=== PATIENT | female | born 1980 | race African-American/Black ===

== ENCOUNTER 2016-07-31 21:58 | Emergency (ER) | payer MEDICARE, MEDICAID ==
[~2016-07-31] VITALS: Ht 157.5 cm; Wt 70.3 kg
[~2016-07-31 21:58] MED LIST: ADALAT20 MG ORAL; BACLOFEN10 MG ORAL; CATAPRES0.2 MG ORAL; CLONIDINE 0.2M0.2 MG ORAL; CLONIDINE0.1 MG ORAL; COLACE100 MG ORAL; CYCLOBENZAPRINE10 MG ORAL; FEROSUL325 M1 PO; FUROSEMIDE20 M1 ORAL; HUMALOG100 UNIT/4 SUBQ; HYDROCODON-ACE1 EA13 ORAL; LEVEMIR FL100 UNIT/1 SUBQ; LIDODERM700 M1 TDERMAL; LOSARTAN POTASS25 MG ORAL; LOTENSIN20 MG ORAL; MACROBID100 MG ORAL; METOPROLOL TART25 MG ORAL; METOPROLOL TART50 MG ORAL; MIRALAX17 G2 ORAL; NORVASC5 MG ORAL; NOVOLOG100 UNITS1 SUBQ; SENNA-GEN8.6 M1 ORAL; SYNTHROID50 MCG ORAL; TERAZOSIN HCL1 MG ORAL; VALACYCLOVIR500 MG ORAL
[2016-07-31 22:08] VITALS: BP 151/91
--- NOTE | 2016-07-31 22:12 | Emergency Room Report ---
History of Present Illness General Chief Complaint: Abnormal Labs Source: Patient, Medical Record, EMS Present Illness HPI This is a 36-year-old female with a history of diabetes hypertension. She was admitted to the correction because of DKA and severe fluid overloaded. She is improved greatly. She was sent here because of uncontrolled blood sugar the correction. She currently being treated for a urinary tract infection with Cipro. Also complaining of vaginal bleeding and abdominal cramps. Denies any fever chills denies any nausea vomiting. Pain is 7/10. Allergies: Coded Allergies: PENICILLINS (Verified Allergy, Unknown, 03/13/15) Patient History Past Medical History: see triage record, old chart reviewed, DM, HTN Past Surgical History: other Pertinent Family History: none Social History: Denies: smoking Now: No Immunizations: other Reviewed Nursing Documentation: PMH: Agreed, PSxH: Agreed Nursing Documentation-PMH Hx Cardiac Problems: Yes Hx Hypertension: Yes Hx Diabetes: Yes Hx Cancer: No Hx Gastrointestinal Problems: No Hx Neurological Problems: No Hx Headaches: Yes Review of Systems Eye: Denies: blurred vision, eye pain ENT: Denies: ear pain, nose congestion, throat swelling Respiratory: Denies: cough, shortness of breath Cardiovascular: Denies: chest pain, palpitations Gastrointestinal: Reports: abdominal pain, Denies: diarrhea, nausea, vomiting Genitourinary: Reports: vag bleed/dc Musculoskeletal: Denies: back pain, joint pain Skin: Denies: rash Neurological: Denies: headache, numbness Endocrine: Denies: increased thirst, increased urine Hematologic/Lymphatic: Denies: easy bruising All Other Systems: negative except mentioned in HPI Physical Exam Vital Signs Date Time Temp Pulse Resp B/P Pulse Ox O2 Delivery O2 Flow Rate FiO2 07/31/16 21:59 97.9 82 18 151/91 98 Room Air vitals with hypertension Sp02 EP Interpretation: reviewed, normal General Appearance: well appearing, no apparent distress, alert Head: normocephalic, atraumatic Eyes: bilateral eye EOMI, bilateral eye PERRL ENT: hearing grossly normal, normal pharynx Neck: full range of motion, supple, no meningismus Respiratory: chest non-tender, lungs clear, normal breath sounds Cardiovascular #1: regular rate, rhythm, no murmur Gastrointestinal: normal bowel sounds, non tender, no mass, no organomegaly, no bruit, non-distended Musculoskeletal: back normal, gait/station normal, normal range of motion Psychiatric: mood/affect normal Skin: warm/dry Medical Decision Making Diagnostic Impression: Primary Impression: Anemia Qualified Codes: D64.9 - Anemia, unspecified Additional Impressions: HTN (hypertension) Qualified Codes: I10 - Essential (primary) hypertension Acute on chronic kidney failure Hyperglycemia due to type 1 diabetes mellitus Nephrotic range proteinuria ER Course Patient presents with hyperglycemia. Not in DKA. She is over diuresed with increasing creatinine. We'll discharge back to correction. No evidence of infection. Again she grew out Escherichia coli in the past and currently taking Cipro which is sensitive. We'll hold Lasix for a week and repeat chemistry. Patient said that she felt that she did leave the correction now. I stressed the case with Dr. Aranda who is covering for Dr. Holder. He agreed with the treatment plan. Lab Results Impression labs showed worsening BUN/creatinine. Last Vital Signs Date Time Temp Pulse Resp B/P Pulse Ox O2 Delivery O2 Flow Rate FiO2 07/31/16 21:59 97.9 82 18 151/91 98 Room Air Status: improved Disposition: [facility] Condition: Stable Additional Instructions: Hold Lasix for a week. Repeat chemistry within a week. Return for worsening symptoms. ANA GROSS M.D. Jul 31, 2016 22:12
[2016-07-31 23:06] LABS: APPEARANCE,URINE CLEAR; KETONES,URINE 2+ (NEGATIVE); LEUKOCYTE ESTERASE ,URINE NEGATIVE (NEGATIVE); NITRITE,URINE NEGATIVE (NEGATIVE); PH,URINE 6 (4.5-8.0); PROTEIN,URINE 4+ (NEGATIVE); UROBILINOGEN,URINE NORMAL MG/DL (0.0-1.0)
[2016-07-31 23:10] LABS: BASOPHILS % (AUTO) 0.8 % (0.0-2.0); EOSINOPHILS % (AUTO) 2.7 % (0.0-3.0); LYMPHOCYTES % (AUTO) 18.3 % (20.0-45.0); MEAN CORPUSCULAR HGB CONC 32.2 G/DL (32.0-36.0); MEAN CORPUSCULAR VOLUME 87 FL (80-99); MEAN PLATELET VOLUME 5.1 FL (6.5-10.1); MONOCYTES % (AUTO) 6.6 % (1.0-10.0); NEUTROPHILS % (AUTO) 71.6 % (45.0-75.0); PLATELET COUNT 362 K/UL (150-450); RED BLOOD COUNT 3.11 M/UL (4.20-5.40); RED CELL DISTRIBUTION WIDTH 12.7 % (11.6-14.8); WHITE BLOOD COUNT 8.5 K/UL (4.8-10.8)
[2016-07-31 23:19] LABS: ALANINE AMINOTRANSFERASE 14 U/L (3-33); ALBUMIN/GLOBULIN RATIO 0.7 (1.0-2.7); ANION GAP 18 (5-15); ASPARTATE AMINO TRANSFERASE 21 U/L (5-40); CALCIUM 8.4 mg/dL (8.6-10.2); CARBON DIOXIDE 23 mEQ/L (20-30); CHLORIDE 92 mEQ/L (98-107); CREATININE 3.9 mg/dL (0.5-0.9); GLOMERULAR FILTRATION RATE 15.6 mL/min (>60); HEMOLYSIS 7; POTASSIUM 4.2 mEQ/L (3.4-4.9); SODIUM 133 mEQ/L (135-145); TOTAL PROTEIN 6.6 g/dL (6.6-8.7)
[2016-07-31 23:37] VITALS: BP 149/93
[2016-07-31 23:43] LABS: BACTERIA,URINE FEW /HPF; HYALINE CASTS, URINE 0-2 /LPF; SQUAMOUS EPITHELIAL CELL,UR MODERATE /LPF (NONE/OCC); WBC,URINE 0-2 /HPF (0 - 2)
[2016-08-01 01:00] VITALS: BP 156/88
[2016-08-01 03:48] VITALS: BP 173/93
[2016-08-01 03:55] VITALS: BP 173/93
--- NOTE | 2016-08-05 14:02 | Diagnostic Imaging Report ---
Indication: Abdominal pain Technique: Continuous helical transaxial imaging of the abdomen and pelvis was obtained from the lung bases to the pubic symphysis. No intravenous contrast was administered. Coronal 2-D reformats were also obtained. Total Dose length Product (DLP): [address] Dose Index Volume (CTDIvol): 13 mGy Comparison: 05/27/16 Findings: The lung bases are clear. There is trace pericardial effusion which is thickening. Subcutaneous soft tissue stranding consistent with anasarca noted diffusely. This solid organ evaluation is limited. 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 There is no nephrolithiasis or hydronephrosis identified. Appendix is normal. Urinary bladder wall is mildly thickened. Intrauterine device is present and low-lying in the lower uterine segment upper cervix region. Please correlate clinically. No free fluid or free air identified. Impression: Intrauterine device in the lower uterine segment. This is unchanged from the last study. Trace pericardial effusion Anasarca Tiny angiomyolipoma left kidney Normal appendix limited study due to the absence of intravenous and oral contrast. [facility] has communicated the preliminary results to the Emergency Department. Their findings are largely concordant with this report. The CT scanner at [facility] is accredited by the [employer] and the scans are performed using protocols designed to limit radiation exposure to as low as reasonably achievable to attain images of sufficient resolution adequate for diagnostic evaluation.
== END 2016-08-01 03:55 ==
LOC: EDBD 21:58 → EMR 22:20
DX: D64.9 Anemia, unspecified (principal); I10 Essential (primary) hypertension; N18.9 Chronic kidney disease, unspecified; E10.65 Type 1 diabetes mellitus with hyperglycemia; R80.8 Other proteinuria; Z88.0 Allergy status to penicillin; N93.9 Abnormal uterine and vaginal bleeding, unspecified; R10.9 Unspecified abdominal pain
CPT/HCPCS: 36415; 74176; 80053; 81001; 81025; 82962; 85025; 96360

== ENCOUNTER 2016-09-08 15:56 | Inpatient (IN) | payer MEDICARE, MEDICAID ==
[~2016-09-08] VITALS: Ht 157.5 cm; Wt 80.7 kg
[2016-09-08 16:50] VITALS: BP 176/105
[2016-09-08 18:16] LABS: MEAN CORPUSCULAR HEMOGLOBIN 28.6 PG (27.0-31.0); MEAN CORPUSCULAR HGB CONC 32.7 G/DL (32.0-36.0); MEAN CORPUSCULAR VOLUME 87 FL (80-99); MEAN PLATELET VOLUME 5.2 FL (6.5-10.1); PLATELET COUNT 317 K/UL (150-450); RED BLOOD COUNT 2.03 M/UL (4.20-5.40); RED CELL DISTRIBUTION WIDTH 14.3 % (11.6-14.8); WHITE BLOOD COUNT 7.9 K/UL (4.8-10.8)
[2016-09-08 18:17] LABS: ALANINE AMINOTRANSFERASE 14 U/L (3-33); ALBUMIN/GLOBULIN RATIO 0.9 (1.0-2.7); ANION GAP 20 (5-15); ASPARTATE AMINO TRANSFERASE 17 U/L (5-40); CALCIUM 8.5 mg/dL (8.6-10.2); CARBON DIOXIDE 16 mEQ/L (20-30); CHLORIDE 98 mEQ/L (98-107); CREATININE 3.6 mg/dL (0.5-0.9); GLOMERULAR FILTRATION RATE 17.2 mL/min (>60); HEMOLYSIS 30; LIPASE 21 U/L (< 60); POTASSIUM 5.1 mEQ/L (3.4-4.9); SODIUM 134 mEQ/L (135-145); TROPONIN I < 0.30 ng/mL (<=0.30)
[2016-09-08 18:28] LABS: CKMB 6.1 ng/mL (< 3.8)
[2016-09-08 19:12] LABS: APPEARANCE,URINE CLEAR; KETONES,URINE NEGATIVE (NEGATIVE); LEUKOCYTE ESTERASE ,URINE NEGATIVE (NEGATIVE); NITRITE,URINE NEGATIVE (NEGATIVE); PH,URINE 5 (4.5-8.0); PROTEIN,URINE 4+ (NEGATIVE); UROBILINOGEN,URINE NORMAL MG/DL (0.0-1.0)
[2016-09-08 19:23] LABS: BACTERIA,URINE FEW /HPF; SQUAMOUS EPITHELIAL CELL,UR FEW /LPF (NONE/OCC); WBC,URINE 0-2 /HPF (0 - 2)
[2016-09-08 20:09] LABS: PROTHROMBIN TIME 10.1 SEC (9.30-11.50)
[2016-09-08 20:52] VITALS: BP 184/109
[2016-09-08] MEDS ORDERED: cloNIDine 0.2mg Tab ORAL ONE (21:00)
[2016-09-08 21:40] LABS: BASOPHILS % (MANUAL) 1 % (0-2); EOSINOPHILS % (MANUAL) 2 % (0-3); LYMPHOCYTES % (MANUAL) 13 % (20-45); NEUTROPHILS % (MANUAL) 79 % (45-75); TOTAL CELLS COUNTED 100
[2016-09-08 21:41] LABS: ANISOCYTOSIS 1+; BAND NEUTROPHILS % (MANUAL) 0 % (0-8); HYPOCHROMASIA 1+; PLATELET ESTIMATE ADEQUATE; PLATELET MORPHOLOGY NORMAL
[2016-09-08 21:55] VITALS: BP 167/91
--- NOTE | 2016-09-08 22:36 | Emergency Room Report ---
History of Present Illness General Chief Complaint: Upper Respiratory Illness Source: EMS (NELSON CHU) Present Illness HPI The patient is a 36 yo f with ESRD presenting for shortness of breath. The patient was being seen by her PMD for her followup visit after being discharged from the hospital for ESRD and fluid retention when she began to experience SOB and paramedics were called. The patient states that she is now feeling well and only admits to fatigue. The patient states that last time she felt like this, she was admitted for anemia. The patient denies any pain. Patient denies other symptoms including N, V, F, chills, CP, cough, abd pain, flank pain, hematuria, dysuria. The patient does admit to cold intolerance and dizziness. (NELSON CHU) Allergies: Coded Allergies: PENICILLINS (Verified Allergy, Unknown, 03/13/15) Patient History Past Medical History: see triage record Pertinent Family History: none Reviewed Nursing Documentation: PMH: Agreed, PSxH: Agreed (NELSON CHU) Nursing Documentation-PMH Past Medical History: No History, Except For Hx Cardiac Problems: Yes Hx Hypertension: Yes Hx Diabetes: Yes Hx Cancer: No Hx Gastrointestinal Problems: No Hx Neurological Problems: No Hx Headaches: Yes (NELSON CHU) Review of Systems All Other Systems: negative except mentioned in HPI (NELSON CHU P.Verenice) Physical Exam Vital Signs Date Time Temp Pulse Resp B/P Pulse Ox O2 Delivery O2 Flow Rate FiO2 09/08/16 15:51 98.4 110 18 176/105 100 Room Air (NELSON CHU P.AKylee) Medical Decision Making PA Attestation Dr. Huang is my supervising physician. Patient management was discussed with my supervising physician (NELSON CHU PKyleeAKylee) Diagnostic Impression: Primary Impression: Anemia Qualified Codes: D64.9 - Anemia, unspecified Additional Impressions: KENYA (acute kidney injury) HTN (hypertension) Qualified Codes: I15.9 - Secondary hypertension, unspecified Menometrorrhagia ER Course The patient is a 36 yo f with ESRD presenting for shortness of breath DDx: anemia, PNA, bronchitis, ESRD PE: HTN and tachycardia. Afebrile. A&Ox3. NAD Skin is warm and dry. No jaundice. No pallor Tachycardia. No MRG Lungs: CTA bilat Abd is soft and non tender. Normal BS No focal deficit. Normal gait CBC: significant anemia with H/H of 5.8 and 17.8. No leukocytosis CMP: hyponatremia, hyperkalemia, BUN/Cr significantly elevated, hyperglycemia PT/PTT WNL UA: No signs of infection CXR shows bilat lower lobe effusion. EKG shows sinus tachycardia and inferolateral ST depression. Blood transfusion is started in the ED and the pt will be admitted in serious condition. Dr. Huang has spoken with admitting physician. Pt agrees to this. Laboratory Tests Test 09/08/16 17:00 09/08/16 17:52 09/08/16 19:30 Urine Color Pale yellow Urine Appearance Clear Urine pH 5 (4.5-8.0) Urine Specific [place] 1.015 (1.005-1.035) Urine Protein 4+ (NEGATIVE) H Urine Glucose (UA) 3+ (NEGATIVE) H Urine Ketones Negative (NEGATIVE) Urine Occult Blood 4+ (NEGATIVE) H Urine Nitrite Negative (NEGATIVE) Urine Bilirubin Negative (NEGATIVE) Urine Urobilinogen Normal MG/DL (0.0-1.0) Urine Leukocyte Esterase Negative (NEGATIVE) Urine RBC 5-10 /HPF (0 - 2) H Urine WBC 0-2 /HPF (0 - 2) Urine Squamous Epithelial Cells Few /LPF (NONE/OCC) Urine Bacteria Few /HPF (NONE) White Blood Count 7.9 K/UL (4.8-10.8) Red Blood Count 2.03 M/UL (4.20-5.40) L Hemoglobin 5.8 G/DL (12.0-16.0) *L Hematocrit 17.8 % (37.0-47.0) L Mean Corpuscular Volume 87 FL (80-99) Mean Corpuscular Hemoglobin 28.6 PG (27.0-31.0) Mean Corpuscular Hemoglobin Concent 32.7 G/DL (32.0-36.0) Red Cell Distribution Width 14.3 % (11.6-14.8) Platelet Count 317 K/UL (150-450) Mean Platelet Volume 5.2 FL (6.5-10.1) L Neutrophils (%) (Auto) % (45.0-75.0) Lymphocytes (%) (Auto) % (20.0-45.0) Monocytes (%) (Auto) % (1.0-10.0) Eosinophils (%) (Auto) % (0.0-3.0) Basophils (%) (Auto) % (0.0-2.0) Differential Total Cells Counted 100 Neutrophils % (Manual) 79 % (45-75) H Lymphocytes % (Manual) 13 % (20-45) L Monocytes % (Manual) 5 % (1-10) Eosinophils % (Manual) 2 % (0-3) Basophils % (Manual) 1 % (0-2) Band Neutrophils 0 % (0-8) Platelet Estimate Adequate Platelet Morphology Normal Hypochromasia 1+ Anisocytosis 1+ Sodium Level 134 mEQ/L (135-145) L Potassium Level 5.1 mEQ/L (3.4-4.9) H Chloride Level 98 mEQ/L (98-107) Carbon Dioxide Level 16 mEQ/L (20-30) L Anion Gap 20 (5-15) H Blood Urea Nitrogen 50 mg/dL (7-23) H Creatinine 3.6 mg/dL (0.5-0.9) H Estimate Glomerular Filtration Rate 17.2 mL/min (>60) Glucose Level 246 mg/dL (74-106) H Calcium Level 8.5 mg/dL (8.6-10.2) L Total Bilirubin < 0.2 mg/dL (0.0-1.2) Aspartate Amino Transferase (AST) 17 U/L (5-40) Alanine Aminotransferase (ALT) 14 U/L (3-33) Alkaline Phosphatase 155 U/L (35-104) H Creatine Kinase MB 6.1 ng/mL (< 3.8) H Troponin I < 0.30 ng/mL (<=0.30) Total Protein 6.0 g/dL (6.6-8.7) L Albumin 2.9 g/dL (3.5-5.2) L Globulin 3.1 g/dL Albumin/Globulin Ratio 0.9 (1.0-2.7) L Lipase 21 U/L (< 60) Prothrombin Time 10.1 SEC (9.30-11.50) Prothrombin Time INR 1.0 (0.9-1.1) PTT 29 SEC (23-33) Lab Results Impression CBC: significant anemia with H/H of 5.8 and 17.8. No leukocytosis CMP: hyponatremia, hyperkalemia, BUN/Cr significantly elevated, hyperglycemia PT/PTT WNL UA: No signs of infection (NELSON CHU) ER Course Agree with the above note by Mr. Chu. The patient is examined by me. She is hemodynamically stable at this time. She had a critical hematocrit of. There is no evidence of active bleeding at this time. The patient needs blood transfusions. In addition to that she has renal insufficiency. The patient was discussed with Dr. Nam who was household refrigeration mechanic for Dr. Mi. The patient is admitted to a medical floor. CXR read by me also. Scribe documentation reviewed by me and is accurate. She took her blood pressure medicines today. She is complaining of headache. Non -focal neuro. H/O heavy periods. Hyperglycemia. Acidosis but without ketones in urine (excludes DKA). (Raymundo Huang M.D.) EKG Diagnostic Results EP Interpretation: Sinus tach Rate: tachycardiac - 111 Rhythm: NSR ST Segments: other - depression of inferiolateral leads ASA given to the pt in ED: No PA Scribe Text EKG was reviewed and read with my supervising physician. Sinus tachycardia. Inferolateral ST depression. (NELSON CHU) Rhythm Strip Diag. Results EP Interpretation: yes Rhythm: no PVC's, no ectopy, other - sT (Raymundo Huang M.D.) Chest X-Ray Diagnostic Results EP Interpretation: Yes Findings: no pneumothorax, other - Positive for bilateral pleural effusions Number of Views: 1 PA Scribe Text I am acting as scribe for my supervising physician. My supervising physician's interpretation of the chest xrays are there is bilateral pleural effusions (NELSON CHU) EP Interpretation: Yes Findings: no consolidation, no effusion, no pneumothorax, no acute cardiopulmonary disease Number of Views: 1 (Raymundo Huang M.D.) Last Vital Signs Date Time Temp Pulse Resp B/P Pulse Ox O2 Delivery O2 Flow Rate FiO2 09/08/16 20:55 184/109 09/08/16 20:52 97.8 113 18 97 Room Air Status: improved (TERZIAN,NELSON P.A.) Status: improved (Raymundo Huang M.D.) Disposition: ADMITTED INPATIENT Condition: Serious Referrals: NOT CHOSEN JAYCOB/,REFERRING (PCP) NELSON CHU Sep 08, 2016 22:36 Raymundo Huang M.D. Sep 08, 2016 23:41
[2016-09-08] MEDS ORDERED: AMLODIPINE BESYL5 MG ORAL (23:22)
[2016-09-08] MEDS ORDERED: TAMSULOSIN HCL0.4 MG ORAL (23:30)
[2016-09-08] MEDS ORDERED: LEXAPRO10 MG ORAL (23:30)
[2016-09-08] MEDS ORDERED: FUROSEMIDE40 MG ORAL (23:30)
[2016-09-08] MEDS ORDERED: EDARBYCLOR 40-1 EAC1 ORAL (23:30)
[2016-09-08] MEDS ORDERED: TEMAZEPAM15 MG ORAL (23:30)
[2016-09-08] MEDS ORDERED: LANTUS SOL100 UNIT/1 SUBQ (23:30)
[2016-09-08] MEDS ORDERED: SIMVASTATIN20 MG ORAL (23:30)
[2016-09-08] MEDS ORDERED: DIGOXIN0.125 MG/2 ORAL (23:30)
[2016-09-08] MEDS ORDERED: Morphine Sulfate 4mg/ml Inj IVP ONE (23:45)
[2016-09-08 23:52] VITALS: BP 182/99
[2016-09-09] VITALS (7 sets, daily range): BP systolic 153–170; BP diastolic 73–97
[2016-09-09] MEDS ORDERED: AMLODIPINE BESY10 MG ORAL (02:33)
[2016-09-09] MEDS ORDERED: MIRALAX17 G2 ORAL (02:33)
[2016-09-09] MEDS ORDERED: TAMSULOSIN HCL0.4 MG ORAL (02:33)
[2016-09-09] MEDS ORDERED: IRON325 M1 PO (02:33)
[2016-09-09] MEDS ORDERED: NITROGLYCERIN0.4 MG SL (02:41)
[2016-09-09] MEDS ORDERED: CYCLOBENZAPRINE10 MG ORAL (02:41)
[2016-09-09] MEDS ORDERED: METOCLOPRAMIDE H5 M1 ORAL (02:46)
[2016-09-09] MEDS ORDERED: LORAZEPAM0.5 MG ORAL (02:46)
[2016-09-09] MEDS ORDERED: TEMAZEPAM15 MG ORAL (02:50)
[2016-09-09] MEDS ORDERED: CATAPRES0.2 MG ORAL (02:50)
[2016-09-09] MEDS ORDERED: OXYCODONE HCL5 M2 ORAL (02:52)
[2016-09-09] MEDS ORDERED: NOVOLOG100 UNIT/3 SUBQ (03:08)
[2016-09-09] MEDS ORDERED: Nitroglycerin Subl 0.4mg tab (Bottle Of 25) SL PRN (03:45)
[2016-09-09] MEDS ORDERED: cloNIDine 0.2mg Tab ORAL PRN (03:45)
[2016-09-09] MEDS ORDERED: LORazepam 0.5mg tab ORAL PRN (03:45)
[2016-09-09] MEDS ORDERED: Cyclobenzaprine 10mg Tab ORAL PRN (03:45)
[2016-09-09] MEDS ORDERED: oxyCODONE 5mg IR tab ORAL PRN ×2 (03:45→19:45)
[2016-09-09] MEDS ORDERED: Acetaminophen 500mg (ES) tab ORAL PRN (03:45)
[2016-09-09] MEDS: Acetaminophen 500mg (ES) tab ORAL PRN (04:37)
[2016-09-09] MEDS: Promethazine/Codeine 5ml UD ORAL PRN ×2 (04:38→09:23)
[2016-09-09] MEDS: cloNIDine 0.2mg Tab ORAL SCH ×3 (06:00→23:01)
[2016-09-09] MEDS: NovoLOG Insulin Flexpen SUBQ SCH ×4 (06:25→23:03)
--- NOTE | 2016-09-09 08:36 | Diagnostic Imaging Report ---
Indication: Chest pain Technique: One view of the chest Comparison: none Findings: Lungs are clear. There is bilateral costophrenic angle blunting, consistent with bilateral pleural effusions. This is new since the prior study. Heart size is normal. Impression: Positive for bilateral pleural effusions
[2016-09-09] MEDS ORDERED: Furosemide 40mg tab ORAL SCH (09:00)
[2016-09-09] MEDS ORDERED: Digoxin Elixir 0.125mg ORAL SCH (09:00)
[2016-09-09] MEDS: Miralax 17gm pkt ORAL SCH (09:23)
--- NOTE | 2016-09-09 10:26 | History and Physical ---
History of Present Illness General Date patient seen: Sep 09, 2016 Time patient seen: 10:25 Reason for Hospitalization: RUCKER, generalized weakness Present Illness HPI 36 y/o female with pmh of hypothyroidism, HTN and DM type 1 c/b DKA in past, CKD who presents with RUCKER and generalized weakness. The patient was being seen by her PMD for her followup visit and was instructed to come to ED given concerning symptoms. The patient states that last time she felt like this, she was admitted for anemia. She also admits to generalized weakness/fatigue. Feels more SOB with walking a few steps, where as typically can walk abt a block or 2. The patient denies any pain. Patient denies other symptoms including N, V, F , chills, CP, cough, abd pain, flank pain, hematuria, dysuria. The patient does admit to cold intolerance and dizziness. Also w/ increased LE swelling. In ED, pt's hgb noted to 5.8. No signs of active bleeding. She was transfused 2U pRBCs overnight. Allergies: Coded Allergies: PENICILLINS (Verified Allergy, Unknown, 03/13/15) Medication History Scheduled Amlodipine Besylate* (Amlodipine Besylate*), 10 MG ORAL DAILY, (Reported) Azilsartan Med/Chlorthalidone (Edarbyclor 40-25 Mg Tablet), 1 TAB ORAL DAILY, ( Reported) Clonidine HCl (Clonidine HCl), 0.2 MG ORAL EVERY 8 HOURS Digoxin* (Digoxin*), 0.125 MG ORAL DAILY, (Reported) Escitalopram Oxalate* (Lexapro*), 10 MG ORAL DAILY, (Reported) Ferrous Sulfate (Iron), 325 MG PO DAILY, (Reported) Furosemide* (Lasix*), 40 MG ORAL DAILY, (Reported) Insulin Glargine (Lantus), 15 SUBQ BEDTIME, (Reported) Metoclopramide Hcl* (Metoclopramide Hcl*), 5 MG ORAL AC+HS, (Reported) Polyethylene Glycol 3350* (Miralax*), 17 GM ORAL DAILY, (Reported) Simvastatin (Zocor), 20 MG ORAL BEDTIME, (Reported) Tamsulosin Hcl (Tamsulosin Hcl*), 0.4 MG ORAL BEDTIME, (Reported) Temazepam (Temazepam*), 15 MG ORAL BEDTIME, (Reported) Scheduled PRN Clonidine Hcl* (Catapres*), 0.2 MG ORAL Q6HR PRN for For High Blood Pressure, ( Reported) Cyclobenzaprine Hcl* (Flexeril*), 10 MG ORAL THREE TIMES A DAY PRN for Muscle Spasm, (Reported) Lorazepam* (Lorazepam*), 0.5 MG ORAL BID PRN for Agitation, (Reported) Nitroglycerin (Nitroglycerin), 0.4 MG SL for For Pain, (Reported) Oxycodone Hcl* (Oxycodone Hcl*), 5 MG ORAL Q4H PRN for For Pain, (Reported) Temazepam (Temazepam*), 15 MG ORAL BEDTIME PRN for Insomnia, (Reported) Miscellaneous Medications Insulin Aspart* (Novolog*), 0 SUBQ, (Reported) Discontinued Medications Amlodipine Besylate (Norvasc), 5 MG ORAL DAILY Discontinued Reason: Medication dose changed Amlodipine Besylate* (Amlodipine Besylate*), 5 MG ORAL BID, (Reported) Discontinued Reason: Medication dose changed Clonidine HCl (Clonidine HCl), 0.1 MG ORAL Q4H PRN Discontinued Reason: Medication dose changed Docusate Sodium* (Colace*), 100 MG ORAL TWICE A DAY Discontinued Reason: Pt stopped taking med Ferrous Sulfate (Ferosul), 325 MG PO DAILY, (Reported) Discontinued Reason: Medication dose changed Furosemide* (Lasix*), 20 MG ORAL DAILY, (Reported) Discontinued Reason: Medication dose changed Hydrocodone Bit/Acetaminophen 10-325* (Hydrocodon-Acetaminophn 10-325*), 1 EA ORAL Q4H PRN Discontinued Reason: Pt stopped taking med Insulin Aspart (Novolog Flexpen), 12 UNITS SUBQ BEFORE MEALS Discontinued Reason: Medication dose changed Insulin Detemir (Levemir Flexpen), 16 UNITS SUBQ BID Discontinued Reason: Pt stopped taking med Insulin Glargine (Lantus), 15 SUBQ BEDTIME, (Reported) Discontinued Reason: MD discontinued med Insulin Lispro (Humalog), 0 SUBQ, (Reported) Discontinued Reason: Pt stopped taking med Lidocaine (Lidoderm), 1 PATCH TDERMAL DAILY Discontinued Reason: Pt stopped taking med Metoprolol Tartrate* (Metoprolol Tartrate*), 50 MG ORAL EVERY 12 HOURS Discontinued Reason: Pt stopped taking med Polyethylene Glycol 3350* (Miralax*), 17 GM ORAL DAILY Discontinued Reason: Medication dose changed Sennosides (Senna-Gen), 8.6 MG ORAL DAILY Discontinued Reason: Pt stopped taking med Tamsulosin Hcl (Tamsulosin Hcl*), 0.4 MG ORAL BEDTIME, (Reported) Discontinued Reason: Medication dose changed Terazosin Hcl* (Hytrin*), 1 MG ORAL BEDTIME, (Reported) Discontinued Reason: Pt stopped taking med Patient History History Provided By: Patient, Medical Record, PMD Healthcare decision maker Resuscitation status Full Code Advanced Directive on File No Family History Family History: Patient reports no known family medical history. Social History Social History: (1) No significant social history Review of Systems Constitutional: Reports: weakness Eye: Reports: no symptoms ENT: Reports: no symptoms Respiratory: Reports: shortness of breath Cardiovascular: Reports: edema, no symptoms Physical Exam Physical Exam Narrative General: alert, cooperative, no distress, appears stated age Head: normocephalic, without obvious abnormality, atraumatic Eyes: conjunctivae/corneas clear. PERRL, EOM's intact Throat: lips, mucosa, and tongue normal. MMM Neck: supple, symmetrical, trachea midline, and no JVD Lungs: clear to auscultation bilaterally, decr breath sounds b/l Heart: regular rate and rhythm, S1, S2 normal, no murmur, click, rub or gallop Abdomen: soft, non-tender, non-distended, bowel sounds normal; no masses or organomegaly Extremities: extremities normal, atraumatic, no cyanosis, 1+ BLE edema Pulses: 2+ and symmetric Skin: skin color, texture, turgor normal; no rashes or lesions Neurologic: grossly normal, no focal deficits Last 24 Hour Vital Signs Date Time Temp Pulse Resp B/P Pulse Ox O2 Delivery O2 Flow Rate FiO2 09/09/16 09:28 95 09/09/16 09:27 95 139/94 09/09/16 04:38 172/90 09/09/16 04:08 98.8 112 18 166/93 96 Room Air 09/09/16 04:00 109 09/09/16 01:32 98.4 109 19 161/97 97 Room Air 09/09/16 01:20 98.3 110 17 170/94 100 Room Air 09/09/16 01:20 98.4 110 17 170/94 100 Room Air 09/09/16 00:30 98.3 108 16 09/09/16 00:30 98.3 108 16 168/93 100 Room Air 09/09/16 00:30 98.3 108 16 09/09/16 00:15 99.0 110 18 162/90 100 Room Air 09/09/16 00:00 160/93 09/08/16 23:52 97.8 112 16 182/99 99 Room Air 09/08/16 21:55 112 16 167/91 97 Room Air 09/08/16 20:55 184/109 09/08/16 20:52 97.8 113 18 184/109 97 Room Air 09/08/16 16:50 18 176/105 100 Room Air 09/08/16 16:50 110 18 Room Air 09/08/16 15:51 98.4 110 18 176/105 100 Room Air Intake and Output 09/08/16 09/09/16 19:00 07:00 Output Total 0 ml Balance 0 ml Output Urine Total 0 ml # Voids 1 Laboratory Tests Test 09/08/16 17:00 09/08/16 17:52 09/08/16 19:30 Urine Color Pale yellow Urine Appearance Clear Urine pH 5 (4.5-8.0) Urine Specific [place] 1.015 (1.005-1.035) Urine Protein 4+ (NEGATIVE) H Urine Glucose (UA) 3+ (NEGATIVE) H Urine Ketones Negative (NEGATIVE) Urine Occult Blood 4+ (NEGATIVE) H Urine Nitrite Negative (NEGATIVE) Urine Bilirubin Negative (NEGATIVE) Urine Urobilinogen Normal MG/DL (0.0-1.0) Urine Leukocyte Esterase Negative (NEGATIVE) Urine RBC 5-10 /HPF (0 - 2) H Urine WBC 0-2 /HPF (0 - 2) Urine Squamous Epithelial Cells Few /LPF (NONE/OCC) Urine Bacteria Few /HPF (NONE) White Blood Count 7.9 K/UL (4.8-10.8) Red Blood Count 2.03 M/UL (4.20-5.40) L Hemoglobin 5.8 G/DL (12.0-16.0) *L Hematocrit 17.8 % (37.0-47.0) L Mean Corpuscular Volume 87 FL (80-99) Mean Corpuscular Hemoglobin 28.6 PG (27.0-31.0) Mean Corpuscular Hemoglobin Concent 32.7 G/DL (32.0-36.0) Red Cell Distribution Width 14.3 % (11.6-14.8) Platelet Count 317 K/UL (150-450) Mean Platelet Volume 5.2 FL (6.5-10.1) L Neutrophils (%) (Auto) % (45.0-75.0) Lymphocytes (%) (Auto) % (20.0-45.0) Monocytes (%) (Auto) % (1.0-10.0) Eosinophils (%) (Auto) % (0.0-3.0) Basophils (%) (Auto) % (0.0-2.0) Differential Total Cells Counted 100 Neutrophils % (Manual) 79 % (45-75) H Lymphocytes % (Manual) 13 % (20-45) L Monocytes % (Manual) 5 % (1-10) Eosinophils % (Manual) 2 % (0-3) Basophils % (Manual) 1 % (0-2) Band Neutrophils 0 % (0-8) Platelet Estimate Adequate Platelet Morphology Normal Hypochromasia 1+ Anisocytosis 1+ Sodium Level 134 mEQ/L (135-145) L Potassium Level 5.1 mEQ/L (3.4-4.9) H Chloride Level 98 mEQ/L (98-107) Carbon Dioxide Level 16 mEQ/L (20-30) L Anion Gap 20 (5-15) H Blood Urea Nitrogen 50 mg/dL (7-23) H Creatinine 3.6 mg/dL (0.5-0.9) H Estimat Glomerular Filtration Rate 17.2 mL/min (>60) Glucose Level 246 mg/dL (74-106) H Calcium Level 8.5 mg/dL (8.6-10.2) L Total Bilirubin < 0.2 mg/dL (0.0-1.2) Aspartate Amino Transf (AST/SGOT) 17 U/L (5-40) Alanine Aminotransferase (ALT/SGPT) 14 U/L (3-33) Alkaline Phosphatase 155 U/L (35-104) H Creatine Kinase MB 6.1 ng/mL (< 3.8) H Troponin I < 0.30 ng/mL (<=0.30) Total Protein 6.0 g/dL (6.6-8.7) L Albumin 2.9 g/dL (3.5-5.2) L Globulin 3.1 g/dL Albumin/Globulin Ratio 0.9 (1.0-2.7) L Lipase 21 U/L (< 60) Prothrombin Time 10.1 SEC (9.30-11.50) Prothromb Time International Ratio 1.0 (0.9-1.1) Activated Partial Thromboplast Time 29 SEC (23-33) Height (Feet): 5 Height (Inches): 2.00 Weight (Pounds): 168 Medications Current Medications Medications (Trade) Dose Ordered Sig/Toby Route PRN Reason Start Time Stop Time Status Last Admin Dose Admin Acetaminophen (Tylenol) 1,000 mg Q8HR PRN ORAL Prn Headache/Temp > 101 09/09/16 04:15 10/09/16 04:14 09/09/16 04:37 Amlodipine Besylate (Norvasc) 10 mg DAILY ORAL 09/09/16 09:00 10/09/16 08:59 09/09/16 09:27 Clonidine HCl (Catapres) 0.2 mg EVERY 8 HOURS ORAL 09/09/16 06:00 10/09/16 05:59 Clonidine HCl (Catapres) 0.2 mg Q6HR PRN ORAL For High Blood Pressure 09/09/16 03:45 10/09/16 03:44 09/09/16 04:38 Cyclobenzaprine HCl (Flexeril) 10 mg THREE TIMES A DAY PRN ORAL Muscle Spasm 09/09/16 03:45 10/09/16 03:44 Dextrose (Dextrose 50%) STAT PRN IV Hypoglycemia 09/09/16 03:45 10/09/16 03:44 Digoxin (Lanoxin) 0.125 mg DAILY ORAL 09/09/16 09:00 10/09/16 08:59 09/09/16 09:28 Escitalopram Oxalate (Lexapro) 10 mg DAILY ORAL 09/09/16 09:00 10/09/16 08:59 09/09/16 09:24 Furosemide (Lasix) 40 mg DAILY ORAL 09/09/16 09:00 10/09/16 08:59 09/09/16 09:25 Insulin Aspart (NovoLOG) BEFORE MEALS AND HS SUBQ 09/09/16 06:30 10/09/16 06:29 09/09/16 06:25 Insulin Detemir (Levemir) 15 units QHS SUBQ 09/09/16 21:00 10/09/16 20:59 Lorazepam (Ativan) 0.5 mg BID PRN ORAL Agitation 09/09/16 03:45 09/16/16 03:44 Metoclopramide HCl (Reglan) 5 mg AC+HS ORAL 09/09/16 06:30 10/09/16 06:29 09/09/16 06:26 Nitroglycerin (Ntg) 0.4 mg PRN PRN SL For Pain 09/09/16 03:45 10/09/16 03:44 Oxycodone HCl (Roxicodone) 5 mg Q4H PRN ORAL For Pain 09/09/16 03:45 09/16/16 03:44 Polyethylene Glycol (Miralax) 17 gm DAILY ORAL 09/09/16 09:00 10/09/16 08:59 09/09/16 09:23 Promethazine HCl/ Codeine (Phenergan with Codeine) 5 ml Q4H PRN ORAL For Cough 09/09/16 03:45 10/09/16 03:44 09/09/16 09:23 Sodium Chloride (Sodium Chloride 1000ml bag) 1,000 ml @ 10 mls/hr Q24H ONCE IV 09/08/16 21:51 09/09/16 21:50 09/09/16 00:42 Tamsulosin HCl (Flomax) 0.4 mg BEDTIME ORAL 09/09/16 21:00 10/09/16 20:59 Temazepam (Restoril) 15 mg BEDTIME PRN ORAL Insomnia 09/09/16 03:45 09/16/16 03:44 Assessment/Plan Problem List: (1) Anemia ICD Codes: D64.9 - Anemia, unspecified SNOMED: 756696531 Qualifiers: Qualified Codes: D64.9 - Anemia, unspecified (2) KENYA (acute kidney injury) ICD Codes: N17.9 - Acute kidney failure, unspecified SNOMED: 64745286 (3) CKD (chronic kidney disease) ICD Codes: N18.9 - Chronic kidney disease, unspecified SNOMED: 737026125 (4) Acute on chronic diastolic (congestive) heart failure ICD Codes: I50.33 - Acute on chronic diastolic (congestive) heart failure SNOMED: 05767932, 465600556 (5) DM (diabetes mellitus) ICD Codes: E11.9 - DM (diabetes mellitus) SNOMED: 72604059 Qualifiers: Qualified Codes: E10.21 - Type 1 diabetes mellitus with diabetic nephropathy (6) HTN (hypertension) ICD Codes: I10 - HTN (hypertension) SNOMED: 64387028 Qualifiers: Qualified Codes: I15.1 - Hypertension secondary to other renal disorders; N28.89 - Other specified disorders of kidney and ureter Status: stable Assessment/Plan Unclear etiology of anemia. No signs of active bleeding. Pt did have EGD in 2015 which showed gastritis. No colonoscopy yet. Denies heavy vaginal bleeding. Possibly anemia is secondary to CKD. Pt also appears to be volume overloaded Admit to inpt Nephrology consulted Lasix 40mg IV and assess response Hold digoxin given elevated level (2.8) Check TTE s/p 2U pRBCs on 09/08- w/ good response Trend CBC Consider EPO? Complete anemia workup with hemolysis labs, b12/folate, TSH, iron panel/ferritin Consider hematology consult GI consulted to assess if further workup of anemia needed Cont Detemir 15U qHS HANDY DVT Prophylaxis: SCD Code Status: Full Hospital Classification Declaration: Based on this initial evaluation, and depending on the patient's clinical course, I anticipate that this patient will require hospitalization for 2-3 days for anemia, KENYA, CHF and close respiratory/ hemodynamic monitoring. Disposition: Once the patient is stable to leave the hospital, I anticipate the patient will likely be discharged to the following environment: home with HH vs SNF I spent 70 minutes on this patient's case, and 36 minutes were dedicated to counseling and/or care coordination. Discussed with patient/family, nursing staff, SW/CM, renal regarding clinical status, treatment course, and disposition planning. Time of note may not reflect time of encounter. Gudelia Rudolph M.D. Sep 09, 2016 10:25
[2016-09-09 11:38] LABS: MEAN CORPUSCULAR HEMOGLOBIN 28.3 PG (27.0-31.0); MEAN CORPUSCULAR HGB CONC 33.1 G/DL (32.0-36.0); MEAN CORPUSCULAR VOLUME 85 FL (80-99); MEAN PLATELET VOLUME 5.3 FL (6.5-10.1); PLATELET COUNT 323 K/UL (150-450); RED BLOOD COUNT 2.81 M/UL (4.20-5.40); RED CELL DISTRIBUTION WIDTH 14.2 % (11.6-14.8); WHITE BLOOD COUNT 6.9 K/UL (4.8-10.8)
[2016-09-09 11:56] LABS: HEMOLYSIS 2; IRON 69 ug/dL (37-145); TOTAL IRON BINDING CAPACITY 242 ug/dL (250-400)
--- NOTE | 2016-09-09 12:05 | Consultation ---
Consult Note Consult Note asked to eval for renal failure- Patient known to me from her previous admission- The patient is a 36 yo f with ESRD presenting for shortness of breath. The patient was being seen by her PMD for her followup visit after being discharged from the hospital for ESRD and fluid retention when she began to experience SOB and paramedics were called. The patient states that she is now feeling well and only admits to fatigue. The patient states that last time she felt like this, she was admitted for anemia. The patient denies any pain. Patient denies other symptoms including N, V, F, chills, CP, cough, abd pain, flank pain, hematuria, dysuria. The patient does admit to cold intolerance and dizziness. 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
[2016-09-09 12:08] LABS: THYROID STIMULATING HORMONE 0.747 uIU/mL (0.300-4.500)
[2016-09-09 12:29] LABS: CALCIUM 8.3 mg/dL (8.6-10.2); CREATININE 3.4 mg/dL (0.5-0.9); GLOMERULAR FILTRATION RATE 18.3 mL/min (>60)
[2016-09-09 12:42] LABS: DIGOXIN 2.8 ng/mL (0.5-2.0)
[2016-09-09 13:30] LABS: BAND NEUTROPHILS % (MANUAL) 0 % (0-8); BASOPHILS % (MANUAL) 0 % (0-2); EOSINOPHILS % (MANUAL) 2 % (0-3); LYMPHOCYTES % (MANUAL) 21 % (20-45); NEUTROPHILS % (MANUAL) 72 % (45-75); PLATELET ESTIMATE ADEQUATE; PLATELET MORPHOLOGY NORMAL; TOTAL CELLS COUNTED 100
[2016-09-09 13:34] LABS: ANISOCYTOSIS 1+
[2016-09-09 14:21] LABS: OTHERS PATHOLOGIST COMMENT
[2016-09-09] MEDS ORDERED: Topiramate 25mg tab ORAL SCH (16:30)
[2016-09-09] MEDS: HYDROmorphone 2mg tab ORAL PRN ×2 (18:04→23:02)
[2016-09-09] MEDS ORDERED: Tamsulosin 0.4mg cap ORAL SCH (21:00)
[2016-09-09] MEDS ORDERED: Famotidine 20 MG/ 2ML VIAL IVP SCH (21:00)
[2016-09-09] MEDS: Levemir Flexpen SUBQ SCH (23:04)
[2016-09-10] MEDS: Promethazine/Codeine 5ml UD ORAL PRN ×3 (00:08→22:14)
[2016-09-10 00:13] VITALS: BP_SYST 143; BP_SYST 184; BP_DIAS 88; BP_DIAS 98
[2016-09-10 04:21] VITALS: BP 141/78
[2016-09-10] MEDS: cloNIDine 0.2mg Tab ORAL SCH ×3 (05:43→21:00)
[2016-09-10] MEDS: NovoLOG Insulin Flexpen SUBQ SCH ×4 (06:15→21:02)
[2016-09-10 07:54] LABS: MEAN CORPUSCULAR HEMOGLOBIN 29.1 PG (27.0-31.0); MEAN CORPUSCULAR HGB CONC 33.9 G/DL (32.0-36.0); MEAN CORPUSCULAR VOLUME 86 FL (80-99); MEAN PLATELET VOLUME 5.2 FL (6.5-10.1); PLATELET COUNT 313 K/UL (150-450); RED BLOOD COUNT 2.54 M/UL (4.20-5.40); RED CELL DISTRIBUTION WIDTH 14.3 % (11.6-14.8); WHITE BLOOD COUNT 6.4 K/UL (4.8-10.8)
[2016-09-10 07:59] LABS: MAGNESIUM 2.2 mg/dL (1.7-2.5); PHOSPHORUS 4.9 mg/dL (2.5-4.8)
[2016-09-10 08:00] VITALS: BP 154/88
[2016-09-10 08:18] LABS: ALANINE AMINOTRANSFERASE 24 U/L (3-33); ANION GAP 14 (5-15); ASPARTATE AMINO TRANSFERASE 40 U/L (5-40); CALCIUM 8.3 mg/dL (8.6-10.2); CARBON DIOXIDE 22 mEQ/L (20-30); CHLORIDE 102 mEQ/L (98-107); CREATININE 3.6 mg/dL (0.5-0.9); GLOMERULAR FILTRATION RATE 17.2 mL/min (>60); HEMOLYSIS 0; POTASSIUM 4.8 mEQ/L (3.4-4.9); SODIUM 138 mEQ/L (135-145); TOTAL PROTEIN 5.3 g/dL (6.6-8.7)
[2016-09-10] MEDS: HYDROmorphone 2mg tab ORAL PRN ×2 (08:27→12:58)
--- NOTE | 2016-09-10 09:38 | Diagnostic Imaging Report ---
APPROVED REPORT CPT Code: 36877 Present Symptoms Lower Extremity Pain: Bilateral Lower Extremity Edema: Bilateral Shortness of breath BILATERAL: Imaging reveals a patent deep venous system bilaterally. There is no evidence of thrombus within the femoral, popliteal or tibial segments. The greater saphenous veins are also within normal limits. Doppler indicates normal spontaneous flow within these segments.
[2016-09-10] MEDS: Miralax 17gm pkt ORAL SCH (10:08)
[2016-09-10 10:11] LABS: BAND NEUTROPHILS % (MANUAL) 0 % (0-8); BASOPHILS % (MANUAL) 0 % (0-2); EOSINOPHILS % (MANUAL) 4 % (0-3); LYMPHOCYTES % (MANUAL) 27 % (20-45); NEUTROPHILS % (MANUAL) 62 % (45-75); PLATELET ESTIMATE ADEQUATE; PLATELET MORPHOLOGY NORMAL; TOTAL CELLS COUNTED 100
[2016-09-10 10:13] LABS: MACROCYTES 1+
[2016-09-10 11:45] VITALS: BP 162/101
--- NOTE | 2016-09-10 12:52 | GI Initial Consult Note ---
History of Present Illness General Date patient seen: Sep 10, 2016 Time patient seen: 11:00 Reason for Hospitalization: Upper Respiratory Illness Referring physician: HOWIE HARRIS Reason for Consultation: ANEMIA Present Illness HPI The patient is a 36 yo f with ESRD presenting for shortness of breath. The patient was being seen by her PMD for her followup visit after being discharged from the hospital for ESRD and fluid retention when she began to experience SOB and paramedics were called. The patient states that she is now feeling well and only admits to fatigue. The patient states that last time she felt like this, she was admitted for anemia. The patient denies any pain. Patient denies other symptoms including N, V, F, chills, CP, cough, abd pain, flank pain, hematuria, dysuria. The patient does admit to cold intolerance and dizziness. GI CONSULT: HPI as noted above. GI consulted for anemia. Pt seen on floor, awake A&Ox4 NAD denies any abdominal pain at this time. C/o of constipation last BM x 1 week. Last menstrual cycle early September. Denies ETOH, tobacco, and drug use. s/p EGD 05/26/16 with gastritis. Iron panel unremarkable. The patient presents today with anemia, elevated alk phos and hypoalbuminemia. Home Meds Active Scripts Clonidine HCl (Clonidine HCl) 0.2 Mg Tablet, 0.2 MG ORAL EVERY 8 HOURS for 90 Days, TAB Prov:Gudelia Rudolph M.D. 05/28/16 Reported Medications Insulin Aspart* (NOVOLOG*) 100 Unit/1 Ml Insuln.pen, 0 SUBQ, #1 EA 0 Refills 09/09/16 Oxycodone Hcl* (OXYCODONE HCL*) 5 Mg Capsule, 5 MG ORAL Q4H Y for For Pain, CAP 0 Refills 09/09/16 Temazepam (TEMAZEPAM*) 15 Mg Capsule, 15 MG ORAL BEDTIME Y for Insomnia, #30 CAP 0 Refills 09/09/16 Clonidine Hcl* (CATAPRES*) 0.2 Mg Tablet, 0.2 MG ORAL Q6HR Y for For High Blood Pressure, TAB 09/09/16 Metoclopramide Hcl* (METOCLOPRAMIDE HCL*) 5 Mg Tablet, 5 MG ORAL AC+HS, TAB 09/09/16 Lorazepam* (LORAZEPAM*) 0.5 Mg Tablet, 0.5 MG ORAL BID Y for Agitation, TAB 09/09/16 Nitroglycerin (NITROGLYCERIN) 0.4 Mg Tab.subl, 0.4 MG SL Y for For Pain, TAB 09/09/16 Cyclobenzaprine Hcl* (FLEXERIL*) 10 Mg Tablet, 10 MG ORAL THREE TIMES A DAY Y for Muscle Spasm, TAB 09/09/16 Ferrous Sulfate (IRON) 325 Mg Tablet, 325 MG PO DAILY, TAB 09/09/16 Tamsulosin Hcl (TAMSULOSIN HCL*) 0.4 Mg Cap.er.24h, 0.4 MG ORAL BEDTIME, CAP 09/09/16 Polyethylene Glycol 3350* (MIRALAX*) 17 Gm Powd.pack, 17 GM ORAL DAILY, PACKET 09/09/16 Amlodipine Besylate* (AMLODIPINE BESYLATE*) 10 Mg Tablet, 10 MG ORAL DAILY, TAB 09/09/16 Insulin Glargine (LANTUS) 100 Unit/1 Ml Insuln.pen, 15 SUBQ BEDTIME, #1 EA 0 Refills 09/08/16 Furosemide* (LASIX*) 40 Mg Tablet, 40 MG ORAL DAILY, TAB 09/08/16 Simvastatin (ZOCOR) 20 Mg Tablet, 20 MG ORAL BEDTIME, TAB 09/08/16 Escitalopram Oxalate* (LEXAPRO*) 10 Mg Tablet, 10 MG ORAL DAILY, TAB 09/08/16 Temazepam (TEMAZEPAM*) 15 Mg Capsule, 15 MG ORAL BEDTIME, CAP 0 Refills 09/08/16 Azilsartan Med/Chlorthalidone (EDARBYCLOR 40-25 MG TABLET) 1 Each Tablet, 1 TAB ORAL DAILY, TAB 09/08/16 Digoxin* (DIGOXIN*) 0.125 Mg/2.5 Ml Solution, 0.125 MG ORAL DAILY, ML 0 Refills 09/08/16 Discontinued Reported Medications Insulin Glargine (LANTUS) 100 Unit/1 Ml Insuln.pen, 15 SUBQ BEDTIME, #1 EA 0 Refills 09/08/16 Tamsulosin Hcl (TAMSULOSIN HCL*) 0.4 Mg Cap.er.24h, 0.4 MG ORAL BEDTIME, CAP 09/08/16 Amlodipine Besylate* (AMLODIPINE BESYLATE*) 5 Mg Tablet, 5 MG ORAL BID, TAB 09/08/16 Ferrous Sulfate (FEROSUL) 325 Mg Tablet, 325 MG PO DAILY, TAB 05/22/16 Terazosin Hcl* (HYTRIN*) 1 Mg Capsule, 1 MG ORAL BEDTIME, #7 CAP 0 Refills 05/22/16 Furosemide* (LASIX*) 20 Mg Tablet, 20 MG ORAL DAILY, TAB 05/22/16 Insulin Lispro (HUMALOG) 100 Unit/1 Ml Cartridge, 0 SUBQ, #1 UNITS 0 Refills 03/13/15 Discontinued Scripts Docusate Sodium* (COLACE*) 100 Mg Capsule, 100 MG ORAL TWICE A DAY for 30 Days, CAP Prov:Gudelia Rudolph M.D. 05/28/16 Polyethylene Glycol 3350* (MIRALAX*) 17 Gm Powd.pack, 17 GM ORAL DAILY for 30 Days, PACK Prov:Gudelia Rudolph M.D. 05/28/16 Sennosides (SENNA-GEN) 8.6 Mg Tablet, 8.6 MG ORAL DAILY for 30 Days, TAB Prov:Gudelia Rudolph M.D. 05/28/16 Lidocaine (Lidoderm) 1 Each Adh..patch, 1 PATCH TDERMAL DAILY for 30 Days, PATCH Prov:Gudelia Rudolph M.D. 05/28/16 Insulin Detemir (LEVEMIR FLEXPEN) 100 Unit/1 Ml Insuln.pen, 16 UNITS SUBQ BID for 30 Days, EA Prov:Gudelia Rudolph M.D. 05/28/16 Hydrocodone Bit/Acetaminophen 10-325* (HYDROCODON-ACETAMINOPHN 10-325*) 1 Each Tablet, 1 EA ORAL Q4H Y for 30 Days, TAB Prov:Gudelia Rudolph M.D. 05/28/16 Clonidine HCl (Clonidine HCl) 0.1 Mg Tablet, 0.1 MG ORAL Q4H Y for 30 Days, TAB Prov:Gudelia Rudolph M.D. 05/28/16 Metoprolol Tartrate* (METOPROLOL TARTRATE*) 50 Mg Tablet, 50 MG ORAL EVERY 12 HOURS for 60 Days, TAB Prov:Gudelia Rudolph M.D. 11/23/16 Insulin Aspart (Novolog Flexpen) 100 Unit/1 Ml Insuln.pen, 12 UNITS SUBQ BEFORE MEALS for 30 Days, EA Prov:Gudelia Rudolph M.D. 05/28/16 Amlodipine Besylate (Norvasc) 5 Mg Tablet, 5 MG ORAL DAILY for 30 Days, #30 TAB Prov:Gudelia Rudolph M.D. 05/28/16 Med list reviewed/reconciled: Yes Allergies: Coded Allergies: PENICILLINS (Verified Allergy, Unknown, 03/13/15) Patient History History Provided By: Patient, Medical Record PMH Narrative Past Medical History: see triage record Pertinent Family History: none Reviewed Nursing Documentation: PMH: Agreed, PSxH: Agreed Nursing Documentation-PMH Past Medical History: No History, Except For Hx Cardiac Problems: Yes Hx Hypertension: Yes Hx Diabetes: Yes Hx Cancer: No Hx Gastrointestinal Problems: No Hx Neurological Problems: No Hx Headaches: Yes Social History: Denies: alcohol use, drug use, other, smoking Review of Systems All Other Systems: negative except mentioned in HPI Physical Exam Vital Signs Date Time Temp Pulse Resp B/P Pulse Ox O2 Delivery O2 Flow Rate FiO2 09/08/16 15:51 98.4 110 18 176/105 100 Room Air Sp02 EP Interpretation: reviewed Labs Laboratory Tests Test 09/10/16 07:15 White Blood Count 6.4 K/UL (4.8-10.8) Red Blood Count 2.54 M/UL (4.20-5.40) L Hemoglobin 7.4 G/DL (12.0-16.0) L Hematocrit 21.8 % (37.0-47.0) L Mean Corpuscular Volume 86 FL (80-99) Mean Corpuscular Hemoglobin 29.1 PG (27.0-31.0) Mean Corpuscular Hemoglobin Concent 33.9 G/DL (32.0-36.0) Red Cell Distribution Width 14.3 % (11.6-14.8) Platelet Count 313 K/UL (150-450) Mean Platelet Volume 5.2 FL (6.5-10.1) L Neutrophils (%) (Auto) % (45.0-75.0) Lymphocytes (%) (Auto) % (20.0-45.0) Monocytes (%) (Auto) % (1.0-10.0) Eosinophils (%) (Auto) % (0.0-3.0) Basophils (%) (Auto) % (0.0-2.0) Differential Total Cells Counted 100 Neutrophils % (Manual) 62 % (45-75) Lymphocytes % (Manual) 27 % (20-45) Monocytes % (Manual) 7 % (1-10) Eosinophils % (Manual) 4 % (0-3) H Basophils % (Manual) 0 % (0-2) Band Neutrophils 0 % (0-8) Platelet Estimate Adequate Platelet Morphology Normal Macrocytosis 1+ Sodium Level 138 mEQ/L (135-145) Potassium Level 4.8 mEQ/L (3.4-4.9) Chloride Level 102 mEQ/L (98-107) Carbon Dioxide Level 22 mEQ/L (20-30) Anion Gap 14 (5-15) Blood Urea Nitrogen 51 mg/dL (7-23) H Creatinine 3.6 mg/dL (0.5-0.9) H Estimat Glomerular Filtration Rate 17.2 mL/min (>60) Glucose Level 79 mg/dL (74-106) # Calcium Level 8.3 mg/dL (8.6-10.2) L Phosphorus Level 4.9 mg/dL (2.5-4.8) H Magnesium Level 2.2 mg/dL (1.7-2.5) Total Bilirubin < 0.2 mg/dL (0.0-1.2) Aspartate Amino Transf (AST/SGOT) 40 U/L (5-40) Alanine Aminotransferase (ALT/SGPT) 24 U/L (3-33) Alkaline Phosphatase 268 U/L (35-104) H Total Protein 5.3 g/dL (6.6-8.7) L Albumin 2.7 g/dL (3.5-5.2) L Globulin 2.6 g/dL Albumin/Globulin Ratio 1.0 (1.0-2.7) General Appearance: well appearing, no apparent distress, alert Head: normocephalic EENT: normal ENT inspection Neck: supple Respiratory: normal breath sounds, no respiratory distress Cardiovascular: normal rate Gastrointestinal: normal inspection, non tender, soft, normal bowel sounds Rectal: other - pending OB stool Musculoskeletal: back normal Neurologic: normal inspection, alert, oriented x3, responsive Psychiatric: normal inspection, judgement/insight normal, memory normal Skin: normal inspection, normal color, no rash, warm/dry Lymphatic: normal inspection, no adenopathy Current Medications Current Medications Medications (Trade) Dose Ordered Sig/Toby Route PRN Reason Start Time Stop Time Status Last Admin Dose Admin Acetaminophen (Tylenol) 1,000 mg Q8HR PRN ORAL Prn Headache/Temp > 101 09/09/16 04:15 10/09/16 04:14 09/09/16 04:37 Amlodipine Besylate (Norvasc) 10 mg DAILY ORAL 09/09/16 09:00 10/09/16 08:59 09/10/16 10:08 Clonidine HCl (Catapres) 0.1 mg Q4H PRN ORAL SBP>160 09/09/16 13:00 10/09/16 12:59 Clonidine HCl (Catapres) 0.2 mg EVERY 8 HOURS ORAL 09/09/16 06:00 10/09/16 05:59 09/10/16 05:43 Cyclobenzaprine HCl (Flexeril) 10 mg THREE TIMES A DAY PRN ORAL Muscle Spasm 09/09/16 03:45 10/09/16 03:44 Dextrose (Dextrose 50%) STAT PRN IV Hypoglycemia 09/09/16 03:45 10/09/16 03:44 Diphenhydramine HCl (Benadryl) 25 mg Q6H PRN ORAL Itching 09/09/16 21:15 10/09/16 21:14 09/10/16 08:27 Escitalopram Oxalate (Lexapro) 10 mg DAILY ORAL 09/09/16 09:00 10/09/16 08:59 09/10/16 10:08 Famotidine (Pepcid I.v.) 20 mg Q24H IVP 09/09/16 21:00 10/09/16 20:59 09/09/16 23:01 Hydromorphone HCl (Dilaudid) 1 mg Q4H PRN ORAL Severe Pain (Pain Scale 7-10) 09/09/16 16:15 09/16/16 16:14 09/10/16 08:27 Insulin Aspart (NovoLOG) BEFORE MEALS AND HS SUBQ 09/09/16 06:30 10/09/16 06:29 09/10/16 12:43 Insulin Detemir (Levemir) 15 units QHS SUBQ 09/09/16 21:00 10/09/16 20:59 09/09/16 23:04 Lorazepam (Ativan) 0.5 mg BID PRN ORAL Agitation 09/09/16 03:45 09/16/16 03:44 Nitroglycerin (Ntg) 0.4 mg PRN PRN SL For Pain 09/09/16 03:45 10/09/16 03:44 Oxycodone HCl (Roxicodone) 5 mg Q4H PRN ORAL For moderate Pain 09/09/16 19:45 09/16/16 19:44 Polyethylene Glycol (Miralax) 17 gm DAILY ORAL 09/09/16 09:00 10/09/16 08:59 09/10/16 10:08 Promethazine HCl/ Codeine (Phenergan with Codeine) 5 ml Q4H PRN ORAL For Cough 09/09/16 03:45 10/09/16 03:44 09/10/16 08:27 Tamsulosin HCl (Flomax) 0.4 mg BEDTIME ORAL 09/09/16 21:00 10/09/16 20:59 09/09/16 23:01 Temazepam (Restoril) 15 mg BEDTIME PRN ORAL Insomnia 09/09/16 03:45 09/16/16 03:44 GI: Plan Problems: (1) Hypoalbuminemia (2) Anemia (3) DM (diabetes mellitus) (4) Constipation Plan s/p EGD 05/26/16 >> gastritis iron panel unremarkable OB stool uncollected consider colonoscopy to evaluate anemia pending OB stool collection monitor H&H, transfuse prn H2 miralax + colace, consider lactulose if no BM fu labs ADA/renal diet Discussed with Dr. Santoyo. Thank you for referring this patient, we will follow. Alexandra Leonard N.P. Sep 10, 2016 12:52
--- NOTE | 2016-09-10 14:00 | General Progress Note ---
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 Plan: Avoid nephrotoxics- EPO and IV Iron and B12 and Folate BP control gentle diuresis 2D echo pending kidney JESUSITA pending monitor renal parameters Subjective ROS Limited/Unobtainable: No Constitutional: Reports: malaise Allergies: Coded Allergies: PENICILLINS (Verified Allergy, Unknown, 03/13/15) Objective Last 24 Hour Vital Signs Date Time Temp Pulse Resp B/P Pulse Ox O2 Delivery O2 Flow Rate FiO2 09/10/16 12:00 95 09/10/16 11:45 97.9 94 18 162/101 95 Room Air 09/10/16 10:08 95 154/88 09/10/16 08:00 87 09/10/16 08:00 98.1 95 18 154/88 97 Room Air 09/10/16 05:43 141/78 09/10/16 04:21 98.4 102 18 141/78 93 Room Air 09/10/16 04:00 84 09/10/16 00:13 98.7 109 19 143/88 94 Room Air 09/10/16 00:00 103 09/09/16 23:01 155/80 09/09/16 20:00 98.1 89 18 155/80 93 Room Air 09/09/16 20:00 90 09/09/16 16:00 97.9 92 18 153/73 95 Room Air 09/09/16 16:00 97 09/09/16 14:41 153/91 Intake and Output 09/09/16 09/10/16 19:00 07:00 Intake Total 640 ml 75 ml Balance 640 ml 75 ml Intake Oral 640 ml 75 ml # Voids 3 1 Laboratory Tests 09/10/16 07:15: White Blood Count 6.4, Red Blood Count 2.54L, Hemoglobin 7.4L, Hematocrit 21.8L , Mean Corpuscular Volume 86, Mean Corpuscular Hemoglobin 29.1, Mean Corpuscular Hemoglobin Concent 33.9, Red Cell Distribution Width 14.3, Platelet Count 313, Mean Platelet Volume 5.2L, Neutrophils (%) (Auto) , Lymphocytes (%) ( Auto) , Monocytes (%) (Auto) , Eosinophils (%) (Auto) , Basophils (%) (Auto) , Differential Total Cells Counted 100, Neutrophils % (Manual) 62, Lymphocytes % ( Manual) 27, Monocytes % (Manual) 7, Eosinophils % (Manual) 4H, Basophils % ( Manual) 0, Band Neutrophils 0, Platelet Estimate Adequate, Platelet Morphology Normal, Macrocytosis 1+, Sodium Level 138, Potassium Level 4.8, Chloride Level 102, Carbon Dioxide Level 22, Anion Gap 14, Blood Urea Nitrogen 51H, Creatinine 3.6H, Estimat Glomerular Filtration Rate 17.2, Glucose Level 79#, Calcium Level 8.3L, Phosphorus Level 4.9H, Magnesium Level 2.2, Total Bilirubin < 0.2, Aspartate Amino Transf (AST/SGOT) 40, Alanine Aminotransferase (ALT/SGPT) 24, Alkaline Phosphatase 268H, Total Protein 5.3L, Albumin 2.7L, Globulin 2.6, Albumin/Globulin Ratio 1.0 Height (Feet): 5 Height (Inches): 2.00 Weight (Pounds): 172 General Appearance: no apparent distress, lethargic Cardiovascular: tachycardia Respiratory/Chest: decreased breath sounds Abdomen: soft Edema: 1+ Arm (L), 1+ Arm (R), 1+ Leg (L), 1+ Leg (R), 1+ Pedal (L), 1+ Pedal ( R), 1+ Generalized MICHELLE HOOK Sep 10, 2016 14:00
--- NOTE | 2016-09-10 15:01 | General Progress Note ---
Assessment/Plan Problem List: (1) acute on chronic anemia (2) KENYA (acute kidney injury) Assessment & Plan: on CKD stage 4 24hr urine showed nephrotic range proteinuria in 05/2016 ICD Codes: N17.9 - Acute kidney failure, unspecified SNOMED: 31303435 (3) Acute on chronic diastolic (congestive) heart failure ICD Codes: I50.33 - Acute on chronic diastolic (congestive) heart failure SNOMED: 15964127, 529083109 (4) DM (diabetes mellitus) ICD Codes: E11.9 - DM (diabetes mellitus) SNOMED: 86976710 Qualifiers: Qualified Codes: E10.21 - Type 1 diabetes mellitus with diabetic nephropathy (5) HTN (hypertension) ICD Codes: I10 - HTN (hypertension) SNOMED: 69448692 Qualifiers: Qualified Codes: I15.9 - Secondary hypertension, unspecified (6) Headache ICD Codes: R51 - Headache SNOMED: 40447500 Status: stable Status Narrative Unclear etiology of anemia. No signs of active bleeding. Pt did have EGD in 2015 which showed gastritis. No colonoscopy yet. Denies heavy vaginal bleeding. Possibly anemia is secondary to CKD. Pt also appears to be volume overloaded Admit to inpt Nephrology consulted, appreciate rec's Change to lasix 80mg qd Hold digoxin given elevated level (2.8)--repeat level trending down F/u TTE s/p 2U pRBCs on 09/08- w/ good response Trend CBC EPO started per renal F/u haptoglobin to assess fo hemolysis Consider hematology consult GI consulted to assess if further workup of anemia needed--check FOBT; possible plan for colonscopy Cont Detemir 15U qHS HANDY DVT Prophylaxis: SCD Code Status: Full Hospital Classification Declaration: Based on this initial evaluation, and depending on the patient's clinical course, I anticipate that this patient will require hospitalization for 2-3 days for anemia, KENYA, CHF and close respiratory/ hemodynamic monitoring. Disposition: Once the patient is stable to leave the hospital, I anticipate the patient will likely be discharged to the following environment: home with HH vs SNF I spent 40 minutes on this patient's case, and 22 minutes were dedicated to counseling and/or care coordination. Discussed with patient/family, nursing staff, SW/CM, renal regarding clinical status, treatment course, and disposition planning. Time of note may not reflect time of encounter. Subjective Date patient seen: Sep 10, 2016 Time patient seen: 15:01 ROS Limited/Unobtainable: No Constitutional: Reports: no symptoms HEENT: Reports: no symptoms Cardiovascular: Reports: no symptoms Respiratory: Reports: shortness of breath Gastrointestinal/Abdominal: Reports: no symptoms Genitourinary: Reports: no symptoms Neurologic/Psychiatric: Reports: no symptoms Endocrine: Reports: no symptoms Hematologic/Lymphatic: Reports: no symptoms Allergies: Coded Allergies: PENICILLINS (Verified Allergy, Unknown, 03/13/15) All Systems: reviewed and negative except above Subjective No acute o/n events Cr uptrending I/O's inaccurate Hgb stable Pt doing well. Still w/ some generalized weakness and SOB C/o L sided headache.Has a h/o migraines. Objective Last 24 Hour Vital Signs Date Time Temp Pulse Resp B/P Pulse Ox O2 Delivery O2 Flow Rate FiO2 09/10/16 12:00 95 09/10/16 11:45 97.9 94 18 162/101 95 Room Air 09/10/16 10:08 95 154/88 09/10/16 08:00 87 09/10/16 08:00 98.1 95 18 154/88 97 Room Air 09/10/16 05:43 141/78 09/10/16 04:21 98.4 102 18 141/78 93 Room Air 09/10/16 04:00 84 09/10/16 00:13 98.7 109 19 143/88 94 Room Air 09/10/16 00:00 103 09/09/16 23:01 155/80 09/09/16 20:00 98.1 89 18 155/80 93 Room Air 09/09/16 20:00 90 09/09/16 16:00 97.9 92 18 153/73 95 Room Air 09/09/16 16:00 97 Intake and Output 09/09/16 09/10/16 19:00 07:00 Intake Total 640 ml 75 ml Balance 640 ml 75 ml Intake Oral 640 ml 75 ml # Voids 3 1 Laboratory Tests 09/10/16 07:15: White Blood Count 6.4, Red Blood Count 2.54L, Hemoglobin 7.4L, Hematocrit 21.8L , Mean Corpuscular Volume 86, Mean Corpuscular Hemoglobin 29.1, Mean Corpuscular Hemoglobin Concent 33.9, Red Cell Distribution Width 14.3, Platelet Count 313, Mean Platelet Volume 5.2L, Neutrophils (%) (Auto) , Lymphocytes (%) ( Auto) , Monocytes (%) (Auto) , Eosinophils (%) (Auto) , Basophils (%) (Auto) , Differential Total Cells Counted 100, Neutrophils % (Manual) 62, Lymphocytes % ( Manual) 27, Monocytes % (Manual) 7, Eosinophils % (Manual) 4H, Basophils % ( Manual) 0, Band Neutrophils 0, Platelet Estimate Adequate, Platelet Morphology Normal, Macrocytosis 1+, Sodium Level 138, Potassium Level 4.8, Chloride Level 102, Carbon Dioxide Level 22, Anion Gap 14, Blood Urea Nitrogen 51H, Creatinine 3.6H, Estimat Glomerular Filtration Rate 17.2, Glucose Level 79#, Calcium Level 8.3L, Phosphorus Level 4.9H, Magnesium Level 2.2, Total Bilirubin < 0.2, Aspartate Amino Transf (AST/SGOT) 40, Alanine Aminotransferase (ALT/SGPT) 24, Alkaline Phosphatase 268H, Total Protein 5.3L, Albumin 2.7L, Globulin 2.6, Albumin/Globulin Ratio 1.0 Height (Feet): 5 Height (Inches): 2.00 Weight (Pounds): 172 Objective General: alert, cooperative, no distress, appears stated age Head: normocephalic, without obvious abnormality, atraumatic Eyes: conjunctivae/corneas clear. PERRL, EOM's intact Throat: lips, mucosa, and tongue normal. MMM Neck: supple, symmetrical, trachea midline, and no JVD Lungs: clear to auscultation bilaterally, decr breath sounds b/l Heart: regular rate and rhythm, S1, S2 normal, no murmur, click, rub or gallop Abdomen: soft, non-tender, non-distended, bowel sounds normal; no masses or organomegaly Extremities: extremities normal, atraumatic, no cyanosis, 1+ BLE edema Pulses: 2+ and symmetric Skin: skin color, texture, turgor normal; no rashes or lesions Neurologic: grossly normal, no focal deficits Gudelia Rudolph M.D. Sep 10, 2016 15:01
--- NOTE | 2016-09-10 15:30 | Cardiology Report ---
APPROVED REPORT EXAM: Two-dimensional and M-mode echocardiogram with Doppler and color Doppler. INDICATION Congestive Heart Failure M-Mode DIMENSIONS IVSd1.2 (0.7-1.1cm)Left Atrium (MM)3.4 (1.6-4.0cm) LVDd4.8 (3.5-5.6cm)Aortic Root2.2 (2.0-3.7cm) PWd1.1 (0.7-1.1cm)Aortic Cusp Exc.1.5 (1.5-2.0cm) LVDs2.8 (2.5-4.0cm) PWs1.8 cm Normal left ventricular chamber size, systolic function and wall motion. Left ventricular ejection fraction estimated to be 65-70 %. Moderate left ventricular hypertrophy. No evidence of pericardial effusion. All other cardiac chamber sizes are within normal limits. Mild focal aortic valve sclerosis with adequate cusp excursion. Mildly thickened mitral valve leaflets with normal excursion. Mitral annulus and aortic root calcification. Pulmonic valve not well visualized. Normal tricuspid valve structure. IVC at normal size with physiologic collapse. A color flow and spectral Doppler study was performed and revealed: Trace mitral regurgitation. Mitral diastolic velocities suggest reduced left ventricular relaxation c/w mild LV diastolic dysfunction (Grade I ). Trace tricuspid regurgitation. Tricuspid systolic velocities suggests peak right ventricular systolic pressure of 17 mmHg.
[2016-09-10] MEDS ORDERED: Iron Sucrose 200 MG in NS 110 ML IVPB ONE (16:00)
--- NOTE | 2016-09-10 16:05 | Cardiology Report ---
APPROVED REPORT EKG Measurement Heart [id number] Sinus tachycardia Abnormal ECG
[2016-09-10 16:39] VITALS: BP 172/99
[2016-09-10] MEDS: Vitamin B12 1000mcg/ml Inj IM SCH (17:13)
[2016-09-10] MEDS: Tamsulosin 0.4mg cap ORAL SCH (17:14)
[2016-09-10] MEDS: Furosemide 80mg tab ORAL SCH (17:20)
[2016-09-10 20:00] VITALS: BP 151/99
[2016-09-10] MEDS: Morphine IR 15mg tab ORAL PRN (21:00)
[2016-09-10] MEDS ORDERED: Epogen (for non ESRD use) SUBQ SCH (21:00)
[2016-09-10] MEDS: Levemir Flexpen SUBQ SCH (21:03)
[2016-09-11 00:12] VITALS: BP 152/97
[2016-09-11] MEDS: Acetaminophen 500mg (ES) tab ORAL PRN (00:23)
[2016-09-11 04:11] VITALS: BP 157/90
[2016-09-11] MEDS: Promethazine/Codeine 5ml UD ORAL PRN ×2 (06:01→22:37)
[2016-09-11] MEDS: cloNIDine 0.2mg Tab ORAL SCH ×3 (06:05→22:00)
[2016-09-11] MEDS: NovoLOG Insulin Flexpen SUBQ SCH ×4 (06:30→21:40)
[2016-09-11] MEDS: Morphine IR 15mg tab ORAL PRN (07:28)
[2016-09-11 08:16] LABS: MEAN CORPUSCULAR HGB CONC 32.3 G/DL (32.0-36.0); MEAN CORPUSCULAR VOLUME 87 FL (80-99); MEAN PLATELET VOLUME 5.4 FL (6.5-10.1); PLATELET COUNT 313 K/UL (150-450); RED BLOOD COUNT 2.68 M/UL (4.20-5.40); RED CELL DISTRIBUTION WIDTH 14.8 % (11.6-14.8); WHITE BLOOD COUNT 5.9 K/UL (4.8-10.8)
[2016-09-11] MEDS: Tamsulosin 0.4mg cap ORAL SCH ×2 (08:35→17:49)
[2016-09-11] MEDS: Vitamin B12 1000mcg/ml Inj IM SCH (08:35)
[2016-09-11] MEDS: Miralax 17gm pkt ORAL SCH (08:36)
[2016-09-11 08:42] VITALS: BP 160/95
[2016-09-11 08:44] LABS: CREATININE 3.8 mg/dL (0.5-0.9); GLOMERULAR FILTRATION RATE 16.1 mL/min (>60); MAGNESIUM 2.2 mg/dL (1.7-2.5); PHOSPHORUS 5.2 mg/dL (2.5-4.8); POTASSIUM 5.5 mEQ/L (3.4-4.9)
[2016-09-11 10:35] LABS: ANISOCYTOSIS 1+; BAND NEUTROPHILS % (MANUAL) 0 % (0-8); BASOPHILS % (MANUAL) 0 % (0-2); EOSINOPHILS % (MANUAL) 4 % (0-3); HYPOCHROMASIA 1+; LYMPHOCYTES % (MANUAL) 21 % (20-45); NEUTROPHILS % (MANUAL) 66 % (45-75); PLATELET ESTIMATE ADEQUATE; PLATELET MORPHOLOGY NORMAL; TOTAL CELLS COUNTED 100
--- NOTE | 2016-09-11 11:10 | General Progress Note ---
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 Plan: Avoid nephrotoxics- add lopressor- doss, and 24 h urine CrCl and Protein EPO and IV Iron and B12 and Folate BP control gentle diuresis 2D echo noted kidney JESUSITA pending monitor renal parameters Subjective ROS Limited/Unobtainable: No Constitutional: Reports: malaise Allergies: Coded Allergies: PENICILLINS (Verified Allergy, Unknown, 03/13/15) Objective Last 24 Hour Vital Signs Date Time Temp Pulse Resp B/P Pulse Ox O2 Delivery O2 Flow Rate FiO2 09/11/16 08:42 97.3 92 18 160/95 95 Room Air 09/11/16 08:36 90 160/95 09/11/16 06:05 148/98 09/11/16 04:11 98.7 88 18 157/90 97 Room Air 09/11/16 04:00 86 09/11/16 00:12 98.4 93 19 152/97 95 Room Air 09/11/16 00:00 105 09/10/16 21:00 160/99 09/10/16 20:00 98.4 90 20 151/99 95 Room Air 09/10/16 20:00 94 09/10/16 16:39 97.7 98 18 172/99 97 Room Air 09/10/16 16:00 100 09/10/16 15:04 162/101 09/10/16 12:00 95 09/10/16 11:45 97.9 94 18 162/101 95 Room Air Intake and Output 09/10/16 09/11/16 19:00 07:00 Intake Total 720 ml Balance 720 ml Intake Oral 480 ml IV Total 240 ml # Voids 3 5 Laboratory Tests 09/11/16 07:25: White Blood Count 5.9, Red Blood Count 2.68L, Hemoglobin 7.5L, Hematocrit 23.2L , Mean Corpuscular Volume 87, Mean Corpuscular Hemoglobin 28.0, Mean Corpuscular Hemoglobin Concent 32.3, Red Cell Distribution Width 14.8, Platelet Count 313, Mean Platelet Volume 5.4L, Neutrophils (%) (Auto) , Lymphocytes (%) ( Auto) , Monocytes (%) (Auto) , Eosinophils (%) (Auto) , Basophils (%) (Auto) , Differential Total Cells Counted 100, Neutrophils % (Manual) 66, Lymphocytes % ( Manual) 21, Monocytes % (Manual) 9, Eosinophils % (Manual) 4H, Basophils % ( Manual) 0, Band Neutrophils 0, Platelet Estimate Adequate, Platelet Morphology Normal, Hypochromasia 1+, Anisocytosis 1+, Sodium Level 135, Potassium Level 5.5H, Chloride Level 98, Carbon Dioxide Level 20, Anion Gap 17H, Blood Urea Nitrogen 54H, Creatinine 3.8H, Estimat Glomerular Filtration Rate 16.1, Glucose Level 99, Calcium Level 8.0L, Phosphorus Level 5.2H, Magnesium Level 2.2, Digoxin Level 1.6 Height (Feet): 5 Height (Inches): 2.00 Weight (Pounds): 176 General Appearance: no apparent distress Cardiovascular: tachycardia Respiratory/Chest: decreased breath sounds Edema: 1+ Arm (L), 1+ Arm (R), 1+ Leg (L), 1+ Leg (R), 1+ Pedal (L), 1+ Pedal ( R), 1+ Generalized MICHELLE HOOK Sep 11, 2016 11:09
--- NOTE | 2016-09-11 11:18 | GI Progress Note ---
Assessment/Plan Problems: (1) Hypoalbuminemia ICD Codes: E88.09 - Other disorders of plasma-protein metabolism, not elsewhere classified SNOMED: 509224858 (2) Constipation ICD Codes: K59.00 - Constipation, unspecified SNOMED: 68438428 (3) Anemia ICD Codes: D64.9 - Anemia, unspecified SNOMED: 768352809 Qualifiers: Qualified Codes: D64.9 - Anemia, unspecified (4) DM (diabetes mellitus) ICD Codes: E11.9 - DM (diabetes mellitus) SNOMED: 99889075 Qualifiers: Qualified Codes: E10.21 - Type 1 diabetes mellitus with diabetic nephropathy Status: stable Status Narrative Discussed with Dr. Santoyo. Assessment/Plan s/p EGD 05/26/16 >> gastritis iron panel unremarkable OB stool uncollected consider colonoscopy to evaluate anemia pending OB stool collection monitor H&H, transfuse prn H2 ordered dulcolax x 1 miralax + colace fu labs ADA/renal diet Subjective Gastrointestinal/Abdominal: Reports: constipated Subjective abdominal firmness Objective Last 24 Hour Vital Signs Date Time Temp Pulse Resp B/P Pulse Ox O2 Delivery O2 Flow Rate FiO2 09/11/16 08:42 97.3 92 18 160/95 95 Room Air 09/11/16 08:36 90 160/95 09/11/16 06:05 148/98 09/11/16 04:11 98.7 88 18 157/90 97 Room Air 09/11/16 04:00 86 09/11/16 00:12 98.4 93 19 152/97 95 Room Air 09/11/16 00:00 105 09/10/16 21:00 160/99 09/10/16 20:00 98.4 90 20 151/99 95 Room Air 09/10/16 20:00 94 09/10/16 16:39 97.7 98 18 172/99 97 Room Air 09/10/16 16:00 100 09/10/16 15:04 162/101 09/10/16 12:00 95 09/10/16 11:45 97.9 94 18 162/101 95 Room Air Intake and Output 09/10/16 09/11/16 19:00 07:00 Intake Total 720 ml Balance 720 ml Intake Oral 480 ml IV Total 240 ml # Voids 3 5 Laboratory Tests Test 09/11/16 07:25 White Blood Count 5.9 K/UL (4.8-10.8) Red Blood Count 2.68 M/UL (4.20-5.40) L Hemoglobin 7.5 G/DL (12.0-16.0) L Hematocrit 23.2 % (37.0-47.0) L Mean Corpuscular Volume 87 FL (80-99) Mean Corpuscular Hemoglobin 28.0 PG (27.0-31.0) Mean Corpuscular Hemoglobin Concent 32.3 G/DL (32.0-36.0) Red Cell Distribution Width 14.8 % (11.6-14.8) Platelet Count 313 K/UL (150-450) Mean Platelet Volume 5.4 FL (6.5-10.1) L Neutrophils (%) (Auto) % (45.0-75.0) Lymphocytes (%) (Auto) % (20.0-45.0) Monocytes (%) (Auto) % (1.0-10.0) Eosinophils (%) (Auto) % (0.0-3.0) Basophils (%) (Auto) % (0.0-2.0) Differential Total Cells Counted 100 Neutrophils % (Manual) 66 % (45-75) Lymphocytes % (Manual) 21 % (20-45) Monocytes % (Manual) 9 % (1-10) Eosinophils % (Manual) 4 % (0-3) H Basophils % (Manual) 0 % (0-2) Band Neutrophils 0 % (0-8) Platelet Estimate Adequate Platelet Morphology Normal Hypochromasia 1+ Anisocytosis 1+ Sodium Level 135 mEQ/L (135-145) Potassium Level 5.5 mEQ/L (3.4-4.9) H Chloride Level 98 mEQ/L (98-107) Carbon Dioxide Level 20 mEQ/L (20-30) Anion Gap 17 (5-15) H Blood Urea Nitrogen 54 mg/dL (7-23) H Creatinine 3.8 mg/dL (0.5-0.9) H Estimat Glomerular Filtration Rate 16.1 mL/min (>60) Glucose Level 99 mg/dL (74-106) Calcium Level 8.0 mg/dL (8.6-10.2) L Phosphorus Level 5.2 mg/dL (2.5-4.8) H Magnesium Level 2.2 mg/dL (1.7-2.5) Digoxin Level 1.6 ng/mL (0.5-2.0) Height (Feet): 5 Height (Inches): 2.00 Weight (Pounds): 176 General Appearance: no apparent distress, alert Cardiovascular: normal rate Respiratory/Chest: normal breath sounds, no respiratory distress Abdominal Exam: normal bowel sounds, non tender, soft Extremities: normal range of motion Alexandra Leonard N.P. Sep 11, 2016 11:18
[2016-09-11 11:59] VITALS: BP 169/89
[2016-09-11] MEDS ORDERED: Metoprolol Tartrate 12.5mg TAB ORAL ONE (12:00)
[2016-09-11] MEDS ORDERED: HYDROmorphone 2mg tab ORAL PRN (15:00)
[2016-09-11] MEDS ORDERED: Tubing IV Secondary IV ONE (15:23)
[2016-09-11] MEDS ORDERED: Tubing IV Blood Pump IV ONE (15:23)
[2016-09-11 16:00] VITALS: BP 150/97
[2016-09-11] MEDS: Furosemide 80mg tab ORAL SCH (16:05)
--- NOTE | 2016-09-11 16:07 | General Progress Note ---
Assessment/Plan Problem List: (1) acute on chronic anemia (2) KENYA (acute kidney injury) Assessment & Plan: on CKD stage 4 24hr urine showed nephrotic range proteinuria in 05/2016 ICD Codes: N17.9 - Acute kidney failure, unspecified SNOMED: 87183326 (3) Acute on chronic diastolic (congestive) heart failure ICD Codes: I50.33 - Acute on chronic diastolic (congestive) heart failure SNOMED: 18492790, 182550607 (4) DM (diabetes mellitus) ICD Codes: E11.9 - DM (diabetes mellitus) SNOMED: 54730628 Qualifiers: Qualified Codes: E10.21 - Type 1 diabetes mellitus with diabetic nephropathy (5) HTN (hypertension) ICD Codes: I10 - HTN (hypertension) SNOMED: 89543137 Qualifiers: Qualified Codes: I15.9 - Secondary hypertension, unspecified (6) Headache ICD Codes: R51 - Headache SNOMED: 63799836 Status: stable Assessment/Plan Unclear etiology of anemia. No signs of active bleeding. Pt did have EGD in 2015 which showed gastritis. No colonoscopy yet. Denies heavy vaginal bleeding. Possibly anemia is secondary to CKD. Pt also appears to be volume overloaded but HD stable Headaches likely migraine type Admit to inpt Nephrology consulted, appreciate rec's Cont lasix 80mg qd Fu 24hr urine protein study Spivey placed for strict I/O's Hold digoxin given elevated level (2.8)--repeat level trending down F/u TTE--EF 65-70%, mild diastolic dysfunction s/p 2U pRBCs on 09/08-7 w/ good response Trend CBC EPO started per renal F/u haptoglobin to assess fo hemolysis Consider hematology consult GI consulted to assess if further workup of anemia needed--check FOBT; possible plan for colonoscopy Cont Detemir 15U qHS HANDY Neurology consulted given persistent headaches. Appears to be migraine type, so will hold off on imaging for now DVT Prophylaxis: SCD Code Status: Full Hospital Classification Declaration: Based on this initial evaluation, and depending on the patient's clinical course, I anticipate that this patient will require hospitalization for 2-3 days for anemia, KENYA, CHF and close respiratory/ hemodynamic monitoring. Disposition: Once the patient is stable to leave the hospital, I anticipate the patient will likely be discharged to the following environment: home with vs SNF I spent 42 minutes on this patient's case, and 22 minutes were dedicated to counseling and/or care coordination. Discussed with patient/family, nursing staff, SW/CM, renal regarding clinical status, treatment course, and disposition planning. Time of note may not reflect time of encounter. Subjective Date patient seen: Sep 11, 2016 Time patient seen: 16:06 ROS Limited/Unobtainable: No Constitutional: Reports: no symptoms HEENT: Reports: no symptoms Cardiovascular: Reports: no symptoms Respiratory: Reports: shortness of breath Gastrointestinal/Abdominal: Reports: no symptoms Genitourinary: Reports: no symptoms Neurologic/Psychiatric: Reports: no symptoms Endocrine: Reports: no symptoms Hematologic/Lymphatic: Reports: no symptoms Allergies: Coded Allergies: PENICILLINS (Verified Allergy, Unknown, 03/13/15) All Systems: reviewed and negative except above Subjective No acute o/n events Cr uptrending I/O's inaccurate Hgb stable Pt doing well. Still w/ some generalized weakness and SOB C/o persistent L sided headache Objective Last 24 Hour Vital Signs Date Time Temp Pulse Resp B/P Pulse Ox O2 Delivery O2 Flow Rate FiO2 09/11/16 13:11 158/95 09/11/16 11:59 97.5 97 18 169/89 97 Room Air 09/11/16 11:46 89 09/11/16 11:33 96 169/89 09/11/16 08:42 97.3 92 18 160/95 95 Room Air 09/11/16 08:36 90 160/95 09/11/16 07:34 95 09/11/16 06:05 148/98 09/11/16 04:11 98.7 88 18 157/90 97 Room Air 09/11/16 04:00 86 09/11/16 00:12 98.4 93 19 152/97 95 Room Air 09/11/16 00:00 105 09/10/16 21:00 160/99 09/10/16 20:00 98.4 90 20 151/99 95 Room Air 09/10/16 20:00 94 09/10/16 16:39 97.7 98 18 172/99 97 Room Air Intake and Output 09/10/16 09/11/16 19:00 07:00 Intake Total 720 ml Balance 720 ml Intake Oral 480 ml IV Total 240 ml # Voids 3 5 Laboratory Tests 09/11/16 07:25: White Blood Count 5.9, Red Blood Count 2.68L, Hemoglobin 7.5L, Hematocrit 23.2L , Mean Corpuscular Volume 87, Mean Corpuscular Hemoglobin 28.0, Mean Corpuscular Hemoglobin Concent 32.3, Red Cell Distribution Width 14.8, Platelet Count 313, Mean Platelet Volume 5.4L, Neutrophils (%) (Auto) , Lymphocytes (%) ( Auto) , Monocytes (%) (Auto) , Eosinophils (%) (Auto) , Basophils (%) (Auto) , Differential Total Cells Counted 100, Neutrophils % (Manual) 66, Lymphocytes % ( Manual) 21, Monocytes % (Manual) 9, Eosinophils % (Manual) 4H, Basophils % ( Manual) 0, Band Neutrophils 0, Platelet Estimate Adequate, Platelet Morphology Normal, Hypochromasia 1+, Anisocytosis 1+, Sodium Level 135, Potassium Level 5.5H, Chloride Level 98, Carbon Dioxide Level 20, Anion Gap 17H, Blood Urea Nitrogen 54H, Creatinine 3.8H, Estimat Glomerular Filtration Rate 16.1, Glucose Level 99, Calcium Level 8.0L, Phosphorus Level 5.2H, Magnesium Level 2.2, Digoxin Level 1.6 09/11/16 15:00: Stool Occult Blood [Pending] Height (Feet): 5 Height (Inches): 2.00 Weight (Pounds): 176 Objective General: alert, cooperative, no distress, appears stated age Head: normocephalic, without obvious abnormality, atraumatic Eyes: conjunctivae/corneas clear. PERRL, EOM's intact Throat: lips, mucosa, and tongue normal. MMM Neck: supple, symmetrical, trachea midline, and no JVD Lungs: clear to auscultation bilaterally, decr breath sounds b/l Heart: regular rate and rhythm, S1, S2 normal, no murmur, click, rub or gallop Abdomen: soft, non-tender, non-distended, bowel sounds normal; no masses or organomegaly Extremities: extremities normal, atraumatic, no cyanosis, 1+ BLE edema Pulses: 2+ and symmetric Skin: skin color, texture, turgor normal; no rashes or lesions Neurologic: grossly normal, no focal deficits Gudelia Rudolph M.D. Sep 11, 2016 16:07
--- NOTE | 2016-09-11 16:36 | Diagnostic Imaging Report ---
Indication: Acute renal failure Technique: Grayscale and duplex images of the kidneys, retroperitoneum, and bladder were obtained. Comparison:None. Reference is made to CT abdomen pelvis dated 08/01/2016 Findings: Right kidney measures 12 cm in length. Left kidney measures 12.1 cm in length. Right kidney demonstrates equivocally slightly increased echogenicity. No hydronephrosis. No focal abnormality. Normal inferior vena cava. Bladder is empty, contains a Spivey catheter. 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
[2016-09-11 17:08] LABS: CREATININE 3.8 mg/dL (0.5-0.9); GLOMERULAR FILTRATION RATE 16.1 mL/min (>60); POTASSIUM 5.2 mEQ/L (3.4-4.9)
[2016-09-11 19:00] VITALS: BP 157/99
[2016-09-11] MEDS: Levemir Flexpen SUBQ SCH (21:00)
[2016-09-11] MEDS ORDERED: Metoprolol Tartrate 12.5mg TAB ORAL SCH (21:00)
[2016-09-11] MEDS: Metoprolol Tartrate 12.5mg TAB ORAL SCH (21:36)
[2016-09-11] MEDS ORDERED: Acetaminophen 500mg (ES) tab ORAL PRN (22:00)
[2016-09-12] VITALS: BP 155/93
[2016-09-12] MEDS: HYDROmorphone 2mg tab ORAL PRN ×4 (01:58→19:26)
[2016-09-12] MEDS ORDERED: Nitroglycerin Subl 0.4mg tab (Bottle Of 25) SL PRN ×2 (03:45→07:30)
[2016-09-12 04:00] VITALS: BP 158/97
[2016-09-12] MEDS: cloNIDine 0.2mg Tab ORAL SCH ×3 (05:48→23:08)
[2016-09-12] MEDS: NovoLOG Insulin Flexpen SUBQ SCH ×4 (06:43→21:02)
[2016-09-12 07:17] LABS: MEAN CORPUSCULAR HEMOGLOBIN 28.8 PG (27.0-31.0); MEAN CORPUSCULAR VOLUME 87 FL (80-99); MEAN PLATELET VOLUME 5.5 FL (6.5-10.1); PLATELET COUNT 320 K/UL (150-450); RED BLOOD COUNT 2.57 M/UL (4.20-5.40); RED CELL DISTRIBUTION WIDTH 14.8 % (11.6-14.8); WHITE BLOOD COUNT 7.5 K/UL (4.8-10.8)
[2016-09-12 07:32] LABS: ALANINE AMINOTRANSFERASE 48 U/L (3-33); ALBUMIN/GLOBULIN RATIO 0.9 (1.0-2.7); ANION GAP 17 (5-15); ASPARTATE AMINO TRANSFERASE 51 U/L (5-40); CALCIUM 8.1 mg/dL (8.6-10.2); CARBON DIOXIDE 22 mEQ/L (20-30); CHLORIDE 97 mEQ/L (98-107); CREATININE 4.2 mg/dL (0.5-0.9); CRP QUANT 0.9 mg/dL (< 0.5); GLOMERULAR FILTRATION RATE 14.4 mL/min (>60); HEMOLYSIS 1; MAGNESIUM 2.3 mg/dL (1.7-2.5); PHOSPHORUS 5.6 mg/dL (2.5-4.8); POTASSIUM 5.3 mEQ/L (3.4-4.9); SODIUM 136 mEQ/L (135-145); TOTAL PROTEIN 6.1 g/dL (6.6-8.7)
[2016-09-12 08:04] VITALS: BP 152/93
[2016-09-12] MEDS: Metoprolol Tartrate 12.5mg TAB ORAL SCH (08:17)
[2016-09-12] MEDS: Tamsulosin 0.4mg cap ORAL SCH ×2 (08:18→18:01)
[2016-09-12 08:44] LABS: BAND NEUTROPHILS % (MANUAL) 2 % (0-8); BASOPHILS % (MANUAL) 0 % (0-2); EOSINOPHILS % (MANUAL) 0 % (0-3); LYMPHOCYTES % (MANUAL) 12 % (20-45); NEUTROPHILS % (MANUAL) 75 % (45-75); PLATELET ESTIMATE ADEQUATE; PLATELET MORPHOLOGY NORMAL; TOTAL CELLS COUNTED 100
[2016-09-12] MEDS ORDERED: LORazepam 0.5mg tab ORAL PRN (09:00)
[2016-09-12] MEDS ORDERED: Vitamin B12 1000mcg/ml Inj IM SCH (09:00)
[2016-09-12] MEDS ORDERED: Cyclobenzaprine 10mg Tab ORAL PRN (09:00)
[2016-09-12] MEDS ORDERED: Miralax 17gm pkt ORAL SCH (09:00)
[2016-09-12] MEDS: Promethazine/Codeine 5ml UD ORAL PRN (09:32)
--- NOTE | 2016-09-12 11:41 | General Progress Note ---
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 Plan: Avoid nephrotoxics- add lopressor- doss, and 24 h urine CrCl and Protein-pending EPO and IV Iron and B12 and Folate BP control gentle diuresis 2D echo noted kidney JESUSITA pending monitor renal parameters Subjective ROS Limited/Unobtainable: No Constitutional: Reports: malaise HEENT: Reports: other - periodic head ache Allergies: Coded Allergies: PENICILLINS (Verified Allergy, Unknown, 03/13/15) Objective Last 24 Hour Vital Signs Date Time Temp Pulse Resp B/P Pulse Ox O2 Delivery O2 Flow Rate FiO2 09/12/16 08:18 94 152/93 09/12/16 08:17 94 152/93 09/12/16 08:04 98.2 94 21 152/93 99 Room Air 09/12/16 05:48 164/98 09/12/16 04:00 97.9 88 20 158/97 93 Room Air 09/12/16 00:00 97.7 85 20 155/93 96 Room Air 09/11/16 22:00 138/80 09/11/16 21:36 82 157/99 09/11/16 19:00 98.1 82 20 157/99 93 Room Air 09/11/16 16:00 98.2 84 19 150/97 92 Room Air 09/11/16 13:11 158/95 09/11/16 11:59 97.5 97 18 169/89 97 Room Air 09/11/16 11:46 89 Intake and Output 09/11/16 09/12/16 19:00 07:00 Intake Total 480 ml 390 ml Output Total 600 ml 800 ml Balance -120 ml -410 ml Intake Oral 480 ml 390 ml Output Urine Total 600 ml 800 ml # Voids 1 3 Laboratory Tests 09/11/16 15:00: Stool Occult Blood Negative 09/11/16 16:20: Sodium Level 134L, Potassium Level 5.2H, Chloride Level 96L, Carbon Dioxide Level 21, Anion Gap 17H, Blood Urea Nitrogen 55H, Creatinine 3.8H, Estimat Glomerular Filtration Rate 16.1, Glucose Level 186H, Calcium Level 8.0L 3/10/17 04:50: Sodium Level 136, Potassium Level 5.3H, Chloride Level 97L, Carbon Dioxide Level 22, Anion Gap 17H, Blood Urea Nitrogen 63H, Creatinine 4.2H, Estimat Glomerular Filtration Rate 14.4, Glucose Level 141H, Calcium Level 8.1L, White Blood Count 7.5, Red Blood Count 2.57L, Hemoglobin 7.4L, Hematocrit 22.5L, Mean Corpuscular Volume 87, Mean Corpuscular Hemoglobin 28.8, Mean Corpuscular Hemoglobin Concent 33.0, Red Cell Distribution Width 14.8, Platelet Count 320, Mean Platelet Volume 5.5L, Neutrophils (%) (Auto) , Lymphocytes (%) (Auto) , Monocytes (%) (Auto) , Eosinophils (%) (Auto) , Basophils (%) (Auto) , Differential Total Cells Counted 100, Neutrophils % (Manual) 75, Lymphocytes % ( Manual) 12L, Monocytes % (Manual) 11H, Eosinophils % (Manual) 0, Basophils % ( Manual) 0, Band Neutrophils 2, Platelet Estimate Adequate, Platelet Morphology Normal, Red Blood Cell Morphology Normal, Uric Acid 6.9, Phosphorus Level 5.6H, Magnesium Level 2.3, Total Bilirubin < 0.2, Gamma Glutamyl Transpeptidase 112H, Aspartate Amino Transf (AST/SGOT) 51H, Alanine Aminotransferase (ALT/SGPT) 48H, Alkaline Phosphatase 386H, C-Reactive Protein, Quantitative 0.9H, Pro-B-Type Natriuretic Peptide 1073H, Total Protein 6.1L, Albumin 2.9L, Globulin 3.2, Albumin/Globulin Ratio 0.9L Height (Feet): 5 Height (Inches): 2.00 Weight (Pounds): 182 Cardiovascular: tachycardia Respiratory/Chest: decreased breath sounds Abdomen: soft Objective other physical exam not changed MICHELLE HOOK Sep 12, 2016 11:41
[2016-09-12 12:09] VITALS: BP 146/97
--- NOTE | 2016-09-12 12:51 | General Progress Note ---
Assessment/Plan Problem List: (1) acute on chronic anemia (2) KENYA (acute kidney injury) Assessment & Plan: on CKD stage 4 24hr urine showed nephrotic range proteinuria in 05/2016 ICD Codes: N17.9 - Acute kidney failure, unspecified SNOMED: 32873260 (3) Acute on chronic diastolic (congestive) heart failure ICD Codes: I50.33 - Acute on chronic diastolic (congestive) heart failure SNOMED: 55291471, 795094084 (4) DM (diabetes mellitus) ICD Codes: E11.9 - DM (diabetes mellitus) SNOMED: 17801698 Qualifiers: Qualified Codes: E10.21 - Type 1 diabetes mellitus with diabetic nephropathy (5) HTN (hypertension) ICD Codes: I10 - HTN (hypertension) SNOMED: 70175092 Qualifiers: Qualified Codes: I15.9 - Secondary hypertension, unspecified (6) Headache ICD Codes: R51 - Headache SNOMED: 15773073 Status: stable Assessment/Plan Unclear etiology of anemia. No signs of active bleeding. Pt did have EGD in 2015 which showed gastritis. No colonoscopy yet. Denies heavy vaginal bleeding. Possibly anemia is secondary to CKD. Pt also appears to be volume overloaded but HD stable Headaches likely migraine type Nephrology consulted, appreciate rec's Lasix decr to 40mg qd F/u 24hr urine protein study Spivey placed for strict I/O's Hold digoxin given elevated level (2.8)--repeat level trending down F/u TTE--EF 65-70%, mild diastolic dysfunction s/p 2U pRBCs on 09/08-7 w/ good response Trend CBC Cont EPO per renal F/u haptoglobin to assess fo hemolysis--wnl Consider hematology consult GI consulted to assess if further workup of anemia needed--FOBT neg; possible plan for colonoscopy MRI abd done was neg Cont Detemir 15U qHS HANDY Neurology consulted given persistent headaches. CT head neg. Likely muscle contraction headaches DVT Prophylaxis: SCD Code Status: Full Hospital Classification Declaration: Based on this initial evaluation, and depending on the patient's clinical course, I anticipate that this patient will require hospitalization for 2-3 days for anemia, KENYA, CHF and close respiratory/ hemodynamic monitoring. Disposition: Once the patient is stable to leave the hospital, I anticipate the patient will likely be discharged to the following environment: home with vs SNF I spent 40 minutes on this patient's case, and 22 minutes were dedicated to counseling and/or care coordination. Discussed with patient/family, nursing staff, SW/CM, renal regarding clinical status, treatment course, and disposition planning. D/w renal re: possible plan for initiation of dialysis Time of note may not reflect time of encounter. Subjective Date patient seen: Sep 12, 2016 Time patient seen: 12:50 ROS Limited/Unobtainable: No Constitutional: Reports: no symptoms HEENT: Reports: no symptoms Cardiovascular: Reports: no symptoms Respiratory: Reports: shortness of breath Gastrointestinal/Abdominal: Reports: no symptoms Genitourinary: Reports: no symptoms Neurologic/Psychiatric: Reports: no symptoms Endocrine: Reports: no symptoms Hematologic/Lymphatic: Reports: no symptoms Allergies: Coded Allergies: PENICILLINS (Verified Allergy, Unknown, 03/13/15) All Systems: reviewed and negative except above Subjective No acute o/n events Cr uptrending Hgb slightly downtrending Pt doing well. Still w/ some generalized weakness and SOB C/o persistent headache Objective Last 24 Hour Vital Signs Date Time Temp Pulse Resp B/P Pulse Ox O2 Delivery O2 Flow Rate FiO2 09/12/16 12:09 97.9 82 20 146/97 99 Room Air 09/12/16 08:18 94 152/93 09/12/16 08:17 94 152/93 09/12/16 08:04 98.2 94 21 152/93 99 Room Air 09/12/16 05:48 164/98 09/12/16 04:00 97.9 88 20 158/97 93 Room Air 09/12/16 00:00 97.7 85 20 155/93 96 Room Air 09/11/16 22:00 138/80 09/11/16 21:36 82 157/99 09/11/16 19:00 98.1 82 20 157/99 93 Room Air 09/11/16 16:00 98.2 84 19 150/97 92 Room Air 09/11/16 13:11 158/95 Intake and Output 09/11/16 09/12/16 19:00 07:00 Intake Total 480 ml 390 ml Output Total 600 ml 800 ml Balance -120 ml -410 ml Intake Oral 480 ml 390 ml Output Urine Total 600 ml 800 ml # Voids 1 3 Laboratory Tests 09/11/16 15:00: Stool Occult Blood Negative 09/11/16 16:20: Sodium Level 134L, Potassium Level 5.2H, Chloride Level 96L, Carbon Dioxide Level 21, Anion Gap 17H, Blood Urea Nitrogen 55H, Creatinine 3.8H, Estimat Glomerular Filtration Rate 16.1, Glucose Level 186H, Calcium Level 8.0L 09/12/16 04:50: Sodium Level 136, Potassium Level 5.3H, Chloride Level 97L, Carbon Dioxide Level 22, Anion Gap 17H, Blood Urea Nitrogen 63H, Creatinine 4.2H, Estimat Glomerular Filtration Rate 14.4, Glucose Level 141H, Calcium Level 8.1L, White Blood Count 7.5, Red Blood Count 2.57L, Hemoglobin 7.4L, Hematocrit 22.5L, Mean Corpuscular Volume 87, Mean Corpuscular Hemoglobin 28.8, Mean Corpuscular Hemoglobin Concent 33.0, Red Cell Distribution Width 14.8, Platelet Count 320, Mean Platelet Volume 5.5L, Neutrophils (%) (Auto) , Lymphocytes (%) (Auto) , Monocytes (%) (Auto) , Eosinophils (%) (Auto) , Basophils (%) (Auto) , Differential Total Cells Counted 100, Neutrophils % (Manual) 75, Lymphocytes % ( Manual) 12L, Monocytes % (Manual) 11H, Eosinophils % (Manual) 0, Basophils % ( Manual) 0, Band Neutrophils 2, Platelet Estimate Adequate, Platelet Morphology Normal, Red Blood Cell Morphology Normal, Uric Acid 6.9, Phosphorus Level 5.6H, Magnesium Level 2.3, Total Bilirubin < 0.2, Gamma Glutamyl Transpeptidase 112H, Aspartate Amino Transf (AST/SGOT) 51H, Alanine Aminotransferase (ALT/SGPT) 48H, Alkaline Phosphatase 386H, C-Reactive Protein, Quantitative 0.9H, Pro-B-Type Natriuretic Peptide 1073H, Total Protein 6.1L, Albumin 2.9L, Globulin 3.2, Albumin/Globulin Ratio 0.9L Height (Feet): 5 Height (Inches): 2.00 Weight (Pounds): 182 Objective General: alert, cooperative, no distress, appears stated age Head: normocephalic, without obvious abnormality, atraumatic Eyes: conjunctivae/corneas clear. PERRL, EOM's intact Throat: lips, mucosa, and tongue normal. MMM Neck: supple, symmetrical, trachea midline, and no JVD Lungs: clear to auscultation bilaterally, decr breath sounds b/l Heart: regular rate and rhythm, S1, S2 normal, no murmur, click, rub or gallop Abdomen: soft, non-tender, non-distended, bowel sounds normal; no masses or organomegaly Extremities: extremities normal, atraumatic, no cyanosis, 1+ BLE edema Pulses: 2+ and symmetric Skin: skin color, texture, turgor normal; no rashes or lesions Neurologic: grossly normal, no focal deficits Gudelia Rudolph M.D. Sep 12, 2016 12:51
--- NOTE | 2016-09-12 13:33 | GI Progress Note ---
Assessment/Plan Problems: (1) Hypoalbuminemia ICD Codes: E88.09 - Other disorders of plasma-protein metabolism, not elsewhere classified SNOMED: 629494618 (2) Constipation ICD Codes: K59.00 - Constipation, unspecified SNOMED: 17077786 (3) Anemia ICD Codes: D64.9 - Anemia, unspecified SNOMED: 404248809 Qualifiers: Qualified Codes: D64.9 - Anemia, unspecified (4) DM (diabetes mellitus) ICD Codes: E11.9 - DM (diabetes mellitus) SNOMED: 18396074 Qualifiers: Qualified Codes: E10.21 - Type 1 diabetes mellitus with diabetic nephropathy (5) Abnormal LFTs ICD Codes: R79.89 - Other specified abnormal findings of blood chemistry SNOMED: 809425725 Status: unchanged Status Narrative Discussed with Dr. Santoyo. Assessment/Plan s/p EGD 05/26/16 >> gastritis iron panel unremarkable OB stool negative rising alkaline phos / elevated GGT ordered MRCP monitor H&H, transfuse prn H2 miralax + colace fu labs ADA/renal diet Subjective Subjective abdominal pain less Objective Last 24 Hour Vital Signs Date Time Temp Pulse Resp B/P Pulse Ox O2 Delivery O2 Flow Rate FiO2 09/12/16 13:23 154/89 09/12/16 12:09 97.9 82 20 146/97 99 Room Air 09/12/16 08:18 94 152/93 09/12/16 08:17 94 152/93 09/12/16 08:04 98.2 94 21 152/93 99 Room Air 09/12/16 05:48 164/98 09/12/16 04:00 97.9 88 20 158/97 93 Room Air 09/12/16 00:00 97.7 85 20 155/93 96 Room Air 09/11/16 22:00 138/80 09/11/16 21:36 82 157/99 09/11/16 19:00 98.1 82 20 157/99 93 Room Air 09/11/16 16:00 98.2 84 19 150/97 92 Room Air Intake and Output 09/11/16 09/12/16 19:00 07:00 Intake Total 480 ml 390 ml Output Total 600 ml 800 ml Balance -120 ml -410 ml Intake Oral 480 ml 390 ml Output Urine Total 600 ml 800 ml # Voids 1 3 Laboratory Tests Test 09/11/16 15:00 09/11/16 16:20 09/12/16 04:50 Stool Occult Blood Negative (NEGATIVE) Sodium Level 134 mEQ/L (135-145) L 136 mEQ/L (135-145) Potassium Level 5.2 mEQ/L (3.4-4.9) H 5.3 mEQ/L (3.4-4.9) H Chloride Level 96 mEQ/L (98-107) L 97 mEQ/L (98-107) L Carbon Dioxide Level 21 mEQ/L (20-30) 22 mEQ/L (20-30) Anion Gap 17 (5-15) H 17 (5-15) H Blood Urea Nitrogen 55 mg/dL (7-23) H 63 mg/dL (7-23) H Creatinine 3.8 mg/dL (0.5-0.9) H 4.2 mg/dL (0.5-0.9) H Estimat Glomerular Filtration Rate 16.1 mL/min (>60) 14.4 mL/min (>60) Glucose Level 186 mg/dL (74-106) H 141 mg/dL (74-106) H Calcium Level 8.0 mg/dL (8.6-10.2) L 8.1 mg/dL (8.6-10.2) L White Blood Count 7.5 K/UL (4.8-10.8) Red Blood Count 2.57 M/UL (4.20-5.40) L Hemoglobin 7.4 G/DL (12.0-16.0) L Hematocrit 22.5 % (37.0-47.0) L Mean Corpuscular Volume 87 FL (80-99) Mean Corpuscular Hemoglobin 28.8 PG (27.0-31.0) Mean Corpuscular Hemoglobin Concent 33.0 G/DL (32.0-36.0) Red Cell Distribution Width 14.8 % (11.6-14.8) Platelet Count 320 K/UL (150-450) Mean Platelet Volume 5.5 FL (6.5-10.1) L Neutrophils (%) (Auto) % (45.0-75.0) Lymphocytes (%) (Auto) % (20.0-45.0) Monocytes (%) (Auto) % (1.0-10.0) Eosinophils (%) (Auto) % (0.0-3.0) Basophils (%) (Auto) % (0.0-2.0) Differential Total Cells Counted 100 Neutrophils % (Manual) 75 % (45-75) Lymphocytes % (Manual) 12 % (20-45) L Monocytes % (Manual) 11 % (1-10) H Eosinophils % (Manual) 0 % (0-3) Basophils % (Manual) 0 % (0-2) Band Neutrophils 2 % (0-8) Platelet Estimate Adequate Platelet Morphology Normal Red Blood Cell Morphology Normal Uric Acid 6.9 mg/dL (3.0-7.5) Phosphorus Level 5.6 mg/dL (2.5-4.8) H Magnesium Level 2.3 mg/dL (1.7-2.5) Total Bilirubin < 0.2 mg/dL (0.0-1.2) Gamma Glutamyl Transpeptidase 112 U/L (5-36) H Aspartate Amino Transf (AST/SGOT) 51 U/L (5-40) H Alanine Aminotransferase (ALT/SGPT) 48 U/L (3-33) H Alkaline Phosphatase 386 U/L (35-104) H C-Reactive Protein, Quantitative 0.9 mg/dL (< 0.5) H Pro-B-Type Natriuretic Peptide 1073 pg/mL (0-125) H Total Protein 6.1 g/dL (6.6-8.7) L Albumin 2.9 g/dL (3.5-5.2) L Globulin 3.2 g/dL Albumin/Globulin Ratio 0.9 (1.0-2.7) L Height (Feet): 5 Height (Inches): 2.00 Weight (Pounds): 182 General Appearance: no apparent distress, alert Cardiovascular: normal rate Respiratory/Chest: normal breath sounds, no respiratory distress Abdominal Exam: normal bowel sounds, non tender, soft Extremities: normal range of motion Objective BM x 1 yesterday Alexandra Leonard N.P. Sep 12, 2016 13:33
--- NOTE | 2016-09-12 14:14 | Consultation ---
Consult Note Consult Note NEUROLOGY CONSULTATION: Full note dictated #[id number] 36 y/o, RH, BF with PH of Type I DM, HTN, CKD, and anemia. She was admitted to the hospital for RUCKER, generalized weakness, and fatigue. On admission she was noted to be severely anemic with a HB in the 5s. She has had a headache for the last 2 weeks. ON EXAM: G 1/4 C-PS and trap spasm. Global areflexia. Wide based stance & gait. IMPRESSION: Daily MC headaches - made worse by anemia. Doubt intracranial pathology but because of the severe anemia R/O SD collections. REC: CT of brain - no contrast. Flexeril 10 mg q HS Tylenol 650 mg tid x 3 days. Improve head position in bed. Observe. Adelaida Villarreal M.D., M.S.P.H. ADELAIDA VILLARREAL Sep 12, 2016 14:14
[2016-09-12 14:32] LABS: CREATININE 4.2 mg/dL (0.5-0.9); GLOMERULAR FILTRATION RATE 14.4 mL/min (>60)
--- NOTE | 2016-09-12 15:15 | Diagnostic Imaging Report ---
Indication: Abdominal pain. Abnormal liver function tests Technique: MRI of the abdomen was performed in a 1.5 Kristyn magnet. Pulse sequences obtained include coronal and axial T2 single shot fast spin echo breathhold, axial T2 FR FSE with fat saturation, thick slab MRCP, axial T1 gradient echo in and out of phase, coronal 3-D MRCP. Comparison: None Findings: The biliary ducts are normal in caliber. There is no biliary ductal dilatation or evidence of choledocholithiasis. The gallbladder is unremarkable. Good flow void noted within the portal vein aorta. Trace bilateral pleural effusions are present. No gross abnormalities of the pancreas identified. There is no adrenal mass. There is no ascites. Impression: Negative MRCP. No evidence of choledocholithiasis or biliary ductal dilatation. Trace bilateral pleural effusions
--- NOTE | 2016-09-12 15:30 | Diagnostic Imaging Report ---
Indication: Headache Technique: Contiguous 5 mm thick transaxial imaging of the head obtained in a Siemens Sensation [address] scanner. Soft tissue and bone windows generated. Total Dose length Product (DLP): [address] Dose Index Volume (CTDIvol): 70.38 mGy Comparison: 05/22/16 Findings: The size and configuration of the cortical sulci, basal cisterns, and ventricles are within normal limits for age. There is no mass effect, midline shift, or edema identified. There is no evidence of acute hemorrhage or abnormal intra-axial or extra-axial fluid collections. The bones and soft tissues are unremarkable. Impression: No mass effect, edema or acute bleed. The CT scanner at [facility] is accredited by the [employer] and the scans are performed using protocols designed to limit radiation exposure to as low as reasonably achievable to attain images of sufficient resolution adequate for diagnostic evaluation.
[2016-09-12 16:00] VITALS: BP 144/87
[2016-09-12] MEDS ORDERED: Furosemide 80mg tab ORAL SCH (16:30)
[2016-09-12] MEDS ORDERED: Furosemide 40mg tab ORAL SCH (16:30)
--- NOTE | 2016-09-12 19:29 | Consultation ---
DATE OF CONSULTATION: 09/12/2016 NEUROLOGY CONSULTATION CONSULTING PHYSICIAN: Dain Rios M.D. REQUESTING PHYSICIAN: Gudelia Rudolph M.D. HISTORY: Ms. Ashli Barboza is a 36-year-old, right-handed, black lady, who does have a past history of type 1 diabetes mellitus, hypertension, chronic kidney disease, and anemia. She was functioning relatively well until a few days ago when she was hospitalized for dyspnea on exertion, generalized weakness, and generalized fatigue. On being evaluated, she was found to be severely anemic with a hemoglobin in the 5s. She has since felt a little better, but for the last two weeks, she has been complaining of a headache. This consultation was requested to evaluate the patient for her headaches. As per Ms. Barboza, she has had migraines in the past, but they were quite different from the present headache. This headache started approximately two weeks ago. It seems to vary in severity over the day. When she wakes up in the morning, she feels a pressure-like sensation involving right sabianist and then, she has tightness that spreads around the head and into the neck. As the day progresses, the pain can get quite bothersome, and it does respond to simple analgesics with the degree of pain decreasing, but the headache has not left her for more than two weeks. She denies any associated nausea, vomiting, visual problems, or any other neurological symptoms. She has noticed that her neck also seems to be a little stiffer than what it normally is. PAST MEDICAL HISTORY: Significant for type 1 diabetes mellitus, hypertension, chronic kidney disease, chronic anemia, and migrainous headaches in the past. FAMILY HISTORY: Significant for high blood pressure and diabetes mellitus in other family members. PERSONAL HISTORY: Home: She lives with family. Work: She is disabled now, but used to work as a medical radiation therapist in the past. Habits: She denies the use of tobacco or illicit drugs, but in the past she would have a rare alcoholic drink. PRESENT MEDICATIONS: Includes Procrit, metoprolol, MiraLax, Lasix, Renvela, Norvasc, Flexeril 10 mg t.i.d. p.r.n., Lexapro, folic acid, lorazepam, Protonix, Flomax, nitroglycerin, Tylenol q.8 hours p.r.n., clonidine, Benadryl, Dilaudid p.r.n., aspart insulin, detemir insulin, oxycodone, promethazine, and temazepam. PHYSICAL EXAMINATION: GENERAL: She is a well-developed, well-nourished, pleasant black lady, lying in bed, in no acute distress. VITAL SIGNS: Pulse 82 per minute, blood pressure 154/89 mmHg, respirations 20 per minute, and temperature 97.9 degrees Fahrenheit. HEAD: Normocephalic and atraumatic. EENT: Examination benign. NECK: No neck rigidity was observed. She did have a grade 1/4 cervical paraspinal muscle and trapezius spasm. NEUROLOGIC EXAMINATION: MENTAL STATUS EXAMINATION: She was alert and awake. She was oriented to person, place, and time. She was able to recall 3/3 words immediately after 1 minute and after 3 minutes. She was able to remember presidents Trump through [employer] senior. Her mathematical skills were impaired. Her visuospatial function was relatively good. SPEECH: She had no dysarthria. LANGUAGE: She had no aphasia. CRANIAL NERVE EXAMINATION: II: The visual lopez were intact on confrontation testing. III, IV & : The external ocular movements were full and the pupils 3 mm in diameter and reactive to light. V: She had normal facial sensations and the temporales, masseters, and pterygoids function normally. V: She had normal facial expressions and no facial asymmetry. VIII: She was able to hear well bilaterally and had no nystagmus. IX: The palate moved symmetrically on phonation. X: She had no hoarseness of the voice. XI: The sternocleidomastoids and trapezii functioned normally. XII: The tongue was in the midline without any fasciculations or atrophy. MOTOR SYSTEM: The tone was normal in all four extremities. Examination of muscle mass revealed no focal wasting. Examination of power revealed grade 5/5 power in all muscle groups tested. SENSORY EXAMINATION: She had intact sensations to pinprick, light touch, and graphesthesia. COORDINATION: She performed well on filtzw-vp-[id number] and rlgw-[id number] testing. Romberg test could not be performed because even with eyes open when she was made to stand with her feet together, she was quite unsteady. REFLEXES: 0 at the biceps, triceps, brachioradialis, knees, and ankles. The plantar responses were flexor bilaterally. STANCE: She stood up with a wide base. GAIT: She walked well with a wide base. DIAGNOSTIC IMPRESSION: 1. Ms. Ashli Barboza is a 36-year-old, right-handed, black lady, who does have a past history of type 1 diabetes mellitus, hypertension, chronic kidney disease, and anemia, who was hospitalized for dyspnea on exertion, generalized weakness, severe fatigue, all associated with an anemia with a hemoglobin in the 5s. She has also had a headache for the last two weeks, which is quite bothersome. 2. On neurological examination, at this time, she does demonstrate significant cervical paraspinal muscle and trapezius spasm, global areflexia, a wide-based stance, and a wide-based gait. 3. Laboratory data revealed that when she came in, her hemoglobin was 5.8 G and her latest hemoglobin is 7.4 G. Her latest chemistry panel reveals a BUN elevated to 51 with a creatinine of 3.6 and she has a normal vitamin B12 level, folate level, and TSH. 4. The patient's history, neurological examination, and laboratory data are most compatible with daily muscle contraction headaches made worse by her anemia. I doubt any intracranial pathology because no focal neurological findings are noted. However, because of her severe anemia, subdural collections should be excluded. RECOMMENDATIONS: 1. Agree with management thus far. 2. The patient will be started on Flexeril 10 mg to be taken at bedtime rather than p.r.n. 3. The patient will be started on Tylenol 650 mg 3 times a day for the next three days. 4. The patient was instructed on how to position her head in bed because when I went into her room, it was positioned in an unusual manner, which would provoke headaches. 5. A CT scan of the brain without contrast will be ordered to exclude intracranial pathology. 6. The patient will be observed closely and depending on how she fares for the next day or so, further recommendations will be given. Thank you for entrusting me with the care of Ms. Barboza. I shall follow her with you. Dain iRos M.D., M.S.P.H. DR: RUDDY JOB#: [id number] MTDD
[2016-09-12 20:00] VITALS: BP 159/88
[2016-09-12] MEDS: Miralax 17gm pkt ORAL SCH (21:00)
[2016-09-12] MEDS: Levemir Flexpen SUBQ SCH (21:03)
[2016-09-12] MEDS: Cyclobenzaprine 10mg Tab ORAL SCH (21:04)
[2016-09-12] MEDS: Metoprolol 25mg tab ORAL SCH (21:04)
[2016-09-12] MEDS: Epogen (for non ESRD use) SUBQ SCH (21:05)
[2016-09-13] VITALS: BP 143/95
[2016-09-13] MEDS: Promethazine/Codeine 5ml UD ORAL PRN (02:04)
[2016-09-13 04:00] VITALS: BP 141/88
[2016-09-13] MEDS: cloNIDine 0.2mg Tab ORAL SCH ×3 (06:26→21:19)
[2016-09-13] MEDS: NovoLOG Insulin Flexpen SUBQ SCH ×4 (06:30→21:24)
[2016-09-13] MEDS: HYDROmorphone 2mg tab ORAL PRN ×2 (07:14)
[2016-09-13 07:32] LABS: MEAN CORPUSCULAR HEMOGLOBIN 28.5 PG (27.0-31.0); MEAN CORPUSCULAR HGB CONC 32.3 G/DL (32.0-36.0); MEAN CORPUSCULAR VOLUME 88 FL (80-99); MEAN PLATELET VOLUME 5.5 FL (6.5-10.1); PLATELET COUNT 333 K/UL (150-450); RED BLOOD COUNT 2.59 M/UL (4.20-5.40); RED CELL DISTRIBUTION WIDTH 15.4 % (11.6-14.8); WHITE BLOOD COUNT 5.9 K/UL (4.8-10.8)
[2016-09-13 07:36] LABS: ALANINE AMINOTRANSFERASE 38 U/L (3-33); ALBUMIN/GLOBULIN RATIO 0.9 (1.0-2.7); ANION GAP 16 (5-15); ASPARTATE AMINO TRANSFERASE 29 U/L (5-40); CALCIUM 8.4 mg/dL (8.6-10.2); CARBON DIOXIDE 22 mEQ/L (20-30); CHLORIDE 99 mEQ/L (98-107); CREATININE 4.5 mg/dL (0.5-0.9); GLOMERULAR FILTRATION RATE 13.2 mL/min (>60); HEMOLYSIS 3; MAGNESIUM 2.5 mg/dL (1.7-2.5); PHOSPHORUS 5.8 mg/dL (2.5-4.8); POTASSIUM 5.5 mEQ/L (3.4-4.9); SODIUM 137 mEQ/L (135-145); URIC ACID 7.5 mg/dL (3.0-7.5)
[2016-09-13 08:20] VITALS: BP 154/93
[2016-09-13 10:22] LABS: ANISOCYTOSIS 1+; BAND NEUTROPHILS % (MANUAL) 0 % (0-8); BASOPHILS % (MANUAL) 0 % (0-2); EOSINOPHILS % (MANUAL) 1 % (0-3); LYMPHOCYTES % (MANUAL) 24 % (20-45); NEUTROPHILS % (MANUAL) 64 % (45-75); PLATELET ESTIMATE ADEQUATE; PLATELET MORPHOLOGY NORMAL; TOTAL CELLS COUNTED 100
[2016-09-13] MEDS: Tamsulosin 0.4mg cap ORAL SCH ×2 (10:45→17:47)
[2016-09-13] MEDS: Metoprolol 25mg tab ORAL SCH ×2 (10:48→21:20)
--- NOTE | 2016-09-13 12:15 | General Progress Note ---
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 Plan: Avoid nephrotoxics- Increaselopressor- doss, and 24 h urine CrCl and Protein-CrCl 15 over 6 gram protein EPO and IV Iron and B12 and Folate BP control stop Lasix 2D echo noted kidney JESUSITA : Slightly increased right renal echogenicity, could indicate early medical renal disease Negative for hydronephrosis monitor renal parameters Subjective ROS Limited/Unobtainable: No Constitutional: Reports: malaise, weakness Gastrointestinal/Abdominal: Reports: nausea Allergies: Coded Allergies: PENICILLINS (Verified Allergy, Unknown, 03/13/15) Objective Last 24 Hour Vital Signs Date Time Temp Pulse Resp B/P Pulse Ox O2 Delivery O2 Flow Rate FiO2 09/13/16 10:48 88 154/93 09/13/16 10:47 88 154/93 09/13/16 08:20 97.0 88 19 154/93 Room Air 09/13/16 08:13 97.0 09/13/16 06:26 148/107 09/13/16 04:00 96.4 78 18 141/88 93 Room Air 09/13/16 00:00 97.3 87 18 143/95 93 Room Air 09/12/16 23:08 159/88 09/12/16 21:04 91 159/88 09/12/16 20:00 98.2 91 18 159/88 96 Room Air 09/12/16 16:00 97.9 87 17 144/87 93 Room Air 09/12/16 13:23 154/89 Intake and Output 09/12/16 09/13/16 19:00 07:00 Intake Total 240 ml 360 ml Output Total 500 ml 900 ml Balance -260 ml -540 ml Intake Oral 240 ml 360 ml Output Urine Total 500 ml 900 ml Laboratory Tests 09/13/16 06:15: White Blood Count 5.9, Red Blood Count 2.59L, Hemoglobin 7.4L, Hematocrit 22.8L , Mean Corpuscular Volume 88, Mean Corpuscular Hemoglobin 28.5, Mean Corpuscular Hemoglobin Concent 32.3, Red Cell Distribution Width 15.4H, Platelet Count 333, Mean Platelet Volume 5.5L, Neutrophils (%) (Auto) , Lymphocytes (%) (Auto) , Monocytes (%) (Auto) , Eosinophils (%) (Auto) , Basophils (%) (Auto) , Differential Total Cells Counted 100, Neutrophils % ( Manual) 64, Lymphocytes % (Manual) 24, Monocytes % (Manual) 11H, Eosinophils % ( Manual) 1, Basophils % (Manual) 0, Band Neutrophils 0, Platelet Estimate Adequate, Platelet Morphology Normal, Anisocytosis 1+, Sodium Level 137, Potassium Level 5.5H, Chloride Level 99, Carbon Dioxide Level 22, Anion Gap 16H , Blood Urea Nitrogen 64H, Creatinine 4.5H, Estimat Glomerular Filtration Rate 13.2, Glucose Level 73L, Uric Acid 7.5, Calcium Level 8.4L, Phosphorus Level 5.8H, Magnesium Level 2.5, Total Bilirubin < 0.2, Aspartate Amino Transf (AST/ SGOT) 29, Alanine Aminotransferase (ALT/SGPT) 38H, Alkaline Phosphatase 340H, C- Reactive Protein, Quantitative 1.0H, Pro-B-Type Natriuretic Peptide 1381H, Total Protein 6.0L, Albumin 2.9L, Globulin 3.1, Albumin/Globulin Ratio 0.9L Height (Feet): 5 Height (Inches): 2.00 Weight (Pounds): 184 General Appearance: mild distress Cardiovascular: normal rate, regular rhythm Respiratory/Chest: decreased breath sounds Abdomen: distended Objective other physical exam not changed MICHELLE HOOK Sep 13, 2016 12:15
[2016-09-13 12:24] VITALS: BP 158/84
--- NOTE | 2016-09-13 13:44 | Neurology Progress Note ---
Interim History Interim History Interim History Ms. Barboza feels unwell today. She was feeling a little better after I saw her yesterday. This morning she had abdominal discomfort and then nausea and vomiting following which she feels generally unwell and in addition her pressure like headache is also worse. The neck tightness is a little better. She denies any new neurologic symptoms. Review of Systems Neuro Review of Systems Benign. Objective Physical Exam Last Vital Signs Date Time Temp Pulse Resp B/P Pulse Ox O2 Delivery O2 Flow Rate FiO2 09/13/16 12:24 97.7 100 19 158/84 93 Room Air Laboratory Tests Test 09/13/16 06:15 White Blood Count 5.9 K/UL (4.8-10.8) Red Blood Count 2.59 M/UL (4.20-5.40) L Hemoglobin 7.4 G/DL (12.0-16.0) L Hematocrit 22.8 % (37.0-47.0) L Mean Corpuscular Volume 88 FL (80-99) Mean Corpuscular Hemoglobin 28.5 PG (27.0-31.0) Mean Corpuscular Hemoglobin Concent 32.3 G/DL (32.0-36.0) Red Cell Distribution Width 15.4 % (11.6-14.8) H Platelet Count 333 K/UL (150-450) Mean Platelet Volume 5.5 FL (6.5-10.1) L Neutrophils (%) (Auto) % (45.0-75.0) Lymphocytes (%) (Auto) % (20.0-45.0) Monocytes (%) (Auto) % (1.0-10.0) Eosinophils (%) (Auto) % (0.0-3.0) Basophils (%) (Auto) % (0.0-2.0) Differential Total Cells Counted 100 Neutrophils % (Manual) 64 % (45-75) Lymphocytes % (Manual) 24 % (20-45) Monocytes % (Manual) 11 % (1-10) H Eosinophils % (Manual) 1 % (0-3) Basophils % (Manual) 0 % (0-2) Band Neutrophils 0 % (0-8) Platelet Estimate Adequate Platelet Morphology Normal Anisocytosis 1+ Sodium Level 137 mEQ/L (135-145) Potassium Level 5.5 mEQ/L (3.4-4.9) H Chloride Level 99 mEQ/L (98-107) Carbon Dioxide Level 22 mEQ/L (20-30) Anion Gap 16 (5-15) H Blood Urea Nitrogen 64 mg/dL (7-23) H Creatinine 4.5 mg/dL (0.5-0.9) H Estimat Glomerular Filtration Rate 13.2 mL/min (>60) Glucose Level 73 mg/dL (74-106) L Uric Acid 7.5 mg/dL (3.0-7.5) Calcium Level 8.4 mg/dL (8.6-10.2) L Phosphorus Level 5.8 mg/dL (2.5-4.8) H Magnesium Level 2.5 mg/dL (1.7-2.5) Total Bilirubin < 0.2 mg/dL (0.0-1.2) Aspartate Amino Transf (AST/SGOT) 29 U/L (5-40) Alanine Aminotransferase (ALT/SGPT) 38 U/L (3-33) H Alkaline Phosphatase 340 U/L (35-104) H C-Reactive Protein, Quantitative 1.0 mg/dL (< 0.5) H Pro-B-Type Natriuretic Peptide 1381 pg/mL (0-125) H Total Protein 6.0 g/dL (6.6-8.7) L Albumin 2.9 g/dL (3.5-5.2) L Globulin 3.1 g/dL Albumin/Globulin Ratio 0.9 (1.0-2.7) L Neurologic Exam Objective PHYSICAL EXAMINATION: GENERAL: She is a well-developed, well-nourished, pleasant black lady, lying in bed, in no acute distress. HEAD: Normocephalic and atraumatic. EENT: Examination benign. NECK: No neck rigidity was observed. She did have a grade 1/4 cervical paraspinal muscle and trapezius spasm. NEUROLOGIC EXAMINATION: MENTAL STATUS EXAMINATION: She was alert and awake. She was oriented to person, place, and time. She was able to recall 3/3 words immediately after 1 minute and after 3 minutes. She was able to remember presidents Trump through [employer] senior. Her mathematical skills were impaired. Her visuospatial function was relatively good. SPEECH: She had no dysarthria. LANGUAGE: She had no aphasia. CRANIAL NERVE EXAMINATION: II: The visual lopez were intact on confrontation testing. III, IV & : The external ocular movements were full and the pupils 3 mm in diameter and reactive to light. V: She had normal facial sensations and the temporales, masseters, and pterygoids function normally. V: She had normal facial expressions and no facial asymmetry. VIII: She was able to hear well bilaterally and had no nystagmus. IX: The palate moved symmetrically on phonation. X: She had no hoarseness of the voice. XI: The sternocleidomastoids and trapezii functioned normally. XII: The tongue was in the midline without any fasciculations or atrophy. MOTOR SYSTEM: The tone was normal in all four extremities. Examination of muscle mass revealed no focal wasting. Examination of power revealed grade 5/5 power in all muscle groups tested. SENSORY EXAMINATION: She had intact sensations to pinprick, light touch, and graphesthesia. COORDINATION: She performed well on [id number] and vjpb-lv-[id number] testing. Romberg test could not be performed because even with eyes open when she was made to stand with her feet together, she was quite unsteady. REFLEXES: 0 at the biceps, triceps, brachioradialis, knees, and ankles. The plantar responses were flexor bilaterally. STANCE: She stood up with a wide base. GAIT: She walked well with a wide base. Impression/Recommendations Diagnostic Impression 1. Ms. Ashli Barboza is a 36-year-old, right-handed, black lady, who does have a past history of type 1 diabetes mellitus, hypertension, chronic kidney disease , and anemia, who was hospitalized for dyspnea on exertion, generalized weakness , severe fatigue, all associated with an anemia with a hemoglobin in the 5s. She has also had a headache for the last two weeks, which is quite bothersome. 2. Yesterday, there was a mild improvement in her headache, however this morning she had abdominal discomfort and then nausea and vomiting following which she feels generally unwell and in addition her pressure like headache is also worse. 3. On neurological examination, at this time, she does demonstrate mild cervical paraspinal muscle and trapezius spasm, global areflexia, a wide-based stance, and a wide-based gait. 4. Laboratory data revealed that when she came in, her hemoglobin was 5.8 G and her latest hemoglobin is 7.4 G. Her latest chemistry panel reveals a BUN elevated to 51 with a creatinine of 3.6 and she has a normal vitamin B12 level, folate level, and TSH. 5. The CT of the brain without contrast is benign. 6. The patient's history, neurological examination, and laboratory data are most compatible with daily muscle contraction headaches made worse by her anemia. . Recommendations 1. Continue present management. 2. Continue Flexeril 10 mg PO q HS. 3. Continue Tylenol 650 mg 3 times a day for the next 2 days. 4. Increase activity as tolerated. Adelaida Villarreal M.D., M.S.P.H. ADELAIDA VILLARREAL Sep 13, 2016 13:44
--- NOTE | 2016-09-13 14:08 | General Progress Note ---
Assessment/Plan Assessment/Plan Assessment (1) Hypoalbuminemia ICD Codes: E88.09 - Other disorders of plasma-protein metabolism, not elsewhere classified SNOMED: 731411822 (2) Constipation ICD Codes: K59.00 - Constipation, unspecified SNOMED: 92449750 (3) Anemia ICD Codes: D64.9 - Anemia, unspecified SNOMED: 525821533 Qualifiers: Qualified Codes: D64.9 - Anemia, unspecified (4) DM (diabetes mellitus) --> ? gastroparesis ICD Codes: E11.9 - DM (diabetes mellitus) SNOMED: 67353640 Qualifiers: Qualified Codes: E10.21 - Type 1 diabetes mellitus with diabetic nephropathy (5) Abnormal LFTs with N/V ICD Codes: R79.89 - Other specified abnormal findings of blood chemistry SNOMED: 017762981 Status: unchanged Assessment/Plan s/p EGD 05/26/16 >> gastritis iron panel unremarkable OB stool negative rising alkaline phos / elevated GGT ordered MRCP --> normal Trial of dulcolax supp would d/c all narcotics monitor H&H, transfuse prn H2 miralax + colace fu labs ADA/renal diet Subjective Allergies: Coded Allergies: PENICILLINS (Verified Allergy, Unknown, 03/13/15) Subjective c/o N/V no BM x 2 days no abdominal pain poor oral intake Objective Last 24 Hour Vital Signs Date Time Temp Pulse Resp B/P Pulse Ox O2 Delivery O2 Flow Rate FiO2 09/13/16 12:24 97.7 100 19 158/84 93 Room Air 09/13/16 11:46 97.0 09/13/16 10:48 88 154/93 09/13/16 10:47 88 154/93 09/13/16 08:20 97.0 88 19 154/93 Room Air 09/13/16 08:13 97.0 09/13/16 06:26 148/107 09/13/16 04:00 96.4 78 18 141/88 93 Room Air 09/13/16 00:00 97.3 87 18 143/95 93 Room Air 09/12/16 23:08 159/88 09/12/16 21:04 91 159/88 09/12/16 20:00 98.2 91 18 159/88 96 Room Air 09/12/16 16:00 97.9 87 17 144/87 93 Room Air Intake and Output 09/12/16 09/13/16 19:00 07:00 Intake Total 240 ml 360 ml Output Total 500 ml 900 ml Balance -260 ml -540 ml Intake Oral 240 ml 360 ml Output Urine Total 500 ml 900 ml Laboratory Tests 09/13/16 06:15: White Blood Count 5.9, Red Blood Count 2.59L, Hemoglobin 7.4L, Hematocrit 22.8L , Mean Corpuscular Volume 88, Mean Corpuscular Hemoglobin 28.5, Mean Corpuscular Hemoglobin Concent 32.3, Red Cell Distribution Width 15.4H, Platelet Count 333, Mean Platelet Volume 5.5L, Neutrophils (%) (Auto) , Lymphocytes (%) (Auto) , Monocytes (%) (Auto) , Eosinophils (%) (Auto) , Basophils (%) (Auto) , Differential Total Cells Counted 100, Neutrophils % ( Manual) 64, Lymphocytes % (Manual) 24, Monocytes % (Manual) 11H, Eosinophils % ( Manual) 1, Basophils % (Manual) 0, Band Neutrophils 0, Platelet Estimate Adequate, Platelet Morphology Normal, Anisocytosis 1+, Sodium Level 137, Potassium Level 5.5H, Chloride Level 99, Carbon Dioxide Level 22, Anion Gap 16H , Blood Urea Nitrogen 64H, Creatinine 4.5H, Estimat Glomerular Filtration Rate 13.2, Glucose Level 73L, Uric Acid 7.5, Calcium Level 8.4L, Phosphorus Level 5.8H, Magnesium Level 2.5, Total Bilirubin < 0.2, Aspartate Amino Transf (AST/ SGOT) 29, Alanine Aminotransferase (ALT/SGPT) 38H, Alkaline Phosphatase 340H, C- Reactive Protein, Quantitative 1.0H, Pro-B-Type Natriuretic Peptide 1381H, Total Protein 6.0L, Albumin 2.9L, Globulin 3.1, Albumin/Globulin Ratio 0.9L Height (Feet): 5 Height (Inches): 2.00 Weight (Pounds): 184 Objective WDWN AA woman NCAT supple CTA RRR soft ND NT non edema non focal MEL GOODWIN Sep 13, 2016 14:08
[2016-09-13] MEDS: Metoclopramide 10mg/2ml Inj IVP SCH ×2 (14:09→20:26)
[2016-09-13 15:57] VITALS: BP 136/78
--- NOTE | 2016-09-13 18:40 | General Progress Note ---
Assessment/Plan Problem List: (1) acute on chronic anemia (2) KENYA (acute kidney injury) Assessment & Plan: on CKD stage 4 24hr urine showed nephrotic range proteinuria in 05/2016 ICD Codes: N17.9 - Acute kidney failure, unspecified SNOMED: 86200182 (3) Acute on chronic diastolic (congestive) heart failure ICD Codes: I50.33 - Acute on chronic diastolic (congestive) heart failure SNOMED: 32575409, 837915978 (4) DM (diabetes mellitus) ICD Codes: E11.9 - DM (diabetes mellitus) SNOMED: 63059170 Qualifiers: Qualified Codes: E10.21 - Type 1 diabetes mellitus with diabetic nephropathy (5) HTN (hypertension) ICD Codes: I10 - HTN (hypertension) SNOMED: 78847964 Qualifiers: Qualified Codes: I15.9 - Secondary hypertension, unspecified (6) Headache ICD Codes: R51 - Headache SNOMED: 47111722 Status: stable Assessment/Plan Unclear etiology of anemia. No signs of active bleeding. Pt did have EGD in 2015 which showed gastritis. No colonoscopy yet. Denies heavy vaginal bleeding. Possibly anemia is secondary to CKD. Pt also appears to be volume overloaded but HD stable Headaches likely migraine type Nephrology consulted, appreciate rec's Hold lasix per renal F/u 24hr urine protein study Spivey placed for strict I/O's Hold digoxin given elevated level (2.8)--repeat level trending down F/u TTE--EF 65-70%, mild diastolic dysfunction s/p 2U pRBCs on 09/08-7 w/ good response Trend CBC Cont EPO per renal F/u haptoglobin to assess fo hemolysis--wnl Consider hematology consult GI consulted to assess if further workup of anemia needed--FOBT neg; possible plan for colonoscopy. MRI abd done was neg Cont Detemir 15U qHS HANDY Neurology consulted given persistent headaches. CT head neg. Likely muscle contraction headaches DVT Prophylaxis: SCD Code Status: Full Hospital Classification Declaration: Based on this initial evaluation, and depending on the patient's clinical course, I anticipate that this patient will require hospitalization for 2-3 days for anemia, KENYA, anemia, and close respiratory/hemodynamic monitoring. Disposition: Once the patient is stable to leave the hospital, I anticipate the patient will likely be discharged to the following environment: home with HH vs SNF I spent 40 minutes on this patient's case, and 22 minutes were dedicated to counseling and/or care coordination. Discussed with patient/family, nursing staff, SW/CM, renal regarding clinical status, treatment course, and disposition planning. D/w renal re: possible plan for initiation of dialysis Time of note may not reflect time of encounter. Subjective Date patient seen: Sep 13, 2016 Time patient seen: 18:39 ROS Limited/Unobtainable: No Constitutional: Reports: no symptoms HEENT: Reports: no symptoms Cardiovascular: Reports: no symptoms Respiratory: Reports: no symptoms Gastrointestinal/Abdominal: Reports: no symptoms Genitourinary: Reports: no symptoms Neurologic/Psychiatric: Reports: no symptoms Endocrine: Reports: no symptoms Hematologic/Lymphatic: Reports: no symptoms Allergies: Coded Allergies: PENICILLINS (Verified Allergy, Unknown, 03/13/15) All Systems: reviewed and negative except above Subjective No acute o/n events Cr uptrending Hgb downtrending Pt doing well. Still w/ some generalized weakness and SOB Headaches improved Objective Last 24 Hour Vital Signs Date Time Temp Pulse Resp B/P Pulse Ox O2 Delivery O2 Flow Rate FiO2 09/13/16 15:57 98.4 85 16 136/78 95 Room Air 09/13/16 14:59 97.7 09/13/16 14:09 158/84 09/13/16 12:24 97.7 100 19 158/84 93 Room Air 09/13/16 10:48 88 154/93 09/13/16 10:47 88 154/93 09/13/16 08:20 97.0 88 19 154/93 Room Air 09/13/16 08:13 97.0 09/13/16 06:26 148/107 09/13/16 04:00 96.4 78 18 141/88 93 Room Air 09/13/16 00:00 97.3 87 18 143/95 93 Room Air 09/12/16 23:08 159/88 09/12/16 21:04 91 159/88 09/12/16 20:00 98.2 91 18 159/88 96 Room Air Intake and Output 09/12/16 09/13/16 19:00 07:00 Intake Total 240 ml 360 ml Output Total 500 ml 900 ml Balance -260 ml -540 ml Intake Oral 240 ml 360 ml Output Urine Total 500 ml 900 ml Laboratory Tests 09/13/16 06:15: White Blood Count 5.9, Red Blood Count 2.59L, Hemoglobin 7.4L, Hematocrit 22.8L , Mean Corpuscular Volume 88, Mean Corpuscular Hemoglobin 28.5, Mean Corpuscular Hemoglobin Concent 32.3, Red Cell Distribution Width 15.4H, Platelet Count 333, Mean Platelet Volume 5.5L, Neutrophils (%) (Auto) , Lymphocytes (%) (Auto) , Monocytes (%) (Auto) , Eosinophils (%) (Auto) , Basophils (%) (Auto) , Differential Total Cells Counted 100, Neutrophils % ( Manual) 64, Lymphocytes % (Manual) 24, Monocytes % (Manual) 11H, Eosinophils % ( Manual) 1, Basophils % (Manual) 0, Band Neutrophils 0, Platelet Estimate Adequate, Platelet Morphology Normal, Anisocytosis 1+, Sodium Level 137, Potassium Level 5.5H, Chloride Level 99, Carbon Dioxide Level 22, Anion Gap 16H , Blood Urea Nitrogen 64H, Creatinine 4.5H, Estimat Glomerular Filtration Rate 13.2, Glucose Level 73L, Uric Acid 7.5, Calcium Level 8.4L, Phosphorus Level 5.8H, Magnesium Level 2.5, Total Bilirubin < 0.2, Aspartate Amino Transf (AST/ SGOT) 29, Alanine Aminotransferase (ALT/SGPT) 38H, Alkaline Phosphatase 340H, C- Reactive Protein, Quantitative 1.0H, Pro-B-Type Natriuretic Peptide 1381H, Total Protein 6.0L, Albumin 2.9L, Globulin 3.1, Albumin/Globulin Ratio 0.9L Height (Feet): 5 Height (Inches): 2.00 Weight (Pounds): 184 Objective General: alert, cooperative, no distress, appears stated age Head: normocephalic, without obvious abnormality, atraumatic Eyes: conjunctivae/corneas clear. PERRL, EOM's intact Throat: lips, mucosa, and tongue normal. MMM Neck: supple, symmetrical, trachea midline, and no JVD Lungs: clear to auscultation bilaterally, decr breath sounds b/l Heart: regular rate and rhythm, S1, S2 normal, no murmur, click, rub or gallop Abdomen: soft, non-tender, non-distended, bowel sounds normal; no masses or organomegaly Extremities: extremities normal, atraumatic, no cyanosis, 1+ BLE edema Pulses: 2+ and symmetric Skin: skin color, texture, turgor normal; no rashes or lesions Neurologic: grossly normal, no focal deficits Gudelia Rudolph M.D. Sep 13, 2016 18:40
[2016-09-13 20:00] VITALS: BP 131/71
[2016-09-13] MEDS: Miralax 17gm pkt ORAL SCH (21:00)
[2016-09-13] MEDS: oxyCODONE 5mg IR tab ORAL PRN (21:19)
[2016-09-13] MEDS: Cyclobenzaprine 10mg Tab ORAL SCH (21:20)
[2016-09-13] MEDS: Levemir Flexpen SUBQ SCH (21:23)
[2016-09-14] VITALS: BP 145/71
[2016-09-14 04:00] VITALS: BP 124/75
[2016-09-14] MEDS: Metoclopramide 10mg/2ml Inj IVP SCH ×3 (05:45→20:47)
[2016-09-14] MEDS: cloNIDine 0.2mg Tab ORAL SCH ×3 (05:47→22:25)
[2016-09-14] MEDS: NovoLOG Insulin Flexpen SUBQ SCH ×4 (05:49→20:58)
[2016-09-14 07:42] LABS: MEAN CORPUSCULAR HEMOGLOBIN 28.5 PG (27.0-31.0); MEAN CORPUSCULAR HGB CONC 32.3 G/DL (32.0-36.0); MEAN CORPUSCULAR VOLUME 88 FL (80-99); MEAN PLATELET VOLUME 5.7 FL (6.5-10.1); PLATELET COUNT 320 K/UL (150-450); RED BLOOD COUNT 2.35 M/UL (4.20-5.40); RED CELL DISTRIBUTION WIDTH 15.5 % (11.6-14.8); WHITE BLOOD COUNT 8.1 K/UL (4.8-10.8)
[2016-09-14 08:21] VITALS: BP 110/72
[2016-09-14 08:51] LABS: ALANINE AMINOTRANSFERASE 38 U/L (3-33); ALBUMIN/GLOBULIN RATIO 0.7 (1.0-2.7); ANION GAP 16 (5-15); ASPARTATE AMINO TRANSFERASE 34 U/L (5-40); CALCIUM 8.1 mg/dL (8.6-10.2); CARBON DIOXIDE 20 mEQ/L (20-30); CHLORIDE 99 mEQ/L (98-107); CREATININE 4.8 mg/dL (0.5-0.9); CRP QUANT 4.8 mg/dL (< 0.5); GLOMERULAR FILTRATION RATE 12.4 mL/min (>60); HEMOLYSIS 7; MAGNESIUM 2.5 mg/dL (1.7-2.5); PHOSPHORUS 5.6 mg/dL (2.5-4.8); POTASSIUM 5.8 mEQ/L (3.4-4.9); SODIUM 135 mEQ/L (135-145); TOTAL PROTEIN 5.7 g/dL (6.6-8.7); URIC ACID 7.3 mg/dL (3.0-7.5)
[2016-09-14] MEDS ORDERED: Miralax 17gm pkt ORAL PRN (09:00)
[2016-09-14] MEDS: Metoprolol 25mg tab ORAL SCH ×2 (09:00→20:52)
[2016-09-14] MEDS: Tamsulosin 0.4mg cap ORAL SCH ×2 (09:23→17:13)
[2016-09-14 09:57] LABS: ANISOCYTOSIS 1+; BAND NEUTROPHILS % (MANUAL) 0 % (0-8); BASOPHILS % (MANUAL) 0 % (0-2); EOSINOPHILS % (MANUAL) 5 % (0-3); HYPOCHROMASIA 1+; LYMPHOCYTES % (MANUAL) 10 % (20-45); NEUTROPHILS % (MANUAL) 80 % (45-75); PLATELET ESTIMATE ADEQUATE; PLATELET MORPHOLOGY NORMAL; TOTAL CELLS COUNTED 100
[2016-09-14] MEDS ORDERED: Sodium Polystyrene Sulfonate 15gm Powder ORAL ONE (10:15)
--- NOTE | 2016-09-14 10:15 | General Progress Note ---
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 Plan: transfuse- Bone marrow biopsy Avoid nephrotoxics- On lopressor- doss, and 24 h urine CrCl and Protein-CrCl 15 over 6 gram protein EPO and IV Iron and B12 and Folate BP control stop Lasix 2D echo noted kidney JESUSITA : Slightly increased right renal echogenicity, could indicate early medical renal disease Negative for hydronephrosis monitor renal parameters discussed with PMD Subjective ROS Limited/Unobtainable: No Constitutional: Reports: malaise Allergies: Coded Allergies: PENICILLINS (Verified Allergy, Unknown, 03/13/15) Objective Last 24 Hour Vital Signs Date Time Temp Pulse Resp B/P Pulse Ox O2 Delivery O2 Flow Rate FiO2 09/14/16 09:00 70 110/72 09/14/16 09:00 70 110/72 09/14/16 08:21 98.1 70 19 110/72 93 Room Air 09/14/16 05:47 124/75 09/14/16 04:00 98.1 74 17 124/75 91 Room Air 09/14/16 00:00 98.2 87 16 145/71 93 Room Air 09/13/16 21:20 84 131/71 09/13/16 21:19 131/71 09/13/16 20:00 97.9 84 16 131/71 87 Room Air 09/13/16 15:57 98.4 85 16 136/78 95 Room Air 09/13/16 14:59 97.7 09/13/16 14:09 158/84 09/13/16 12:24 97.7 100 19 158/84 93 Room Air 09/13/16 10:48 88 154/93 09/13/16 10:47 88 154/93 Intake and Output 09/13/16 09/14/16 19:00 07:00 Intake Total 200 ml 360 ml Output Total 450 ml 650 ml Balance -250 ml -290 ml Intake Oral 200 ml 360 ml Output Urine Total 400 ml 650 ml Emesis 50 ml Laboratory Tests 09/14/16 06:30: White Blood Count 8.1, Red Blood Count 2.35L, Hemoglobin 6.7*L, Hematocrit 20.7L , Mean Corpuscular Volume 88, Mean Corpuscular Hemoglobin 28.5, Mean Corpuscular Hemoglobin Concent 32.3, Red Cell Distribution Width 15.5H, Platelet Count 320, Mean Platelet Volume 5.7L, Neutrophils (%) (Auto) , Lymphocytes (%) (Auto) , Monocytes (%) (Auto) , Eosinophils (%) (Auto) , Basophils (%) (Auto) , Differential Total Cells Counted 100, Neutrophils % ( Manual) 80H, Lymphocytes % (Manual) 10L, Monocytes % (Manual) 5, Eosinophils % ( Manual) 5H, Basophils % (Manual) 0, Band Neutrophils 0, Platelet Estimate Adequate, Platelet Morphology Normal, Hypochromasia 1+, Anisocytosis 1+, Sodium Level 135, Potassium Level 5.8H, Chloride Level 99, Carbon Dioxide Level 20, Anion Gap 16H, Blood Urea Nitrogen 73H, Creatinine 4.8H, Estimat Glomerular Filtration Rate 12.4, Glucose Level 104, Uric Acid 7.3, Calcium Level 8.1L, Phosphorus Level 5.6H, Magnesium Level 2.5, Total Bilirubin < 0.2, Aspartate Amino Transf (AST/SGOT) 34, Alanine Aminotransferase (ALT/SGPT) 38H, Alkaline Phosphatase 315H, C-Reactive Protein, Quantitative 4.8H, Pro-B-Type Natriuretic Peptide 2403H, Total Protein 5.7L, Albumin 2.4L, Globulin 3.3, Albumin/Globulin Ratio 0.7L Height (Feet): 5 Height (Inches): 2.00 Weight (Pounds): 183 General Appearance: no apparent distress Objective other physical exam not changed MICHELLE HOOK Sep 14, 2016 10:15
[2016-09-14] MEDS: oxyCODONE 5mg IR tab ORAL PRN (11:28)
[2016-09-14 11:29] VITALS: BP 119/74
--- NOTE | 2016-09-14 13:56 | Neurology Progress Note ---
Interim History Interim History Interim History Ms. Barboza feels much better today. She has been headache free since this morning. The neck discomfort is also much better. She has had no nausea or vomiting since the episode yesterday. She denies any new neurologic symptoms. She specifically denies any weakness on one side or the other, numbness on one side or the other, problems with vision, speech or language problems. Review of Systems Neuro Review of Systems Benign. Objective Physical Exam Last Vital Signs Date Time Temp Pulse Resp B/P Pulse Ox O2 Delivery O2 Flow Rate FiO2 09/14/16 11:29 97.9 75 19 119/74 92 Room Air Laboratory Tests Test 09/14/16 06:30 White Blood Count 8.1 K/UL (4.8-10.8) Red Blood Count 2.35 M/UL (4.20-5.40) L Hemoglobin 6.7 G/DL (12.0-16.0) *L Hematocrit 20.7 % (37.0-47.0) L Mean Corpuscular Volume 88 FL (80-99) Mean Corpuscular Hemoglobin 28.5 PG (27.0-31.0) Mean Corpuscular Hemoglobin Concent 32.3 G/DL (32.0-36.0) Red Cell Distribution Width 15.5 % (11.6-14.8) H Platelet Count 320 K/UL (150-450) Mean Platelet Volume 5.7 FL (6.5-10.1) L Neutrophils (%) (Auto) % (45.0-75.0) Lymphocytes (%) (Auto) % (20.0-45.0) Monocytes (%) (Auto) % (1.0-10.0) Eosinophils (%) (Auto) % (0.0-3.0) Basophils (%) (Auto) % (0.0-2.0) Differential Total Cells Counted 100 Neutrophils % (Manual) 80 % (45-75) H Lymphocytes % (Manual) 10 % (20-45) L Monocytes % (Manual) 5 % (1-10) Eosinophils % (Manual) 5 % (0-3) H Basophils % (Manual) 0 % (0-2) Band Neutrophils 0 % (0-8) Platelet Estimate Adequate Platelet Morphology Normal Hypochromasia 1+ Anisocytosis 1+ Sodium Level 135 mEQ/L (135-145) Potassium Level 5.8 mEQ/L (3.4-4.9) H Chloride Level 99 mEQ/L (98-107) Carbon Dioxide Level 20 mEQ/L (20-30) Anion Gap 16 (5-15) H Blood Urea Nitrogen 73 mg/dL (7-23) H Creatinine 4.8 mg/dL (0.5-0.9) H Estimat Glomerular Filtration Rate 12.4 mL/min (>60) Glucose Level 104 mg/dL (74-106) Uric Acid 7.3 mg/dL (3.0-7.5) Calcium Level 8.1 mg/dL (8.6-10.2) L Phosphorus Level 5.6 mg/dL (2.5-4.8) H Magnesium Level 2.5 mg/dL (1.7-2.5) Total Bilirubin < 0.2 mg/dL (0.0-1.2) Aspartate Amino Transf (AST/SGOT) 34 U/L (5-40) Alanine Aminotransferase (ALT/SGPT) 38 U/L (3-33) H Alkaline Phosphatase 315 U/L (35-104) H C-Reactive Protein, Quantitative 4.8 mg/dL (< 0.5) H Pro-B-Type Natriuretic Peptide 2403 pg/mL (0-125) H Total Protein 5.7 g/dL (6.6-8.7) L Albumin 2.4 g/dL (3.5-5.2) L Globulin 3.3 g/dL Albumin/Globulin Ratio 0.7 (1.0-2.7) L Neurologic Exam Objective PHYSICAL EXAMINATION: GENERAL: She is a well-developed, well-nourished, pleasant black lady, lying in bed, in no acute distress. HEAD: Normocephalic and atraumatic. EENT: Examination benign. NECK: No neck rigidity was observed. She did have a grade Trace/4 cervical paraspinal muscle and trapezius spasm. NEUROLOGIC EXAMINATION: MENTAL STATUS EXAMINATION: She was alert and awake. She was oriented to person, place, and time. She was able to recall 3/3 words immediately after 1 minute and after 3 minutes. She was able to remember presidents Trump through [employer] senior. Her mathematical skills were impaired. Her visuospatial function was relatively good. SPEECH: She had no dysarthria. LANGUAGE: She had no aphasia. CRANIAL NERVE EXAMINATION: II: The visual lopez were intact on confrontation testing. III, IV & : The external ocular movements were full and the pupils 3 mm in diameter and reactive to light. V: She had normal facial sensations and the temporales, masseters, and pterygoids function normally. V: She had normal facial expressions and no facial asymmetry. VIII: She was able to hear well bilaterally and had no nystagmus. IX: The palate moved symmetrically on phonation. X: She had no hoarseness of the voice. XI: The sternocleidomastoids and trapezii functioned normally. XII: The tongue was in the midline without any fasciculations or atrophy. MOTOR SYSTEM: The tone was normal in all four extremities. Examination of muscle mass revealed no focal wasting. Examination of power revealed grade 5/5 power in all muscle groups tested. SENSORY EXAMINATION: She had intact sensations to pinprick, light touch, and graphesthesia. COORDINATION: She performed well on [id number] and [id number] testing. Romberg test could not be performed because even with eyes open when she was made to stand with her feet together, she was quite unsteady. REFLEXES: 0 at the biceps, triceps, brachioradialis, knees, and ankles. The plantar responses were flexor bilaterally. STANCE: She stood up with a wide base. GAIT: She walked well with a wide base. Impression/Recommendations Diagnostic Impression 1. Ms. Ashli Barboza is a 36-year-old, right-handed, black lady, who does have a past history of type 1 diabetes mellitus, hypertension, chronic kidney disease , and anemia, who was hospitalized for dyspnea on exertion, generalized weakness , severe fatigue, all associated with an anemia with a hemoglobin in the 5s. She also had a headache for the last two weeks, which was quite bothersome. 2. Her headache has resolved today. Her neck discomfort is also much better. 3. On neurological examination, at this time, she does demonstrate minimal cervical paraspinal muscle and trapezius spasm, global areflexia, a wide-based stance, and a wide-based gait. 4. Laboratory data revealed that when she came in, her hemoglobin was 5.8 G and her latest hemoglobin is 6.7 G. Her latest chemistry panel reveals a BUN elevated to 51 with a creatinine of 3.6 and she has a normal vitamin B12 level, folate level, and TSH. 5. The CT of the brain without contrast is benign. 6. The patient's history, neurological examination, and laboratory data are most compatible with daily muscle contraction headaches made worse by her anemia. The headache has resolved today. Recommendations 1. Continue present management. 2. Continue Flexeril 10 mg PO q HS. 3. Continue Tylenol 650 mg 3 times a day for the next day and then change to PRN. 4. Increase activity as tolerated. Adelaida Villarreal M.D., M.S.P.[place]. ADELAIDA VILLARREAL Sep 14, 2016 13:56
--- NOTE | 2016-09-14 15:56 | General Progress Note ---
Assessment/Plan Assessment/Plan Assessment (1) Hypoalbuminemia ICD Codes: E88.09 - Other disorders of plasma-protein metabolism, not elsewhere classified SNOMED: 717392335 (2) Constipation ICD Codes: K59.00 - Constipation, unspecified SNOMED: 71955679 (3) Anemia ICD Codes: D64.9 - Anemia, unspecified SNOMED: 032046414 Qualifiers: Qualified Codes: D64.9 - Anemia, unspecified (4) DM (diabetes mellitus) --> ? gastroparesis ICD Codes: E11.9 - DM (diabetes mellitus) SNOMED: 11921511 Qualifiers: Qualified Codes: E10.21 - Type 1 diabetes mellitus with diabetic nephropathy (5) Abnormal LFTs with N/V ICD Codes: R79.89 - Other specified abnormal findings of blood chemistry SNOMED: 220369268 Status: unchanged Assessment/Plan s/p EGD 05/26/16 >> gastritis iron panel unremarkable OB stool negative rising alkaline phos / elevated GGT ordered MRCP --> normal Trial of dulcolax supp would d/c all narcotics monitor H&H, transfuse prn H2 dulcolax fu labs ADA/renal diet Subjective Allergies: Coded Allergies: PENICILLINS (Verified Allergy, Unknown, 03/13/15) Subjective better today no nausea no vomiting no BM wants laxative Objective Last 24 Hour Vital Signs Date Time Temp Pulse Resp B/P Pulse Ox O2 Delivery O2 Flow Rate FiO2 09/14/16 13:52 133/72 09/14/16 11:29 97.9 75 19 119/74 92 Room Air 09/14/16 09:00 70 110/72 09/14/16 09:00 70 110/72 09/14/16 08:21 98.1 70 19 110/72 93 Room Air 09/14/16 05:47 124/75 09/14/16 04:00 98.1 74 17 124/75 91 Room Air 09/14/16 00:00 98.2 87 16 145/71 93 Room Air 09/13/16 21:20 84 131/71 09/13/16 21:19 131/71 09/13/16 20:00 97.9 84 16 131/71 87 Room Air 09/13/16 15:57 98.4 85 16 136/78 95 Room Air Intake and Output 09/13/16 09/14/16 19:00 07:00 Intake Total 200 ml 360 ml Output Total 450 ml 650 ml Balance -250 ml -290 ml Intake Oral 200 ml 360 ml Output Urine Total 400 ml 650 ml Emesis 50 ml Laboratory Tests 09/14/16 06:30: White Blood Count 8.1, Red Blood Count 2.35L, Hemoglobin 6.7*L, Hematocrit 20.7L , Mean Corpuscular Volume 88, Mean Corpuscular Hemoglobin 28.5, Mean Corpuscular Hemoglobin Concent 32.3, Red Cell Distribution Width 15.5H, Platelet Count 320, Mean Platelet Volume 5.7L, Neutrophils (%) (Auto) , Lymphocytes (%) (Auto) , Monocytes (%) (Auto) , Eosinophils (%) (Auto) , Basophils (%) (Auto) , Differential Total Cells Counted 100, Neutrophils % ( Manual) 80H, Lymphocytes % (Manual) 10L, Monocytes % (Manual) 5, Eosinophils % ( Manual) 5H, Basophils % (Manual) 0, Band Neutrophils 0, Platelet Estimate Adequate, Platelet Morphology Normal, Hypochromasia 1+, Anisocytosis 1+, Sodium Level 135, Potassium Level 5.8H, Chloride Level 99, Carbon Dioxide Level 20, Anion Gap 16H, Blood Urea Nitrogen 73H, Creatinine 4.8H, Estimat Glomerular Filtration Rate 12.4, Glucose Level 104, Uric Acid 7.3, Calcium Level 8.1L, Phosphorus Level 5.6H, Magnesium Level 2.5, Total Bilirubin < 0.2, Aspartate Amino Transf (AST/SGOT) 34, Alanine Aminotransferase (ALT/SGPT) 38H, Alkaline Phosphatase 315H, C-Reactive Protein, Quantitative 4.8H, Pro-B-Type Natriuretic Peptide 2403H, Total Protein 5.7L, Albumin 2.4L, Globulin 3.3, Albumin/Globulin Ratio 0.7L Height (Feet): 5 Height (Inches): 2.00 Weight (Pounds): 183 Objective WDWN AA woman NCAT supple CTA RRR soft ND NT non edema non focal MEL GOODWIN Sep 14, 2016 15:56
[2016-09-14 16:00] VITALS: BP 152/90
[2016-09-14] MEDS ORDERED: Iron Sucrose 200 MG in NS 110 ML IVPB ONE (16:00)
--- NOTE | 2016-09-14 18:18 | General Progress Note ---
Assessment/Plan Problem List: (1) acute on chronic anemia (2) KENYA (acute kidney injury) Assessment & Plan: on CKD stage 4 24hr urine showed nephrotic range proteinuria in 05/2016 ICD Codes: N17.9 - Acute kidney failure, unspecified SNOMED: 06600215 (3) Acute on chronic diastolic (congestive) heart failure ICD Codes: I50.33 - Acute on chronic diastolic (congestive) heart failure SNOMED: 33014352, 350114530 (4) DM (diabetes mellitus) ICD Codes: E11.9 - DM (diabetes mellitus) SNOMED: 46705909 Qualifiers: Qualified Codes: E10.21 - Type 1 diabetes mellitus with diabetic nephropathy (5) HTN (hypertension) ICD Codes: I10 - HTN (hypertension) SNOMED: 30148404 Qualifiers: Qualified Codes: I15.9 - Secondary hypertension, unspecified (6) Headache ICD Codes: R51 - Headache SNOMED: 26528822 Status: stable Assessment/Plan Unclear etiology of anemia. No signs of active bleeding. Pt did have EGD in 2015 which showed gastritis. No colonoscopy yet. Denies heavy vaginal bleeding. Possibly anemia is secondary to CKD. Pt also appears to be volume overloaded but HD stable Headaches likely migraine type Nephrology consulted, appreciate rec's Lasix decr to 40mg qd F/u 24hr urine protein study Spivey placed for strict I/O's Hold digoxin given elevated level (2.8)--repeat level trending down F/u TTE--EF 65-70%, mild diastolic dysfunction s/p 2U pRBCs on 09/08-7 w/ good response Transfuse 2U pRBCs today Trend CBC Cont EPO per renal F/u haptoglobin to assess fo hemolysis--wnl Hematology/oncology consulted given persistent anemia Bone marrow biopsy ordered GI consulted to assess if further workup of anemia needed--FOBT neg; possible plan for colonoscopy MRI abd done was neg Cont Detemir 15U qHS HANDY Neurology consulted given persistent headaches. CT head neg. Likely muscle contraction headaches DVT Prophylaxis: SCD Code Status: Full Hospital Classification Declaration: Based on this initial evaluation, and depending on the patient's clinical course, I anticipate that this patient will require hospitalization for 2-3 days for anemia, KENYA, CHF and close respiratory/ hemodynamic monitoring. Disposition: Once the patient is stable to leave the hospital, I anticipate the patient will likely be discharged to the following environment: home with HH vs SNF I spent 40 minutes on this patient's case, and 22 minutes were dedicated to counseling and/or care coordination. Discussed with patient/family, nursing staff, SW/CM, renal regarding clinical status, treatment course, and disposition planning. D/w renal re: possible plan for initiation of dialysis Time of note may not reflect time of encounter. Subjective Date patient seen: Sep 14, 2016 Time patient seen: 18:17 ROS Limited/Unobtainable: No Constitutional: Reports: no symptoms HEENT: Reports: no symptoms Cardiovascular: Reports: no symptoms Respiratory: Reports: shortness of breath Gastrointestinal/Abdominal: Reports: no symptoms Genitourinary: Reports: no symptoms Neurologic/Psychiatric: Reports: no symptoms Endocrine: Reports: no symptoms Hematologic/Lymphatic: Reports: no symptoms Allergies: Coded Allergies: PENICILLINS (Verified Allergy, Unknown, 03/13/15) All Systems: reviewed and negative except above Subjective No acute o/n events Cr uptrending Hgb down to 6.7 today. 2U pRBCs ordered to be transfused Pt doing well. Still w/ some generalized weakness and SOB Headaches improved Objective Last 24 Hour Vital Signs Date Time Temp Pulse Resp B/P Pulse Ox O2 Delivery O2 Flow Rate FiO2 09/14/16 16:00 98.2 83 20 152/90 92 Room Air 09/14/16 13:52 133/72 09/14/16 11:29 97.9 75 19 119/74 92 Room Air 09/14/16 09:00 70 110/72 09/14/16 09:00 70 110/72 09/14/16 08:21 98.1 70 19 110/72 93 Room Air 09/14/16 05:47 124/75 09/14/16 04:00 98.1 74 17 124/75 91 Room Air 09/14/16 00:00 98.2 87 16 145/71 93 Room Air 09/13/16 21:20 84 131/71 09/13/16 21:19 131/71 09/13/16 20:00 97.9 84 16 131/71 87 Room Air Intake and Output 09/13/16 09/14/16 19:00 07:00 Intake Total 200 ml 360 ml Output Total 450 ml 650 ml Balance -250 ml -290 ml Intake Oral 200 ml 360 ml Output Urine Total 400 ml 650 ml Emesis 50 ml Laboratory Tests 09/14/16 06:30: White Blood Count 8.1, Red Blood Count 2.35L, Hemoglobin 6.7*L, Hematocrit 20.7L , Mean Corpuscular Volume 88, Mean Corpuscular Hemoglobin 28.5, Mean Corpuscular Hemoglobin Concent 32.3, Red Cell Distribution Width 15.5H, Platelet Count 320, Mean Platelet Volume 5.7L, Neutrophils (%) (Auto) , Lymphocytes (%) (Auto) , Monocytes (%) (Auto) , Eosinophils (%) (Auto) , Basophils (%) (Auto) , Differential Total Cells Counted 100, Neutrophils % ( Manual) 80H, Lymphocytes % (Manual) 10L, Monocytes % (Manual) 5, Eosinophils % ( Manual) 5H, Basophils % (Manual) 0, Band Neutrophils 0, Platelet Estimate Adequate, Platelet Morphology Normal, Hypochromasia 1+, Anisocytosis 1+, Sodium Level 135, Potassium Level 5.8H, Chloride Level 99, Carbon Dioxide Level 20, Anion Gap 16H, Blood Urea Nitrogen 73H, Creatinine 4.8H, Estimat Glomerular Filtration Rate 12.4, Glucose Level 104, Uric Acid 7.3, Calcium Level 8.1L, Phosphorus Level 5.6H, Magnesium Level 2.5, Total Bilirubin < 0.2, Aspartate Amino Transf (AST/SGOT) 34, Alanine Aminotransferase (ALT/SGPT) 38H, Alkaline Phosphatase 315H, C-Reactive Protein, Quantitative 4.8H, Pro-B-Type Natriuretic Peptide 2403H, Total Protein 5.7L, Albumin 2.4L, Globulin 3.3, Albumin/Globulin Ratio 0.7L Height (Feet): 5 Height (Inches): 2.00 Weight (Pounds): 183 Objective General: alert, cooperative, no distress, appears stated age Head: normocephalic, without obvious abnormality, atraumatic Eyes: conjunctivae/corneas clear. PERRL, EOM's intact Throat: lips, mucosa, and tongue normal. MMM Neck: supple, symmetrical, trachea midline, and no JVD Lungs: clear to auscultation bilaterally, decr breath sounds b/l Heart: regular rate and rhythm, S1, S2 normal, no murmur, click, rub or gallop Abdomen: soft, non-tender, non-distended, bowel sounds normal; no masses or organomegaly Extremities: extremities normal, atraumatic, no cyanosis, 1+ BLE edema Pulses: 2+ and symmetric Skin: skin color, texture, turgor normal; no rashes or lesions Neurologic: grossly normal, no focal deficits Gudelia Rudolph M.D. Sep 14, 2016 18:17
[2016-09-14 19:00] VITALS: BP 153/93
[2016-09-14] MEDS: Miralax 17gm pkt ORAL SCH (20:48)
[2016-09-14] MEDS: Cyclobenzaprine 10mg Tab ORAL SCH (20:51)
[2016-09-14] MEDS: Levemir Flexpen SUBQ SCH (21:00)
[2016-09-15] VITALS: BP 154/93
[2016-09-15 04:00] VITALS: BP 153/97
[2016-09-15] MEDS: Metoclopramide 10mg/2ml Inj IVP SCH ×3 (04:56→20:30)
[2016-09-15] MEDS: cloNIDine 0.2mg Tab ORAL SCH ×3 (05:40→20:31)
[2016-09-15] MEDS: NovoLOG Insulin Flexpen SUBQ SCH ×4 (06:30→20:41)
[2016-09-15 07:15] LABS: BASOPHILS % (AUTO) 0.7 % (0.0-2.0); EOSINOPHILS % (AUTO) 4.1 % (0.0-3.0); LYMPHOCYTES % (AUTO) 11.6 % (20.0-45.0); MEAN CORPUSCULAR HEMOGLOBIN 28.5 PG (27.0-31.0); MEAN CORPUSCULAR VOLUME 87 FL (80-99); MEAN PLATELET VOLUME 5.4 FL (6.5-10.1); MONOCYTES % (AUTO) 7.6 % (1.0-10.0); NEUTROPHILS % (AUTO) 76.1 % (45.0-75.0); PLATELET COUNT 364 K/UL (150-450); RED BLOOD COUNT 3.21 M/UL (4.20-5.40); RED CELL DISTRIBUTION WIDTH 15.1 % (11.6-14.8); WHITE BLOOD COUNT 9.4 K/UL (4.8-10.8)
[2016-09-15 07:41] LABS: ALANINE AMINOTRANSFERASE 36 U/L (3-33); ALBUMIN/GLOBULIN RATIO 0.8 (1.0-2.7); ANION GAP 16 (5-15); ASPARTATE AMINO TRANSFERASE 25 U/L (5-40); CALCIUM 8.2 mg/dL (8.6-10.2); CARBON DIOXIDE 23 mEQ/L (20-30); CHLORIDE 99 mEQ/L (98-107); CREATININE 4.4 mg/dL (0.5-0.9); CRP QUANT 3.6 mg/dL (< 0.5); GLOMERULAR FILTRATION RATE 13.6 mL/min (>60); HEMOLYSIS 2; MAGNESIUM 2.5 mg/dL (1.7-2.5); PHOSPHORUS 5.5 mg/dL (2.5-4.8); POTASSIUM 4.4 mEQ/L (3.4-4.9); SODIUM 138 mEQ/L (135-145); TOTAL PROTEIN 5.9 g/dL (6.6-8.7); URIC ACID 7.3 mg/dL (3.0-7.5)
[2016-09-15 07:58] VITALS: BP 154/88
--- NOTE | 2016-09-15 08:58 | Consultation ---
DATE OF CONSULTATION: 09/14/2016 NOTE: VERY POOR INAUDIBLE AUDIO QUALITY HEMATOLOGY/ONCOLOGY CONSULTATION: REQUESTING PHYSICIAN: Gudelia Rudolph M.D. REASON FOR CONSULTATION: Evaluation of anemia. IDENTIFYING DATA: Dear Dr. Gudelia Rudolph, The patient is a pleasant 36-year-old female with past medical history significant for type 1 diabetes mellitus, hypertension, hypothyroidism, status post in the past with a history of CAD, at this time presenting with generalized weakness, primary physician, presents to ER shortness of breath. She was found to have anemia . She was having difficulty with shortness of breath watching . She symptomatic and also noted to have increased lower extremity swelling. hemoglobin 5.8. Her labs were drawn, creatinine was . At this time evidence of hemolysis. B12, folic acid, . iron of 69. . AST 40, ALT . The patient has a history of anemia. Bone marrow biopsy has been ordered as well for evaluation of anemia given elevated . PAST MEDICAL HISTORY: History of hypertension, diabetes mellitus. CURRENT MEDICATIONS: . SOCIAL HISTORY: No alcohol, tobacco, or illicit drug use. . Occasionally drank alcohol in the past, but now has discontinued. FAMILY HISTORY: Noncontributory. REVIEW OF SYSTEMS: Constitutional: No fever, chills, or night sweats. Skin: No rashes, lumps, or itching. HEENT: No headache or vision changes. Breasts: No lumps, pain, or discharge. Pulmonary: No cough, sputum, or shortness of breath. Cardiovascular: No chest pain, tightness, or palpitations. Gastrointestinal: No nausea, vomiting, or diarrhea. : No dysuria, frequency, or urgency. Musculoskeletal: No joint swelling, muscle pain, or trauma. PHYSICAL EXAMINATION: GENERAL: The patient is in no acute distress. VITAL SIGNS: Temperature 96 degrees Fahrenheit , pulse , respiratory rate 12, blood pressure 119/74, and pulse oximetry 92% on room air. PULMONARY: Decreased breath sounds. CARDIOVASCULAR: Regular rate and rhythm. No S3 or S4. ABDOMEN: Soft, nontender, and nondistended. EXTREMITIES: A 1+ edema. LABORATORY AND DIAGNOSTIC DATA: WBC 3.1, hemoglobin 6.7, hematocrit 21, platelet count 220,000, neutrophils 70 to 80%. INR 1. BUN and creatinine . Imaging reviewed x-ray of lower extremities. shows . Venous ultrasound shows angiomyolipoma . CT shows bilateral pleural effusion. Head CT scan shows no mass effect . ASSESSMENT: 1. Anemia of chronic disease. . Recommended bone marrow biopsy in addition to Nephrology workup in order to evaluate the patient for iron deficiency with percent saturation . supplementation with iron therapy . 2. Headache with migraine. 3. Gastritis . 4. Chronic kidney disease. 5. Diabetes mellitus type 1, on insulin. RECOMMENDATIONS: 1. Transfuse hemoglobin above 8. 2. hemolysis. 3. Bone marrow biopsy. 4. . 5. Begin the patient on IV iron administer 1 dose above 500. 6. . 7. Continue erythropoietin. 8. Pain control. 9. GI prophylaxis with PPI. 10. Nephrology workup is appreciated. Thank you, Dr. Gudelia Rudolph, for this kind referral. Please do not hesitate to contact me if you have any further questions. Bennie Ham M.D. DR: Maia JOB#: [id number] CC:
[2016-09-15] MEDS: Tamsulosin 0.4mg cap ORAL SCH ×2 (09:09→17:16)
[2016-09-15] MEDS: Metoprolol 25mg tab ORAL SCH ×2 (09:10→20:31)
[2016-09-15 11:27] VITALS: BP 157/97
--- NOTE | 2016-09-15 11:40 | GI Progress Note ---
Assessment/Plan Problems: (1) Hypoalbuminemia ICD Codes: E88.09 - Other disorders of plasma-protein metabolism, not elsewhere classified SNOMED: 292733338 (2) Constipation ICD Codes: K59.00 - Constipation, unspecified SNOMED: 01890440 (3) Anemia ICD Codes: D64.9 - Anemia, unspecified SNOMED: 674989572 Qualifiers: Qualified Codes: D64.9 - Anemia, unspecified (4) DM (diabetes mellitus) ICD Codes: E11.9 - DM (diabetes mellitus) SNOMED: 88597875 Qualifiers: Qualified Codes: E10.21 - Type 1 diabetes mellitus with diabetic nephropathy (5) Abnormal LFTs ICD Codes: R79.89 - Other specified abnormal findings of blood chemistry SNOMED: 685802283 Status: stable Status Narrative Discussed with Dr. Santoyo Assessment/Plan s/p EGD 05/26/16 >> gastritis iron panel unremarkable OB stool negative rising alkaline phos / elevated GGT ordered MRCP --> normal would d/c all narcotics monitor H&H, transfuse prn H2 dulcolax fu labs ADA/renal diet rec hematology consult Subjective Subjective abdominal pain less constipated Objective Last 24 Hour Vital Signs Date Time Temp Pulse Resp B/P Pulse Ox O2 Delivery O2 Flow Rate FiO2 09/15/16 11:27 97.8 83 19 157/97 93 Room Air 09/15/16 09:10 80 154/88 09/15/16 09:09 80 154/88 09/15/16 07:58 97.5 80 19 154/88 92 Room Air 09/15/16 05:40 161/102 09/15/16 04:00 97.2 78 18 153/97 93 Room Air 09/15/16 00:00 97.0 78 18 154/93 92 Room Air 09/14/16 22:25 151/81 09/14/16 20:52 89 153/89 09/14/16 19:00 97.7 89 20 153/93 93 Room Air 09/14/16 16:00 98.2 83 20 152/90 92 Room Air 09/14/16 13:52 133/72 Intake and Output 09/14/16 09/15/16 19:00 07:00 Intake Total 520 ml 240 ml Output Total 300 ml 1400 ml Balance 220 ml -1160 ml Intake Oral 520 ml 240 ml Output Urine Total 300 ml 1400 ml # Bowel Movements 1 Laboratory Tests Test 09/15/16 05:15 White Blood Count 9.4 K/UL (4.8-10.8) Red Blood Count 3.21 M/UL (4.20-5.40) L Hemoglobin 9.2 G/DL (12.0-16.0) #L Hematocrit 27.8 % (37.0-47.0) #L Mean Corpuscular Volume 87 FL (80-99) Mean Corpuscular Hemoglobin 28.5 PG (27.0-31.0) Mean Corpuscular Hemoglobin Concent 33.0 G/DL (32.0-36.0) Red Cell Distribution Width 15.1 % (11.6-14.8) H Platelet Count 364 K/UL (150-450) Mean Platelet Volume 5.4 FL (6.5-10.1) L Neutrophils (%) (Auto) 76.1 % (45.0-75.0) H Lymphocytes (%) (Auto) 11.6 % (20.0-45.0) L Monocytes (%) (Auto) 7.6 % (1.0-10.0) Eosinophils (%) (Auto) 4.1 % (0.0-3.0) H Basophils (%) (Auto) 0.7 % (0.0-2.0) Sodium Level 138 mEQ/L (135-145) Potassium Level 4.4 mEQ/L (3.4-4.9) Chloride Level 99 mEQ/L (98-107) Carbon Dioxide Level 23 mEQ/L (20-30) Anion Gap 16 (5-15) H Blood Urea Nitrogen 71 mg/dL (7-23) H Creatinine 4.4 mg/dL (0.5-0.9) H Estimat Glomerular Filtration Rate 13.6 mL/min (>60) Glucose Level 111 mg/dL (74-106) H Uric Acid 7.3 mg/dL (3.0-7.5) Calcium Level 8.2 mg/dL (8.6-10.2) L Phosphorus Level 5.5 mg/dL (2.5-4.8) H Magnesium Level 2.5 mg/dL (1.7-2.5) Erythropoietin Pending Total Bilirubin < 0.2 mg/dL (0.0-1.2) Aspartate Amino Transf (AST/SGOT) 25 U/L (5-40) Alanine Aminotransferase (ALT/SGPT) 36 U/L (3-33) H Alkaline Phosphatase 332 U/L (35-104) H C-Reactive Protein, Quantitative 3.6 mg/dL (< 0.5) H Pro-B-Type Natriuretic Peptide 2155 pg/mL (0-125) H Total Protein 5.9 g/dL (6.6-8.7) L Albumin 2.7 g/dL (3.5-5.2) L Globulin 3.2 g/dL Albumin/Globulin Ratio 0.8 (1.0-2.7) L Height (Feet): 5 Height (Inches): 2.00 Weight (Pounds): 176 General Appearance: no apparent distress, alert Cardiovascular: normal rate Respiratory/Chest: normal breath sounds, no respiratory distress Abdominal Exam: normal bowel sounds, non tender, soft Alexandra Leonard N.P. Sep 15, 2016 11:40
--- NOTE | 2016-09-15 13:57 | General Progress Note ---
Assessment/Plan Assessment/Plan ASSESSMENT: 1. Anemia of chronic disease. Rule out other causes and eval for MDS as well. Recommended a bone marrow biopsy in addition to Nephrology workup in order to evaluate the patient for iron deficiency with v other causes, have ordered the test, to be done on thursday 2. Headache with migraine. 3. Gastritis 4. Chronic kidney disease. 5. Diabetes mellitus type 1, on insulin. RECOMMENDATIONS: 1. Transfuse hemoglobin above 8. 2. Rule out hemolysis. 3. Bone marrow biopsy. 4. Rule out MDS 5. One time dose of IV iron administered 6. Continue erythropoietin. 7. GI prophylaxis with PPI. 8. Nephrology workup is appreciated. Thank you, Bennie Ham MD Subjective Constitutional: Reports: no symptoms HEENT: Reports: no symptoms Cardiovascular: Reports: no symptoms Respiratory: Reports: no symptoms Gastrointestinal/Abdominal: Reports: poor appetite Genitourinary: Reports: no symptoms Neurologic/Psychiatric: Reports: no symptoms Endocrine: Reports: no symptoms Hematologic/Lymphatic: Reports: anemia Allergies: Coded Allergies: PENICILLINS (Verified Allergy, Unknown, 03/13/15) Subjective no fevers or chills, no night sweats reported Objective Last 24 Hour Vital Signs Date Time Temp Pulse Resp B/P Pulse Ox O2 Delivery O2 Flow Rate FiO2 09/15/16 13:07 157/97 09/15/16 11:27 97.8 83 19 157/97 93 Room Air 09/15/16 09:10 80 154/88 09/15/16 09:09 80 154/88 09/15/16 07:58 97.5 80 19 154/88 92 Room Air 09/15/16 05:40 161/102 09/15/16 04:00 97.2 78 18 153/97 93 Room Air 09/15/16 00:00 97.0 78 18 154/93 92 Room Air 09/14/16 22:25 151/81 09/14/16 20:52 89 153/89 09/14/16 19:00 97.7 89 20 153/93 93 Room Air 09/14/16 16:00 98.2 83 20 152/90 92 Room Air Intake and Output 09/14/16 09/15/16 19:00 07:00 Intake Total 520 ml 240 ml Output Total 300 ml 1400 ml Balance 220 ml -1160 ml Intake Oral 520 ml 240 ml Output Urine Total 300 ml 1400 ml # Bowel Movements 1 Laboratory Tests 09/15/16 05:15: White Blood Count 9.4, Red Blood Count 3.21L, Hemoglobin 9.2#L, Hematocrit 27.8# L, Mean Corpuscular Volume 87, Mean Corpuscular Hemoglobin 28.5, Mean Corpuscular Hemoglobin Concent 33.0, Red Cell Distribution Width 15.1H, Platelet Count 364, Mean Platelet Volume 5.4L, Neutrophils (%) (Auto) 76.1H, Lymphocytes (%) (Auto) 11.6L, Monocytes (%) (Auto) 7.6, Eosinophils (%) (Auto) 4.1H, Basophils (%) (Auto) 0.7, Sodium Level 138, Potassium Level 4.4, Chloride Level 99, Carbon Dioxide Level 23, Anion Gap 16H, Blood Urea Nitrogen 71H, Creatinine 4.4H, Estimat Glomerular Filtration Rate 13.6, Glucose Level 111H, Uric Acid 7.3, Calcium Level 8.2L, Phosphorus Level 5.5H, Magnesium Level 2.5, Erythropoietin [Pending], Total Bilirubin < 0.2, Aspartate Amino Transf (AST/ SGOT) 25, Alanine Aminotransferase (ALT/SGPT) 36H, Alkaline Phosphatase 332H, C- Reactive Protein, Quantitative 3.6H, Pro-B-Type Natriuretic Peptide 2155H, Total Protein 5.9L, Albumin 2.7L, Globulin 3.2, Albumin/Globulin Ratio 0.8L Height (Feet): 5 Height (Inches): 2.00 Weight (Pounds): 176 General Appearance: no apparent distress EENT: TMs normal Neck: supple Cardiovascular: normal rate Respiratory/Chest: normal breath sounds Abdomen: soft Extremities: non-tender Edema: 1+ Leg (L), 1+ Leg (R) Neurologic: alert Skin: warm/dry Bennie Ham Sep 15, 2016 13:57
[2016-09-15] MEDS ORDERED: Iron Sucrose 200 MG in NS 110 ML IVPB ONE (14:00)
[2016-09-15] MEDS ORDERED: Bisacodyl EC 5mg tab ORAL PRN (15:00)
--- NOTE | 2016-09-15 15:31 | General Progress Note ---
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 Plan: transfused Bone marrow biopsy? Hematology note appreciated !!! Avoid nephrotoxics- On lopressor- doss, and 24 h urine CrCl and Protein-CrCl 15 over 6 gram protein EPO and IV Iron and B12 and Folate BP control stop Lasix 2D echo noted kidney JESUSITA : Slightly increased right renal echogenicity, could indicate early medical renal disease Negative for hydronephrosis monitor renal parameters discussed with PMD Subjective ROS Limited/Unobtainable: No Constitutional: Reports: malaise, weakness Allergies: Coded Allergies: PENICILLINS (Verified Allergy, Unknown, 03/13/15) Objective Last 24 Hour Vital Signs Date Time Temp Pulse Resp B/P Pulse Ox O2 Delivery O2 Flow Rate FiO2 09/15/16 13:07 157/97 09/15/16 11:27 97.8 83 19 157/97 93 Room Air 09/15/16 09:10 80 154/88 09/15/16 09:09 80 154/88 09/15/16 07:58 97.5 80 19 154/88 92 Room Air 09/15/16 05:40 161/102 09/15/16 04:00 97.2 78 18 153/97 93 Room Air 09/15/16 00:00 97.0 78 18 154/93 92 Room Air 09/14/16 22:25 151/81 09/14/16 20:52 89 153/89 09/14/16 19:00 97.7 89 20 153/93 93 Room Air 09/14/16 16:00 98.2 83 20 152/90 92 Room Air Intake and Output 09/14/16 09/15/16 19:00 07:00 Intake Total 520 ml 240 ml Output Total 300 ml 1400 ml Balance 220 ml -1160 ml Intake Oral 520 ml 240 ml Output Urine Total 300 ml 1400 ml # Bowel Movements 1 Laboratory Tests 09/15/16 05:15: White Blood Count 9.4, Red Blood Count 3.21L, Hemoglobin 9.2#L, Hematocrit 27.8# L, Mean Corpuscular Volume 87, Mean Corpuscular Hemoglobin 28.5, Mean Corpuscular Hemoglobin Concent 33.0, Red Cell Distribution Width 15.1H, Platelet Count 364, Mean Platelet Volume 5.4L, Neutrophils (%) (Auto) 76.1H, Lymphocytes (%) (Auto) 11.6L, Monocytes (%) (Auto) 7.6, Eosinophils (%) (Auto) 4.1H, Basophils (%) (Auto) 0.7, Sodium Level 138, Potassium Level 4.4, Chloride Level 99, Carbon Dioxide Level 23, Anion Gap 16H, Blood Urea Nitrogen 71H, Creatinine 4.4H, Estimat Glomerular Filtration Rate 13.6, Glucose Level 111H, Uric Acid 7.3, Calcium Level 8.2L, Phosphorus Level 5.5H, Magnesium Level 2.5, Erythropoietin [Pending], Total Bilirubin < 0.2, Aspartate Amino Transf (AST/ SGOT) 25, Alanine Aminotransferase (ALT/SGPT) 36H, Alkaline Phosphatase 332H, C- Reactive Protein, Quantitative 3.6H, Pro-B-Type Natriuretic Peptide 2155H, Total Protein 5.9L, Albumin 2.7L, Globulin 3.2, Albumin/Globulin Ratio 0.8L Height (Feet): 5 Height (Inches): 2.00 Weight (Pounds): 176 General Appearance: no apparent distress Objective other physical exam not changed MICHELLE HOOK Sep 15, 2016 15:31
[2016-09-15 16:00] VITALS: BP 156/99
[2016-09-15] MEDS ORDERED: NS 275ml ONE (18:42)
[2016-09-15] MEDS ORDERED: Tubing Blood Filter IV ONE (18:42)
[2016-09-15 19:00] VITALS: BP 150/88
--- NOTE | 2016-09-15 19:48 | Neurology Progress Note ---
Interim History Interim History Interim History Ms. Barboza feels much better. She continues to be headache free. The neck discomfort is also gone. She has had no nausea or vomiting. She denies any new neurologic symptoms. She specifically denies any weakness on one side or the other, numbness on one side or the other, problems with vision, speech or language problems. Review of Systems Neuro Review of Systems Benign. Objective Physical Exam Last Vital Signs Date Time Temp Pulse Resp B/P Pulse Ox O2 Delivery O2 Flow Rate FiO2 09/15/16 16:00 97.5 77 20 156/99 94 Room Air Laboratory Tests Test 09/15/16 05:15 White Blood Count 9.4 K/UL (4.8-10.8) Red Blood Count 3.21 M/UL (4.20-5.40) L Hemoglobin 9.2 G/DL (12.0-16.0) #L Hematocrit 27.8 % (37.0-47.0) #L Mean Corpuscular Volume 87 FL (80-99) Mean Corpuscular Hemoglobin 28.5 PG (27.0-31.0) Mean Corpuscular Hemoglobin Concent 33.0 G/DL (32.0-36.0) Red Cell Distribution Width 15.1 % (11.6-14.8) H Platelet Count 364 K/UL (150-450) Mean Platelet Volume 5.4 FL (6.5-10.1) L Neutrophils (%) (Auto) 76.1 % (45.0-75.0) H Lymphocytes (%) (Auto) 11.6 % (20.0-45.0) L Monocytes (%) (Auto) 7.6 % (1.0-10.0) Eosinophils (%) (Auto) 4.1 % (0.0-3.0) H Basophils (%) (Auto) 0.7 % (0.0-2.0) Sodium Level 138 mEQ/L (135-145) Potassium Level 4.4 mEQ/L (3.4-4.9) Chloride Level 99 mEQ/L (98-107) Carbon Dioxide Level 23 mEQ/L (20-30) Anion Gap 16 (5-15) H Blood Urea Nitrogen 71 mg/dL (7-23) H Creatinine 4.4 mg/dL (0.5-0.9) H Estimat Glomerular Filtration Rate 13.6 mL/min (>60) Glucose Level 111 mg/dL (74-106) H Uric Acid 7.3 mg/dL (3.0-7.5) Calcium Level 8.2 mg/dL (8.6-10.2) L Phosphorus Level 5.5 mg/dL (2.5-4.8) H Magnesium Level 2.5 mg/dL (1.7-2.5) Erythropoietin Pending Total Bilirubin < 0.2 mg/dL (0.0-1.2) Aspartate Amino Transf (AST/SGOT) 25 U/L (5-40) Alanine Aminotransferase (ALT/SGPT) 36 U/L (3-33) H Alkaline Phosphatase 332 U/L (35-104) H C-Reactive Protein, Quantitative 3.6 mg/dL (< 0.5) H Pro-B-Type Natriuretic Peptide 2155 pg/mL (0-125) H Total Protein 5.9 g/dL (6.6-8.7) L Albumin 2.7 g/dL (3.5-5.2) L Globulin 3.2 g/dL Albumin/Globulin Ratio 0.8 (1.0-2.7) L Neurologic Exam Objective PHYSICAL EXAMINATION: GENERAL: She is a well-developed, well-nourished, pleasant black lady, lying in bed, in no acute distress. HEAD: Normocephalic and atraumatic. EENT: Examination benign. NECK: No neck rigidity was observed. She did have a grade Trace/4 cervical paraspinal muscle and trapezius spasm. NEUROLOGIC EXAMINATION: MENTAL STATUS EXAMINATION: She was alert and awake. She was oriented to person, place, and time. She was able to recall 3/3 words immediately after 1 minute and after 3 minutes. She was able to remember presidents Trump through [employer] senior. Her mathematical skills were impaired. Her visuospatial function was relatively good. SPEECH: She had no dysarthria. LANGUAGE: She had no aphasia. CRANIAL NERVE EXAMINATION: II: The visual lopez were intact on confrontation testing. III, IV & : The external ocular movements were full and the pupils 3 mm in diameter and reactive to light. V: She had normal facial sensations and the temporales, masseters, and pterygoids function normally. V: She had normal facial expressions and no facial asymmetry. VIII: She was able to hear well bilaterally and had no nystagmus. IX: The palate moved symmetrically on phonation. X: She had no hoarseness of the voice. XI: The sternocleidomastoids and trapezii functioned normally. XII: The tongue was in the midline without any fasciculations or atrophy. MOTOR SYSTEM: The tone was normal in all four extremities. Examination of muscle mass revealed no focal wasting. Examination of power revealed grade 5/5 power in all muscle groups tested. SENSORY EXAMINATION: She had intact sensations to pinprick, light touch, and graphesthesia. COORDINATION: She performed well on [id number]-[id number] and utcx-hr-[id number] testing. REFLEXES: 0 at the biceps, triceps, brachioradialis, knees, and ankles. The plantar responses were flexor bilaterally. STANCE: She stood up with a wide base. GAIT: She walked well with a wide base. Impression/Recommendations Diagnostic Impression 1. Ms. Ashli Barboza is a 36-year-old, right-handed, black lady, who does have a past history of type 1 diabetes mellitus, hypertension, chronic kidney disease , and anemia, who was hospitalized for dyspnea on exertion, generalized weakness , severe fatigue, all associated with an anemia with a hemoglobin in the 5s. She also had a headache for the last two weeks, which was quite bothersome. 2. Her headache has resolved and so has her neck discomfort. 3. On neurological examination, at this time, she does demonstrate minimal cervical paraspinal muscle and trapezius spasm, global areflexia, a wide-based stance, and a wide-based gait. 4. Laboratory data revealed that when she came in, her hemoglobin was 5.8 G and her latest hemoglobin is 6.7 G. Her latest chemistry panel reveals a BUN elevated to 51 with a creatinine of 3.6 and she has a normal vitamin B12 level, folate level, and TSH. 5. The CT of the brain without contrast is benign. 6. The patient's history, neurological examination, and laboratory data are most compatible with muscle contraction headaches made worse by her anemia. The headaches have completely resolved. Recommendations 1. Continue present management. 2. Continue Flexeril 10 mg PO q HS. 3. Change Tylenol to 650 mg q 8 hours PRN. 4. Increase activity as tolerated. Adelaida Villarreal M.D., M.S.P.H. ADELAIDA VILLARREAL Sep 15, 2016 19:48
[2016-09-15] MEDS: Cyclobenzaprine 10mg Tab ORAL SCH (20:31)
[2016-09-15] MEDS: Levemir Flexpen SUBQ SCH (20:46)
--- NOTE | 2016-09-15 21:21 | General Progress Note ---
Assessment/Plan Problem List: (1) acute on chronic anemia (2) KENYA (acute kidney injury) Assessment & Plan: on CKD stage 4 24hr urine showed nephrotic range proteinuria in 05/2016 ICD Codes: N17.9 - Acute kidney failure, unspecified SNOMED: 39902935 (3) Acute on chronic diastolic (congestive) heart failure ICD Codes: I50.33 - Acute on chronic diastolic (congestive) heart failure SNOMED: 37116318, 155437022 (4) DM (diabetes mellitus) ICD Codes: E11.9 - DM (diabetes mellitus) SNOMED: 82894655 Qualifiers: Qualified Codes: E10.21 - Type 1 diabetes mellitus with diabetic nephropathy (5) HTN (hypertension) ICD Codes: I10 - HTN (hypertension) SNOMED: 91149649 Qualifiers: Qualified Codes: I15.9 - Secondary hypertension, unspecified (6) Headache ICD Codes: R51 - Headache SNOMED: 62090133 Status: stable Assessment/Plan Unclear etiology of anemia. No signs of active bleeding. Pt did have EGD in 2015 which showed gastritis. No colonoscopy yet. Denies heavy vaginal bleeding. Possibly anemia is secondary to CKD vs bone marrow pathology Nephrology consulted, appreciate rec's--possible plan for initiation of dialysis Holding lasix per nephrology F/u 24hr urine protein study--over 6g of protein Spivey placed for strict I/O's Hold digoxin given elevated level (2.8)--repeat level trending down F/u TTE--EF 65-70%, mild diastolic dysfunction s/p 2U pRBCs on 09/08- w/ good response s/p 2U pRBCs on 09/14/16 w/ good response Trend CBC Cont EPO per renal F/u haptoglobin to assess fo hemolysis--wnl Hematology/oncology consulted given persistent anemia Bone marrow biopsy ordered GI consulted to assess if further workup of anemia needed--FOBT neg; possible plan for colonoscopy. MRI abd done was neg Cont Detemir 15U qHS HANDY Neurology consulted given persistent headaches. CT head neg. Likely muscle contraction headaches Cont flexeril qHS Tylenol PRN Minimize narcotics DVT Prophylaxis: SCD Code Status: Full Hospital Classification Declaration: Based on this initial evaluation, and depending on the patient's clinical course, I anticipate that this patient will require hospitalization for 2-3 days for anemia, KENYA, persistent anemia and close respiratory/hemodynamic monitoring. Disposition: Once the patient is stable to leave the hospital, I anticipate the patient will likely be discharged to the following environment: home with HH vs SNF I spent 40 minutes on this patient's case, and 22 minutes were dedicated to counseling and/or care coordination. Discussed with patient/family, nursing staff, SW/CM, renal regarding clinical status, treatment course, and disposition planning. D/w renal re: possible plan for initiation of dialysis Time of note may not reflect time of encounter. Subjective Date patient seen: Sep 15, 2016 Time patient seen: 12:00 ROS Limited/Unobtainable: No Constitutional: Reports: no symptoms HEENT: Reports: no symptoms Cardiovascular: Reports: no symptoms Respiratory: Reports: no symptoms Gastrointestinal/Abdominal: Reports: no symptoms Genitourinary: Reports: no symptoms Neurologic/Psychiatric: Reports: no symptoms Endocrine: Reports: no symptoms Hematologic/Lymphatic: Reports: no symptoms Allergies: Coded Allergies: PENICILLINS (Verified Allergy, Unknown, 03/13/15) All Systems: reviewed and negative except above Subjective No acute o/n events Cr stable s/p 2U pRBCs yesterday w/ good response Pt doing well. Still w/ some generalized weakness and SOB Headaches resolved Objective Last 24 Hour Vital Signs Date Time Temp Pulse Resp B/P Pulse Ox O2 Delivery O2 Flow Rate FiO2 09/15/16 20:31 80 150/88 09/15/16 20:31 150/88 09/15/16 19:00 98.0 80 20 150/88 96 Room Air 09/15/16 16:00 97.5 77 20 156/99 94 Room Air 09/15/16 13:07 157/97 09/15/16 11:27 97.8 83 19 157/97 93 Room Air 09/15/16 09:10 80 154/88 09/15/16 09:09 80 154/88 09/15/16 07:58 97.5 80 19 154/88 92 Room Air 09/15/16 05:40 161/102 09/15/16 04:00 97.2 78 18 153/97 93 Room Air 09/15/16 00:00 97.0 78 18 154/93 92 Room Air 09/14/16 22:25 151/81 Intake and Output 09/14/16 09/15/16 19:00 07:00 Intake Total 520 ml 240 ml Output Total 300 ml 1400 ml Balance 220 ml -1160 ml Intake Oral 520 ml 240 ml Output Urine Total 300 ml 1400 ml # Bowel Movements 1 Laboratory Tests 09/15/16 05:15: White Blood Count 9.4, Red Blood Count 3.21L, Hemoglobin 9.2#L, Hematocrit 27.8# L, Mean Corpuscular Volume 87, Mean Corpuscular Hemoglobin 28.5, Mean Corpuscular Hemoglobin Concent 33.0, Red Cell Distribution Width 15.1H, Platelet Count 364, Mean Platelet Volume 5.4L, Neutrophils (%) (Auto) 76.1H, Lymphocytes (%) (Auto) 11.6L, Monocytes (%) (Auto) 7.6, Eosinophils (%) (Auto) 4.1H, Basophils (%) (Auto) 0.7, Sodium Level 138, Potassium Level 4.4, Chloride Level 99, Carbon Dioxide Level 23, Anion Gap 16H, Blood Urea Nitrogen 71H, Creatinine 4.4H, Estimat Glomerular Filtration Rate 13.6, Glucose Level 111H, Uric Acid 7.3, Calcium Level 8.2L, Phosphorus Level 5.5H, Magnesium Level 2.5, Erythropoietin [Pending], Total Bilirubin < 0.2, Aspartate Amino Transf (AST/ SGOT) 25, Alanine Aminotransferase (ALT/SGPT) 36H, Alkaline Phosphatase 332H, C- Reactive Protein, Quantitative 3.6H, Pro-B-Type Natriuretic Peptide 2155H, Total Protein 5.9L, Albumin 2.7L, Globulin 3.2, Albumin/Globulin Ratio 0.8L Height (Feet): 5 Height (Inches): 2.00 Weight (Pounds): 176 Objective General: alert, cooperative, no distress, appears stated age Head: normocephalic, without obvious abnormality, atraumatic Eyes: conjunctivae/corneas clear. PERRL, EOM's intact Throat: lips, mucosa, and tongue normal. MMM Neck: supple, symmetrical, trachea midline, and no JVD Lungs: clear to auscultation bilaterally, decr breath sounds b/l Heart: regular rate and rhythm, S1, S2 normal, no murmur, click, rub or gallop Abdomen: soft, non-tender, non-distended, bowel sounds normal; no masses or organomegaly Extremities: extremities normal, atraumatic, no cyanosis, 1+ BLE edema Pulses: 2+ and symmetric Skin: skin color, texture, turgor normal; no rashes or lesions Neurologic: grossly normal, no focal deficits Gudelia Rudolph M.D. Sep 15, 2016 21:21
[2016-09-15] MEDS: Epogen (for non ESRD use) SUBQ SCH (22:22)
[2016-09-16] VITALS: BP 158/89
[2016-09-16 04:00] VITALS: BP 146/80
[2016-09-16] MEDS: Metoclopramide 10mg/2ml Inj IVP SCH (04:35)
[2016-09-16] MEDS: cloNIDine 0.2mg Tab ORAL SCH ×2 (06:00→14:52)
[2016-09-16] MEDS: NovoLOG Insulin Flexpen SUBQ SCH ×3 (06:30→18:05)
[2016-09-16 06:34] LABS: BASOPHILS % (AUTO) 0.8 % (0.0-2.0); EOSINOPHILS % (AUTO) 4.7 % (0.0-3.0); LYMPHOCYTES % (AUTO) 11.8 % (20.0-45.0); MEAN CORPUSCULAR HEMOGLOBIN 27.9 PG (27.0-31.0); MEAN CORPUSCULAR HGB CONC 32.3 G/DL (32.0-36.0); MEAN CORPUSCULAR VOLUME 86 FL (80-99); MEAN PLATELET VOLUME 5.5 FL (6.5-10.1); MONOCYTES % (AUTO) 7.9 % (1.0-10.0); NEUTROPHILS % (AUTO) 74.8 % (45.0-75.0); PLATELET COUNT 395 K/UL (150-450); RED BLOOD COUNT 3.49 M/UL (4.20-5.40); WHITE BLOOD COUNT 7.4 K/UL (4.8-10.8)
[2016-09-16 07:01] LABS: ALANINE AMINOTRANSFERASE 30 U/L (3-33); ALBUMIN/GLOBULIN RATIO 0.7 (1.0-2.7); ANION GAP 17 (5-15); ASPARTATE AMINO TRANSFERASE 22 U/L (5-40); CARBON DIOXIDE 23 mEQ/L (20-30); CHLORIDE 99 mEQ/L (98-107); CREATININE 4.2 mg/dL (0.5-0.9); GLOMERULAR FILTRATION RATE 14.4 mL/min (>60); HEMOLYSIS 1; MAGNESIUM 2.5 mg/dL (1.7-2.5); PHOSPHORUS 4.5 mg/dL (2.5-4.8); POTASSIUM 4.3 mEQ/L (3.4-4.9); SODIUM 139 mEQ/L (135-145); URIC ACID 7.3 mg/dL (3.0-7.5)
[2016-09-16 08:03] VITALS: BP 159/105
[2016-09-16] MEDS: Metoprolol 25mg tab ORAL SCH (08:55)
[2016-09-16] MEDS: Tamsulosin 0.4mg cap ORAL SCH (08:55)
--- NOTE | 2016-09-16 10:28 | GI Progress Note ---
Assessment/Plan Problems: (1) Hypoalbuminemia ICD Codes: E88.09 - Other disorders of plasma-protein metabolism, not elsewhere classified SNOMED: 519478393 (2) Constipation ICD Codes: K59.00 - Constipation, unspecified SNOMED: 77989602 (3) Anemia ICD Codes: D64.9 - Anemia, unspecified SNOMED: 791887639 Qualifiers: Qualified Codes: D64.9 - Anemia, unspecified (4) DM (diabetes mellitus) ICD Codes: E11.9 - DM (diabetes mellitus) SNOMED: 36731162 Qualifiers: Qualified Codes: E10.21 - Type 1 diabetes mellitus with diabetic nephropathy (5) Abnormal LFTs ICD Codes: R79.89 - Other specified abnormal findings of blood chemistry SNOMED: 427440071 Status: unchanged Status Narrative Discussed with Dr. Santoyo. Assessment/Plan s/p EGD 05/26/16 >> gastritis iron panel unremarkable OB stool negative rising alkaline phos / elevated GGT MRCP --> normal would d/c all narcotics monitor H&H, transfuse prn H2 dulcolax daily prn fu labs ADA/renal diet rec hematology consult Subjective Gastrointestinal/Abdominal: Reports: abdominal pain - improved Subjective BM x 1 yesterday Objective Last 24 Hour Vital Signs Date Time Temp Pulse Resp B/P Pulse Ox O2 Delivery O2 Flow Rate FiO2 09/16/16 08:55 81 159/105 09/16/16 08:54 81 159/105 09/16/16 08:03 97.9 81 16 159/105 97 Room Air 09/16/16 06:00 140/80 09/16/16 04:00 98.4 69 18 146/80 92 Room Air 09/16/16 00:00 98.1 77 18 158/89 92 Room Air 09/15/16 22:23 98.0 09/15/16 20:31 80 150/88 09/15/16 20:31 150/88 09/15/16 19:00 98.0 80 20 150/88 96 Room Air 09/15/16 16:00 97.5 77 20 156/99 94 Room Air 09/15/16 13:07 157/97 09/15/16 11:27 97.8 83 19 157/97 93 Room Air Intake and Output 09/15/16 09/16/16 19:00 07:00 Intake Total 450 ml 360 ml Output Total 975 ml 1800 ml Balance -525 ml -1440 ml Intake Oral 450 ml 360 ml Output Urine Total 925 ml 1800 ml Drainage Total 50 ml Laboratory Tests Test 09/16/16 05:20 White Blood Count 7.4 K/UL (4.8-10.8) Red Blood Count 3.49 M/UL (4.20-5.40) L Hemoglobin 9.7 G/DL (12.0-16.0) L Hematocrit 30.1 % (37.0-47.0) L Mean Corpuscular Volume 86 FL (80-99) Mean Corpuscular Hemoglobin 27.9 PG (27.0-31.0) Mean Corpuscular Hemoglobin Concent 32.3 G/DL (32.0-36.0) Red Cell Distribution Width 15.0 % (11.6-14.8) H Platelet Count 395 K/UL (150-450) Mean Platelet Volume 5.5 FL (6.5-10.1) L Neutrophils (%) (Auto) 74.8 % (45.0-75.0) Lymphocytes (%) (Auto) 11.8 % (20.0-45.0) L Monocytes (%) (Auto) 7.9 % (1.0-10.0) Eosinophils (%) (Auto) 4.7 % (0.0-3.0) H Basophils (%) (Auto) 0.8 % (0.0-2.0) Sodium Level 139 mEQ/L (135-145) Potassium Level 4.3 mEQ/L (3.4-4.9) Chloride Level 99 mEQ/L (98-107) Carbon Dioxide Level 23 mEQ/L (20-30) Anion Gap 17 (5-15) H Blood Urea Nitrogen 66 mg/dL (7-23) H Creatinine 4.2 mg/dL (0.5-0.9) H Estimat Glomerular Filtration Rate 14.4 mL/min (>60) Glucose Level 95 mg/dL (74-106) Uric Acid 7.3 mg/dL (3.0-7.5) Calcium Level 8.0 mg/dL (8.6-10.2) L Phosphorus Level 4.5 mg/dL (2.5-4.8) Magnesium Level 2.5 mg/dL (1.7-2.5) Total Bilirubin < 0.2 mg/dL (0.0-1.2) Aspartate Amino Transf (AST/SGOT) 22 U/L (5-40) Alanine Aminotransferase (ALT/SGPT) 30 U/L (3-33) Alkaline Phosphatase 301 U/L (35-104) H Total Protein 6.0 g/dL (6.6-8.7) L Albumin 2.5 g/dL (3.5-5.2) L Globulin 3.5 g/dL Albumin/Globulin Ratio 0.7 (1.0-2.7) L Height (Feet): 5 Height (Inches): 2.00 Weight (Pounds): 178 General Appearance: no apparent distress, alert Cardiovascular: normal rate Respiratory/Chest: normal breath sounds, no respiratory distress Abdominal Exam: normal bowel sounds, non tender Extremities: normal range of motion Alexandra Leonard N.P. Sep 16, 2016 10:28
[2016-09-16 11:18] VITALS: BP 166/112
--- NOTE | 2016-09-16 12:33 | General Progress Note ---
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 Plan: transfused Bone marrow biopsy? Hematology note appreciated !!! Avoid nephrotoxics- doss, and 24 h urine CrCl and Protein-CrCl 15 over 6 gram protein EPO and IV Iron and B12 and Folate BP control Off Lasix 2D echo noted adjust BP meds kidney JESUSITA : Slightly increased right renal echogenicity, could indicate early medical renal disease Negative for hydronephrosis monitor renal parameters discussed with PMD Subjective ROS Limited/Unobtainable: No Constitutional: Reports: other - stronger Allergies: Coded Allergies: PENICILLINS (Verified Allergy, Unknown, 03/13/15) Objective Last 24 Hour Vital Signs Date Time Temp Pulse Resp B/P Pulse Ox O2 Delivery O2 Flow Rate FiO2 09/16/16 11:18 97.7 89 18 166/112 95 Room Air 09/16/16 08:55 81 159/105 09/16/16 08:54 81 159/105 09/16/16 08:03 97.9 81 16 159/105 97 Room Air 09/16/16 06:00 140/80 09/16/16 04:00 98.4 69 18 146/80 92 Room Air 09/16/16 00:00 98.1 77 18 158/89 92 Room Air 09/15/16 22:23 98.0 09/15/16 20:31 80 150/88 09/15/16 20:31 150/88 09/15/16 19:00 98.0 80 20 150/88 96 Room Air 09/15/16 16:00 97.5 77 20 156/99 94 Room Air 09/15/16 13:07 157/97 Intake and Output 09/15/16 09/16/16 19:00 07:00 Intake Total 450 ml 360 ml Output Total 975 ml 1800 ml Balance -525 ml -1440 ml Intake Oral 450 ml 360 ml Output Urine Total 925 ml 1800 ml Drainage Total 50 ml Current Medications Medications (Trade) Dose Ordered Sig/Toby Route PRN Reason Start Time Stop Time Status Last Admin Dose Admin Acetaminophen (Tylenol) 650 mg TID ORAL 09/12/16 16:00 10/12/16 15:59 09/14/16 17:13 Amlodipine Besylate (Norvasc) 10 mg DAILY ORAL 09/12/16 09:00 10/12/16 08:59 09/16/16 08:54 Bisacodyl (Dulcolax) 10 mg DAILYPRN PRN ORAL Constipation SECOND LINE 09/15/16 15:00 10/15/16 14:59 Clonidine HCl (Catapres) 0.1 mg Q4H PRN ORAL SBP>160 09/11/16 21:00 10/11/16 20:59 Clonidine HCl (Catapres) 0.2 mg EVERY 8 HOURS ORAL 09/11/16 22:00 10/11/16 21:59 09/16/16 06:00 Cyclobenzaprine HCl (Flexeril) 10 mg BEDTIME ORAL 09/12/16 21:00 10/12/16 20:59 09/15/16 20:31 Cyclobenzaprine HCl (Flexeril) 10 mg TIDPRN PRN ORAL Muscle Spasm 09/12/16 09:00 10/12/16 08:59 Dextrose (Dextrose 50%) STAT PRN IV Hypoglycemia 09/11/16 21:00 10/11/16 20:59 Epoetin Johny (Procrit (for non ESRD use)) 10,000 units THU-THU-THU SUBQ 09/12/16 21:00 10/12/16 20:59 09/15/16 22:22 Escitalopram Oxalate (Lexapro) 10 mg DAILY ORAL 09/12/16 09:00 10/12/16 08:59 09/16/16 08:55 Folic Acid (Folate) 2 mg DAILY ORAL 09/12/16 09:00 10/12/16 08:59 09/16/16 08:54 Hydromorphone HCl (Dilaudid) 2 mg Q4H PRN ORAL For severe Pain 09/11/16 21:00 09/18/16 20:59 09/13/16 07:14 Insulin Aspart (NovoLOG) BEFORE MEALS AND HS SUBQ 09/11/16 21:00 10/11/16 20:59 09/15/16 20:41 Insulin Detemir (Levemir) 15 units QHS SUBQ 09/11/16 21:00 10/11/16 20:59 09/15/16 20:46 Iron Sucrose/ Sodium Chloride (Venofer/Sodium Chloride) 120 ml @ 240 mls/hr ONCE ONCE IVPB 09/16/16 14:00 09/16/16 14:29 Lorazepam (Ativan) 0.5 mg BIDPRN PRN ORAL Agitation 09/12/16 09:00 09/19/16 08:59 Metoclopramide HCl (Reglan) 10 mg Q8H IVP 09/13/16 12:15 10/13/16 12:14 09/16/16 04:35 Metoprolol Tartrate (Lopressor) 50 mg Q12HR ORAL 09/13/16 21:00 10/13/16 20:59 09/16/16 08:55 Nitroglycerin (Ntg) 0.4 mg Q5MIN X 3 DOSES PRN SL Prn Chest Pain 09/12/16 07:30 10/12/16 07:29 Oxycodone HCl (Roxicodone) 5 mg Q4H PRN ORAL For moderate Pain 09/11/16 21:00 09/18/16 20:59 09/14/16 11:28 Pantoprazole (Protonix) 40 mg BID ORAL 09/12/16 09:00 10/12/16 08:59 09/16/16 08:55 Polyethylene Glycol 17 gm 17 gm DAILY PRN ORAL Constipation 09/14/16 09:00 10/14/16 08:59 Promethazine HCl/ Codeine (Phenergan with Codeine) 5 ml Q4H PRN ORAL For Cough 09/11/16 21:00 10/11/16 20:59 09/13/16 02:04 Sevelamer Carbonate (Renvela) 2,400 mg THREE TIMES A DAY ORAL 09/15/16 18:00 10/15/16 17:59 09/16/16 08:54 Tamsulosin HCl (Flomax) 0.4 mg BID ORAL 09/12/16 09:00 10/12/16 08:59 09/16/16 08:55 Temazepam (Restoril) 15 mg BEDTIME PRN ORAL Insomnia 09/11/16 21:00 09/18/16 20:59 Laboratory Tests 09/16/16 05:20: White Blood Count 7.4, Red Blood Count 3.49L, Hemoglobin 9.7L, Hematocrit 30.1L , Mean Corpuscular Volume 86, Mean Corpuscular Hemoglobin 27.9, Mean Corpuscular Hemoglobin Concent 32.3, Red Cell Distribution Width 15.0H, Platelet Count 395, Mean Platelet Volume 5.5L, Neutrophils (%) (Auto) 74.8, Lymphocytes (%) (Auto) 11.8L, Monocytes (%) (Auto) 7.9, Eosinophils (%) (Auto) 4.7H, Basophils (%) (Auto) 0.8, Sodium Level 139, Potassium Level 4.3, Chloride Level 99, Carbon Dioxide Level 23, Anion Gap 17H, Blood Urea Nitrogen 66H, Creatinine 4.2H, Estimat Glomerular Filtration Rate 14.4, Glucose Level 95, Uric Acid 7.3, Calcium Level 8.0L, Phosphorus Level 4.5, Magnesium Level 2.5, Total Bilirubin < 0.2, Aspartate Amino Transf (AST/SGOT) 22, Alanine Aminotransferase (ALT/SGPT) 30, Alkaline Phosphatase 301H, Total Protein 6.0L, Albumin 2.5L, Globulin 3.5, Albumin/Globulin Ratio 0.7L Height (Feet): 5 Height (Inches): 2.00 Weight (Pounds): 178 General Appearance: no apparent distress Objective other physical exam not changed MICHELLE HOOK Sep 16, 2016 12:33
[2016-09-16] MEDS ORDERED: HydrALAZINE 25mg tab ORAL PRN (12:45)
[2016-09-16] MEDS ORDERED: Metoprolol 50mg tab ORAL ONE (13:00)
[2016-09-16] MEDS ORDERED: Iron Sucrose 200 MG in NS 110 ML IVPB ONE (14:00)
[2016-09-16 16:00] VITALS: BP 149/99
--- NOTE | 2016-09-16 16:54 | General Progress Note ---
Assessment/Plan Assessment/Plan ASSESSMENT: 1. Anemia of chronic disease. Rule out other causes and eval for MDS as well. Recommended a bone marrow biopsy in addition to Nephrology workup in order to evaluate the patient for iron deficiency with v other causes, have ordered the test, to be done on thursday 2. Headache with migraine. 3. Gastritis 4. Chronic kidney disease. 5. Diabetes mellitus type 1, on insulin. RECOMMENDATIONS: 1. Transfuse hemoglobin > 8. 2. Rule out hemolysis, bili and retic wnl 3. Bone marrow biopsy. 4. Rule out MDS 5. One time dose of IV iron administered 6. Continue erythropoietin. 7. GI prophylaxis with PPI. 8. Nephrology workup is appreciated. Thank you, Bennie Ham MD Subjective Constitutional: Reports: no symptoms HEENT: Reports: no symptoms Cardiovascular: Reports: no symptoms Respiratory: Reports: no symptoms Gastrointestinal/Abdominal: Reports: poor appetite Genitourinary: Reports: no symptoms Neurologic/Psychiatric: Reports: no symptoms Endocrine: Reports: no symptoms Hematologic/Lymphatic: Reports: anemia Allergies: Coded Allergies: PENICILLINS (Verified Allergy, Unknown, 03/13/15) Subjective no fevers or chills, no night sweats reported at this time Objective Last 24 Hour Vital Signs Date Time Temp Pulse Resp B/P Pulse Ox O2 Delivery O2 Flow Rate FiO2 09/16/16 14:52 151/89 09/16/16 13:38 83 159/92 09/16/16 12:47 188/107 09/16/16 11:18 97.7 89 18 166/112 95 Room Air 09/16/16 08:55 81 159/105 09/16/16 08:54 81 159/105 09/16/16 08:03 97.9 81 16 159/105 97 Room Air 09/16/16 06:00 140/80 09/16/16 04:00 98.4 69 18 146/80 92 Room Air 09/16/16 00:00 98.1 77 18 158/89 92 Room Air 09/15/16 22:23 98.0 09/15/16 20:31 80 150/88 09/15/16 20:31 150/88 09/15/16 19:00 98.0 80 20 150/88 96 Room Air Intake and Output 09/15/16 09/16/16 19:00 07:00 Intake Total 450 ml 360 ml Output Total 975 ml 1800 ml Balance -525 ml -1440 ml Intake Oral 450 ml 360 ml Output Urine Total 925 ml 1800 ml Drainage Total 50 ml Laboratory Tests 09/16/16 05:20: White Blood Count 7.4, Red Blood Count 3.49L, Hemoglobin 9.7L, Hematocrit 30.1L , Mean Corpuscular Volume 86, Mean Corpuscular Hemoglobin 27.9, Mean Corpuscular Hemoglobin Concent 32.3, Red Cell Distribution Width 15.0H, Platelet Count 395, Mean Platelet Volume 5.5L, Neutrophils (%) (Auto) 74.8, Lymphocytes (%) (Auto) 11.8L, Monocytes (%) (Auto) 7.9, Eosinophils (%) (Auto) 4.7H, Basophils (%) (Auto) 0.8, Sodium Level 139, Potassium Level 4.3, Chloride Level 99, Carbon Dioxide Level 23, Anion Gap 17H, Blood Urea Nitrogen 66H, Creatinine 4.2H, Estimat Glomerular Filtration Rate 14.4, Glucose Level 95, Uric Acid 7.3, Calcium Level 8.0L, Phosphorus Level 4.5, Magnesium Level 2.5, Total Bilirubin < 0.2, Aspartate Amino Transf (AST/SGOT) 22, Alanine Aminotransferase (ALT/SGPT) 30, Alkaline Phosphatase 301H, Total Protein 6.0L, Albumin 2.5L, Globulin 3.5, Albumin/Globulin Ratio 0.7L Height (Feet): 5 Height (Inches): 2.00 Weight (Pounds): 178 General Appearance: alert EENT: TMs normal Neck: supple Cardiovascular: regular rhythm Respiratory/Chest: normal breath sounds Extremities: non-tender Edema: 1+ Leg (L), 1+ Leg (R) Edema: mild edema Neurologic: alert Skin: warm/dry Bennie Ham Sep 16, 2016 16:54
[2016-09-16] MEDS ORDERED: FLOMAX0.4 MG ORAL (17:06)
[2016-09-16] MEDS ORDERED: METOPROLOL TAR100 MG ORAL (17:06)
[2016-09-16] MEDS ORDERED: RENVELA800 MG ORAL (17:06)
--- NOTE | 2016-09-16 17:30 | Discharge Instructions ---
Discharge Instructions Discharge Instructions Follow up with: F/u w/ PCP - [phone]; F/u with renal - [phone] Call MD/Return to Hospital if: F/u with heme/onc [phone] Services at Discharge: home health services Diet: 2 GM sodium (low sodium), renal (80g protein, 2GM) Resume Normal Activity?: Yes Activity: resume normal activities For Congestive Heart Failure Reminder Report to your physician any weight gain of 5 pounds or more in one week. Gudelia Rudolph M.D. Sep 16, 2016 17:30
--- NOTE | 2016-09-16 17:36 | Neurology Progress Note ---
Interim History Interim History Interim History Ms. Barboza feels very well. She continues to be headache free. The neck discomfort is also gone. She has had no nausea or vomiting. She denies any new neurologic symptoms. She specifically denies any weakness on one side or the other, numbness on one side or the other, problems with vision, speech or language problems. Plans are to go home today. Review of Systems Neuro Review of Systems Benign. Objective Physical Exam Last Vital Signs Date Time Temp Pulse Resp B/P Pulse Ox O2 Delivery O2 Flow Rate FiO2 09/16/16 14:52 151/89 09/16/16 13:38 83 09/16/16 11:18 97.7 18 95 Room Air Laboratory Tests Test 09/16/16 05:20 White Blood Count 7.4 K/UL (4.8-10.8) Red Blood Count 3.49 M/UL (4.20-5.40) L Hemoglobin 9.7 G/DL (12.0-16.0) L Hematocrit 30.1 % (37.0-47.0) L Mean Corpuscular Volume 86 FL (80-99) Mean Corpuscular Hemoglobin 27.9 PG (27.0-31.0) Mean Corpuscular Hemoglobin Concent 32.3 G/DL (32.0-36.0) Red Cell Distribution Width 15.0 % (11.6-14.8) H Platelet Count 395 K/UL (150-450) Mean Platelet Volume 5.5 FL (6.5-10.1) L Neutrophils (%) (Auto) 74.8 % (45.0-75.0) Lymphocytes (%) (Auto) 11.8 % (20.0-45.0) L Monocytes (%) (Auto) 7.9 % (1.0-10.0) Eosinophils (%) (Auto) 4.7 % (0.0-3.0) H Basophils (%) (Auto) 0.8 % (0.0-2.0) Sodium Level 139 mEQ/L (135-145) Potassium Level 4.3 mEQ/L (3.4-4.9) Chloride Level 99 mEQ/L (98-107) Carbon Dioxide Level 23 mEQ/L (20-30) Anion Gap 17 (5-15) H Blood Urea Nitrogen 66 mg/dL (7-23) H Creatinine 4.2 mg/dL (0.5-0.9) H Estimat Glomerular Filtration Rate 14.4 mL/min (>60) Glucose Level 95 mg/dL (74-106) Uric Acid 7.3 mg/dL (3.0-7.5) Calcium Level 8.0 mg/dL (8.6-10.2) L Phosphorus Level 4.5 mg/dL (2.5-4.8) Magnesium Level 2.5 mg/dL (1.7-2.5) Total Bilirubin < 0.2 mg/dL (0.0-1.2) Aspartate Amino Transf (AST/SGOT) 22 U/L (5-40) Alanine Aminotransferase (ALT/SGPT) 30 U/L (3-33) Alkaline Phosphatase 301 U/L (35-104) H Total Protein 6.0 g/dL (6.6-8.7) L Albumin 2.5 g/dL (3.5-5.2) L Globulin 3.5 g/dL Albumin/Globulin Ratio 0.7 (1.0-2.7) L Neurologic Exam Objective PHYSICAL EXAMINATION: GENERAL: She is a well-developed, well-nourished, pleasant black lady, sitting up in bed, enjoying her dinner, in no acute distress. HEAD: Normocephalic and atraumatic. EENT: Examination benign. NECK: No neck rigidity was observed. She did have a grade Trace/4 cervical paraspinal muscle and trapezius spasm. NEUROLOGIC EXAMINATION: MENTAL STATUS EXAMINATION: She was alert and awake. She was oriented to person, place, and time. She was able to recall 3/3 words immediately after 1 minute and after 3 minutes. She was able to remember presidents Trump through [employer] senior. Her mathematical skills were impaired. Her visuospatial function was relatively good. SPEECH: She had no dysarthria. LANGUAGE: She had no aphasia. CRANIAL NERVE EXAMINATION: II: The visual lopez were intact on confrontation testing. III, IV & : The external ocular movements were full and the pupils 3 mm in diameter and reactive to light. V: She had normal facial sensations and the temporales, masseters, and pterygoids function normally. V: She had normal facial expressions and no facial asymmetry. VIII: She was able to hear well bilaterally and had no nystagmus. IX: The palate moved symmetrically on phonation. X: She had no hoarseness of the voice. XI: The sternocleidomastoids and trapezii functioned normally. XII: The tongue was in the midline without any fasciculations or atrophy. MOTOR SYSTEM: The tone was normal in all four extremities. Examination of muscle mass revealed no focal wasting. Examination of power revealed grade 5/5 power in all muscle groups tested. SENSORY EXAMINATION: She had intact sensations to pinprick, light touch, and graphesthesia. COORDINATION: She performed well on moblzl-wj-xwiv and pdtz-ho-yqyn testing. REFLEXES: 0 at the biceps, triceps, brachioradialis, knees, and ankles. The plantar responses were flexor bilaterally. STANCE: She stood up with a wide base. GAIT: She walked well with a wide base. Impression/Recommendations Diagnostic Impression 1. Ms. Ashli Barboza is a 36-year-old, right-handed, black lady, who does have a past history of type 1 diabetes mellitus, hypertension, chronic kidney disease , and anemia, who was hospitalized for dyspnea on exertion, generalized weakness , severe fatigue, all associated with an anemia with a hemoglobin in the 5s. She also had a headache for the last two weeks, which was quite bothersome. 2. Her headache has resolved and so has her neck discomfort. 3. On neurological examination, at this time, she does demonstrate minimal cervical paraspinal muscle and trapezius spasm, global areflexia, a wide-based stance, and a wide-based gait. 4. Laboratory data revealed that when she came in, her hemoglobin was 5.8 G and her latest hemoglobin is 6.7 G. Her latest chemistry panel reveals a BUN elevated to 51 with a creatinine of 3.6 and she has a normal vitamin B12 level, folate level, and TSH. 5. The CT of the brain without contrast is benign. 6. The patient's history, neurological examination, and laboratory data are most compatible with muscle contraction headaches made worse by her anemia. The headaches have completely resolved. Recommendations 1. Continue present management. 2. Increase activity as tolerated. 3. Follow up in office PRN. Adelaida Villarreal M.D., M.S.P.H. ADELAIDA VILLARREAL Sep 16, 2016 17:36
[2016-09-16 18:56] VITALS: BP 149/99
[2016-09-16] MEDS ORDERED: Tubing IV Secondary IV ONE (20:19)
[2016-09-16] MEDS ORDERED: NS 275ml ONE (20:19)
[2016-09-16] MEDS ORDERED: Tamsulosin 0.4mg cap ORAL SCH (21:00)
--- NOTE | 2016-09-18 15:25 | Discharge Summary ---
Discharge Summary Hospital Course Date of Admission Sep 08, 2016 at 19:31 Date of Discharge Sep 16, 2016 at 20:20 Admitting Diagnosis Anemia, HyperKalemia, renal failure HPI Ashli Barboza is a 36 year old female who was admitted on Sep 08, 2016 at 19:31 for Anemia,Hyperkalemia,Renal Failure Hospital Course [id number] Discharge Discharge Disposition Patient was discharged to Home with Home Health(06) Discharge Diagnoses: Discharge Instructions Discharge Instructions Follow up with: F/u w/ PCP - [phone]; F/u with renal - [phone] Call MD/Return to Hospital if: F/u with heme/onc [phone] Services Upon Discharge: home health services Activity: resume normal activities Elinor Puente NP Sep 18, 2016 15:25
--- NOTE | 2016-09-22 02:18 | Discharge Summary ---
Discharge Summary Hospital Course Date of Admission Sep 08, 2016 at 19:31 Date of Discharge Sep 16, 2016 at 20:20 Admitting Diagnosis Anemia, HyperKalemia, renal failure Reason for Hospitalization: Acute on chronic anemia, KENYA on CKD, CHF HPI 36 y/o female with pmh of hypothyroidism, HTN and DM type 1 c/b DKA in past, CKD who presents with RUCEKR and generalized weakness. The patient was being seen by her PMD for her followup visit and was instructed to come to ED given concerning symptoms. The patient states that last time she felt like this, she was admitted for anemia. She also admits to generalized weakness/fatigue. Feels more SOB with walking a few steps, where as typically can walk abt a block or 2. The patient denies any pain. Patient denies other symptoms including N, V, F , chills, CP, cough, abd pain, flank pain, hematuria, dysuria. The patient does admit to cold intolerance and dizziness. Also w/ increased LE swelling. In ED, pt's hgb noted to 5.8. No signs of active bleeding. She was transfused 2U pRBCs overnight. Consultations Nephrology Hematology/oncology Neurology Gastroenterology Hospital Course Pt was admitted and transfused 2U pRBCs with good response. No signs of active bleeding. Pt was started on EPO. Pt required another 2U pRBCs on 09/14/16. Pt was seen by heme/onc, and plan is for bone marrow biopsy as an outpatient. Pt was seen by GI--FOBT was negative, and recommendation was for colonoscopy as an outpatient. Pt was noted to be volume overloaded, so she was given lasix IV; however, her SCr started on rise, so lasix was held per nephrology. 24hr urine protein study showed over 6g of protein. Per nephrology possible plan for initiation of dialysis soon. Pt also with persistent headaches, and CT head negative. Pt was seen by neurology who stated likely muscle contraction headaches. Prior to discharge, pt was HD stable, tolerating PO, and ambulating w/o assistance. Discharge Medications New Medications: Metoprolol Tartrate* (Metoprolol Tartrate*) 100 Mg Tablet 100 MG ORAL Q12HR for 30 Days, TAB Sevelamer Carbonate (Renvela) 800 Mg Tablet 2400 MG ORAL THREE TIMES A DAY for 30 Days, TAB Tamsulosin HCl (Flomax) 0.4 Mg Cap.er.24h 0.8 MG ORAL BEDTIME for 30 Days, CAP Continued Medications: Amlodipine Besylate* (Amlodipine Besylate*) 10 Mg Tablet 10 MG ORAL DAILY, TAB Clonidine HCl (Clonidine HCl) 0.2 Mg Tablet 0.2 MG ORAL EVERY 8 HOURS for 90 Days, TAB Clonidine Hcl* (Catapres*) 0.2 Mg Tablet 0.2 MG ORAL Q6HR PRN for For High Blood Pressure, TAB Cyclobenzaprine Hcl* (Flexeril*) 10 Mg Tablet 10 MG ORAL THREE TIMES A DAY PRN for Muscle Spasm, TAB Escitalopram Oxalate* (Lexapro*) 10 Mg Tablet 10 MG ORAL DAILY, TAB Ferrous Sulfate (Iron) 325 Mg Tablet 325 MG PO DAILY, TAB Insulin Aspart* (Novolog*) 100 Unit/1 Ml Insuln.pen 0 SUBQ, #1 EA 0 Refills Insulin Glargine (Lantus) 100 Unit/1 Ml Insuln.pen 15 SUBQ BEDTIME, #1 EA 0 Refills Lorazepam* (Lorazepam*) 0.5 Mg Tablet 0.5 MG ORAL BID PRN for Agitation, TAB Metoclopramide Hcl* (Metoclopramide Hcl*) 5 Mg Tablet 5 MG ORAL AC+HS, TAB Nitroglycerin (Nitroglycerin) 0.4 Mg Tab.subl 0.4 MG SL PRN for For Pain, TAB Oxycodone Hcl* (Oxycodone Hcl*) 5 Mg Capsule 5 MG ORAL Q4H PRN for For Pain, CAP 0 Refills Polyethylene Glycol 3350* (Miralax*) 17 Gm Powd.pack 17 GM ORAL DAILY, PACKET Simvastatin (Zocor) 20 Mg Tablet 20 MG ORAL BEDTIME, TAB Temazepam (Temazepam*) 15 Mg Capsule 15 MG ORAL BEDTIME, CAP 0 Refills Temazepam (Temazepam*) 15 Mg Capsule 15 MG ORAL BEDTIME PRN for Insomnia, #30 CAP 0 Refills Discontinued Medications: Azilsartan Med/Chlorthalidone (Edarbyclor 40-25 Mg Tablet) 1 Each Tablet 1 TAB ORAL DAILY, TAB Digoxin* (Digoxin*) 0.125 Mg/2.5 Ml Solution 0.125 MG ORAL DAILY, ML 0 Refills Furosemide* (Lasix*) 40 Mg Tablet 40 MG ORAL DAILY, TAB Tamsulosin Hcl (Tamsulosin Hcl*) 0.4 Mg Cap.er.24h 0.4 MG ORAL BEDTIME, CAP Discharge Condition Upon Discharge: stable Discharge Disposition Patient was discharged to Home with Home Health(06) Discharge Diagnoses: (1) KENYA (acute kidney injury) (2) Nephrotic range proteinuria (3) DM (diabetes mellitus) (4) Acute on chronic diastolic (congestive) heart failure (5) acute on chronic anemia Discharge Instructions Discharge Instructions Follow up with: F/u w/ PCP - [phone]; F/u with renal - [phone] Call MD/Return to Hospital if: F/u with heme/onc [phone] Services Upon Discharge: home health services Activity: resume normal activities Gudelia Rudolph M.D. Sep 22, 2016 02:18
== END 2016-09-16 20:20 | disposition home health service (06) | DRG 811 ==
LOC: EDBD 15:56 → EMR 16:29 → 2E 19:31 → EDBEDREQ 23:30 → 2E 09-11 11:14 → 4E 09-11 20:09
PROC: 30233N1 Transfusion of Nonautologous Red Blood Cells into Peripheral Vein, Percutaneous Approach (ICD-10-PCS; principal; 2016-09-09)
DX: D64.9 Anemia, unspecified (principal); I50.33 Acute on chronic diastolic (congestive) heart failure; D63.1 Anemia in chronic kidney disease; N17.9 Acute kidney failure, unspecified; E10.21 Type 1 diabetes mellitus with diabetic nephropathy; N18.4 Chronic kidney disease, stage 4 (severe); E88.09 Other disorders of plasma-protein metabolism, not elsewhere classified; I12.9 Hypertensive chronic kidney disease with stage 1 through stage 4 chronic kidney disease, or unspecified chronic kidney disease; Z79.4 Long term (current) use of insulin; E10.22 Type 1 diabetes mellitus with diabetic chronic kidney disease; I25.10 Atherosclerotic heart disease of native coronary artery without angina pectoris; D63.8 Anemia in other chronic diseases classified elsewhere; K29.70 Gastritis, unspecified, without bleeding; K59.00 Constipation, unspecified; Z88.0 Allergy status to penicillin; G44.89 Other headache syndrome
CPT/HCPCS: 36415; 70450; 71010; 74181; 76775; 80048; 80053; 80162; 81003; 81050; 82010; 82270; 82553; 82575; 82607; 82668; 82728; 82746; 82962; 82977; 83010; 83540; 83550; 83615; 83690; 83735; 83880; 84100; 84156; 84443; 84484; 84550; 85007; 85025; 85044; 85610; 85730; 86140; 86850; 86900; 86901; 86920; 93005; 93306; 93970; J1815; J2405; J2765; S5561

== ENCOUNTER 2016-09-25 11:44 | Inpatient (IN) | payer MEDICARE, MEDICAID ==
[~2016-09-25] VITALS: Ht 157.5 cm; Wt 81.6 kg
[~2016-09-25 11:44] MED LIST changes: +AMLODIPINE BESY10 MG ORAL; +AMLODIPINE BESYL5 MG ORAL; +DIGOXIN0.125 MG/2 ORAL; +EDARBYCLOR 40-1 EAC1 ORAL; +FLOMAX0.4 MG ORAL; +FUROSEMIDE40 MG ORAL; +IRON325 M1 PO; +LANTUS SOL100 UNIT/1 SUBQ; +LEXAPRO10 MG ORAL; +LORAZEPAM0.5 MG ORAL; +METOCLOPRAMIDE H5 M1 ORAL; +METOPROLOL TAR100 MG ORAL; +NITROGLYCERIN0.4 MG SL; +NOVOLOG100 UNIT/3 SUBQ; +OXYCODONE HCL5 M2 ORAL; +RENVELA800 MG ORAL; +SIMVASTATIN20 MG ORAL; +TAMSULOSIN HCL0.4 MG ORAL; +TEMAZEPAM15 MG ORAL
[2016-09-25 12:30] VITALS: BP 137/74
[2016-09-25] MEDS ORDERED: Heparin 2000 units/Ns 1000ml INJ ONE (13:00)
[2016-09-25] MEDS ORDERED: Lidocaine 1% Plain 30 ml INJ ONE (13:00)
[2016-09-25 13:05] LABS: APPEARANCE,URINE CLEAR; KETONES,URINE NEGATIVE (NEGATIVE); LEUKOCYTE ESTERASE ,URINE NEGATIVE (NEGATIVE); NITRITE,URINE NEGATIVE (NEGATIVE); PH,URINE 6 (4.5-8.0); PROTEIN,URINE 4+ (NEGATIVE); UROBILINOGEN,URINE NORMAL MG/DL (0.0-1.0)
[2016-09-25 13:14] LABS: BASOPHILS % (AUTO) 0.7 % (0.0-2.0); EOSINOPHILS % (AUTO) 3.8 % (0.0-3.0); LYMPHOCYTES % (AUTO) 11.5 % (20.0-45.0); MEAN CORPUSCULAR HEMOGLOBIN 27.5 PG (27.0-31.0); MEAN CORPUSCULAR HGB CONC 31.4 G/DL (32.0-36.0); MEAN CORPUSCULAR VOLUME 88 FL (80-99); MEAN PLATELET VOLUME 5.4 FL (6.5-10.1); MONOCYTES % (AUTO) 7.2 % (1.0-10.0); NEUTROPHILS % (AUTO) 76.8 % (45.0-75.0); PLATELET COUNT 235 K/UL (150-450); RED BLOOD COUNT 3.62 M/UL (4.20-5.40); RED CELL DISTRIBUTION WIDTH 15.4 % (11.6-14.8); WHITE BLOOD COUNT 9.5 K/UL (4.8-10.8)
[2016-09-25 13:21] LABS: BACTERIA,URINE FEW /HPF; SQUAMOUS EPITHELIAL CELL,UR FEW /LPF (NONE/OCC)
[2016-09-25 13:22] LABS: GRANULAR CASTS,URINE 0-2 /LPF
[2016-09-25 13:28] LABS: TROPONIN I < 0.30 ng/mL (<=0.30)
[2016-09-25 13:31] LABS: CALCIUM 8.3 mg/dL (8.6-10.2); CREATININE 4.4 mg/dL (0.5-0.9); GLOMERULAR FILTRATION RATE 13.6 mL/min (>60); POTASSIUM 5.5 mEQ/L (3.4-4.9); TOTAL PROTEIN 6.4 g/dL (6.6-8.7)
--- NOTE | 2016-09-25 13:33 | Diagnostic Imaging Report ---
Indication: Dyspnea Comparison: 09/08/16 A single view chest radiograph was obtained. Findings: Mild interstitial edema and vascular prominence demonstrated with cardiomegaly. Hazy basilar opacities are present which could be pleural effusions. Impression: CHF Suspected bilateral pleural effusions
[2016-09-25 13:38] LABS: PROTHROMBIN TIME 10.2 SEC (9.30-11.50)
[2016-09-25 13:41] LABS: CKMB 8.8 ng/mL (< 3.8)
[2016-09-25] MEDS ORDERED: DIGOXIN125 MCG ORAL (14:29)
[2016-09-25] MEDS ORDERED: CATAPRES0.2 MG ORAL (14:33)
[2016-09-25] MEDS ORDERED: POLYETHYLENE GL17 GM ORAL (14:40)
[2016-09-25] MEDS ORDERED: TAMSULOSIN HCL0.4 MG ORAL (14:42)
[2016-09-25] MEDS ORDERED: Sodium Polystyrene Sulfonate 15gm Powder ORAL ONE (14:45)
[2016-09-25] MEDS ORDERED: TEMAZEPAM15 MG ORAL (14:46)
[2016-09-25] MEDS ORDERED: DILAUDID2 MG ORAL (14:49)
--- NOTE | 2016-09-25 14:49 | Emergency Room Report ---
History of Present Illness General Chief Complaint: Dyspnea/Respdistress Source: Patient Present Illness HPI 36-year-old female presents to ED for evaluation. Patient states all walking to doctors office today she felt very short of breath and called 911. Also experienced some chest pain. States that the chest pain or shortness of breath has since resolved. Patient states her legs are very swollen. Notes history of known disease. Patient states she has not urinated since yesterday. Patient is not yet on dialysis. Patient states that she was discharge from [facility] this month. On that admission patient states her digoxin and Lasix were both discontinued. Denies any fevers or chills. Denies cough. Denies abdominal pain. No aggravating relieving factors. Denies any other associated symptoms Allergies: Coded Allergies: PENICILLINS (Verified Allergy, Unknown, 03/13/15) Patient History Past Medical History: DM, HTN, renal disease Past Surgical History: none Pertinent Family History: none Social History: Denies: alcohol use, drug use, smoking Now: No Immunizations: UTD Reviewed Nursing Documentation: PMH: Agreed, PSxH: Agreed Nursing Documentation-PMH Hx Cardiac Problems: Yes Hx Hypertension: No Hx Pacemaker: No Hx Asthma: No Hx COPD: No Hx Diabetes: Yes Hx Cancer: No Hx Gastrointestinal Problems: No Hx Dialysis: No Hx Neurological Problems: No Hx Cerebrovascular Accident: No Hx Headaches: Yes Review of Systems All Other Systems: negative except mentioned in HPI Physical Exam Vital Signs Date Time Temp Pulse Resp B/P Pulse Ox O2 Delivery O2 Flow Rate FiO2 09/25/16 11:44 97.3 67 18 124/8 98 Room Air Sp02 EP Interpretation: reviewed, normal General Appearance: no apparent distress, alert, GCS 15, non-toxic Head: normocephalic Eyes: bilateral eye PERRL, bilateral eye normal inspection ENT: hearing grossly normal, normal pharynx, no angioedema, normal voice Neck: full range of motion, supple/symm/no masses Respiratory: chest non-tender, lungs clear, normal breath sounds, speaking full sentences Cardiovascular #1: regular rate, rhythm, no edema Gastrointestinal: normal bowel sounds, non tender, soft, non-distended, no guarding, no rebound Rectal: deferred Genitourinary: no CVA tenderness Musculoskeletal: swelling - 2+ pitting edema b/l LE Neurologic: alert, oriented x3, responsive, motor strength/tone normal, sensory intact, speech normal Psychiatric: normal inspection Skin: normal inspection Lymphatic: normal inspection Medical Decision Making Diagnostic Impression: Primary Impression: CHF exacerbation Qualified Codes: I50.9 - Heart failure, unspecified Additional Impressions: Renal failure Hyperkalemia ER Course Hospital Course 36-year-old female presents ED complaining of shortness of breath, leg swelling. unable to urinate Differential diagnoses include: NE/unstable angina, contusion, muscle strain, PTX, rib fracture Clinical course Patient placed on stretcher. on ekg monitor. After initial history and physical I ordered labs, EKG, chest x-ray, doss labs reviewed- no leukocytosis, hemoglobin/hematocrit stable, creatinine 4.1, troponins negative, BNP elevated, K 5.5 Chest x-ray- pulmonary congestion EKG - NSR, no acute changes Patient had difficult IV access. Refuses EJ line. PICC line placed Given Lasix, given Kayexalate patient will be admitted to Dr Beasley service I. I feel this is a highly complex case requiring extensive working including EKG/Rhythm strip, Xray/CT/US, Blood/urine lab work, repeat exams while in ED, and administration of strong opiates/narcotics for pain control, admission to hospital or close patient follow up. Diagnosis - CHF exacerbation, renal failuere, hyperkalemia admitted to telemetry in serious condition Labs Test 09/25/16 12:30 09/25/16 12:59 Urine Color Pale yellow Urine Appearance Clear Urine pH 6 (4.5-8.0) Urine Specific [place] 1.015 (1.005-1.035) Urine Protein 4+ (NEGATIVE) Urine Glucose (UA) 4+ (NEGATIVE) Urine Ketones Negative (NEGATIVE) Urine Occult Blood 3+ (NEGATIVE) Urine Nitrite Negative (NEGATIVE) Urine Bilirubin Negative (NEGATIVE) Urine Urobilinogen Normal MG/DL (0.0-1.0) Urine Leukocyte Esterase Negative (NEGATIVE) Urine RBC 5-10 /HPF (0 - 2) Urine WBC 10-15 /HPF (0 - 2) Urine Squamous Epithelial Cells Few /LPF (NONE/OCC) Urine Bacteria Few /HPF (NONE) Urine Granular Casts 0-2 /LPF (NONE) Urine Fine Granular Casts 2-4 /LPF (NONE) Urine HCG, Qualitative Negative White Blood Count 9.5 K/UL (4.8-10.8) Red Blood Count 3.62 M/UL (4.20-5.40) Hemoglobin 10.0 G/DL (12.0-16.0) Hematocrit 31.7 % (37.0-47.0) Mean Corpuscular Volume 88 FL (80-99) Mean Corpuscular Hemoglobin 27.5 PG (27.0-31.0) Mean Corpuscular Hemoglobin Concent 31.4 G/DL (32.0-36.0) Red Cell Distribution Width 15.4 % (11.6-14.8) Platelet Count 235 K/UL (150-450) Mean Platelet Volume 5.4 FL (6.5-10.1) Neutrophils (%) (Auto) 76.8 % (45.0-75.0) Lymphocytes (%) (Auto) 11.5 % (20.0-45.0) Monocytes (%) (Auto) 7.2 % (1.0-10.0) Eosinophils (%) (Auto) 3.8 % (0.0-3.0) Basophils (%) (Auto) 0.7 % (0.0-2.0) Prothrombin Time 10.2 SEC (9.30-11.50) Prothromb Time International Ratio 1.0 (0.9-1.1) Activated Partial Thromboplast Time 28 SEC (23-33) Sodium Level 136 mEQ/L (135-145) Potassium Level 5.5 mEQ/L (3.4-4.9) Chloride Level 97 mEQ/L (98-107) Carbon Dioxide Level 23 mEQ/L (20-30) Anion Gap 16 (5-15) Blood Urea Nitrogen 64 mg/dL (7-23) Creatinine 4.4 mg/dL (0.5-0.9) Estimat Glomerular Filtration Rate 13.6 mL/min (>60) Glucose Level 170 mg/dL (74-106) Calcium Level 8.3 mg/dL (8.6-10.2) Total Bilirubin 0.3 mg/dL (0.0-1.2) Aspartate Amino Transf (AST/SGOT) 13 U/L (5-40) Alanine Aminotransferase (ALT/SGPT) 15 U/L (3-33) Alkaline Phosphatase 253 U/L (35-104) Total Creatine Kinase 505 U/L (26-140) Creatine Kinase MB 8.8 ng/mL (< 3.8) Creatine Kinase MB Relative Index 1.7 Troponin I < 0.30 ng/mL (<=0.30) Pro-B-Type Natriuretic Peptide 2922 pg/mL (0-125) Total Protein 6.4 g/dL (6.6-8.7) Albumin 3.2 g/dL (3.5-5.2) Globulin 3.2 g/dL Albumin/Globulin Ratio 1.0 (1.0-2.7) EKG Diagnostic Results Rate: normal Rhythm: NSR ST Segments: no acute changes ASA given to the pt in ED: No Rhythm Strip Diag. Results EP Interpretation: yes Rhythm: NSR, no PVC's, no ectopy Chest X-Ray Diagnostic Results EP Interpretation: No Findings: no pneumothorax, no acute cardiopulmonary disease, other - cardiomegaly. pulmoanry congestion. b/l effusin Number of Views: 1 Last Vital Signs Date Time Temp Pulse Resp B/P Pulse Ox O2 Delivery O2 Flow Rate FiO2 09/25/16 12:30 66 16 137/74 96 Room Air 09/25/16 11:44 97.3 Status: improved Disposition: ADMITTED INPATIENT Condition: Serious Referrals: NOT CHOSEN JAYCOB/,REFERRING (PCP) ANGELA KAISER M.D. Sep 25, 2016 14:49
[2016-09-25] MEDS ORDERED: EDARBYCLOR 40-1 EAC1 ORAL (14:52)
[2016-09-25] MEDS ORDERED: NOVOLOG100 UNITS1 SUBQ (15:08)
[2016-09-25] MEDS ORDERED: ASPIRIN EC81 MG ORAL (15:10)
[2016-09-25] MEDS ORDERED: AMLODIPINE BESY10 MG ORAL (15:13)
[2016-09-25 15:45] VITALS: BP 142/108
--- NOTE | 2016-09-25 15:53 | Diagnostic Imaging Report ---
Indication: medical terminologist venous access Findings: After the indications, procedure, risks, complications, and alternatives of the procedure were explained, written informed consent was obtained. The right upper extremity was prepped with alcohol. All elements of maximal sterile barrier technique were followed including usage of a cap, mask, sterile gown, sterile gloves, hand hygiene and a large sterile sheet. Sonographic evaluation of the upper extremity was performed demonstrating a patent and compressible basilic vein. Access was obtained under real-time ultrasound guidance and digital image was saved and archived. An .018 wire was introduced. Needle exchanged for a 5 [place] peel-away sheath. Measurements were obtained. A 5 [place] dual-lumen Power PICC line catheter was cut to 37 cm and introduced over the wire. Peel-away sheath and wire were removed.Catheter was secured to the skin using 2-0 Prolene suture. Both ports aspirate and flush easily. Fluoroscopic Images show distal tip in the superior vena cava. Total fluoroscopic time 0.3 minutes Impression: Successful placement of an upper extremity PICC line catheter
--- NOTE | 2016-09-25 18:13 | History and Physical ---
History of Present Illness General Date patient seen: Sep 25, 2016 Time patient seen: 16:00 Reason for Hospitalization: Dyspnea/Respdistress Present Illness HPI 36 y/o female with pmh of hypothyroidism, HTN and DM type 1 c/b DKA in past, CKD with nephrotic range proteinuria likely 2/2 DM who presents with increasing SOB and volume overload. Pt was recently admitted 09/08 to 09/16 for anemia and SOB. She was transfused with improvement. She had worsening renal function and lasix was held. After discussion with patient, it was decided for pt to f/u outpatient for possible initiation of dialysis. Unfortunately, pt was unable to f/u with nephrology as an outpatient. She noted worsening SOB, BLE edema, and swelling, and poor UOP. She went to to see her outpt PCP for f/u today and was sent urgently to ED given concerning symptoms. Pt also c/o orthopnea, PND. She has had a difficult time ambulating even a few step given SOB. Allergies: Coded Allergies: PENICILLINS (Verified Allergy, Unknown, 03/13/15) Medication History Scheduled Amlodipine Besylate* (Amlodipine Besylate*), 10 MG ORAL DAILY, (Reported) Aspirin Ec* (Aspirin Ec*), 81 MG ORAL DAILY, (Reported) Azilsartan Med/Chlorthalidone (Edarbyclor 40-25 Mg Tablet), 1 TAB ORAL DAILY, ( Reported) Clonidine Hcl* (Catapres*), 0.2 MG ORAL Q6HR, (Reported) Escitalopram Oxalate* (Lexapro*), 10 MG ORAL DAILY, (Reported) Ferrous Sulfate (Iron), 325 MG PO DAILY, (Reported) Insulin Aspart (Novolog Flexpen), 6 UNITS SUBQ TID, (Reported) Insulin Glargine (Lantus), 15 SUBQ BEDTIME, (Reported) Metoprolol Tartrate* (Metoprolol Tartrate*), 100 MG ORAL Q12HR Sevelamer Carbonate (Renvela), 2,400 MG ORAL THREE TIMES A DAY Simvastatin (Zocor), 20 MG ORAL BEDTIME, (Reported) Tamsulosin Hcl (Tamsulosin Hcl*), 0.4 MG ORAL BEDTIME, (Reported) Scheduled PRN Cyclobenzaprine Hcl* (Flexeril*), 10 MG ORAL THREE TIMES A DAY PRN for Muscle Spasm, (Reported) Hydromorphone HCl (Dilaudid), 2 MG ORAL Q4H PRN for migraine, (Reported) Polyethylene Glycol 3350* (Polyethylene Glycol 3350*), 17 GM ORAL DAILY PRN for Constipation, (Reported) Temazepam (Temazepam*), 15 MG ORAL BEDTIME PRN for Insomnia, (Reported) Discontinued Medications Digoxin* (Digoxin*), 125 MCG ORAL DAILY, (Reported) Discontinued Reason: MD discontinued med Lorazepam* (Lorazepam*), 0.5 MG ORAL BID PRN for Agitation, (Reported) Discontinued Reason: Pt stopped taking med Metoclopramide Hcl* (Metoclopramide Hcl*), 5 MG ORAL AC+HS, (Reported) Discontinued Reason: Pt stopped taking med Nitroglycerin (Nitroglycerin), 0.4 MG SL for For Pain, (Reported) Discontinued Reason: Pt stopped taking med Oxycodone Hcl* (Oxycodone Hcl*), 5 MG ORAL Q4H PRN for For Pain, (Reported) Discontinued Reason: MD discontinued med Patient History History Provided By: Patient, Medical Record, PMD Healthcare decision maker Resuscitation status Advanced Directive on File Past Medical/Surgical History Past Medical/Surgical History: (1) HTN (hypertension) (2) DM (diabetes mellitus) (3) Nephrotic range proteinuria (4) Anemia (5) Hypothyroid Family History Family History: Patient reports no known family medical history. Social History Social History: (1) No significant social history Review of Systems Constitutional: Reports: no symptoms Eye: Reports: no symptoms ENT: Reports: no symptoms Respiratory: Reports: RUCKER, orthopnea, shortness of breath Cardiovascular: Reports: edema Gastrointestinal: Reports: no symptoms Genitourinary: Reports: no symptoms Musculoskeletal: Reports: no symptoms Skin: Reports: no symptoms Psychiatric: Reports: no symptoms Neurological: Reports: no symptoms Endocrine: Reports: no symptoms Hematologic/Lymphatic: Reports: no symptoms All Other Systems: negative except mentioned in HPI Physical Exam Physical Exam Narrative General: alert, cooperative, no distress, appears stated age Head: normocephalic, without obvious abnormality, atraumatic Eyes: conjunctivae/corneas clear. PERRL, EOM's intact Throat: lips, mucosa, and tongue normal. MMM Neck: supple, symmetrical, trachea midline, and +JVD Lungs: bibasilar crackles b/l Heart: regular rate and rhythm, S1, S2 normal, no murmur, click, rub or gallop Abdomen: soft, non-tender, +abd distended, bowel sounds normal; +anasarca Extremities: extremities normal, atraumatic, no cyanosis, 2+BLE edema to above the knees Pulses: 2+ and symmetric Skin: skin color, texture, turgor normal; no rashes or lesions Neurologic: grossly normal, no focal deficits Last 24 Hour Vital Signs Date Time Temp Pulse Resp B/P Pulse Ox O2 Delivery O2 Flow Rate FiO2 09/25/16 15:45 97.8 70 17 142/108 96 Room Air 09/25/16 12:30 66 16 137/74 96 Room Air 09/25/16 11:50 67 18 Room Air 09/25/16 11:44 97.3 67 18 124/8 98 Room Air Laboratory Tests Test 09/25/16 12:30 09/25/16 12:59 Urine Color Pale yellow Urine Appearance Clear Urine pH 6 (4.5-8.0) Urine Specific [place] 1.015 (1.005-1.035) Urine Protein 4+ (NEGATIVE) H Urine Glucose (UA) 4+ (NEGATIVE) H Urine Ketones Negative (NEGATIVE) Urine Occult Blood 3+ (NEGATIVE) H Urine Nitrite Negative (NEGATIVE) Urine Bilirubin Negative (NEGATIVE) Urine Urobilinogen Normal MG/DL (0.0-1.0) Urine Leukocyte Esterase Negative (NEGATIVE) Urine RBC 5-10 /HPF (0 - 2) H Urine WBC 10-15 /HPF (0 - 2) H Urine Squamous Epithelial Cells Few /LPF (NONE/OCC) Urine Bacteria Few /HPF (NONE) Urine Granular Casts 0-2 /LPF (NONE) H Urine Fine Granular Casts 2-4 /LPF (NONE) H Urine HCG, Qualitative Negative White Blood Count 9.5 K/UL (4.8-10.8) Red Blood Count 3.62 M/UL (4.20-5.40) L Hemoglobin 10.0 G/DL (12.0-16.0) L Hematocrit 31.7 % (37.0-47.0) L Mean Corpuscular Volume 88 FL (80-99) Mean Corpuscular Hemoglobin 27.5 PG (27.0-31.0) Mean Corpuscular Hemoglobin Concent 31.4 G/DL (32.0-36.0) L Red Cell Distribution Width 15.4 % (11.6-14.8) H Platelet Count 235 K/UL (150-450) Mean Platelet Volume 5.4 FL (6.5-10.1) L Neutrophils (%) (Auto) 76.8 % (45.0-75.0) H Lymphocytes (%) (Auto) 11.5 % (20.0-45.0) L Monocytes (%) (Auto) 7.2 % (1.0-10.0) Eosinophils (%) (Auto) 3.8 % (0.0-3.0) H Basophils (%) (Auto) 0.7 % (0.0-2.0) Prothrombin Time 10.2 SEC (9.30-11.50) Prothromb Time International Ratio 1.0 (0.9-1.1) Activated Partial Thromboplast Time 28 SEC (23-33) Sodium Level 136 mEQ/L (135-145) Potassium Level 5.5 mEQ/L (3.4-4.9) H Chloride Level 97 mEQ/L (98-107) L Carbon Dioxide Level 23 mEQ/L (20-30) Anion Gap 16 (5-15) H Blood Urea Nitrogen 64 mg/dL (7-23) H Creatinine 4.4 mg/dL (0.5-0.9) H Estimat Glomerular Filtration Rate 13.6 mL/min (>60) Glucose Level 170 mg/dL (74-106) H Calcium Level 8.3 mg/dL (8.6-10.2) L Total Bilirubin 0.3 mg/dL (0.0-1.2) Aspartate Amino Transf (AST/SGOT) 13 U/L (5-40) Alanine Aminotransferase (ALT/SGPT) 15 U/L (3-33) Alkaline Phosphatase 253 U/L (35-104) H Total Creatine Kinase 505 U/L (26-140) H Creatine Kinase MB 8.8 ng/mL (< 3.8) H Creatine Kinase MB Relative Index 1.7 Troponin I < 0.30 ng/mL (<=0.30) Pro-B-Type Natriuretic Peptide 2922 pg/mL (0-125) H Total Protein 6.4 g/dL (6.6-8.7) L Albumin 3.2 g/dL (3.5-5.2) L Globulin 3.2 g/dL Albumin/Globulin Ratio 1.0 (1.0-2.7) Height (Feet): 5 Height (Inches): 2.00 Weight (Pounds): 180 Medications Current Medications Medications (Trade) Dose Ordered Sig/Toby Route PRN Reason Start Time Stop Time Status Last Admin Dose Admin Acetaminophen (Tylenol) 650 mg Q4H PRN ORAL Mild Pain (Pain Scale 1-3) 09/25/16 18:15 10/25/16 18:14 UNV Albuterol/ Ipratropium (DuoNeb 0.5-3(2.5)mg/3ml) 3 ml Q4H PRN HHN SOB, wheezing 09/25/16 18:15 09/30/16 18:14 UNV Bisacodyl (Dulcolax) 10 mg DAILYPRN PRN RECTAL Constipation 09/25/16 18:15 10/25/16 18:14 UNV Dextrose (Dextrose 50%) STAT PRN IV Hypoglycemia 09/25/16 18:15 10/25/16 18:14 UNV Diphenhydramine HCl (Benadryl) 25 mg Q6H PRN ORAL Itching/Pruritis 09/25/16 18:15 10/25/16 18:14 UNV Docusate Sodium (Colace) 100 mg EVERY 12 HOURS ORAL 09/25/16 21:00 10/25/16 20:59 UNV Heparin Sodium (Porcine) (Heparin 5000 units/ml) 5,000 units EVERY 12 HOURS SUBQ 09/25/16 21:00 10/25/16 20:59 UNV Magnesium Hydroxide (Mom) 30 ml HSPRN PRN ORAL Constipation 09/25/16 18:15 10/25/16 18:14 UNV Ondansetron HCl (Zofran) 4 mg Q6H PRN IVP Nausea & Vomiting 09/25/16 18:15 10/25/16 18:14 UNV Polyethylene Glycol (Miralax) 17 gm DAILYPRN PRN ORAL Constipation 09/25/16 18:15 10/25/16 18:14 UNV Zolpidem Tartrate (Ambien) 5 mg DAILYPRN PRN ORAL Insomnia 09/25/16 18:15 10/25/16 18:14 UNV Assessment/Plan Problem List: (1) Anasarca ICD Codes: R60.1 - Generalized edema SNOMED: 578243518, 986408241 (2) Acute on chronic diastolic (congestive) heart failure ICD Codes: I50.33 - Acute on chronic diastolic (congestive) heart failure SNOMED: 92074076, 012450378 (3) Nephrotic syndrome ICD Codes: N04.9 - Nephrotic syndrome with unspecified morphologic changes SNOMED: 88174492 (4) KENYA (acute kidney injury) ICD Codes: N17.9 - Acute kidney failure, unspecified SNOMED: 56861826 (5) CKD (chronic kidney disease) ICD Codes: N18.9 - Chronic kidney disease, unspecified SNOMED: 435239077 (6) Hyperkalemia ICD Codes: E87.5 - Hyperkalemia SNOMED: 72007982 (7) DM (diabetes mellitus) ICD Codes: E11.9 - DM (diabetes mellitus) SNOMED: 49528856 Qualifiers: Qualified Codes: E10.21 - Type 1 diabetes mellitus with diabetic nephropathy Status: stable Assessment/Plan Admit to tele Nephrology consulted--given constellation of symptoms plan will be for initiation of dialysis Permacath ordered s/p lasix 40mg IV in ED Hold further diuretics per nephrology Trend Cr Kayexylate ordered for hyperkalemia Monitor lytes closely Cont EPO for anemia Cont home BP meds: amlodipine, MTP, clonidine Cont home ASA Cont levemir 15mg qhS ISS DVT Prophylaxis: SCD, HSQ Code Status: Full Hospital Classification Declaration: Based on this initial evaluation, and depending on the patient's clinical course, I anticipate that this patient will require hospitalization for CHF, KENYA on CKD, anasarca, initiation of HD for 2-3 days and close respiratory/hemodynamic monitoring. Disposition: Once the patient is stable to leave the hospital, I anticipate the patient will likely be discharged to the following environment: home with HH I spent 70 minutes on this patient's case, and 38 minutes were dedicated to counseling and/or care coordination. Discussed with patient/family, nursing staff, SW/CM, nephrology regarding clinical status, treatment course, and disposition planning. Time of note may not reflect time of encounter. Gudelia Rudolph M.D. Sep 25, 2016 18:13
[2016-09-25] MEDS ORDERED: Cyclobenzaprine 10mg Tab ORAL PRN (18:15)
[2016-09-25] MEDS ORDERED: DuoNeb 0.5-3(2.5)mg/3ml neb HHN PRN (18:15)
[2016-09-25] MEDS ORDERED: Milk of Magnesia 30ml Ud ORAL PRN (18:15)
[2016-09-25] MEDS ORDERED: HYDROmorphone 2mg tab ORAL PRN (18:15)
[2016-09-25] MEDS ORDERED: Miralax 17gm pkt ORAL PRN ×2 (18:15)
[2016-09-25] MEDS ORDERED: cloNIDine 0.2mg Tab ORAL SCH (18:15)
[2016-09-25] MEDS ORDERED: Zolpidem 5mg tab ORAL PRN (18:15)
[2016-09-25 18:23] VITALS: BP 135/94
--- NOTE | 2016-09-25 18:29 | Consultation ---
Consult Note Consult Note back to ER with SOB and CHF Patient interviewed and examined- todays labs and CXR reviewed and previous data reviewed and discussed with her . 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
[2016-09-25] MEDS ORDERED: Metolazone 5mg tab ORAL ONE (20:00)
[2016-09-25] MEDS: Metoprolol 50mg tab ORAL SCH (20:39)
[2016-09-25] MEDS: Docusate 100mg tablet ORAL SCH (20:39)
[2016-09-25] MEDS: Tamsulosin 0.4mg cap ORAL SCH (20:39)
[2016-09-25] MEDS: Heparin 5000 units/ml inj SUBQ SCH (20:41)
[2016-09-25] MEDS ORDERED: Docusate 100mg tablet ORAL SCH (21:00)
[2016-09-25] MEDS: cloNIDine 0.2mg Tab ORAL SCH (22:56)
[2016-09-26] VITALS (15 sets, daily range): BP systolic 138–178; BP diastolic 82–112
[2016-09-26] MEDS: cloNIDine 0.2mg Tab ORAL SCH ×3 (06:21→21:16)
[2016-09-26 07:51] LABS: BASOPHILS % (AUTO) 0.6 % (0.0-2.0); EOSINOPHILS % (AUTO) 3.6 % (0.0-3.0); LYMPHOCYTES % (AUTO) 13.4 % (20.0-45.0); MEAN CORPUSCULAR HEMOGLOBIN 28.4 PG (27.0-31.0); MEAN CORPUSCULAR HGB CONC 31.9 G/DL (32.0-36.0); MEAN CORPUSCULAR VOLUME 89 FL (80-99); MEAN PLATELET VOLUME 6.1 FL (6.5-10.1); MONOCYTES % (AUTO) 5.1 % (1.0-10.0); NEUTROPHILS % (AUTO) 77.3 % (45.0-75.0); PLATELET COUNT 224 K/UL (150-450); RED BLOOD COUNT 3.27 M/UL (4.20-5.40); RED CELL DISTRIBUTION WIDTH 15.7 % (11.6-14.8); WHITE BLOOD COUNT 9.5 K/UL (4.8-10.8)
[2016-09-26 08:09] LABS: URIC ACID 7.3 mg/dL (3.0-7.5)
[2016-09-26 08:17] LABS: HEMOLYSIS 8; IRON 42 ug/dL (37-145); TOTAL IRON BINDING CAPACITY 207 ug/dL (250-400)
[2016-09-26] MEDS: NovoLOG Insulin Flexpen SUBQ SCH ×4 (08:23→22:48)
[2016-09-26 08:29] LABS: ALBUMIN/GLOBULIN RATIO 0.9 (1.0-2.7); CREATININE 4.4 mg/dL (0.5-0.9); GLOMERULAR FILTRATION RATE 13.6 mL/min (>60); PHOSPHORUS 5.3 mg/dL (2.5-4.8); POTASSIUM 5.1 mEQ/L (3.4-4.9); TOTAL PROTEIN 5.8 g/dL (6.6-8.7)
[2016-09-26] MEDS: Heparin 5000 units/ml inj SUBQ SCH ×2 (09:00→21:00)
[2016-09-26] MEDS: Docusate 100mg tablet ORAL SCH ×3 (10:04→17:36)
[2016-09-26] MEDS: Aspirin EC 81mg tab ORAL SCH (10:04)
[2016-09-26] MEDS: Metoprolol 50mg tab ORAL SCH ×2 (10:04→21:16)
--- NOTE | 2016-09-26 11:46 | General Progress Note ---
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 HTN OOC Anemia- HypoAlbuminemia - Nephrotic syndrome s/p DKA Plan: agreed to HD as previous CrCl 15when Cr 4.2 due placement of permacath today- s/p transfused Bone marrow biopsy?still pending previously: 24 h urine CrCl and Protein-CrCl 15 over 6 gram protein EPO BP control 2D echo done previously adjust BP meds kidney JESUSITA : Slightly increased right renal echogenicity, could indicate early medical renal disease Negative for hydronephrosis monitor renal parameters discussed with PMD Subjective ROS Limited/Unobtainable: No Constitutional: Reports: malaise Allergies: Coded Allergies: PENICILLINS (Verified Allergy, Unknown, 03/13/15) Objective Last 24 Hour Vital Signs Date Time Temp Pulse Resp B/P Pulse Ox O2 Delivery O2 Flow Rate FiO2 09/26/16 11:30 97.5 90 18 150/97 98 Nasal Cannula 3.0 09/26/16 10:44 90 150/97 09/26/16 10:04 83 138/82 09/26/16 10:04 83 138/82 09/26/16 08:19 Nasal Cannula 2.0 28 09/26/16 08:09 83 09/26/16 08:08 97.7 83 18 138/82 98 Nasal Cannula 3.0 09/26/16 07:15 97 Nasal Cannula 2.0 28 09/26/16 07:15 Room Air 09/26/16 07:15 84 16 Room Air 09/26/16 06:21 152/90 09/26/16 04:21 98.3 82 18 155/97 97 Room Air 09/26/16 04:00 84 09/26/16 03:37 Nasal Cannula 2.0 28 09/26/16 00:46 98.8 83 19 150/89 97 Room Air 09/26/16 00:00 88 09/25/16 22:56 160/89 09/25/16 20:39 79 136/100 09/25/16 19:00 96 Nasal Cannula 2.0 28 09/25/16 18:23 97.8 78 19 135/94 96 Room Air 09/25/16 18:23 97.8 78 19 135/94 96 Room Air 09/25/16 15:45 97.8 70 17 142/108 96 Room Air 09/25/16 12:30 66 16 137/74 96 Room Air 09/25/16 11:50 67 18 Room Air Intake and Output 09/25/16 09/26/16 19:00 07:00 Intake Total 0 ml Output Total 300 ml 1350 ml Balance -300 ml -1350 ml Intake Oral 0 ml Output Urine Total 300 ml 1350 ml # Voids 1 # Bowel Movements 1 Laboratory Tests 09/25/16 12:30: Urine Color Pale yellow, Urine Appearance Clear, Urine pH 6, Urine Specific [place] 1.015, Urine Protein 4+H, Urine Glucose (UA) 4+H, Urine Ketones Negative , Urine Occult Blood 3+H, Urine Nitrite Negative, Urine Bilirubin Negative, Urine Urobilinogen Normal, Urine Leukocyte Esterase Negative, Urine RBC 5-10H, Urine WBC 10-15H, Urine Squamous Epithelial Cells Few, Urine Bacteria Few, Urine Granular Casts 0-2H, Urine Fine Granular Casts 2-4H, Urine HCG, Qualitative Negative 09/25/16 12:59: White Blood Count 9.5, Red Blood Count 3.62L, Hemoglobin 10.0L, Hematocrit 31.7L , Mean Corpuscular Volume 88, Mean Corpuscular Hemoglobin 27.5, Mean Corpuscular Hemoglobin Concent 31.4L, Red Cell Distribution Width 15.4H, Platelet Count 235, Mean Platelet Volume 5.4L, Neutrophils (%) (Auto) 76.8H, Lymphocytes (%) (Auto) 11.5L, Monocytes (%) (Auto) 7.2, Eosinophils (%) (Auto) 3.8H, Basophils (%) (Auto) 0.7, Prothrombin Time 10.2, Prothromb Time International Ratio 1.0, Activated Partial Thromboplast Time 28, Sodium Level 136, Potassium Level 5.5H, Chloride Level 97L, Carbon Dioxide Level 23, Anion Gap 16H, Blood Urea Nitrogen 64H, Creatinine 4.4H, Estimat Glomerular Filtration Rate 13.6, Glucose Level 170H, Calcium Level 8.3L, Total Bilirubin 0.3, Aspartate Amino Transf (AST/SGOT) 13, Alanine Aminotransferase (ALT/SGPT) 15, Alkaline Phosphatase 253H, Total Creatine Kinase 505H, Creatine Kinase MB 8.8H, Creatine Kinase MB Relative Index 1.7, Troponin I < 0.30, Pro-B-Type Natriuretic Peptide 2922H, Total Protein 6.4L, Albumin 3.2L, Globulin 3.2, Albumin/Globulin Ratio 1.0 09/26/16 05:30: White Blood Count 9.5, Red Blood Count 3.27L, Hemoglobin 9.3L, Hematocrit 29.2L , Mean Corpuscular Volume 89, Mean Corpuscular Hemoglobin 28.4, Mean Corpuscular Hemoglobin Concent 31.9L, Red Cell Distribution Width 15.7H, Platelet Count 224, Mean Platelet Volume 6.1L, Neutrophils (%) (Auto) 77.3H, Lymphocytes (%) (Auto) 13.4L, Monocytes (%) (Auto) 5.1, Eosinophils (%) (Auto) 3.6H, Basophils (%) (Auto) 0.6, Sodium Level 136, Potassium Level 5.1H, Chloride Level 97L, Carbon Dioxide Level 19L, Anion Gap 20H, Blood Urea Nitrogen 63H, Creatinine 4.4H, Estimat Glomerular Filtration Rate 13.6, Glucose Level 258H, Calcium Level 8.0L, Total Bilirubin 0.3, Aspartate Amino Transf (AST /SGOT) 11, Alanine Aminotransferase (ALT/SGPT) 12, Alkaline Phosphatase 205H, Pro-B-Type Natriuretic Peptide 2649H, Total Protein 5.8L, Albumin 2.8L, Globulin 3.0, Albumin/Globulin Ratio 0.9L, Reticulocyte Count 2.4H, Uric Acid 7.3, Phosphorus Level 5.3H, Magnesium Level 2.9H, Iron Level 42, Total Iron Binding Capacity 207L, Percent Iron Saturation 20, Unsaturated Iron Binding 165 , Ferritin 432H, Vitamin B12 Level 1588H Height (Feet): 5 Height (Inches): 2.00 Weight (Pounds): 180 General Appearance: no apparent distress Cardiovascular: normal rate Respiratory/Chest: decreased breath sounds Abdomen: soft Edema: 2+ Arm (L), 2+ Arm (R), 2+ Leg (L), 2+ Leg (R), 2+ Pedal (L), 2+ Pedal ( R), 2+ Generalized MICHELLE HOOK Sep 26, 2016 11:46
[2016-09-26] MEDS ORDERED: Sodium Bicarbonate 8.4% 50ml Inj ONE (14:41)
[2016-09-26] MEDS ORDERED: Heparin 2000 units/Ns 1000ml 1,000 ML ONE (14:42)
[2016-09-26] MEDS ORDERED: Heparin Sod 1000 units/ml 10ml ONE (14:42)
[2016-09-26] MEDS ORDERED: Lidocaine 1% 10mg/ml/Epi 0.005mg/ml 30ml vial INJ ONE (14:42)
[2016-09-26] MEDS ORDERED: fentaNYL 100 mcg/2 mL IV ONE (14:43)
[2016-09-26] MEDS ORDERED: Midazolam 2mg/2ml Inj ONE (14:43)
--- NOTE | 2016-09-26 14:49 | Pre-Procedure Note/Attestation ---
Pre-Procedure Note/Attestation Complete Prior to Procedure Planned Procedure: not applicable Procedure Narrative: permacath Indications for Procedure Pre-Operative Diagnosis: ESRD Attestation I attest that I discussed the nature of the procedure; its benefits; risks and complications; and alternatives (and the risks and benefits of such alternatives ), prior to the procedure, with the patient (or the patient's legal compliance representative dealer). I attest that, if there was a reasonable possibility of needing a blood transfusion, the patient (or the patient's legal compliance representative dealer) was given the [facility] standardized written summary, pursuant to the [place] Blood Safety Act ([place] Health and Safety Code # 1645, as amended). I attest that I re-evaluated the patient just prior to the surgery and that there has been no change in the patient's H&P, except as documented below: ISAIAS CORONA M.D. Sep 26, 2016 14:48
--- NOTE | 2016-09-26 14:50 | Moderate Sedation - Procedural ---
Moderate Sedation HPI Home Medication Active Scripts Metoprolol Tartrate* (METOPROLOL TARTRATE*) 100 Mg Tablet, 100 MG ORAL Q12HR for 30 Days, TAB Prov:Gudelia Rudolph M.D. 09/16/16 Sevelamer Carbonate (Renvela) 800 Mg Tablet, 2400 MG ORAL THREE TIMES A DAY for 30 Days, TAB Prov:Gudelia Rudolph M.D. 09/16/16 Reported Medications Amlodipine Besylate* (AMLODIPINE BESYLATE*) 10 Mg Tablet, 10 MG ORAL DAILY, TAB PT TAKING DIFFERENTLY: 1 TABLET PO BID 09/25/16 Aspirin Ec* (ASPIRIN EC*) 81 Mg Tablet.dr, 81 MG ORAL DAILY, TAB 09/25/16 Insulin Aspart (Novolog Flexpen) 100 Unit/1 Ml Insuln.pen, 6 UNITS SUBQ TID Pt USING DIFFERENTLY: SubQ TID PER SLIDING SCALE 09/25/16 Azilsartan Med/Chlorthalidone (EDARBYCLOR 40-25 MG TABLET) 1 Each Tablet, 1 TAB ORAL DAILY, TAB 09/25/16 Hydromorphone HCl (Dilaudid) 2 Mg Tablet, 2 MG ORAL Q4H Y for migraine 09/25/16 Temazepam (TEMAZEPAM*) 15 Mg Capsule, 15 MG ORAL BEDTIME Y for Insomnia 09/25/16 Tamsulosin Hcl (TAMSULOSIN HCL*) 0.4 Mg Cap.er.24h, 0.4 MG ORAL BEDTIME, CAP 09/25/16 Polyethylene Glycol 3350* (POLYETHYLENE GLYCOL 3350*) 17 Gm Powd.pack, 17 GM ORAL DAILY Y for Constipation, PACKET 09/25/16 Clonidine Hcl* (CATAPRES*) 0.2 Mg Tablet, 0.2 MG ORAL Q6HR, TAB HOLD WHEN SBP <120 09/25/16 Cyclobenzaprine Hcl* (FLEXERIL*) 10 Mg Tablet, 10 MG ORAL THREE TIMES A DAY Y for Muscle Spasm, TAB 09/09/16 Ferrous Sulfate (IRON) 325 Mg Tablet, 325 MG PO DAILY, TAB 09/09/16 Insulin Glargine (LANTUS) 100 Unit/1 Ml Insuln.pen, 15 SUBQ BEDTIME, #1 EA 0 Refills 09/08/16 Simvastatin (ZOCOR) 20 Mg Tablet, 20 MG ORAL BEDTIME, TAB 09/08/16 Escitalopram Oxalate* (LEXAPRO*) 10 Mg Tablet, 10 MG ORAL DAILY, TAB 09/08/16 Discontinued Reported Medications Digoxin* (DIGOXIN*) 125 Mcg Tablet, 125 MCG ORAL DAILY, TAB 09/25/16 Oxycodone Hcl* (OXYCODONE HCL*) 5 Mg Capsule, 5 MG ORAL Q4H Y for For Pain, CAP 0 Refills 09/09/16 Metoclopramide Hcl* (METOCLOPRAMIDE HCL*) 5 Mg Tablet, 5 MG ORAL AC+HS, TAB 09/09/16 Lorazepam* (LORAZEPAM*) 0.5 Mg Tablet, 0.5 MG ORAL BID Y for Agitation, TAB 09/09/16 Nitroglycerin (NITROGLYCERIN) 0.4 Mg Tab.subl, 0.4 MG SL Y for For Pain, TAB 09/09/16 Patient History Allergies: Coded Allergies: PENICILLINS (Verified Allergy, Unknown, 03/13/15) PAST MEDICAL HISTORY: Past Surgeries: Relevant Family History: Patient reports no known family medical history. Social History: Pre-Procedural Mod Sedation Date: Sep 25, 2016 Pre-Assessment Time: 14:55 Pre-Sedation Assessment: Elective Airway Assessment (Malampati): III Evaluation Hx of untoward rxns to mod sed: No Procedures/Plans: Radiology ASA Score: II Informed Consent The nature of the procedure/sedation; its benefits; risks and complications; and alternatives (and the risks and benefits of such alternatives) were discussed with the patient (or their legal patient account representative), prior to the procedure. All questions were answered to the patient's (or their legal patient account representative's) satisfaction and the patient (or their legal patient account representative) gave informed consent to the procedure. I attest that I re-evaluated the patient just prior to the surgery and that there has been no change in the patient's H&P, except as documented below: Post Procedure Assessment Post Procedure TIme: 15:15 Communication: No Apparent Limitation Mental Status: Awake Respiration: Unlabored Skin Condition: WNL Adomen: WNL Nausea: NO Vomiting: NO ISAIAS CORONA M.D. Sep 26, 2016 14:50
--- NOTE | 2016-09-26 16:52 | General Progress Note ---
Assessment/Plan Problem List: (1) Anasarca ICD Codes: R60.1 - Generalized edema SNOMED: 078701462, 022990110 (2) Acute on chronic diastolic (congestive) heart failure ICD Codes: I50.33 - Acute on chronic diastolic (congestive) heart failure SNOMED: 58849508, 755162026 (3) Nephrotic syndrome ICD Codes: N04.9 - Nephrotic syndrome with unspecified morphologic changes SNOMED: 72075111 (4) KENYA (acute kidney injury) ICD Codes: N17.9 - Acute kidney failure, unspecified SNOMED: 19729696 (5) CKD (chronic kidney disease) ICD Codes: N18.9 - Chronic kidney disease, unspecified SNOMED: 379773101 (6) Hyperkalemia ICD Codes: E87.5 - Hyperkalemia SNOMED: 08753359 (7) DM (diabetes mellitus) ICD Codes: E11.9 - DM (diabetes mellitus) SNOMED: 27354894 Qualifiers: Qualified Codes: E10.21 - Type 1 diabetes mellitus with diabetic nephropathy Status: stable Assessment/Plan Monitor on tele Nephrology consulted, appreciate rec's s/p permacath placement on 09/26 Started on HD 09/27Permacath ordered s/p lasix 40mg IV in ED Hold further diuretics per nephrology Trend Cr Monitor lytes closely Cont EPO for anemia Cont home BP meds: amlodipine, MTP, clonidine Cont home ASA Cont levemir 15mg qhS ISS DVT Prophylaxis: SCD, HSQ Code Status: Full Hospital Classification Declaration: Based on this initial evaluation, and depending on the patient's clinical course, I anticipate that this patient will require hospitalization for CHF, KENYA on CKD, anasarca, initiation of HD for 2-3 days and close respiratory/hemodynamic monitoring. Disposition: Once the patient is stable to leave the hospital, I anticipate the patient will likely be discharged to the following environment: home with HH I spent 40 minutes on this patient's case, and 22 minutes were dedicated to counseling and/or care coordination. Discussed with patient/family, nursing staff, SW/CM, nephrology regarding clinical status, treatment course, and disposition planning. Time of note may not reflect time of encounter. Subjective Date patient seen: Sep 26, 2016 Time patient seen: 16:51 ROS Limited/Unobtainable: No Constitutional: Reports: no symptoms HEENT: Reports: no symptoms Cardiovascular: Reports: edema Respiratory: Reports: SOB with excertion, orthopnea, shortness of breath Gastrointestinal/Abdominal: Reports: no symptoms Genitourinary: Reports: no symptoms Neurologic/Psychiatric: Reports: no symptoms Endocrine: Reports: no symptoms Hematologic/Lymphatic: Reports: no symptoms Allergies: Coded Allergies: PENICILLINS (Verified Allergy, Unknown, 03/13/15) All Systems: reviewed and negative except above Subjective Got HD catheter placed yesterday Started on HD this AM Feeling better Objective Last 24 Hour Vital Signs Date Time Temp Pulse Resp B/P Pulse Ox O2 Delivery O2 Flow Rate FiO2 09/26/16 15:29 98 23 151/91 98 Nasal Cannula 4.0 09/26/16 15:25 100 19 156/92 98 Nasal Cannula 4.0 09/26/16 15:20 100 25 158/94 98 Nasal Cannula 4.0 09/26/16 15:15 99 20 163/96 99 Nasal Cannula 4.0 09/26/16 15:10 98 20 160/99 96 Nasal Cannula 4.0 09/26/16 15:09 98.1 99 30 99 Nasal Cannula 4.0 92 98 09/26/16 15:05 92 30 4.0 09/26/16 15:05 96 26 173/105 97 Nasal Cannula 4.0 09/26/16 15:00 91 36 176/112 98 Nasal Cannula 4.0 09/26/16 14:55 98.1 92 30 178/112 98 Nasal Cannula 4.0 09/26/16 12:00 90 09/26/16 11:30 97.5 90 18 150/97 98 Nasal Cannula 3.0 09/26/16 10:44 90 150/97 09/26/16 10:04 83 138/82 09/26/16 10:04 83 138/82 09/26/16 08:19 Nasal Cannula 2.0 28 09/26/16 08:09 83 09/26/16 08:08 97.7 83 18 138/82 98 Nasal Cannula 3.0 09/26/16 07:15 97 Nasal Cannula 2.0 28 09/26/16 07:15 Room Air 09/26/16 07:15 84 16 Room Air 09/26/16 06:21 152/90 09/26/16 04:21 98.3 82 18 155/97 97 Room Air 09/26/16 04:00 84 09/26/16 03:37 Nasal Cannula 2.0 28 09/26/16 00:46 98.8 83 19 150/89 97 Room Air 09/26/16 00:00 88 09/25/16 22:56 160/89 09/25/16 20:39 79 136/100 09/25/16 19:00 96 Nasal Cannula 2.0 28 09/25/16 18:23 97.8 78 19 135/94 96 Room Air 09/25/16 18:23 97.8 78 19 135/94 96 Room Air Intake and Output 09/25/16 09/26/16 19:00 07:00 Intake Total 0 ml Output Total 300 ml 1350 ml Balance -300 ml -1350 ml Intake Oral 0 ml Output Urine Total 300 ml 1350 ml # Voids 1 # Bowel Movements 1 Laboratory Tests 09/26/16 05:30: White Blood Count 9.5, Red Blood Count 3.27L, Hemoglobin 9.3L, Hematocrit 29.2L , Mean Corpuscular Volume 89, Mean Corpuscular Hemoglobin 28.4, Mean Corpuscular Hemoglobin Concent 31.9L, Red Cell Distribution Width 15.7H, Platelet Count 224, Mean Platelet Volume 6.1L, Neutrophils (%) (Auto) 77.3H, Lymphocytes (%) (Auto) 13.4L, Monocytes (%) (Auto) 5.1, Eosinophils (%) (Auto) 3.6H, Basophils (%) (Auto) 0.6, Reticulocyte Count 2.4H, Sodium Level 136, Potassium Level 5.1H, Chloride Level 97L, Carbon Dioxide Level 19L, Anion Gap 20H, Blood Urea Nitrogen 63H, Creatinine 4.4H, Estimat Glomerular Filtration Rate 13.6, Glucose Level 258H, Uric Acid 7.3, Calcium Level 8.0L, Phosphorus Level 5.3H, Magnesium Level 2.9H, Iron Level 42, Total Iron Binding Capacity 207L, Percent Iron Saturation 20, Unsaturated Iron Binding 165, Ferritin 432H, Total Bilirubin 0.3, Aspartate Amino Transf (AST/SGOT) 11, Alanine Aminotransferase (ALT/SGPT) 12, Alkaline Phosphatase 205H, Pro-B-Type Natriuretic Peptide 2649H, Total Protein 5.8L, Albumin 2.8L, Globulin 3.0, Albumin/Globulin Ratio 0.9L, Vitamin B12 Level 1588H 09/26/16 13:28: Folate [Pending], Hepatitis B Surface Antigen [Pending], Hepatitis B Surface Antibody [Pending], Hepatitis Be Antigen [Pending], Hepatitis C Antibody [ Pending] Height (Feet): 5 Height (Inches): 2.00 Weight (Pounds): 180 Objective General: alert, cooperative, no distress, appears stated age Head: normocephalic, without obvious abnormality, atraumatic Eyes: conjunctivae/corneas clear. PERRL, EOM's intact Throat: lips, mucosa, and tongue normal. MMM Neck: supple, symmetrical, trachea midline, and no JVD Lungs: clear to auscultation bilaterally Heart: regular rate and rhythm, S1, S2 normal, no murmur, click, rub or gallop Abdomen: soft, non-tender, non-distended, bowel sounds normal; no masses or organomegaly Extremities: extremities normal, atraumatic, no cyanosis, 2+ BLE edema Pulses: 2+ and symmetric Skin: skin color, texture, turgor normal; no rashes or lesions HD catheter c/d/i Neurologic: grossly normal, no focal deficits Gudelia Rudolph M.D. Sep 26, 2016 16:52
[2016-09-26] MEDS: Levemir Flexpen SUBQ SCH (17:30)
--- NOTE | 2016-09-26 17:30 | Diagnostic Imaging Report ---
Bleed Indications: Needs long-term dialysis access Technique: Patient given IV Levaquin. Total sterile technique, including sterile gloves, hand hygiene, hat, mask,, sterile gown, large sterile drape, and preparation with 2% chlorhexidine utilized. Local anesthesia with 1% lidocaine. Under real-time ultrasound guidance, puncture right internal jugular vein using 21-gauge micropuncture needle, passage 0.018 guidewire, exchange for 4 Malaysian micropuncture introducer. The guidewire was used to measure the appropriate catheter length, and was removed. The sheath was left in place. The subcutaneous tract was then anesthetized with 1% lidocaine. A chest dermatotomy was made . The tunneling device was used to pull a 14.5 Malaysian 23 cm Bard catheter through the subcutaneous tunnel to the neck dermatotomy. A guidewire was passed through the neck introducer into the inferior vena cava, and serial dilators were passed over it, followed by the introduction of a 14.5 Malaysian AirGuard peel-away sheath. The catheter was then introduced into the sheath, the peel-away sheath was removed. Digital radiograph documents satisfactory catheter tip position in the high right atrium, no kinking at the insertion site. Both catheter ports aspirated and flushed. Catheter was fixed to the skin. Patient tolerated procedure well without immediate complication. Total fluoroscopy time 2.2 minutes. Total dose area product 56 dGycm2 . Comparison: None Findings: Completion radiograph documents satisfactory position and course of the catheter, catheter tip at the high right atrium. Impression: Successful placement of right transjugular tunneled dialysis catheter, as described above
[2016-09-26] MEDS: HYDROmorphone 1mg/ml Carpuject IVP PRN ×2 (18:55→23:33)
[2016-09-26] MEDS ORDERED: Epogen (for ESRD on dialysis) SUBQ SCH (21:00)
[2016-09-26] MEDS: Tamsulosin 0.4mg cap ORAL SCH (21:16)
[2016-09-26 23:07] LABS: BASOPHILS % (AUTO) 0.9 % (0.0-2.0); EOSINOPHILS % (AUTO) 2.9 % (0.0-3.0); LYMPHOCYTES % (AUTO) 9.2 % (20.0-45.0); MEAN CORPUSCULAR HEMOGLOBIN 28.2 PG (27.0-31.0); MEAN CORPUSCULAR HGB CONC 31.8 G/DL (32.0-36.0); MEAN CORPUSCULAR VOLUME 89 FL (80-99); MEAN PLATELET VOLUME 5.6 FL (6.5-10.1); MONOCYTES % (AUTO) 5.2 % (1.0-10.0); NEUTROPHILS % (AUTO) 81.8 % (45.0-75.0); PLATELET COUNT 215 K/UL (150-450); RED BLOOD COUNT 3.34 M/UL (4.20-5.40); RED CELL DISTRIBUTION WIDTH 15.3 % (11.6-14.8); WHITE BLOOD COUNT 10.3 K/UL (4.8-10.8)
[2016-09-27] VITALS (7 sets, daily range): BP systolic 142–162; BP diastolic 77–107
[2016-09-27] MEDS: HYDROmorphone 1mg/ml Carpuject IVP PRN ×4 (04:03→22:24)
[2016-09-27 04:45] LABS: BASOPHILS % (AUTO) 0.6 % (0.0-2.0); EOSINOPHILS % (AUTO) 3.8 % (0.0-3.0); LYMPHOCYTES % (AUTO) 12.7 % (20.0-45.0); MEAN CORPUSCULAR HGB CONC 32.1 G/DL (32.0-36.0); MEAN CORPUSCULAR VOLUME 87 FL (80-99); MEAN PLATELET VOLUME 5.9 FL (6.5-10.1); MONOCYTES % (AUTO) 8.8 % (1.0-10.0); NEUTROPHILS % (AUTO) 74.1 % (45.0-75.0); PLATELET COUNT 232 K/UL (150-450); RED BLOOD COUNT 3.35 M/UL (4.20-5.40); RED CELL DISTRIBUTION WIDTH 14.9 % (11.6-14.8); WHITE BLOOD COUNT 7.4 K/UL (4.8-10.8)
[2016-09-27 05:19] LABS: CALCIUM 8.1 mg/dL (8.6-10.2); CREATININE 4.3 mg/dL (0.5-0.9); GLOMERULAR FILTRATION RATE 13.9 mL/min (>60); MAGNESIUM 2.7 mg/dL (1.7-2.5); POTASSIUM 4.4 mEQ/L (3.4-4.9)
[2016-09-27] MEDS: cloNIDine 0.2mg Tab ORAL SCH ×3 (06:30→21:16)
[2016-09-27] MEDS: NovoLOG Insulin Flexpen SUBQ SCH ×4 (06:48→21:00)
[2016-09-27] MEDS: Metoprolol 50mg tab ORAL SCH ×3 (09:00→21:16)
[2016-09-27] MEDS: Docusate 100mg tablet ORAL SCH ×3 (11:51→17:52)
[2016-09-27] MEDS: Aspirin EC 81mg tab ORAL SCH (11:52)
[2016-09-27] MEDS: Heparin 5000 units/ml inj SUBQ SCH ×2 (11:54→21:19)
[2016-09-27] MEDS: Levemir Flexpen SUBQ SCH (12:00)
--- NOTE | 2016-09-27 12:47 | General Progress Note ---
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 agreed to HD as previous CrCl 15when Cr 4.2 s/p transfused Bone marrow biopsy?still pending previously: 24 h urine CrCl and Protein-CrCl 15 over 6 gram protein EPO BP control 2D echo done previously adjust BP meds kidney JESUSITA : Slightly increased right renal echogenicity, could indicate early medical renal disease Negative for hydronephrosis monitor renal parameters discussed with PMD Subjective ROS Limited/Unobtainable: No Constitutional: Reports: weakness Allergies: Coded Allergies: PENICILLINS (Verified Allergy, Unknown, 03/13/15) Objective Last 24 Hour Vital Signs Date Time Temp Pulse Resp B/P Pulse Ox O2 Delivery O2 Flow Rate FiO2 09/27/16 11:52 80 154/80 09/27/16 11:51 80 154/80 09/27/16 11:50 154/80 09/27/16 08:11 98 Nasal Cannula 3.0 32 09/27/16 08:11 Nasal Cannula 3.0 32 09/27/16 08:11 80 16 Nasal Cannula 3.0 32 09/27/16 08:10 Room Air 09/27/16 08:00 97.0 87 19 142/94 94 Room Air 09/27/16 06:30 153/81 09/27/16 04:00 97.5 81 20 153/81 99 09/27/16 04:00 81 09/27/16 01:06 79 16 98 Nasal Cannula 4.0 36 09/27/16 00:56 77 18 96 Nasal Cannula 4.0 36 09/27/16 00:00 97.2 82 20 155/99 98 Room Air 09/26/16 23:43 77 09/26/16 21:16 95 156/105 09/26/16 21:16 156/104 09/26/16 20:37 98.1 95 18 156/104 Nasal Cannula 4.0 09/26/16 19:56 96 09/26/16 19:11 Nasal Cannula 3.0 32 09/26/16 19:11 83 18 Nasal Cannula 3.0 32 09/26/16 19:11 98 Nasal Cannula 3.0 32 09/26/16 16:00 95 09/26/16 16:00 91 18 150/89 Nasal Cannula 2.0 96 09/26/16 15:29 98 23 151/91 98 Nasal Cannula 4.0 09/26/16 15:25 100 19 156/92 98 Nasal Cannula 4.0 09/26/16 15:20 100 25 158/94 98 Nasal Cannula 4.0 09/26/16 15:15 99 20 163/96 99 Nasal Cannula 4.0 09/26/16 15:10 98 20 160/99 96 Nasal Cannula 4.0 09/26/16 15:09 98.1 99 30 99 Nasal Cannula 4.0 92 98 09/26/16 15:05 92 30 4.0 09/26/16 15:05 96 26 173/105 97 Nasal Cannula 4.0 09/26/16 15:00 91 36 176/112 98 Nasal Cannula 4.0 09/26/16 14:55 98.1 92 30 178/112 98 Nasal Cannula 4.0 Intake and Output 09/26/16 09/27/16 19:00 07:00 Intake Total 250 ml Output Total 400 ml 1000 ml Balance -150 ml -1000 ml Intake Oral 250 ml Output Urine Total 400 ml 1000 ml Laboratory Tests 09/26/16 13:28: Folate [Pending], Hepatitis B Surface Antigen [Pending], Hepatitis B Surface Antibody [Pending], Hepatitis Be Antigen [Pending], Hepatitis C Antibody [ Pending] 09/26/16 21:27: White Blood Count 10.3, Red Blood Count 3.34L, Hemoglobin 9.4L, Hematocrit 29.7L , Mean Corpuscular Volume 89, Mean Corpuscular Hemoglobin 28.2, Mean Corpuscular Hemoglobin Concent 31.8L, Red Cell Distribution Width 15.3H, Platelet Count 215, Mean Platelet Volume 5.6L, Neutrophils (%) (Auto) 81.8H, Lymphocytes (%) (Auto) 9.2L, Monocytes (%) (Auto) 5.2, Eosinophils (%) (Auto) 2.9, Basophils (%) (Auto) 0.9 09/27/16 04:00: White Blood Count 7.4, Red Blood Count 3.35L, Hemoglobin 9.4L, Hematocrit 29.2L , Mean Corpuscular Volume 87, Mean Corpuscular Hemoglobin 28.0, Mean Corpuscular Hemoglobin Concent 32.1, Red Cell Distribution Width 14.9H, Platelet Count 232, Mean Platelet Volume 5.9L, Neutrophils (%) (Auto) 74.1, Lymphocytes (%) (Auto) 12.7L, Monocytes (%) (Auto) 8.8, Eosinophils (%) (Auto) 3.8H, Basophils (%) (Auto) 0.6, Sodium Level 141, Potassium Level 4.4, Chloride Level 103, Carbon Dioxide Level 25, Anion Gap 13, Blood Urea Nitrogen 62H, Creatinine 4.3H, Estimat Glomerular Filtration Rate 13.9, Glucose Level 68#L, Calcium Level 8.1L, Phosphorus Level 5.0H, Magnesium Level 2.7H Height (Feet): 5 Height (Inches): 2.00 Weight (Pounds): 180 General Appearance: no apparent distress Cardiovascular: regular rhythm Respiratory/Chest: decreased breath sounds Abdomen: soft Objective no change in physical exam MICHELLE HOOK 25, 2017 12:47
--- NOTE | 2016-09-27 18:57 | Cardiology Report ---
APPROVED REPORT EKG Measurement Heart [id number] Normal sinus rhythm Normal ECG
[2016-09-27] MEDS: Tamsulosin 0.4mg cap ORAL SCH (21:16)
[2016-09-28] VITALS (8 sets, daily range): BP systolic 147–173; BP diastolic 83–102
[2016-09-28] MEDS: HYDROmorphone 1mg/ml Carpuject IVP PRN ×3 (03:04→15:00)
[2016-09-28] MEDS: cloNIDine 0.2mg Tab ORAL SCH ×3 (05:36→21:10)
[2016-09-28 05:55] LABS: BASOPHILS % (AUTO) 0.7 % (0.0-2.0); EOSINOPHILS % (AUTO) 4.5 % (0.0-3.0); MEAN CORPUSCULAR HEMOGLOBIN 29.2 PG (27.0-31.0); MEAN CORPUSCULAR HGB CONC 33.5 G/DL (32.0-36.0); MEAN CORPUSCULAR VOLUME 87 FL (80-99); MEAN PLATELET VOLUME 5.7 FL (6.5-10.1); MONOCYTES % (AUTO) 10.8 % (1.0-10.0); NEUTROPHILS % (AUTO) 66.1 % (45.0-75.0); PLATELET COUNT 208 K/UL (150-450); RED BLOOD COUNT 3.12 M/UL (4.20-5.40); RED CELL DISTRIBUTION WIDTH 15.2 % (11.6-14.8); WHITE BLOOD COUNT 7.8 K/UL (4.8-10.8)
[2016-09-28] MEDS: NovoLOG Insulin Flexpen SUBQ SCH ×4 (06:30→21:01)
[2016-09-28 06:33] LABS: CALCIUM 7.7 mg/dL (8.6-10.2); CREATININE 3.2 mg/dL (0.5-0.9); GLOMERULAR FILTRATION RATE 19.6 mL/min (>60); MAGNESIUM 2.5 mg/dL (1.7-2.5); PHOSPHORUS 4.1 mg/dL (2.5-4.8); POTASSIUM 3.9 mEQ/L (3.4-4.9)
[2016-09-28] MEDS: Docusate 100mg tablet ORAL SCH ×3 (08:50→17:41)
[2016-09-28] MEDS: Metoprolol 50mg tab ORAL SCH ×2 (08:51→20:57)
[2016-09-28] MEDS: Aspirin EC 81mg tab ORAL SCH (08:51)
[2016-09-28] MEDS: Heparin 5000 units/ml inj SUBQ SCH ×2 (08:52→21:02)
[2016-09-28] MEDS: Levemir Flexpen SUBQ SCH (08:56)
--- NOTE | 2016-09-28 11:19 | General Progress Note ---
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 agreed to HD as previous CrCl 15when Cr 4.2 DC doss s/p transfused Bone marrow biopsy?still pending previously: 24 h urine CrCl and Protein-CrCl 15 over 6 gram protein EPO BP control 2D echo done previously adjust BP meds kidney JESUSITA : Slightly increased right renal echogenicity, could indicate early medical renal disease Negative for hydronephrosis monitor renal parameters discussed with PMD Subjective ROS Limited/Unobtainable: No Constitutional: Reports: malaise Respiratory: Reports: shortness of breath Allergies: Coded Allergies: PENICILLINS (Verified Allergy, Unknown, 03/13/15) Objective Last 24 Hour Vital Signs Date Time Temp Pulse Resp B/P Pulse Ox O2 Delivery O2 Flow Rate FiO2 09/28/16 10:03 98.2 09/28/16 08:51 85 160/92 09/28/16 08:50 85 160/92 09/28/16 08:02 87 09/28/16 08:00 98.2 85 20 160/92 98 Nasal Cannula 2.0 09/28/16 07:30 Nasal Cannula 3.0 32 09/28/16 07:30 78 16 Nasal Cannula 3.0 32 09/28/16 07:30 96 Nasal Cannula 3.0 32 09/28/16 05:36 160/100 09/28/16 04:20 165/98 09/28/16 04:15 98.5 86 19 173/102 97 Room Air 09/28/16 04:00 83 09/28/16 00:20 155/95 09/28/16 00:18 98.2 75 18 154/100 95 Room Air 09/28/16 00:00 79 09/27/16 21:16 80 162/107 09/27/16 21:16 162/107 09/27/16 20:00 98.2 80 18 162/107 96 Nasal Cannula 09/27/16 20:00 80 09/27/16 19:41 Nasal Cannula 3.0 32 09/27/16 19:41 85 16 Nasal Cannula 3.0 32 09/27/16 19:41 97 Nasal Cannula 3.0 32 09/27/16 16:00 80 09/27/16 16:00 97.9 83 20 157/77 94 Nasal Cannula 2.0 09/27/16 14:17 148/91 09/27/16 12:00 97.9 101 20 155/90 95 Nasal Cannula 4.0 09/27/16 11:52 80 154/80 09/27/16 11:51 80 154/80 09/27/16 11:50 154/80 Intake and Output 09/27/16 09/28/16 19:00 07:00 Intake Total 360 ml 400 ml Output Total 2442 ml 850 ml Balance -2082 ml -450 ml Intake Oral 360 ml 400 ml Output Urine Total 400 ml 850 ml Hemodialysis UF 2042 ml Laboratory Tests 09/28/16 05:40: White Blood Count 7.8, Red Blood Count 3.12L, Hemoglobin 9.1L, Hematocrit 27.3L , Mean Corpuscular Volume 87, Mean Corpuscular Hemoglobin 29.2, Mean Corpuscular Hemoglobin Concent 33.5, Red Cell Distribution Width 15.2H, Platelet Count 208, Mean Platelet Volume 5.7L, Neutrophils (%) (Auto) 66.1, Lymphocytes (%) (Auto) 18.0L, Monocytes (%) (Auto) 10.8H, Eosinophils (%) (Auto ) 4.5H, Basophils (%) (Auto) 0.7, Sodium Level 139, Potassium Level 3.9, Chloride Level 98, Carbon Dioxide Level 31H, Anion Gap 10, Blood Urea Nitrogen 35#H, Creatinine 3.2H, Estimat Glomerular Filtration Rate 19.6, Glucose Level 142H, Calcium Level 7.7L, Phosphorus Level 4.1, Magnesium Level 2.5 Height (Feet): 5 Height (Inches): 2.00 Weight (Pounds): 180 General Appearance: no apparent distress Cardiovascular: regular rhythm Respiratory/Chest: decreased breath sounds Abdomen: soft Objective no change in physical exam MICHELLE HOOK Sep 28, 2016 11:19
[2016-09-28] MEDS ORDERED: HydrALAZINE 25mg tab ORAL PRN (12:45)
--- NOTE | 2016-09-28 13:04 | General Progress Note ---
Assessment/Plan Problem List: (1) Anasarca ICD Codes: R60.1 - Generalized edema SNOMED: 023508257, 178040698 (2) Acute on chronic diastolic (congestive) heart failure ICD Codes: I50.33 - Acute on chronic diastolic (congestive) heart failure SNOMED: 18699148, 643728351 (3) Nephrotic syndrome ICD Codes: N04.9 - Nephrotic syndrome with unspecified morphologic changes SNOMED: 98095178 (4) KENYA (acute kidney injury) ICD Codes: N17.9 - Acute kidney failure, unspecified SNOMED: 31397186 (5) CKD (chronic kidney disease) ICD Codes: N18.9 - Chronic kidney disease, unspecified SNOMED: 125996658 (6) Hyperkalemia ICD Codes: E87.5 - Hyperkalemia SNOMED: 73331100 (7) DM (diabetes mellitus) ICD Codes: E11.9 - DM (diabetes mellitus) SNOMED: 22116437 Qualifiers: Qualified Codes: E10.21 - Type 1 diabetes mellitus with diabetic nephropathy Status: stable Assessment/Plan Monitor on tele Nephrology consulted, appreciate rec's s/p permacath placement on 09/26 Started on HD 09/26 s/p lasix 40mg IV in ED Hold further diuretics per nephrology Trend Cr Monitor lytes closely Cont EPO for anemia Cont home BP meds: amlodipine, MTP, clonidine Cont home ASA Cont levemir 15mg qhS ISS DVT Prophylaxis: SCD, HSQ Code Status: Full Hospital Classification Declaration: Based on this initial evaluation, and depending on the patient's clinical course, I anticipate that this patient will require hospitalization for CHF, KENYA on CKD, anasarca, initiation of HD for 2-3 days and close respiratory/hemodynamic monitoring. Disposition: Once the patient is stable to leave the hospital, I anticipate the patient will likely be discharged to the following environment: home with HH I spent 40 minutes on this patient's case, and 22 minutes were dedicated to counseling and/or care coordination. Discussed with patient/family, nursing staff, SW/CM, nephrology regarding clinical status, treatment course, and disposition planning. Time of note may not reflect time of encounter. Subjective Date patient seen: Sep 27, 2016 Time patient seen: 13:00 ROS Limited/Unobtainable: No Constitutional: Reports: no symptoms HEENT: Reports: no symptoms Cardiovascular: Reports: edema Respiratory: Reports: shortness of breath Gastrointestinal/Abdominal: Reports: no symptoms Genitourinary: Reports: no symptoms Neurologic/Psychiatric: Reports: no symptoms Endocrine: Reports: no symptoms Hematologic/Lymphatic: Reports: no symptoms Allergies: Coded Allergies: PENICILLINS (Verified Allergy, Unknown, 03/13/15) Subjective Getting HD again today Feeling better Objective Last 24 Hour Vital Signs Date Time Temp Pulse Resp B/P Pulse Ox O2 Delivery O2 Flow Rate FiO2 09/28/16 10:03 98.2 09/28/16 08:51 85 160/92 09/28/16 08:50 85 160/92 09/28/16 08:02 87 09/28/16 08:00 98.2 85 20 160/92 98 Nasal Cannula 2.0 09/28/16 07:30 Nasal Cannula 3.0 32 09/28/16 07:30 78 16 Nasal Cannula 3.0 32 09/28/16 07:30 96 Nasal Cannula 3.0 32 09/28/16 05:36 160/100 09/28/16 04:20 165/98 09/28/16 04:15 98.5 86 19 173/102 97 Room Air 09/28/16 04:00 83 09/28/16 00:20 155/95 09/28/16 00:18 98.2 75 18 154/100 95 Room Air 09/28/16 00:00 79 09/27/16 21:16 80 162/107 09/27/16 21:16 162/107 09/27/16 20:00 98.2 80 18 162/107 96 Nasal Cannula 09/27/16 20:00 80 09/27/16 19:41 Nasal Cannula 3.0 32 09/27/16 19:41 85 16 Nasal Cannula 3.0 32 09/27/16 19:41 97 Nasal Cannula 3.0 32 09/27/16 16:00 80 09/27/16 16:00 97.9 83 20 157/77 94 Nasal Cannula 2.0 09/27/16 14:17 148/91 Intake and Output 09/27/16 09/28/16 19:00 07:00 Intake Total 360 ml 400 ml Output Total 2442 ml 850 ml Balance -2082 ml -450 ml Intake Oral 360 ml 400 ml Output Urine Total 400 ml 850 ml Hemodialysis UF 2042 ml Laboratory Tests 09/28/16 05:40: White Blood Count 7.8, Red Blood Count 3.12L, Hemoglobin 9.1L, Hematocrit 27.3L , Mean Corpuscular Volume 87, Mean Corpuscular Hemoglobin 29.2, Mean Corpuscular Hemoglobin Concent 33.5, Red Cell Distribution Width 15.2H, Platelet Count 208, Mean Platelet Volume 5.7L, Neutrophils (%) (Auto) 66.1, Lymphocytes (%) (Auto) 18.0L, Monocytes (%) (Auto) 10.8H, Eosinophils (%) (Auto ) 4.5H, Basophils (%) (Auto) 0.7, Sodium Level 139, Potassium Level 3.9, Chloride Level 98, Carbon Dioxide Level 31H, Anion Gap 10, Blood Urea Nitrogen 35#H, Creatinine 3.2H, Estimat Glomerular Filtration Rate 19.6, Glucose Level 142H, Calcium Level 7.7L, Phosphorus Level 4.1, Magnesium Level 2.5 Height (Feet): 5 Height (Inches): 2.00 Weight (Pounds): 180 Objective General: alert, cooperative, no distress, appears stated age Head: normocephalic, without obvious abnormality, atraumatic Eyes: conjunctivae/corneas clear. PERRL, EOM's intact Throat: lips, mucosa, and tongue normal. MMM Neck: supple, symmetrical, trachea midline, and no JVD Lungs: clear to auscultation bilaterally Heart: regular rate and rhythm, S1, S2 normal, no murmur, click, rub or gallop Abdomen: soft, non-tender, non-distended, bowel sounds normal; no masses or organomegaly Extremities: extremities normal, atraumatic, no cyanosis, 2+ BLE edema Pulses: 2+ and symmetric Skin: skin color, texture, turgor normal; no rashes or lesions HD catheter c/d/i Neurologic: grossly normal, no focal deficits Gudelia Rudolph M.D. Sep 28, 2016 13:04
--- NOTE | 2016-09-28 13:05 | General Progress Note ---
Assessment/Plan Problem List: (1) Anasarca ICD Codes: R60.1 - Generalized edema SNOMED: 643144319, 964802751 (2) Acute on chronic diastolic (congestive) heart failure ICD Codes: I50.33 - Acute on chronic diastolic (congestive) heart failure SNOMED: 61097374, 503679810 (3) Nephrotic syndrome ICD Codes: N04.9 - Nephrotic syndrome with unspecified morphologic changes SNOMED: 83608231 (4) KENYA (acute kidney injury) ICD Codes: N17.9 - Acute kidney failure, unspecified SNOMED: 30272170 (5) CKD (chronic kidney disease) ICD Codes: N18.9 - Chronic kidney disease, unspecified SNOMED: 615053110 (6) Hyperkalemia ICD Codes: E87.5 - Hyperkalemia SNOMED: 72842453 (7) DM (diabetes mellitus) ICD Codes: E11.9 - DM (diabetes mellitus) SNOMED: 45795022 Qualifiers: Qualified Codes: E10.21 - Type 1 diabetes mellitus with diabetic nephropathy Status: stable Assessment/Plan D/c tele Nephrology consulted, appreciate rec's s/p permacath placement on 09/26 Started on HD 09/26 s/p lasix 40mg IV in ED Hold further diuretics per nephrology Trend Cr Monitor lytes closely Cont EPO for anemia Cont home BP meds: amlodipine, MTP, clonidine Start lisinopril 10mg BID per nephrology Cont home ASA Cont levemir 15mg qhS ISS CM consulted to assist in setting up outpatient dialysis prior to d/c DVT Prophylaxis: SCD, HSQ Code Status: Full Hospital Classification Declaration: Based on this initial evaluation, and depending on the patient's clinical course, I anticipate that this patient will require hospitalization for CHF, KENYA on CKD, anasarca, initiation of HD for 1-2 days and close respiratory/hemodynamic monitoring. Disposition: Once the patient is stable to leave the hospital, I anticipate the patient will likely be discharged to the following environment: home with HH I spent 38 minutes on this patient's case, and 22 minutes were dedicated to counseling and/or care coordination. Discussed with patient/family, nursing staff, SW/CM, nephrology regarding clinical status, treatment course, and disposition planning. Time of note may not reflect time of encounter. Subjective Date patient seen: Sep 28, 2016 Time patient seen: 13:04 ROS Limited/Unobtainable: No Constitutional: Reports: no symptoms HEENT: Reports: no symptoms Cardiovascular: Reports: edema Respiratory: Reports: shortness of breath Gastrointestinal/Abdominal: Reports: no symptoms Genitourinary: Reports: no symptoms Neurologic/Psychiatric: Reports: no symptoms Endocrine: Reports: no symptoms Hematologic/Lymphatic: Reports: no symptoms Allergies: Coded Allergies: PENICILLINS (Verified Allergy, Unknown, 03/13/15) Subjective Pt feels SOB has improved Plan for HD tomorrow Objective Last 24 Hour Vital Signs Date Time Temp Pulse Resp B/P Pulse Ox O2 Delivery O2 Flow Rate FiO2 09/28/16 10:03 98.2 09/28/16 08:51 85 160/92 09/28/16 08:50 85 160/92 09/28/16 08:02 87 09/28/16 08:00 98.2 85 20 160/92 98 Nasal Cannula 2.0 09/28/16 07:30 Nasal Cannula 3.0 32 09/28/16 07:30 78 16 Nasal Cannula 3.0 32 09/28/16 07:30 96 Nasal Cannula 3.0 32 09/28/16 05:36 160/100 09/28/16 04:20 165/98 09/28/16 04:15 98.5 86 19 173/102 97 Room Air 09/28/16 04:00 83 09/28/16 00:20 155/95 09/28/16 00:18 98.2 75 18 154/100 95 Room Air 09/28/16 00:00 79 09/27/16 21:16 80 162/107 09/27/16 21:16 162/107 09/27/16 20:00 98.2 80 18 162/107 96 Nasal Cannula 09/27/16 20:00 80 09/27/16 19:41 Nasal Cannula 3.0 32 09/27/16 19:41 85 16 Nasal Cannula 3.0 32 09/27/16 19:41 97 Nasal Cannula 3.0 32 09/27/16 16:00 80 09/27/16 16:00 97.9 83 20 157/77 94 Nasal Cannula 2.0 09/27/16 14:17 148/91 Intake and Output 09/27/16 09/28/16 19:00 07:00 Intake Total 360 ml 400 ml Output Total 2442 ml 850 ml Balance -2082 ml -450 ml Intake Oral 360 ml 400 ml Output Urine Total 400 ml 850 ml Hemodialysis UF 2042 ml Laboratory Tests 09/28/16 05:40: White Blood Count 7.8, Red Blood Count 3.12L, Hemoglobin 9.1L, Hematocrit 27.3L , Mean Corpuscular Volume 87, Mean Corpuscular Hemoglobin 29.2, Mean Corpuscular Hemoglobin Concent 33.5, Red Cell Distribution Width 15.2H, Platelet Count 208, Mean Platelet Volume 5.7L, Neutrophils (%) (Auto) 66.1, Lymphocytes (%) (Auto) 18.0L, Monocytes (%) (Auto) 10.8H, Eosinophils (%) (Auto ) 4.5H, Basophils (%) (Auto) 0.7, Sodium Level 139, Potassium Level 3.9, Chloride Level 98, Carbon Dioxide Level 31H, Anion Gap 10, Blood Urea Nitrogen 35#H, Creatinine 3.2H, Estimat Glomerular Filtration Rate 19.6, Glucose Level 142H, Calcium Level 7.7L, Phosphorus Level 4.1, Magnesium Level 2.5 Height (Feet): 5 Height (Inches): 2.00 Weight (Pounds): 180 Objective General: alert, cooperative, no distress, appears stated age Head: normocephalic, without obvious abnormality, atraumatic Eyes: conjunctivae/corneas clear. PERRL, EOM's intact Throat: lips, mucosa, and tongue normal. MMM Neck: supple, symmetrical, trachea midline, and no JVD Lungs: clear to auscultation bilaterally Heart: regular rate and rhythm, S1, S2 normal, no murmur, click, rub or gallop Abdomen: soft, non-tender, non-distended, bowel sounds normal; no masses or organomegaly Extremities: extremities normal, atraumatic, no cyanosis, 2+ BLE edema Pulses: 2+ and symmetric Skin: skin color, texture, turgor normal; no rashes or lesions HD catheter c/d/i Neurologic: grossly normal, no focal deficits Gudelia Rudolph M.D. Sep 28, 2016 13:05
[2016-09-28] MEDS: Lisinopril 10mg tab ORAL SCH ×2 (13:59→20:58)
[2016-09-28] MEDS: Tamsulosin 0.4mg cap ORAL SCH (20:57)
[2016-09-29] VITALS (10 sets, daily range): BP systolic 143–198; BP diastolic 75–115
[2016-09-29] MEDS: HYDROmorphone 1mg/ml Carpuject IVP PRN (00:11)
[2016-09-29] MEDS ORDERED: HYDROmorphone 2mg tab ORAL PRN (02:15)
[2016-09-29] MEDS ORDERED: HYDROmorphone 1mg/ml Carpuject IVP PRN (02:15)
[2016-09-29] MEDS ORDERED: DuoNeb 0.5-3(2.5)mg/3ml neb HHN PRN (02:15)
[2016-09-29] MEDS: cloNIDine 0.2mg Tab ORAL SCH ×3 (05:47→21:53)
[2016-09-29] MEDS: NovoLOG Insulin Flexpen SUBQ SCH ×4 (06:15→20:54)
[2016-09-29 08:32] LABS: CALCIUM 8.1 mg/dL (8.6-10.2); CREATININE 3.4 mg/dL (0.5-0.9); GLOMERULAR FILTRATION RATE 18.3 mL/min (>60); MAGNESIUM 2.5 mg/dL (1.7-2.5); POTASSIUM 3.9 mEQ/L (3.4-4.9)
[2016-09-29 08:33] LABS: BASOPHILS % (AUTO) 0.4 % (0.0-2.0); EOSINOPHILS % (AUTO) 5.1 % (0.0-3.0); LYMPHOCYTES % (AUTO) 15.7 % (20.0-45.0); MEAN CORPUSCULAR HEMOGLOBIN 28.9 PG (27.0-31.0); MEAN CORPUSCULAR HGB CONC 32.5 G/DL (32.0-36.0); MEAN CORPUSCULAR VOLUME 89 FL (80-99); MONOCYTES % (AUTO) 8.9 % (1.0-10.0); NEUTROPHILS % (AUTO) 69.9 % (45.0-75.0); PLATELET COUNT 217 K/UL (150-450); RED BLOOD COUNT 3.18 M/UL (4.20-5.40); RED CELL DISTRIBUTION WIDTH 15.5 % (11.6-14.8)
--- NOTE | 2016-09-29 08:54 | General Progress Note ---
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 adjust BP meds- s/p transfused previously: 24 h urine CrCl and Protein-CrCl 15 over 6 gram protein EPO BP control 2D echo done previously adjust BP meds kidney JESUSITA : Slightly increased right renal echogenicity, could indicate early medical renal disease Negative for hydronephrosis monitor renal parameters discussed with PMD Subjective ROS Limited/Unobtainable: No Allergies: Coded Allergies: PENICILLINS (Verified Allergy, Unknown, 03/13/15) Objective Last 24 Hour Vital Signs Date Time Temp Pulse Resp B/P Pulse Ox O2 Delivery O2 Flow Rate FiO2 09/29/16 05:47 155/82 09/29/16 05:15 97.2 87 20 198/115 97 Nasal Cannula 2.0 09/29/16 05:15 Nasal Cannula 2.0 09/29/16 04:00 97.9 87 18 198/115 97 Nasal Cannula 2.0 09/29/16 00:29 98.3 69 19 143/85 95 Room Air 09/28/16 21:10 147/89 09/28/16 20:58 147/89 09/28/16 20:57 85 147/89 09/28/16 20:00 98.1 114 17 148/83 95 Nasal Cannula 2.0 09/28/16 20:00 85 09/28/16 19:00 82 16 Nasal Cannula 3.0 32 09/28/16 19:00 Nasal Cannula 3.0 32 09/28/16 19:00 97 Nasal Cannula 3.0 32 09/28/16 16:00 85 09/28/16 15:30 98.1 09/28/16 15:00 85 147/89 09/28/16 13:59 173/95 09/28/16 13:58 173/95 09/28/16 12:30 98.1 83 20 173/95 100 Nasal Cannula 2.0 Intake and Output 09/28/16 09/29/16 19:00 07:00 Intake Total 400 ml 120 ml Output Total 300 ml 300 ml Balance 100 ml -180 ml Intake Oral 400 ml 120 ml Output Urine Total 300 ml 300 ml Laboratory Tests 09/29/16 05:30: White Blood Count 9.0, Red Blood Count 3.18L, Hemoglobin 9.2L, Hematocrit 28.3L , Mean Corpuscular Volume 89, Mean Corpuscular Hemoglobin 28.9, Mean Corpuscular Hemoglobin Concent 32.5, Red Cell Distribution Width 15.5H, Platelet Count 217, Mean Platelet Volume 6.0L, Neutrophils (%) (Auto) 69.9, Lymphocytes (%) (Auto) 15.7L, Monocytes (%) (Auto) 8.9, Eosinophils (%) (Auto) 5.1H, Basophils (%) (Auto) 0.4, Sodium Level 139, Potassium Level 3.9, Chloride Level 98, Carbon Dioxide Level 29, Anion Gap 12, Blood Urea Nitrogen 38H, Creatinine 3.4H, Estimat Glomerular Filtration Rate 18.3, Glucose Level 185H, Calcium Level 8.1L, Phosphorus Level 4.0, Magnesium Level 2.5 Height (Feet): 5 Height (Inches): 2.00 Weight (Pounds): 180 General Appearance: no apparent distress Cardiovascular: normal rate Respiratory/Chest: decreased breath sounds Abdomen: soft Objective no change in physical exam MICHELLE HOOK Sep 29, 2016 08:54
[2016-09-29] MEDS ORDERED: Miralax 17gm pkt ORAL PRN (09:00)
[2016-09-29] MEDS: Docusate 100mg tablet ORAL SCH ×3 (09:26→17:29)
[2016-09-29] MEDS: Aspirin EC 81mg tab ORAL SCH (09:26)
[2016-09-29] MEDS: Metoprolol 50mg tab ORAL SCH ×2 (09:27→20:41)
[2016-09-29] MEDS: Lisinopril 10mg tab ORAL SCH ×2 (09:27→20:41)
[2016-09-29] MEDS: Heparin 5000 units/ml inj SUBQ SCH ×2 (09:31→20:48)
[2016-09-29] MEDS: Hydromorphone 0.5mg/0.5ml inj IVP PRN ×3 (10:00→20:40)
[2016-09-29] MEDS: Levemir Flexpen SUBQ SCH (11:09)
--- NOTE | 2016-09-29 12:37 | General Progress Note ---
Assessment/Plan Problem List: (1) Anasarca ICD Codes: R60.1 - Generalized edema SNOMED: 190152154, 456814220 (2) Acute on chronic diastolic (congestive) heart failure ICD Codes: I50.33 - Acute on chronic diastolic (congestive) heart failure SNOMED: 00184397, 319543638 (3) Nephrotic syndrome ICD Codes: N04.9 - Nephrotic syndrome with unspecified morphologic changes SNOMED: 12525856 (4) KENYA (acute kidney injury) ICD Codes: N17.9 - Acute kidney failure, unspecified SNOMED: 46579241 (5) CKD (chronic kidney disease) ICD Codes: N18.9 - Chronic kidney disease, unspecified SNOMED: 380879970 (6) Hyperkalemia ICD Codes: E87.5 - Hyperkalemia SNOMED: 24194658 (7) DM (diabetes mellitus) ICD Codes: E11.9 - DM (diabetes mellitus) SNOMED: 29903679 Qualifiers: Qualified Codes: E10.21 - Type 1 diabetes mellitus with diabetic nephropathy Assessment/Plan Nephrology consulted, appreciate rec's s/p permacath placement on 09/26 Started on HD 09/26, cont HD per renal s/p lasix 40mg IV in ED Hold further diuretics per nephrology Trend Cr Monitor lytes closely Cont EPO for anemia Cont home BP meds: amlodipine, MTP, clonidine Start lisinopril 10mg BID per nephrology Cont home ASA Cont levemir 15mg qhS ISS CM consulted to assist in setting up outpatient dialysis prior to d/c DVT Prophylaxis: SCD, HSQ Code Status: Full Hospital Classification Declaration: Based on this initial evaluation, and depending on the patient's clinical course, I anticipate that this patient will require hospitalization for CHF, KENYA on CKD, anasarca, initiation of HD for 1-2 days and close respiratory/hemodynamic monitoring. Disposition: Once the patient is stable to leave the hospital, I anticipate the patient will likely be discharged to the following environment: home with HH I spent 38 minutes on this patient's case, and 22 minutes were dedicated to counseling and/or care coordination. Discussed with patient/family, nursing staff, SW/CM, nephrology regarding clinical status, treatment course, and disposition planning. Time of note may not reflect time of encounter. Subjective Date patient seen: Sep 29, 2016 Time patient seen: 12:37 ROS Limited/Unobtainable: No Constitutional: Reports: no symptoms HEENT: Reports: no symptoms Cardiovascular: Reports: edema Respiratory: Reports: shortness of breath Gastrointestinal/Abdominal: Reports: no symptoms Genitourinary: Reports: no symptoms Neurologic/Psychiatric: Reports: no symptoms Endocrine: Reports: no symptoms Hematologic/Lymphatic: Reports: no symptoms Allergies: Coded Allergies: PENICILLINS (Verified Allergy, Unknown, 03/13/15) Subjective Pt feels SOB has improved Got HD today Objective Last 24 Hour Vital Signs Date Time Temp Pulse Resp B/P Pulse Ox O2 Delivery O2 Flow Rate FiO2 09/29/16 09:27 87 155/82 09/29/16 09:27 155/82 09/29/16 09:27 87 155/82 09/29/16 08:30 99.4 88 20 161/85 98 Nasal Cannula 2.0 09/29/16 08:30 Nasal Cannula 2.0 09/29/16 08:00 99.5 88 20 161/75 97 Room Air 09/29/16 05:47 155/82 09/29/16 05:15 97.2 87 20 198/115 97 Nasal Cannula 2.0 09/29/16 05:15 Nasal Cannula 2.0 09/29/16 04:00 97.9 87 18 198/115 97 Nasal Cannula 2.0 09/29/16 00:29 98.3 69 19 143/85 95 Room Air 09/28/16 21:10 147/89 09/28/16 20:58 147/89 09/28/16 20:57 85 147/89 09/28/16 20:00 98.1 114 17 148/83 95 Nasal Cannula 2.0 09/28/16 20:00 85 09/28/16 19:00 82 16 Nasal Cannula 3.0 32 09/28/16 19:00 Nasal Cannula 3.0 32 09/28/16 19:00 97 Nasal Cannula 3.0 32 09/28/16 16:00 85 09/28/16 15:30 98.1 09/28/16 15:00 85 147/89 09/28/16 13:59 173/95 09/28/16 13:58 173/95 Intake and Output 09/28/16 09/29/16 19:00 07:00 Intake Total 400 ml 120 ml Output Total 300 ml 300 ml Balance 100 ml -180 ml Intake Oral 400 ml 120 ml Output Urine Total 300 ml 300 ml Laboratory Tests 09/29/16 05:30: White Blood Count 9.0, Red Blood Count 3.18L, Hemoglobin 9.2L, Hematocrit 28.3L , Mean Corpuscular Volume 89, Mean Corpuscular Hemoglobin 28.9, Mean Corpuscular Hemoglobin Concent 32.5, Red Cell Distribution Width 15.5H, Platelet Count 217, Mean Platelet Volume 6.0L, Neutrophils (%) (Auto) 69.9, Lymphocytes (%) (Auto) 15.7L, Monocytes (%) (Auto) 8.9, Eosinophils (%) (Auto) 5.1H, Basophils (%) (Auto) 0.4, Sodium Level 139, Potassium Level 3.9, Chloride Level 98, Carbon Dioxide Level 29, Anion Gap 12, Blood Urea Nitrogen 38H, Creatinine 3.4H, Estimat Glomerular Filtration Rate 18.3, Glucose Level 185H, Calcium Level 8.1L, Phosphorus Level 4.0, Magnesium Level 2.5 Height (Feet): 5 Height (Inches): 2.00 Weight (Pounds): 180 Objective General: alert, cooperative, no distress, appears stated age Head: normocephalic, without obvious abnormality, atraumatic Eyes: conjunctivae/corneas clear. PERRL, EOM's intact Throat: lips, mucosa, and tongue normal. MMM Neck: supple, symmetrical, trachea midline, and no JVD Lungs: clear to auscultation bilaterally Heart: regular rate and rhythm, S1, S2 normal, no murmur, click, rub or gallop Abdomen: soft, non-tender, non-distended, bowel sounds normal; no masses or organomegaly Extremities: extremities normal, atraumatic, no cyanosis, 2+ BLE edema Pulses: 2+ and symmetric Skin: skin color, texture, turgor normal; no rashes or lesions HD catheter c/d/i Neurologic: grossly normal, no focal deficits Gudelia Rudolph M.D. Sep 29, 2016 12:37
[2016-09-29] MEDS: HydrALAZINE 25mg tab ORAL PRN ×2 (17:36→21:55)
[2016-09-29] MEDS: Epogen (for ESRD on dialysis) SUBQ SCH (20:42)
[2016-09-29] MEDS ORDERED: Tamsulosin 0.4mg cap ORAL SCH (21:00)
[2016-09-29] MEDS: Zolpidem 5mg tab ORAL PRN (21:47)
[2016-09-30] VITALS: BP 161/101
[2016-09-30 04:00] VITALS: BP 155/96
[2016-09-30] MEDS: Hydromorphone 0.5mg/0.5ml inj IVP PRN ×4 (04:03→23:31)
[2016-09-30] MEDS: cloNIDine 0.2mg Tab ORAL SCH ×3 (05:24→21:12)
[2016-09-30] MEDS: NovoLOG Insulin Flexpen SUBQ SCH ×4 (06:28→21:23)
[2016-09-30 08:00] VITALS: BP 154/103
[2016-09-30] MEDS: Docusate 100mg tablet ORAL SCH ×3 (08:34→19:04)
[2016-09-30] MEDS: Aspirin EC 81mg tab ORAL SCH (08:34)
[2016-09-30] MEDS: Heparin 5000 units/ml inj SUBQ SCH ×2 (08:38→21:19)
[2016-09-30] MEDS: Levemir Flexpen SUBQ SCH (08:39)
[2016-09-30] MEDS: Lisinopril 10mg tab ORAL SCH (08:48)
[2016-09-30] MEDS: Metoprolol 50mg tab ORAL SCH (08:49)
[2016-09-30 12:00] VITALS: BP 156/92
[2016-09-30] MEDS ORDERED: Nitroglycerin Subl 0.4mg tab (Bottle Of 25) SL ONE (12:30)
--- NOTE | 2016-09-30 13:23 | General Progress Note ---
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 HTN OOC Anemia- HypoAlbuminemia - Nephrotic syndrome s/p DKA Plan: HD in am add lipitor and Starlix adjust BP meds- s/p transfused previously: 24 h urine CrCl and Protein-CrCl 15 over 6 gram protein EPO BP control 2D echo done previously cont asa check troponin kidney JESUSITA : Slightly increased right renal echogenicity, could indicate early medical renal disease Negative for hydronephrosis monitor renal parameters discussed with PMD Subjective ROS Limited/Unobtainable: No Constitutional: Reports: malaise Cardiovascular: Reports: chest pain, other - left side Allergies: Coded Allergies: PENICILLINS (Verified Allergy, Unknown, 03/13/15) Objective Last 24 Hour Vital Signs Date Time Temp Pulse Resp B/P Pulse Ox O2 Delivery O2 Flow Rate FiO2 09/30/16 12:46 154/103 09/30/16 08:49 84 154/103 09/30/16 08:48 154/103 09/30/16 08:48 84 154/103 09/30/16 08:24 82 18 Nasal Cannula 2.0 09/30/16 08:24 96 Nasal Cannula 2.0 28 09/30/16 08:24 Nasal Cannula 2.0 28 09/30/16 08:00 97.0 84 20 154/103 96 Nasal Cannula 2.0 09/30/16 05:24 155/96 09/30/16 04:00 98.3 80 16 155/96 96 Room Air 09/30/16 00:00 98.1 73 19 161/101 95 Nasal Cannula 09/29/16 22:31 80 178/101 09/29/16 21:58 85 188/109 09/29/16 21:55 188/109 09/29/16 21:53 188/109 09/29/16 20:41 85 159/93 09/29/16 20:41 159/93 09/29/16 20:38 98.1 85 18 159/93 91 Room Air 09/29/16 20:00 Nasal Cannula 3.0 32 09/29/16 20:00 83 16 Nasal Cannula 3.0 32 09/29/16 20:00 96 Nasal Cannula 3.0 32 09/29/16 17:36 164/107 09/29/16 16:19 97.9 84 19 164/107 93 Room Air 09/29/16 14:14 155/82 Intake and Output 09/29/16 09/30/16 19:00 07:00 Intake Total 240 ml 240 ml Output Total 2300 ml Balance -2060 ml 240 ml Intake Oral 240 ml 240 ml Hemodialysis UF 2300 ml # Voids 3 Height (Feet): 5 Height (Inches): 2.00 Weight (Pounds): 180 General Appearance: mild distress Cardiovascular: normal rate Respiratory/Chest: decreased breath sounds Abdomen: soft Objective no change in physical exam MICHELLE HOOK Sep 30, 2016 13:23
[2016-09-30 16:00] VITALS: BP 156/95
[2016-09-30 16:09] LABS: TROPONIN I < 0.30 ng/mL (<=0.30)
--- NOTE | 2016-09-30 18:44 | General Progress Note ---
Assessment/Plan Problem List: (1) Anasarca ICD Codes: R60.1 - Generalized edema SNOMED: 943275973, 534197430 (2) Acute on chronic diastolic (congestive) heart failure ICD Codes: I50.33 - Acute on chronic diastolic (congestive) heart failure SNOMED: 53943051, 556323703 (3) Nephrotic syndrome ICD Codes: N04.9 - Nephrotic syndrome with unspecified morphologic changes SNOMED: 10306158 (4) KENYA (acute kidney injury) ICD Codes: N17.9 - Acute kidney failure, unspecified SNOMED: 85673063 (5) CKD (chronic kidney disease) ICD Codes: N18.9 - Chronic kidney disease, unspecified SNOMED: 532020219 (6) Hyperkalemia ICD Codes: E87.5 - Hyperkalemia SNOMED: 64858712 (7) DM (diabetes mellitus) ICD Codes: E11.9 - DM (diabetes mellitus) SNOMED: 93705411 Qualifiers: Qualified Codes: E10.21 - Type 1 diabetes mellitus with diabetic nephropathy (8) Chest pain ICD Codes: R07.9 - Chest pain, unspecified SNOMED: 45573025 Status: stable Assessment/Plan Check trop/EKG given chest pain (likely atypical) Nephrology consulted, appreciate rec's s/p permacath placement on 09/26 Started on HD 09/27, cont HD per renal s/p lasix 40mg IV in ED Hold further diuretics per nephrology Trend Cr Monitor lytes closely Cont EPO for anemia Cont amlodipine 10mg qd Incr MTP to 100mg BID Clonidine 0.2mg TID Incr lisnipril to 20mg BID per nephrology Cont home ASA Cont levemir 15mg qhS Start Starlix ISS CM consulted to assist in setting up outpatient dialysis prior to d/c DVT Prophylaxis: SCD, HSQ Code Status: Full Hospital Classification Declaration: Based on this initial evaluation, and depending on the patient's clinical course, I anticipate that this patient will require hospitalization for CHF, KENYA on CKD, anasarca, initiation of HD for 1-2 days and close respiratory/hemodynamic monitoring. Disposition: Once the patient is stable to leave the hospital, I anticipate the patient will likely be discharged to the following environment: home with HH I spent 38 minutes on this patient's case, and 22 minutes were dedicated to counseling and/or care coordination. Discussed with patient/family, nursing staff, SW/CM, nephrology regarding clinical status, treatment course, and disposition planning. Time of note may not reflect time of encounter. Subjective Date patient seen: Sep 30, 2016 Time patient seen: 18:44 Constitutional: Reports: no symptoms HEENT: Reports: no symptoms Cardiovascular: Reports: edema Respiratory: Reports: shortness of breath Gastrointestinal/Abdominal: Reports: no symptoms Genitourinary: Reports: no symptoms Neurologic/Psychiatric: Reports: no symptoms Endocrine: Reports: no symptoms Hematologic/Lymphatic: Reports: no symptoms Allergies: Coded Allergies: PENICILLINS (Verified Allergy, Unknown, 03/13/15) All Systems: reviewed and negative except above Subjective Pt feels SOB has improved C/o chest pain today Sugars uncontrolled Objective Last 24 Hour Vital Signs Date Time Temp Pulse Resp B/P Pulse Ox O2 Delivery O2 Flow Rate FiO2 09/30/16 16:00 97.9 80 18 156/95 94 Room Air 09/30/16 14:51 154/103 09/30/16 12:46 154/103 09/30/16 12:00 98.2 78 20 156/92 96 Room Air 09/30/16 08:49 84 154/103 09/30/16 08:48 154/103 09/30/16 08:48 84 154/103 09/30/16 08:24 82 18 Nasal Cannula 2.0 09/30/16 08:24 96 Nasal Cannula 2.0 09/30/16 08:24 Nasal Cannula 2.0 09/30/16 08:00 97.0 84 20 154/103 96 Nasal Cannula 2.0 09/30/16 05:24 155/96 09/30/16 04:00 98.3 80 16 155/96 96 Room Air 09/30/16 00:00 98.1 73 19 161/101 95 Nasal Cannula 09/29/16 22:31 80 178/101 09/29/16 21:58 85 188/109 09/29/16 21:55 188/109 09/29/16 21:53 188/109 09/29/16 20:41 85 159/93 09/29/16 20:41 159/93 09/29/16 20:38 98.1 85 18 159/93 91 Room Air 09/29/16 20:00 Nasal Cannula 3.0 32 09/29/16 20:00 83 16 Nasal Cannula 3.0 32 09/29/16 20:00 96 Nasal Cannula 3.0 32 Intake and Output 09/29/16 09/30/16 19:00 07:00 Intake Total 240 ml 240 ml Output Total 2300 ml Balance -2060 ml 240 ml Intake Oral 240 ml 240 ml Hemodialysis UF 2300 ml # Voids 3 Laboratory Tests 09/30/16 15:45: Troponin I < 0.30 Height (Feet): 5 Height (Inches): 2.00 Weight (Pounds): 180 Objective General: alert, cooperative, no distress, appears stated age Head: normocephalic, without obvious abnormality, atraumatic Eyes: conjunctivae/corneas clear. PERRL, EOM's intact Throat: lips, mucosa, and tongue normal. MMM Neck: supple, symmetrical, trachea midline, and no JVD Lungs: clear to auscultation bilaterally Heart: regular rate and rhythm, S1, S2 normal, no murmur, click, rub or gallop Abdomen: soft, non-tender, non-distended, bowel sounds normal; no masses or organomegaly Extremities: extremities normal, atraumatic, no cyanosis, 2+ BLE edema Pulses: 2+ and symmetric Skin: skin color, texture, turgor normal; no rashes or lesions HD catheter c/d/i Neurologic: grossly normal, no focal deficits Gudelia Rudolph M.D. Sep 30, 2016 18:44
[2016-09-30] MEDS: Nateglinide 60mg tab ORAL SCH (18:59)
[2016-09-30 20:00] VITALS: BP 162/106
[2016-09-30] MEDS: Lisinopril 20mg tab ORAL SCH (21:12)
[2016-09-30] MEDS: Cyclobenzaprine 10mg Tab ORAL PRN (21:30)
[2016-09-30] MEDS: Zolpidem 5mg tab ORAL PRN (21:30)
[2016-10-01] VITALS (7 sets, daily range): BP systolic 141–174; BP diastolic 76–104
[2016-10-01] MEDS: cloNIDine 0.2mg Tab ORAL SCH ×3 (05:46→21:57)
[2016-10-01] MEDS: Nateglinide 60mg tab ORAL SCH ×3 (05:47→17:41)
[2016-10-01 06:03] LABS: BASOPHILS % (AUTO) 1.3 % (0.0-2.0); EOSINOPHILS % (AUTO) 6.9 % (0.0-3.0); MEAN CORPUSCULAR HEMOGLOBIN 29.3 PG (27.0-31.0); MEAN CORPUSCULAR VOLUME 89 FL (80-99); MEAN PLATELET VOLUME 6.5 FL (6.5-10.1); NEUTROPHILS % (AUTO) 62.7 % (45.0-75.0); PLATELET COUNT 232 K/UL (150-450); RED BLOOD COUNT 2.88 M/UL (4.20-5.40); RED CELL DISTRIBUTION WIDTH 15.2 % (11.6-14.8); WHITE BLOOD COUNT 8.1 K/UL (4.8-10.8)
[2016-10-01] MEDS: NovoLOG Insulin Flexpen SUBQ SCH ×4 (06:13→21:00)
[2016-10-01 06:19] LABS: ALBUMIN/GLOBULIN RATIO 0.8 (1.0-2.7); CALCIUM 8.1 mg/dL (8.6-10.2); CREATININE 3.3 mg/dL (0.5-0.9); PHOSPHORUS 3.5 mg/dL (2.5-4.8); POTASSIUM 3.9 mEQ/L (3.4-4.9); TOTAL PROTEIN 5.4 g/dL (6.6-8.7)
[2016-10-01 06:47] LABS: TROPONIN I < 0.30 ng/mL (<=0.30)
[2016-10-01 07:37] LABS: URIC ACID 4.9 mg/dL (3.0-7.5)
[2016-10-01 07:50] LABS: CHOLESTEROL/HDL RATIO 1.9 (3.3-4.4)
[2016-10-01] MEDS: Aspirin EC 81mg tab ORAL SCH (08:46)
[2016-10-01] MEDS: Lisinopril 20mg tab ORAL SCH ×2 (08:46→21:57)
[2016-10-01] MEDS: Heparin 5000 units/ml inj SUBQ SCH ×2 (08:51→22:05)
[2016-10-01] MEDS: Levemir Flexpen SUBQ SCH (08:52)
[2016-10-01] MEDS: Docusate 100mg tablet ORAL SCH ×3 (09:00→20:13)
[2016-10-01] MEDS: Hydromorphone 0.5mg/0.5ml inj IVP PRN ×3 (09:05→21:56)
--- NOTE | 2016-10-01 14:05 | General Progress Note ---
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 HTN OOC Anemia- HypoAlbuminemia - Nephrotic syndrome s/p DKA Plan: HD 10/01 done- add lipitor and Starlix adjust BP meds- change Norvasc to procardia s/p transfused previously: 24 h urine CrCl and Protein-CrCl 15 over 6 gram protein EPO BP control 2D echo done previously cont asa check troponin kidney JESUSITA : Slightly increased right renal echogenicity, could indicate early medical renal disease Negative for hydronephrosis monitor renal parameters discussed with PMD Subjective ROS Limited/Unobtainable: No Allergies: Coded Allergies: PENICILLINS (Verified Allergy, Unknown, 03/13/15) Objective Last 24 Hour Vital Signs Date Time Temp Pulse Resp B/P Pulse Ox O2 Delivery O2 Flow Rate FiO2 10/01/16 08:47 79 168/95 10/01/16 08:47 79 168/95 10/01/16 08:46 168/95 10/01/16 08:00 Room Air 10/01/16 08:00 97.2 79 18 168/95 94 Room Air 10/01/16 07:13 Nasal Cannula 2.0 10/01/16 07:13 94 Nasal Cannula 2.0 10/01/16 07:12 78 18 Room Air 10/01/16 05:46 145/83 10/01/16 04:30 97.7 76 20 174/104 94 Room Air 10/01/16 04:30 Room Air 10/01/16 00:00 98.2 74 21 151/96 90 Room Air 09/30/16 21:13 89 162/106 09/30/16 21:12 162/106 09/30/16 21:12 162/106 09/30/16 20:00 98.1 89 19 162/106 93 Room Air 09/30/16 19:30 89 18 Nasal Cannula 2.0 09/30/16 19:20 93 Nasal Cannula 2.0 09/30/16 19:20 Nasal Cannula 2.0 09/30/16 16:00 97.9 80 18 156/95 94 Room Air 09/30/16 14:51 154/103 Intake and Output 09/30/16 10/01/16 19:00 07:00 Intake Total 480 ml 240 ml Balance 480 ml 240 ml Intake Oral 480 ml 240 ml # Voids 1 Current Medications Medications (Trade) Dose Ordered Sig/Toby Route PRN Reason Start Time Stop Time Status Last Admin Dose Admin Acetaminophen (Tylenol) 650 mg Q4H PRN ORAL Mild Pain (Pain Scale 1-3) 09/29/16 02:15 10/29/16 02:14 09/30/16 17:13 Albuterol/ Ipratropium (DuoNeb 0.5-3(2.5)mg/3ml) 3 ml Q4H PRN HHN SOB, wheezing 09/29/16 02:15 10/04/16 02:14 Amlodipine Besylate (Norvasc) 10 mg DAILY ORAL 09/29/16 09:00 10/29/16 08:59 10/01/16 08:47 Aspirin (Ecotrin) 81 mg DAILY ORAL 09/29/16 09:00 10/29/16 08:59 10/01/16 08:46 Atorvastatin Calcium (Lipitor) 10 mg BEDTIME ORAL 09/30/16 21:00 10/30/16 20:59 09/30/16 21:11 Bisacodyl (Dulcolax) 10 mg DAILYPRN PRN RECTAL Constipation 09/29/16 18:15 10/29/16 18:14 Clonidine HCl (Catapres) 0.2 mg Q8HR ORAL 09/29/16 06:00 10/29/16 05:59 10/01/16 05:46 Cyclobenzaprine HCl (Flexeril) 10 mg THREE TIMES A DAY PRN ORAL Muscle Spasm 09/29/16 09:00 10/29/16 08:59 09/30/16 21:30 Dextrose (Dextrose 50%) STAT PRN IV Hypoglycemia 09/29/16 03:45 10/29/16 03:44 Diphenhydramine HCl (Benadryl) 25 mg Q6H PRN ORAL Itching/Pruritis 09/29/16 06:15 10/29/16 06:14 Docusate Sodium (Colace) 100 mg TID ORAL 09/29/16 09:00 10/29/16 08:59 09/30/16 19:04 Epoetin Johny (Procrit (for ESRD on dialysis)) 10,000 units THU-WED-THU SUBQ 09/29/16 21:00 10/29/16 20:59 09/29/16 20:42 Escitalopram Oxalate (Lexapro) 10 mg DAILY ORAL 09/29/16 09:00 10/29/16 08:59 10/01/16 08:46 Heparin Sodium (Porcine) (Heparin 5000 units/ml) 5,000 units EVERY 12 HOURS SUBQ 09/29/16 09:00 10/29/16 08:59 10/01/16 08:51 Hydralazine HCl (Apresoline) 25 mg Q4H PRN ORAL htn 09/29/16 04:45 10/29/16 04:44 09/29/16 21:55 Hydromorphone HCl (Dilaudid) 0.5 mg Q4H PRN IVP Severe Pain (Pain Scale 7-10) 09/29/16 06:15 10/06/16 02:14 10/01/16 09:05 Hydromorphone HCl (Dilaudid) 2 mg Q4H PRN ORAL migraine 09/29/16 02:15 10/06/16 02:14 09/29/16 21:56 Insulin Aspart (NovoLOG) BEFORE MEALS AND HS SUBQ 09/29/16 06:30 10/29/16 06:29 10/01/16 11:50 Insulin Detemir (Levemir) 15 units DAILY SUBQ 09/29/16 09:00 10/29/16 08:59 10/01/16 08:52 Lisinopril (Prinivil) 20 mg Q12HR ORAL 09/30/16 21:00 10/30/16 20:59 10/01/16 08:46 Metoclopramide HCl (Reglan) 5 mg TIAC ORAL 09/29/16 06:30 10/29/16 06:29 10/01/16 11:44 Metoprolol Tartrate (Lopressor) 100 mg Q12HR ORAL 09/30/16 21:00 10/30/16 20:59 10/01/16 08:47 Nateglinide (Starlix) 60 mg TIAC ORAL 09/30/16 16:30 10/30/16 16:29 10/01/16 11:44 Ondansetron HCl (Zofran) 4 mg Q6H PRN IVP Nausea & Vomiting 09/29/16 06:15 10/29/16 06:14 09/30/16 12:22 Polyethylene Glycol (Miralax) 17 gm DAILY PRN ORAL Constipation 09/29/16 09:00 10/29/16 08:59 Sevelamer Carbonate (Renvela) 1,600 mg TIAC ORAL 09/29/16 11:30 10/29/16 11:29 10/01/16 11:44 Zolpidem Tartrate (Ambien) 5 mg DAILYPRN PRN ORAL Insomnia 09/29/16 18:15 10/29/16 18:14 09/30/16 21:30 Laboratory Tests 09/30/16 15:45: Troponin I < 0.30 10/01/16 04:50: Troponin I < 0.30, White Blood Count 8.1, Red Blood Count 2.88L, Hemoglobin 8.4L , Hematocrit 25.6L, Mean Corpuscular Volume 89, Mean Corpuscular Hemoglobin 29.3 , Mean Corpuscular Hemoglobin Concent 33.0, Red Cell Distribution Width 15.2H, Platelet Count 232, Mean Platelet Volume 6.5, Neutrophils (%) (Auto) 62.7, Lymphocytes (%) (Auto) 19.0L, Monocytes (%) (Auto) 10.0, Eosinophils (%) (Auto) 6.9H, Basophils (%) (Auto) 1.3, Sodium Level 139, Potassium Level 3.9, Chloride Level 99, Carbon Dioxide Level 29, Anion Gap 11, Blood Urea Nitrogen 36H, Creatinine 3.3H, Estimat Glomerular Filtration Rate 19.0, Glucose Level 166H, Uric Acid 4.9, Calcium Level 8.1L, Phosphorus Level 3.5, Total Bilirubin 0.3, Aspartate Amino Transf (AST/SGOT) 14, Alanine Aminotransferase (ALT/SGPT) 8, Alkaline Phosphatase 134H, Pro-B-Type Natriuretic Peptide 2061H, Total Protein 5.4L, Albumin 2.5L, Globulin 2.9, Albumin/Globulin Ratio 0.8L, Triglycerides Level 67, Cholesterol Level 113, LDL Cholesterol 41L, HDL Cholesterol 59, Cholesterol/HDL Ratio 1.9L Height (Feet): 5 Height (Inches): 2.00 Weight (Pounds): 180 General Appearance: no apparent distress Objective no change in physical exam MICHELLE HOOK Oct 01, 2016 14:05
--- NOTE | 2016-10-01 16:29 | Cardiology Report ---
APPROVED REPORT EKG Measurement Heart [id number] Normal sinus rhythm Low voltage QRS Cannot rule out Anterior infarct, age undetermined Abnormal ECG
[2016-10-01] MEDS ORDERED: STARLIX60 MG ORAL (18:16)
[2016-10-01] MEDS ORDERED: PROCARDIA XL30 MG ORAL (18:16)
[2016-10-01] MEDS ORDERED: RENVELA800 MG ORAL (18:16)
[2016-10-01] MEDS ORDERED: LISINOPRIL20 MG ORAL (18:16)
--- NOTE | 2016-10-01 18:18 | Discharge Instructions ---
Discharge Instructions Discharge Instructions Follow up with: F/u with Nephrology Dr. Atkins in 1-2 weeks. Needs kidney transplan eval Call MD/Return to Hospital if: chest pain, SOB, f/c, n/v Diet: diabetic calorie control Resume Normal Activity?: Yes Activity: resume normal activities For Congestive Heart Failure Reminder Report to your physician any weight gain of 5 pounds or more in one week. Gudelia Rudolph M.D. Oct 01, 2016 18:18
--- NOTE | 2016-10-01 18:21 | General Progress Note ---
Assessment/Plan Problem List: (1) Anasarca ICD Codes: R60.1 - Generalized edema SNOMED: 877417037, 176907507 (2) Acute on chronic diastolic (congestive) heart failure ICD Codes: I50.33 - Acute on chronic diastolic (congestive) heart failure SNOMED: 64980660, 578083000 (3) Nephrotic syndrome ICD Codes: N04.9 - Nephrotic syndrome with unspecified morphologic changes SNOMED: 50441930 (4) KENYA (acute kidney injury) ICD Codes: N17.9 - Acute kidney failure, unspecified SNOMED: 76855022 (5) CKD (chronic kidney disease) ICD Codes: N18.9 - Chronic kidney disease, unspecified SNOMED: 183126455 (6) Hyperkalemia ICD Codes: E87.5 - Hyperkalemia SNOMED: 62672479 (7) DM (diabetes mellitus) ICD Codes: E11.9 - DM (diabetes mellitus) SNOMED: 95062726 Qualifiers: Qualified Codes: E10.21 - Type 1 diabetes mellitus with diabetic nephropathy Status: stable Assessment/Plan Nephrology consulted, appreciate rec's s/p permacath placement on 09/26 Started on HD 09/27, cont HD per renal s/p lasix 40mg IV in ED Hold further diuretics per nephrology Trend Cr Monitor lytes closely Cont EPO for anemia Cont amlodipine 10mg qd Incr MTP to 100mg BID Clonidine 0.2mg TID Incr lisnipril to 20mg BID per nephrology Cont home ASA Cont levemir 15mg qhS Start Starlix ISS CM consulted to assist in setting up outpatient dialysis prior to d/c DC planning--d/c after HD tomorrow. Pt does not think she can make it to the outpt HD appt at 4AM tomorrow DVT Prophylaxis: SCD, HSQ Code Status: Full Hospital Classification Declaration: Based on this initial evaluation, and depending on the patient's clinical course, I anticipate that this patient will require hospitalization for CHF, KENYA on CKD, anasarca, initiation of HD for 1-2 days and close respiratory/hemodynamic monitoring. Disposition: Once the patient is stable to leave the hospital, I anticipate the patient will likely be discharged to the following environment: home with HH I spent 38 minutes on this patient's case, and 22 minutes were dedicated to counseling and/or care coordination. Discussed with patient/family, nursing staff, SW/CM, nephrology regarding clinical status, treatment course, and disposition planning. Time of note may not reflect time of encounter. Subjective Date patient seen: Oct 01, 2016 Time patient seen: 18:21 ROS Limited/Unobtainable: No Constitutional: Reports: no symptoms HEENT: Reports: no symptoms Cardiovascular: Reports: edema Respiratory: Reports: no symptoms Gastrointestinal/Abdominal: Reports: no symptoms Genitourinary: Reports: no symptoms Neurologic/Psychiatric: Reports: no symptoms Endocrine: Reports: no symptoms Hematologic/Lymphatic: Reports: no symptoms Allergies: Coded Allergies: PENICILLINS (Verified Allergy, Unknown, 03/13/15) All Systems: reviewed and negative except above Subjective Pt feels SOB has improved Trop/EKG neg Chest pain improved Sugars now better controlled Not happy with outpt dialysis time of 4AM Objective Last 24 Hour Vital Signs Date Time Temp Pulse Resp B/P Pulse Ox O2 Delivery O2 Flow Rate FiO2 10/01/16 16:13 80 144/87 10/01/16 16:04 144/87 10/01/16 12:00 97.0 80 20 144/87 95 Room Air 10/01/16 08:47 79 168/95 10/01/16 08:47 79 168/95 10/01/16 08:46 168/95 10/01/16 08:00 Room Air 10/01/16 08:00 97.2 79 18 168/95 94 Room Air 10/01/16 07:13 Nasal Cannula 2.0 10/01/16 07:13 94 Nasal Cannula 2.0 10/01/16 07:12 78 18 Room Air 10/01/16 05:46 145/83 10/01/16 04:30 97.7 76 20 174/104 94 Room Air 10/01/16 04:30 Room Air 10/01/16 00:00 98.2 74 21 151/96 90 Room Air 09/30/16 21:13 89 162/106 09/30/16 21:12 162/106 09/30/16 21:12 162/106 09/30/16 20:00 98.1 89 19 162/106 93 Room Air 09/30/16 19:30 89 18 Nasal Cannula 2.0 09/30/16 19:20 93 Nasal Cannula 2.0 09/30/16 19:20 Nasal Cannula 2.0 28 Intake and Output 09/30/16 10/01/16 19:00 07:00 Intake Total 480 ml 240 ml Balance 480 ml 240 ml Intake Oral 480 ml 240 ml # Voids 1 Laboratory Tests 10/01/16 04:50: White Blood Count 8.1, Red Blood Count 2.88L, Hemoglobin 8.4L, Hematocrit 25.6L , Mean Corpuscular Volume 89, Mean Corpuscular Hemoglobin 29.3, Mean Corpuscular Hemoglobin Concent 33.0, Red Cell Distribution Width 15.2H, Platelet Count 232, Mean Platelet Volume 6.5, Neutrophils (%) (Auto) 62.7, Lymphocytes (%) (Auto) 19.0L, Monocytes (%) (Auto) 10.0, Eosinophils (%) (Auto) 6.9H, Basophils (%) (Auto) 1.3, Sodium Level 139, Potassium Level 3.9, Chloride Level 99, Carbon Dioxide Level 29, Anion Gap 11, Blood Urea Nitrogen 36H, Creatinine 3.3H, Estimat Glomerular Filtration Rate 19.0, Glucose Level 166H, Uric Acid 4.9, Calcium Level 8.1L, Phosphorus Level 3.5, Total Bilirubin 0.3, Aspartate Amino Transf (AST/SGOT) 14, Alanine Aminotransferase (ALT/SGPT) 8, Alkaline Phosphatase 134H, Troponin I < 0.30, Pro-B-Type Natriuretic Peptide 2061H, Total Protein 5.4L, Albumin 2.5L, Globulin 2.9, Albumin/Globulin Ratio 0.8L, Triglycerides Level 67, Cholesterol Level 113, LDL Cholesterol 41L, HDL Cholesterol 59, Cholesterol/HDL Ratio 1.9L Height (Feet): 5 Height (Inches): 2.00 Weight (Pounds): 180 Objective General: alert, cooperative, no distress, appears stated age Head: normocephalic, without obvious abnormality, atraumatic Eyes: conjunctivae/corneas clear. PERRL, EOM's intact Throat: lips, mucosa, and tongue normal. MMM Neck: supple, symmetrical, trachea midline, and no JVD Lungs: clear to auscultation bilaterally Heart: regular rate and rhythm, S1, S2 normal, no murmur, click, rub or gallop Abdomen: soft, non-tender, non-distended, bowel sounds normal; no masses or organomegaly Extremities: extremities normal, atraumatic, no cyanosis, 2+ BLE edema Pulses: 2+ and symmetric Skin: skin color, texture, turgor normal; no rashes or lesions HD catheter c/d/i Neurologic: grossly normal, no focal deficits Gudelia Rudolph M.D. Oct 01, 2016 18:21
[2016-10-01] MEDS: Epogen (for ESRD on dialysis) SUBQ SCH (21:57)
[2016-10-02] VITALS: BP 147/90
[2016-10-02] MEDS: Cyclobenzaprine 10mg Tab ORAL PRN (00:10)
[2016-10-02 04:00] VITALS: BP 166/92
[2016-10-02] MEDS: cloNIDine 0.2mg Tab ORAL SCH ×2 (05:31→14:12)
[2016-10-02] MEDS: Nateglinide 60mg tab ORAL SCH ×3 (05:31→17:54)
[2016-10-02] MEDS: NovoLOG Insulin Flexpen SUBQ SCH ×3 (05:31→18:09)
[2016-10-02 06:30] VITALS: BP 141/80
[2016-10-02 08:00] VITALS: BP 174/106
[2016-10-02] MEDS: Hydromorphone 0.5mg/0.5ml inj IVP PRN ×2 (08:04→13:01)
[2016-10-02] MEDS: Levemir Flexpen SUBQ SCH (09:00)
[2016-10-02 12:00] VITALS: BP 162/100
--- NOTE | 2016-10-02 12:08 | General Progress Note ---
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 continue OP HD On lipitor and Starlix meds- Norvasc to procardia s/p transfused previously: 24 h urine CrCl and Protein-CrCl 15 over 6 gram protein EPO BP control 2D echo done previously cont asa check troponin kidney JESUSITA : Slightly increased right renal echogenicity, could indicate early medical renal disease Negative for hydronephrosis monitor renal parameters discussed with PMD Subjective ROS Limited/Unobtainable: No Allergies: Coded Allergies: PENICILLINS (Verified Allergy, Unknown, 03/13/15) Objective Last 24 Hour Vital Signs Date Time Temp Pulse Resp B/P Pulse Ox O2 Delivery O2 Flow Rate FiO2 10/02/16 10:45 Room Air 10/02/16 08:34 98.1 10/02/16 07:42 Room Air 10/02/16 07:41 95 Room Air 10/02/16 07:40 Room Air 10/02/16 07:40 81 16 Room Air 10/02/16 06:30 98.1 76 18 141/80 95 Room Air 10/02/16 05:31 155/88 10/02/16 04:00 98.2 77 18 166/92 93 Room Air 10/02/16 00:00 98.1 76 18 147/90 93 Room Air 10/01/16 22:00 98.2 82 20 141/76 93 Room Air 10/01/16 22:00 98.2 82 20 141/76 93 Room Air 10/01/16 21:57 78 151/89 10/01/16 21:57 151/89 10/01/16 21:57 151/89 10/01/16 20:23 78 18 Room Air 21 10/01/16 20:02 95 Room Air 10/01/16 20:02 Room Air 10/01/16 20:00 98.2 82 20 141/76 93 Room Air 10/01/16 17:00 96.7 80 20 151/89 92 Room Air 10/01/16 16:13 80 144/87 10/01/16 16:04 144/87 Intake and Output 10/01/16 10/02/16 19:00 07:00 Intake Total 240 ml 600 ml Output Total 2300 ml Balance -2060 ml 600 ml Intake Oral 240 ml 600 ml Hemodialysis UF 2300 ml # Voids 4 Current Medications Medications (Trade) Dose Ordered Sig/Toby Route PRN Reason Start Time Stop Time Status Last Admin Dose Admin Acetaminophen (Tylenol) 650 mg Q4H PRN ORAL Mild Pain (Pain Scale 1-3) 09/29/16 02:15 10/29/16 02:14 09/30/16 17:13 Albuterol/ Ipratropium (DuoNeb 0.5-3(2.5)mg/3ml) 3 ml Q4H PRN HHN SOB, wheezing 09/29/16 02:15 10/04/16 02:14 Aspirin (Ecotrin) 81 mg DAILY ORAL 09/29/16 09:00 10/29/16 08:59 10/01/16 08:46 Atorvastatin Calcium (Lipitor) 10 mg BEDTIME ORAL 09/30/16 21:00 10/30/16 20:59 10/01/16 21:56 Bisacodyl (Dulcolax) 10 mg DAILYPRN PRN RECTAL Constipation 09/29/16 18:15 10/29/16 18:14 Clonidine HCl (Catapres) 0.2 mg Q8HR ORAL 09/29/16 06:00 10/29/16 05:59 10/02/16 05:31 Cyclobenzaprine HCl (Flexeril) 10 mg THREE TIMES A DAY PRN ORAL Muscle Spasm 09/29/16 09:00 10/29/16 08:59 10/02/16 00:10 Dextrose (Dextrose 50%) STAT PRN IV Hypoglycemia 09/29/16 03:45 10/29/16 03:44 Diphenhydramine HCl (Benadryl) 25 mg Q6H PRN ORAL Itching/Pruritis 09/29/16 06:15 10/29/16 06:14 Docusate Sodium (Colace) 100 mg TID ORAL 09/29/16 09:00 10/29/16 08:59 10/01/16 20:13 Epoetin Johny (Procrit (for ESRD on dialysis)) 10,000 units MON-WED-THU SUBQ 09/29/16 21:00 10/29/16 20:59 10/01/16 21:57 Escitalopram Oxalate (Lexapro) 10 mg DAILY ORAL 09/29/16 09:00 10/29/16 08:59 10/01/16 08:46 Heparin Sodium (Porcine) (Heparin 5000 units/ml) 5,000 units EVERY 12 HOURS SUBQ 09/29/16 09:00 10/29/16 08:59 10/01/16 22:05 Hydralazine HCl (Apresoline) 25 mg Q4H PRN ORAL htn 09/29/16 04:45 10/29/16 04:44 09/29/16 21:55 Hydromorphone HCl (Dilaudid) 0.5 mg Q4H PRN IVP Severe Pain (Pain Scale 7-10) 09/29/16 06:15 10/06/16 02:14 10/02/16 08:04 Hydromorphone HCl (Dilaudid) 2 mg Q4H PRN ORAL migraine 09/29/16 02:15 10/06/16 02:14 09/29/16 21:56 Insulin Aspart (NovoLOG) BEFORE MEALS AND HS SUBQ 09/29/16 06:30 10/29/16 06:29 10/01/16 18:25 Insulin Detemir (Levemir) 15 units DAILY SUBQ 09/29/16 09:00 10/29/16 08:59 10/01/16 08:52 Lisinopril (Prinivil) 20 mg Q12HR ORAL 09/30/16 21:00 10/30/16 20:59 10/01/16 21:57 Metoclopramide HCl (Reglan) 5 mg TIAC ORAL 09/29/16 06:30 10/29/16 06:29 10/02/16 11:29 Metoprolol Tartrate (Lopressor) 100 mg Q12HR ORAL 09/30/16 21:00 10/30/16 20:59 10/01/16 21:57 Nateglinide (Starlix) 60 mg TIAC ORAL 09/30/16 16:30 10/30/16 16:29 10/02/16 05:31 Nifedipine (Procardia XL) 60 mg DAILY ORAL 10/02/16 09:00 11/01/16 08:59 Ondansetron HCl (Zofran) 4 mg Q6H PRN IVP Nausea & Vomiting 3/27/17 06:15 10/29/16 06:14 09/30/16 12:22 Polyethylene Glycol (Miralax) 17 gm DAILY PRN ORAL Constipation 09/29/16 09:00 10/29/16 08:59 Sevelamer Carbonate (Renvela) 800 mg TIAC ORAL 10/01/16 16:30 10/31/16 16:29 10/02/16 05:31 Zolpidem Tartrate (Ambien) 5 mg DAILYPRN PRN ORAL Insomnia 09/29/16 18:15 10/29/16 18:14 09/30/16 21:30 Height (Feet): 5 Height (Inches): 2.00 Weight (Pounds): 180 General Appearance: no apparent distress Objective no change in physical exam MICHELLE HOOK Oct 02, 2016 12:08
[2016-10-02] MEDS: Lisinopril 20mg tab ORAL SCH (12:50)
[2016-10-02] MEDS: Aspirin EC 81mg tab ORAL SCH (12:50)
[2016-10-02] MEDS: Docusate 100mg tablet ORAL SCH ×3 (12:51→17:54)
[2016-10-02] MEDS: Heparin 5000 units/ml inj SUBQ SCH (12:55)
--- NOTE | 2016-10-02 16:05 | Discharge Summary ---
Discharge Summary Hospital Course Date of Admission Sep 25, 2016 at 13:52 Date of Discharge 10/02/16 Admitting Diagnosis SOB HPI Ashli Barboza is a 36 year old female who was admitted on Sep 25, 2016 at 13: 52 for Shortness Of Breath Discharge Medications New Medications: Lisinopril (Lisinopril*) 20 Mg Tablet 20 MG ORAL Q12HR for 30 Days, TAB Nateglinide* (Starlix*) 60 Mg Tablet 60 MG ORAL TIAC for 90 Days, TAB Nifedipine Xl* (Procardia Xl*) 30 Mg Tab.er.24 60 MG ORAL DAILY for 30 Days, TAB Sevelamer Carbonate (Renvela) 800 Mg Tablet 800 MG ORAL TIAC for 30 Days, TAB Continued Medications: Amlodipine Besylate* (Amlodipine Besylate*) 10 Mg Tablet 10 MG ORAL DAILY, TAB PT TAKING DIFFERENTLY: 1 TABLET PO BID Clonidine Hcl* (Catapres*) 0.2 Mg Tablet 0.2 MG ORAL Q6HR, TAB HOLD WHEN SBP <120 Cyclobenzaprine Hcl* (Flexeril*) 10 Mg Tablet 10 MG ORAL THREE TIMES A DAY PRN for Muscle Spasm, TAB Escitalopram Oxalate* (Lexapro*) 10 Mg Tablet 10 MG ORAL DAILY, TAB Ferrous Sulfate (Iron) 325 Mg Tablet 325 MG PO DAILY, TAB Hydromorphone HCl (Dilaudid) 2 Mg Tablet 2 MG ORAL Q4H PRN for migraine Insulin Aspart (Novolog Flexpen) 100 Unit/1 Ml Insuln.pen 6 UNITS SUBQ TID Pt USING DIFFERENTLY: SubQ TID PER SLIDING SCALE Insulin Glargine (Lantus) 100 Unit/1 Ml Insuln.pen 15 SUBQ BEDTIME, #1 EA 0 Refills Metoprolol Tartrate* (Metoprolol Tartrate*) 100 Mg Tablet 100 MG ORAL Q12HR for 30 Days, TAB Polyethylene Glycol 3350* (Polyethylene Glycol 3350*) 17 Gm Powd.pack 17 GM ORAL DAILY PRN for Constipation, PACKET Simvastatin (Zocor) 20 Mg Tablet 20 MG ORAL BEDTIME, TAB Temazepam (Temazepam*) 15 Mg Capsule 15 MG ORAL BEDTIME PRN for Insomnia Discontinued Medications: Aspirin Ec* (Aspirin Ec*) 81 Mg Tablet.dr 81 MG ORAL DAILY, TAB Azilsartan Med/Chlorthalidone (Edarbyclor 40-25 Mg Tablet) 1 Each Tablet 1 TAB ORAL DAILY, TAB Sevelamer Carbonate (Renvela) 800 Mg Tablet 2400 MG ORAL THREE TIMES A DAY for 30 Days, TAB Tamsulosin Hcl (Tamsulosin Hcl*) 0.4 Mg Cap.er.24h 0.4 MG ORAL BEDTIME, CAP Discharge Condition Upon Discharge: stable Discharge Disposition Patient was discharged to Home (01) Discharge Diagnoses: (1) KENYA (acute kidney injury) (2) Nephrotic syndrome (3) Anasarca (4) Acute on chronic diastolic (congestive) heart failure (5) Hyperkalemia Discharge Instructions Discharge Instructions Follow up with: F/u with Nephrology Dr. Atkins in 1-2 weeks. Needs kidney transplan eval Call MD/Return to Hospital if: chest pain, SOB, f/c, n/v Activity: resume normal activities Gudelia Rudolph M.D. Oct 02, 2016 16:04
[2016-10-02 16:38] VITALS: BP 149/100
--- NOTE | 2016-10-03 13:21 | Discharge Summary ---
Discharge Summary Hospital Course Date of Admission Sep 25, 2016 at 13:52 Date of Discharge Oct 02, 2016 at 19:55 Admitting Diagnosis SOB HPI Ashli Barboza is a 36 year old female who was admitted on Sep 25, 2016 at 13: 52 for Shortness Of Breath Hospital Course [id number] Discharge Discharge Disposition Patient was discharged to Home (01) Discharge Diagnoses: Discharge Instructions Discharge Instructions Follow up with: F/u with Nephrology Dr. Atkins in 1-2 weeks. Needs kidney transplan eval Call MD/Return to Hospital if: chest pain, SOB, f/c, n/v Activity: resume normal activities Elinor Puente NP Oct 03, 2016 13:21
--- NOTE | 2016-10-04 01:58 | Discharge Summary 2 SIG ---
DATE OF ADMISSION: 09/25/2016 DATE OF DISCHARGE: 10/02/2016 NON LINEAR EDITOR: Matthew De La Rosa M.D. BRIEF HOSPITAL COURSE: The patient is a 36-year-old female with a history of hypothyroidism, hypertension, diabetes type 1 with DKA in the past, chronic kidney disease with nephrotic range proteinuria, likely secondary to diabetes mellitus, presented to ED with increased shortness of breath and volume overload. The patient was recently admitted from 09/08/2016 to 09/16/2016 for anemia and shortness of breath. She was transfused with improvement. She had worsening of renal function and Lasix was withheld. After discussion with the patient, it was decided the patient to follow up as outpatient for possible initiation of dialysis. Unfortunately, she was unable to follow up with Nephrology as outpatient and noted worsening shortness of breath, bilateral lower extremity edema, swelling, and poor urine output. She went to see her PCP and was sent urgently to the ED. On evaluation at ED, the creatinine was elevated to 4. Potassium 5.5. BNP was 2922. Chest x-ray showed pulmonary congestion. She had a difficult IV access. A PICC line was placed in and the patient was admitted to telemetry. Dr. De La Rosa was consulted. PermCath was placed and was started on hemodialysis on 09/27/2016. She was given Epogen for anemia and was continued on blood pressure medications and Levemir. Creatinine trended down and case management was consulted to assist in setting up outpatient dialysis. Antihypertensives and oral glycemics were titrated and the patient was eventually discharged home. Informed outpatient dialysis schedule would be Thursday, , and Thursday at 9 a.m. beginning 10/04/2016. Transportation was arranged. The patient was eventually discharged home. FINAL DIAGNOSES: 1. Acute renal failure necessitating hemodialysis. 2. Nephrotic syndrome. 3. Chronic kidney disease. 4. [id number] diastolic congestive heart failure. 5. Anasarca. 6. Hyperkalemia. 7. Diabetes mellitus. 8. Diabetic nephropathy 9. Hypoalbuminemia. 10. Hypertension, out of control. Kanishka Wijegunaratne, M.D. I have been assigned to dictate discharge summary on this account and I was not involved in the patient's management. Elinor Puente N.P. DR: ALONSO JOB#: [id number] CC: [id number]
== END 2016-10-02 19:55 | disposition home health service (06) | DRG 682 ==
LOC: EDBD 11:44 → EMR 13:00 → 2E 13:52 → EDBEDREQ 16:10 → 3E 09-29 02:00
PROC: 02HV33Z Insertion of Infusion Device into Superior Vena Cava, Percutaneous Approach (ICD-10-PCS; principal; 2016-09-25)
PROC: 02H633Z Insertion of Infusion Device into Right Atrium, Percutaneous Approach (ICD-10-PCS; 2016-09-26)
PROC: 5A1D60Z (ICD-10-PCS; 2016-09-27)
DX: N17.9 Acute kidney failure, unspecified (principal); I50.33 Acute on chronic diastolic (congestive) heart failure; E10.21 Type 1 diabetes mellitus with diabetic nephropathy; E88.09 Other disorders of plasma-protein metabolism, not elsewhere classified; D64.9 Anemia, unspecified; I12.9 Hypertensive chronic kidney disease with stage 1 through stage 4 chronic kidney disease, or unspecified chronic kidney disease; N18.9 Chronic kidney disease, unspecified; E87.5 Hyperkalemia; Z88.0 Allergy status to penicillin
CPT/HCPCS: 36415; 36569; 71010; 76000; 76937; 80048; 80053; 80061; 81003; 81025; 82550; 82553; 82607; 82728; 82746; 82962; 83540; 83550; 83735; 83880; 84100; 84484; 84550; 85025; 85044; 85610; 85730; 86803; 86850; 86900; 86901; 87081; 87086; 87340; 87350; 87517; 93005; 94640; 94664; 94760; J1815; J2250; J2405; J7620; S5561

== ENCOUNTER 2016-10-08 21:29 | Inpatient (IN) | payer MEDICARE, MEDICAID ==
[~2016-10-08] VITALS: Ht 154.9 cm; Wt 65.8 kg
[~2016-10-08 21:29] MED LIST changes: +ASPIRIN EC81 MG ORAL; +DIGOXIN125 MCG ORAL; +DILAUDID2 MG ORAL; +LISINOPRIL20 MG ORAL; +POLYETHYLENE GL17 GM ORAL; +PROCARDIA XL30 MG ORAL; +STARLIX60 MG ORAL
--- NOTE | 2016-10-08 21:58 | Emergency Room Report ---
History of Present Illness General Chief Complaint: Chest Pain Source: Patient, Medical Record Present Illness HPI Patient presented for shortness of breath. The patient gradual onset of symptoms. Patient associated generalized body shakiness. Patient says she's had decreased vision in her right eye vision. She had not been vomiting. Denies any fever. She report having chest tightness. Associated with difficulty breathing. Allergies: Coded Allergies: PENICILLINS (Verified Allergy, Unknown, 03/13/15) Patient History Reviewed Nursing Documentation: PMH: Agreed, PSxH: Agreed Nursing Documentation-PMH Hx Cardiac Problems: Yes Hx Hypertension: Yes Hx Pacemaker: No Hx Asthma: No Hx COPD: No Hx Diabetes: Yes Hx Cancer: No Hx Gastrointestinal Problems: No Hx Dialysis: Yes - Renal Failure, T, TH, Sat, port on right chest Hx Neurological Problems: No Hx Cerebrovascular Accident: No Hx Headaches: Yes Review of Systems All Other Systems: negative except mentioned in HPI Physical Exam Vital Signs Date Time Temp Pulse Resp B/P Pulse Ox O2 Delivery O2 Flow Rate FiO2 10/08/16 21:37 97.9 95 24 159/86 95 Room Air Medical Decision Making Diagnostic Impression: Primary Impression: Renal failure Additional Impression: DM (diabetes mellitus) ER Course Patient presented for shortness of breath. Differential included but was not limited to anemia, pneumonia, pneumothorax, myocardial infarction, pericardial effusion, congestive heart failure, acidosisBecause of complexity of patient's case laboratory testing and imaging studies were ordered. Laboratory testing was notable for a normal white blood count as well as normal troponin. Patient was noted to have a normal bicarbonate level. Patient noted have some positive serum ketones. Patient does not appear to be in any respiratory distress. Patient noted be mildly hypokalemic. Patient not be treated for this do to dialysis tomorrow. Dr. Aden Nam was contacted for Dr. Holbrook for inpatient management. Labs Test 10/08/16 22:00 White Blood Count 8.4 K/UL (4.8-10.8) Red Blood Count 2.87 M/UL (4.20-5.40) Hemoglobin 8.3 G/DL (12.0-16.0) Hematocrit 28.0 % (37.0-47.0) Mean Corpuscular Volume 98 FL (80-99) Mean Corpuscular Hemoglobin 28.8 PG (27.0-31.0) Mean Corpuscular Hemoglobin Concent 29.5 G/DL (32.0-36.0) Red Cell Distribution Width 17.3 % (11.6-14.8) Platelet Count 356 K/UL (150-450) Mean Platelet Volume 5.3 FL (6.5-10.1) Neutrophils (%) (Auto) 76.0 % (45.0-75.0) Lymphocytes (%) (Auto) 12.0 % (20.0-45.0) Monocytes (%) (Auto) 8.5 % (1.0-10.0) Eosinophils (%) (Auto) 2.8 % (0.0-3.0) Basophils (%) (Auto) 0.7 % (0.0-2.0) Sodium Level 139 mEQ/L (135-145) Potassium Level 3.2 mEQ/L (3.4-4.9) Chloride Level 89 mEQ/L (98-107) Carbon Dioxide Level 26 mEQ/L (20-30) Anion Gap 24 (5-15) Blood Urea Nitrogen 20 mg/dL (7-23) Creatinine 3.2 mg/dL (0.5-0.9) Estimat Glomerular Filtration Rate 19.6 mL/min (>60) Glucose Level 347 mg/dL (74-106) Calcium Level 8.7 mg/dL (8.6-10.2) Magnesium Level 2.1 mg/dL (1.7-2.5) Total Bilirubin 0.4 mg/dL (0.0-1.2) Aspartate Amino Transf (AST/SGOT) 21 U/L (5-40) Alanine Aminotransferase (ALT/SGPT) 11 U/L (3-33) Alkaline Phosphatase 166 U/L (35-104) Total Creatine Kinase 802 U/L (26-140) Creatine Kinase MB 5.9 ng/mL (< 3.8) Creatine Kinase MB Relative Index 0.7 Troponin I < 0.30 ng/mL (<=0.30) Total Protein 6.6 g/dL (6.6-8.7) Albumin 3.3 g/dL (3.5-5.2) Globulin 3.3 g/dL Albumin/Globulin Ratio 1.0 (1.0-2.7) Acetone Level Positive-large (NEGATIVE) EKG Diagnostic Results Rate: normal - 94 Rhythm: NSR ST Segments: no acute changes Last Vital Signs Date Time Temp Pulse Resp B/P Pulse Ox O2 Delivery O2 Flow Rate FiO2 10/08/16 21:37 97.9 95 24 159/86 95 Room Air Status: unchanged Disposition: ADMITTED INPATIENT Condition: Jared MiguelEj Oct 08, 2016 21:58
[2016-10-08 22:04] VITALS: BP 159/86
[2016-10-08 22:47] LABS: BASOPHILS % (AUTO) 0.7 % (0.0-2.0); EOSINOPHILS % (AUTO) 2.8 % (0.0-3.0); MEAN CORPUSCULAR HEMOGLOBIN 28.8 PG (27.0-31.0); MEAN CORPUSCULAR HGB CONC 29.5 G/DL (32.0-36.0); MEAN CORPUSCULAR VOLUME 98 FL (80-99); MEAN PLATELET VOLUME 5.3 FL (6.5-10.1); MONOCYTES % (AUTO) 8.5 % (1.0-10.0); PLATELET COUNT 356 K/UL (150-450); RED BLOOD COUNT 2.87 M/UL (4.20-5.40); RED CELL DISTRIBUTION WIDTH 17.3 % (11.6-14.8); WHITE BLOOD COUNT 8.4 K/UL (4.8-10.8)
[2016-10-08 23:02] LABS: TROPONIN I < 0.30 ng/mL (<=0.30)
[2016-10-08 23:05] LABS: ALANINE AMINOTRANSFERASE 11 U/L (3-33); ANION GAP 24 (5-15); ASPARTATE AMINO TRANSFERASE 21 U/L (5-40); CALCIUM 8.7 mg/dL (8.6-10.2); CARBON DIOXIDE 26 mEQ/L (20-30); CHLORIDE 89 mEQ/L (98-107); CREATININE 3.2 mg/dL (0.5-0.9); GLOMERULAR FILTRATION RATE 19.6 mL/min (>60); HEMOLYSIS 5; MAGNESIUM 2.1 mg/dL (1.7-2.5); POTASSIUM 3.2 mEQ/L (3.4-4.9); SODIUM 139 mEQ/L (135-145); TOTAL PROTEIN 6.6 g/dL (6.6-8.7)
[2016-10-08 23:15] LABS: CKMB 5.9 ng/mL (< 3.8)
[2016-10-08] MEDS ORDERED: EDARBYCLOR 40-1 EAC1 ORAL (23:25)
[2016-10-08] MEDS ORDERED: TAMSULOSIN HCL0.4 MG ORAL (23:25)
[2016-10-08] MEDS ORDERED: ASPIRIN81 MG ORAL (23:25)
[2016-10-08 23:44] VITALS: BP 161/86
[2016-10-09] VITALS (9 sets, daily range): BP systolic 116–162; BP diastolic 68–100
[2016-10-09] MEDS: Morphine Sulfate 4mg/ml Inj IVP PRN ×2 (06:29→11:52)
[2016-10-09] MEDS ORDERED: Cyclobenzaprine 10mg Tab ORAL PRN (07:00)
[2016-10-09 08:04] LABS: TROPONIN I < 0.30 ng/mL (<=0.30)
[2016-10-09] MEDS ORDERED: Miralax 17gm pkt ORAL PRN (08:30)
[2016-10-09] MEDS: Aspirin Baby 81mg ORAL SCH (08:40)
[2016-10-09] MEDS ORDERED: Lisinopril 20mg tab ORAL SCH (09:00)
[2016-10-09] MEDS: Metoclopramide 10mg/2ml Inj IVP PRN ×2 (10:16→17:14)
[2016-10-09 10:26] LABS: CALCIUM 8.4 mg/dL (8.6-10.2); CREATININE 3.3 mg/dL (0.5-0.9); MAGNESIUM 2.2 mg/dL (1.7-2.5); PHOSPHORUS 3.9 mg/dL (2.5-4.8); POTASSIUM 3.2 mEQ/L (3.4-4.9)
--- NOTE | 2016-10-09 11:13 | Diagnostic Imaging Report ---
Indication: SOB, chest pain Technique: One view of the chest Comparison: 09/25/2016 Findings: Again demonstrated are bilateral pleural effusions. Inspiration is improved on the current exam. Mild interstitial edema has improved slightly Impression: Slightly improved but persistent mild interstitial edema Bilateral pleural effusions persist New tunneled dialysis catheter
[2016-10-09 11:24] LABS: BASOPHILS % (AUTO) 0.8 % (0.0-2.0); EOSINOPHILS % (AUTO) 2.1 % (0.0-3.0); LYMPHOCYTES % (AUTO) 7.7 % (20.0-45.0); MEAN CORPUSCULAR HEMOGLOBIN 29.4 PG (27.0-31.0); MEAN CORPUSCULAR HGB CONC 31.3 G/DL (32.0-36.0); MEAN CORPUSCULAR VOLUME 94 FL (80-99); MONOCYTES % (AUTO) 5.9 % (1.0-10.0); NEUTROPHILS % (AUTO) 83.6 % (45.0-75.0); PLATELET COUNT 368 K/UL (150-450); RED BLOOD COUNT 2.98 M/UL (4.20-5.40); RED CELL DISTRIBUTION WIDTH 16.6 % (11.6-14.8); WHITE BLOOD COUNT 10.5 K/UL (4.8-10.8)
[2016-10-09] MEDS: Nateglinide 60mg tab ORAL SCH ×2 (11:30→16:30)
[2016-10-09] MEDS ORDERED: NovoLOG Insulin Flexpen SUBQ SCH (11:30)
[2016-10-09] MEDS: NovoLOG Insulin Flexpen SUBQ SCH ×3 (11:54→20:42)
[2016-10-09] MEDS ORDERED: cloNIDine 0.2mg Tab ORAL SCH (12:00)
--- NOTE | 2016-10-09 14:09 | Consultation ---
Consult Note Consult Note Chief Complaint: Chest Pain Patient presented for shortness of breath. The patient gradual onset of symptoms. Patient associated generalized body shakiness. Patient says she's had decreased vision in her right eye vision. She had not been vomiting. Denies any fever. She report having chest tightness. Associated with difficulty breathing. 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
--- NOTE | 2016-10-09 15:09 | History and Physical ---
History of Present Illness General Date patient seen: Oct 09, 2016 Time patient seen: 15:09 Reason for Hospitalization: Chest Pain, SOB, nausea and vomiting Present Illness HPI 36 y/o female with pmh of hypothyroidism, HTN and DM type 1 c/b DKA in past, CKD with nephrotic range proteinuria now on HD who presents with chest pain, SOB and nausea/vomiting. Pt was recently admitted 09/25 and discharged 10/03 for volume overload and initiated on hemodialysis per nephrology. Pt has been getting HD //Thu. Pt states that yesterday she developed chest pain/ epigastric pain associated with SOB and nausea/vomiting. She notes compliance with HD and medications including insulin. She states her sugars have been under control. She denies fevers, but c/o whole body chills. Denies d/c, dysuria. Allergies: Coded Allergies: PENICILLINS (Verified Allergy, Unknown, 03/13/15) Medication History Scheduled Amlodipine Besylate* (Amlodipine Besylate*), 10 MG ORAL DAILY, (Reported) Aspirin* (Aspirin*), 81 MG ORAL DAILY, (Reported) Azilsartan Med/Chlorthalidone (Edarbyclor 40-25 Mg Tablet), 1 TAB ORAL DAILY, ( Reported) Clonidine Hcl* (Catapres*), 0.2 MG ORAL Q6HR, (Reported) Escitalopram Oxalate* (Lexapro*), 10 MG ORAL DAILY, (Reported) Ferrous Sulfate (Iron), 325 MG PO DAILY, (Reported) Insulin Aspart (Novolog Flexpen), 6 UNITS SUBQ TID, (Reported) Insulin Glargine (Lantus), 15 SUBQ BEDTIME, (Reported) Lisinopril (Lisinopril*), 20 MG ORAL Q12HR Metoprolol Tartrate* (Metoprolol Tartrate*), 100 MG ORAL Q12HR Nateglinide* (Starlix*), 60 MG ORAL TIAC Nifedipine Xl* (Procardia Xl*), 60 MG ORAL DAILY Sevelamer Carbonate (Renvela), 800 MG ORAL TIAC Simvastatin (Zocor), 20 MG ORAL BEDTIME, (Reported) Tamsulosin Hcl (Tamsulosin Hcl*), 0.4 MG ORAL BEDTIME, (Reported) Scheduled PRN Cyclobenzaprine Hcl* (Flexeril*), 10 MG ORAL THREE TIMES A DAY PRN for Muscle Spasm, (Reported) Hydromorphone HCl (Dilaudid), 2 MG ORAL Q4H PRN for migraine, (Reported) Polyethylene Glycol 3350* (Polyethylene Glycol 3350*), 17 GM ORAL DAILY PRN for Constipation, (Reported) Temazepam (Temazepam*), 15 MG ORAL BEDTIME PRN for Insomnia, (Reported) Patient History History Provided By: Patient Healthcare decision maker Resuscitation status Full Code Advanced Directive on File Family History Family History: Patient reports no known family medical history. Social History Social History: (1) No significant social history Review of Systems Constitutional: Reports: chills Eye: Reports: no symptoms ENT: Reports: no symptoms Respiratory: Reports: shortness of breath Cardiovascular: Reports: chest pain Gastrointestinal: Reports: abdominal pain, nausea, vomiting Genitourinary: Reports: no symptoms Musculoskeletal: Reports: no symptoms Skin: Reports: no symptoms Psychiatric: Reports: no symptoms Neurological: Reports: no symptoms Endocrine: Reports: no symptoms Hematologic/Lymphatic: Reports: no symptoms All Other Systems: negative except mentioned in HPI Physical Exam Physical Exam Narrative General: alert, cooperative, no distress, appears stated age Head: normocephalic, without obvious abnormality, atraumatic Eyes: conjunctivae/corneas clear. PERRL, EOM's intact Throat: lips, mucosa, and tongue normal. MMM Neck: supple, symmetrical, trachea midline, and no JVD Lungs: clear to auscultation bilaterally Heart: regular rate and rhythm, S1, S2 normal, no murmur, click, rub or gallop Abdomen: soft, mild TTP epigastrium, non-distended, bowel sounds normal; no masses or organomegaly Extremities: extremities normal, atraumatic, no cyanosis, 1-2+ BLE edema Pulses: 2+ and symmetric Skin: skin color, texture, turgor normal; no rashes or lesions Neurologic: grossly normal, no focal deficits Last 24 Hour Vital Signs Date Time Temp Pulse Resp B/P Pulse Ox O2 Delivery O2 Flow Rate FiO2 10/09/16 12:00 75 10/09/16 12:00 116/68 10/09/16 11:59 97.3 74 18 116/68 95 Room Air 10/09/16 08:46 94 151/84 10/09/16 08:45 94 151/84 10/09/16 08:40 151/84 10/09/16 08:34 97.9 94 18 151/84 95 Nasal Cannula 2.0 10/09/16 08:00 93 10/09/16 04:17 98.4 93 19 151/87 97 Nasal Cannula 2.0 10/09/16 03:40 97 10/09/16 02:50 97.8 76 19 162/91 96 Nasal Cannula 2.0 10/09/16 02:30 95 19 147/81 99 Nasal Cannula 2.0 10/09/16 02:30 98.7 95 19 147/81 99 Nasal Cannula 2.0 10/08/16 23:44 98.7 95 19 161/86 100 Nasal Cannula 2.0 10/08/16 22:05 89 24 Room Air 10/08/16 22:04 97.9 89 24 159/86 97 Room Air 10/08/16 21:37 97.9 95 24 159/86 95 Room Air Intake and Output 10/08/16 10/09/16 19:00 07:00 Output Total 0 ml Balance 0 ml Output Urine Total 0 ml Laboratory Tests Test 10/08/16 22:00 10/09/16 07:00 10/09/16 09:56 10/09/16 10:55 White Blood Count 8.4 K/UL (4.8-10.8) 10.5 K/UL (4.8-10.8) Red Blood Count 2.87 M/UL (4.20-5.40) L 2.98 M/UL (4.20-5.40) L Hemoglobin 8.3 G/DL (12.0-16.0) L 8.7 G/DL (12.0-16.0) L Hematocrit 28.0 % (37.0-47.0) L 27.9 % (37.0-47.0) L Mean Corpuscular Volume 98 FL (80-99) 94 FL (80-99) Mean Corpuscular Hemoglobin 28.8 PG (27.0-31.0) 29.4 PG (27.0-31.0) Mean Corpuscular Hemoglobin Concent 29.5 G/DL (32.0-36.0) L 31.3 G/DL (32.0-36.0) L Red Cell Distribution Width 17.3 % (11.6-14.8) H 16.6 % (11.6-14.8) H Platelet Count 356 K/UL (150-450) 368 K/UL (150-450) Mean Platelet Volume 5.3 FL (6.5-10.1) L 6.0 FL (6.5-10.1) L Neutrophils (%) (Auto) 76.0 % (45.0-75.0) H 83.6 % (45.0-75.0) H Lymphocytes (%) (Auto) 12.0 % (20.0-45.0) L 7.7 % (20.0-45.0) L Monocytes (%) (Auto) 8.5 % (1.0-10.0) 5.9 % (1.0-10.0) Eosinophils (%) (Auto) 2.8 % (0.0-3.0) 2.1 % (0.0-3.0) Basophils (%) (Auto) 0.7 % (0.0-2.0) 0.8 % (0.0-2.0) Sodium Level 139 mEQ/L (135-145) 139 mEQ/L (135-145) Potassium Level 3.2 mEQ/L (3.4-4.9) L 3.2 mEQ/L (3.4-4.9) L Chloride Level 89 mEQ/L (98-107) L 91 mEQ/L (98-107) L Carbon Dioxide Level 26 mEQ/L (20-30) 24 mEQ/L (20-30) Anion Gap 24 (5-15) H 24 (5-15) H Blood Urea Nitrogen 20 mg/dL (7-23) 22 mg/dL (7-23) Creatinine 3.2 mg/dL (0.5-0.9) H 3.3 mg/dL (0.5-0.9) H Estimat Glomerular Filtration Rate 19.6 mL/min (>60) 19.0 mL/min (>60) Glucose Level 347 mg/dL (74-106) H 240 mg/dL (74-106) #H Calcium Level 8.7 mg/dL (8.6-10.2) 8.4 mg/dL (8.6-10.2) L Magnesium Level 2.1 mg/dL (1.7-2.5) 2.2 mg/dL (1.7-2.5) Total Bilirubin 0.4 mg/dL (0.0-1.2) Aspartate Amino Transf (AST/SGOT) 21 U/L (5-40) Alanine Aminotransferase (ALT/SGPT) 11 U/L (3-33) Alkaline Phosphatase 166 U/L (35-104) H Total Creatine Kinase 802 U/L (26-140) H Creatine Kinase MB 5.9 ng/mL (< 3.8) H Creatine Kinase MB Relative Index 0.7 Troponin I < 0.30 ng/mL (<=0.30) < 0.30 ng/mL (<=0.30) Total Protein 6.6 g/dL (6.6-8.7) Albumin 3.3 g/dL (3.5-5.2) L Globulin 3.3 g/dL Albumin/Globulin Ratio 1.0 (1.0-2.7) Acetone Level Positive-large (NEGATIVE) Phosphorus Level 3.9 mg/dL (2.5-4.8) Pro-B-Type Natriuretic Peptide 4689 pg/mL (0-125) H Beta-Hydroxybutyric Acid Pending Venous Blood pH Pending Venous Blood Partial Pressure CO2 Pending Venous Blood Partial Pressure O2 Pending Venous Blood HCO3 Pending Venous Blood Total Carbon Dioxide Pending Venous Bld O2 Saturation (Measured) Pending Venous Blood Oxygen Saturation Pending Venous Blood Base Excess Pending Methemoglobin Pending Sodium (Blood Gas) Pending Hemoglobin A1c 5.8 % (< 6.0) Height (Feet): 5 Height (Inches): 1.00 Weight (Pounds): 145 Medications Current Medications Medications (Trade) Dose Ordered Sig/Toby Route PRN Reason Start Time Stop Time Status Last Admin Dose Admin Acetaminophen (Tylenol) 650 mg EVERY 6 HOURS PRN ORAL pain, fever, headache 10/09/16 08:30 11/08/16 08:29 Aspirin (ASA) 81 mg DAILY ORAL 10/09/16 09:00 11/08/16 08:59 10/09/16 08:40 Atorvastatin Calcium (Lipitor) 40 mg BEDTIME ORAL 10/09/16 21:00 11/08/16 20:59 Clonidine HCl (Catapres) 0.2 mg Q8HR ORAL 10/09/16 22:00 11/08/16 21:59 Cyclobenzaprine HCl (Flexeril) 10 mg TIDPRN PRN ORAL Muscle Spasm 10/09/16 07:00 11/08/16 06:59 Dextrose (Dextrose 50%) STAT PRN IV Hypoglycemia 10/09/16 08:30 11/08/16 08:29 Epoetin Johny (Procrit (for ESRD on dialysis)) 10,000 units THU-THU-THU SUBQ 10/10/16 21:00 11/09/16 20:59 Escitalopram Oxalate (Lexapro) 10 mg DAILY ORAL 10/09/16 09:00 11/08/16 08:59 10/09/16 08:40 Hydromorphone HCl (Dilaudid) 2 mg Q4H PRN ORAL severe pain 10/09/16 08:30 10/16/16 08:29 Insulin Aspart (NovoLOG) BEFORE MEALS AND HS SUBQ 10/09/16 11:30 11/08/16 11:29 10/09/16 11:54 Insulin Detemir (Levemir) 15 units BEDTIME SUBQ 10/09/16 21:00 11/08/16 20:59 Lisinopril (Prinivil) 20 mg EVERY 12 HOURS ORAL 10/09/16 09:00 11/08/16 08:59 10/09/16 08:40 Metoclopramide HCl (Reglan) 10 mg Q6H PRN IVP Nausea & Vomiting 10/09/16 10:00 11/08/16 09:59 10/09/16 10:16 Metoprolol Tartrate (Lopressor) 100 mg Q12HR ORAL 10/09/16 09:00 11/08/16 08:59 10/09/16 08:46 Nateglinide (Starlix) 60 mg TIAC ORAL 10/09/16 11:30 11/08/16 11:29 Nifedipine (Procardia XL) 60 mg DAILY ORAL 10/09/16 09:00 11/08/16 08:59 10/09/16 08:45 Ondansetron HCl (Zofran) 4 mg EVERY 4 HOURS PRN IVP Nausea & Vomiting 10/09/16 06:30 11/08/16 06:29 10/09/16 13:59 Polyethylene Glycol (Miralax) 17 gm DAILY PRN ORAL Constipation 10/09/16 08:30 11/08/16 08:29 Potassium Chloride (K-Dur) 20 meq TWICE A DAY ORAL 10/09/16 18:00 10/10/16 17:59 Assessment/Plan Problem List: (1) ESRD on dialysis ICD Codes: N18.6 - End stage renal disease; Z99.2 - Dependence on renal dialysis SNOMED: 608592489 (2) Chest pain ICD Codes: R07.9 - Chest pain, unspecified SNOMED: 81649701 (3) DM (diabetes mellitus) ICD Codes: E11.9 - DM (diabetes mellitus) SNOMED: 54054360 Qualifiers: Qualified Codes: E10.21 - Type 1 diabetes mellitus with diabetic nephropathy (4) Nephrotic range proteinuria ICD Codes: R80.9 - Proteinuria, unspecified SNOMED: 145089444 (5) Hypertensive urgency ICD Codes: I16.0 - Hypertensive urgency SNOMED: 462156662 (6) Anasarca ICD Codes: R60.1 - Generalized edema SNOMED: 513169734, 597241015 Status: stable Assessment/Plan Chest pain appears atypical. Has recent TTE which showed normal EF. Admit to inpatient Nephrology consulted to resume HD for fluid removal Trend trop/EKG Check beta-hydroxybutyrate, VBG to assess for DKA Check LFTs, lipase Consider imaging Nausea control w/ Reglan and Zofran PRN Pain control, bowel regimen, supportive care PPI DVT Prophylaxis: SCD Code Status: Full Hospital Classification Declaration: Based on this initial evaluation, and depending on the patient's clinical course, I anticipate that this patient will require hospitalization for 2-3 days for r/o ACS, nausea/vomiting and close respiratory/hemodynamic monitoring. Disposition: Once the patient is stable to leave the hospital, I anticipate the patient will likely be discharged to the following environment: home with HH I spent 70 minutes on this patient's case, and 38 minutes were dedicated to counseling and/or care coordination. Discussed with patient/family, nursing staff, SW/CM, renal regarding clinical status, treatment course, and disposition planning. Time of note may not reflect time of encounter. Gudelia Rudolph M.D. Oct 09, 2016 15:09
[2016-10-09 16:07] LABS: TROPONIN I < 0.30 ng/mL (<=0.30)
--- NOTE | 2016-10-09 20:13 | Cardiology Report ---
APPROVED REPORT EKG Measurement Heart [id number] IN [id number] Normal sinus rhythm Nonspecific T wave abnormality Abnormal ECG
[2016-10-09] MEDS: Levemir Flexpen SUBQ SCH (20:45)
[2016-10-09] MEDS ORDERED: Levemir Flexpen SUBQ SCH (21:00)
[2016-10-09] MEDS: cloNIDine 0.2mg Tab ORAL SCH (21:49)
[2016-10-09] MEDS: HYDROmorphone 2mg tab ORAL PRN (22:00)
[2016-10-10] VITALS: BP 150/78
[2016-10-10 04:00] VITALS: BP 135/89
[2016-10-10] MEDS: cloNIDine 0.2mg Tab ORAL SCH ×3 (06:00→21:53)
[2016-10-10] MEDS: Nateglinide 60mg tab ORAL SCH ×5 (06:17→16:54)
[2016-10-10] MEDS: HYDROmorphone 2mg tab ORAL PRN (06:22)
[2016-10-10] MEDS: Metoclopramide 10mg/2ml Inj IVP PRN ×2 (06:22→12:39)
[2016-10-10] MEDS: NovoLOG Insulin Flexpen SUBQ SCH ×5 (06:30→21:52)
[2016-10-10 08:12] LABS: LYMPHOCYTES % (AUTO) 15.7 % (20.0-45.0); MEAN CORPUSCULAR HEMOGLOBIN 29.6 PG (27.0-31.0); MEAN CORPUSCULAR HGB CONC 31.6 G/DL (32.0-36.0); MEAN CORPUSCULAR VOLUME 94 FL (80-99); MEAN PLATELET VOLUME 5.6 FL (6.5-10.1); MONOCYTES % (AUTO) 11.5 % (1.0-10.0); NEUTROPHILS % (AUTO) 70.7 % (45.0-75.0); PLATELET COUNT 386 K/UL (150-450); RED BLOOD COUNT 2.73 M/UL (4.20-5.40); RED CELL DISTRIBUTION WIDTH 16.2 % (11.6-14.8); WHITE BLOOD COUNT 8.9 K/UL (4.8-10.8)
[2016-10-10 08:14] VITALS: BP 163/85
[2016-10-10 08:40] LABS: ALBUMIN/GLOBULIN RATIO 1.1 (1.0-2.7); CALCIUM 8.5 mg/dL (8.6-10.2); CHOLESTEROL/HDL RATIO 1.7 (3.3-4.4); CREATININE 4.2 mg/dL (0.5-0.9); CRP QUANT 1.3 mg/dL (< 0.5); GLOMERULAR FILTRATION RATE 14.4 mL/min (>60); MAGNESIUM 2.3 mg/dL (1.7-2.5); PHOSPHORUS 5.2 mg/dL (2.5-4.8); POTASSIUM 3.1 mEQ/L (3.4-4.9); TOTAL PROTEIN 5.9 g/dL (6.6-8.7)
[2016-10-10 09:01] LABS: THYROID STIMULATING HORMONE 0.177 uIU/mL (0.300-4.500)
--- NOTE | 2016-10-10 10:29 | General Progress Note ---
Assessment/Plan Status: unchanged Status Narrative on HD - tolerating well. 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 HTN OOC Anemia- HypoAlbuminemia - Nephrotic syndrome s/p DKA Plan: HD in process now- start PO Reglan s/p transfused previously: 24 h urine CrCl and Protein-CrCl 15 over 6 gram protein EPO BP control 2D echo done previously adjust BP meds Subjective ROS Limited/Unobtainable: No Constitutional: Reports: malaise, weakness Gastrointestinal/Abdominal: Reports: nausea Allergies: Coded Allergies: PENICILLINS (Verified Allergy, Unknown, 03/13/15) Objective Last 24 Hour Vital Signs Date Time Temp Pulse Resp B/P Pulse Ox O2 Delivery O2 Flow Rate FiO2 10/10/16 08:14 98.2 86 18 163/85 92 Nasal Cannula 10/10/16 08:10 Nasal Cannula 2.0 10/10/16 06:00 135/89 10/10/16 04:00 99.0 61 20 135/89 94 Room Air 10/10/16 04:00 86 10/10/16 00:00 98.6 84 20 150/78 94 Nasal Cannula 2.0 10/10/16 00:00 83 10/09/16 21:49 153/86 10/09/16 21:48 85 153/86 10/09/16 20:47 91 159/100 10/09/16 20:00 89 10/09/16 20:00 97.9 91 20 159/100 98 Nasal Cannula 2.0 10/09/16 16:00 80 10/09/16 16:00 97.5 81 20 152/81 95 Nasal Cannula 2.0 10/09/16 12:00 75 10/09/16 12:00 116/68 10/09/16 11:59 97.3 74 18 116/68 95 Room Air Intake and Output 10/09/16 10/10/16 19:00 07:00 Intake Total 120 ml Output Total 50 ml 375 ml Balance 70 ml -375 ml Intake Oral 120 ml Output Urine Total 375 ml Emesis 50 ml # Voids 2 Laboratory Tests 10/09/16 10:55: White Blood Count 10.5, Red Blood Count 2.98L, Hemoglobin 8.7L, Hematocrit 27.9L , Mean Corpuscular Volume 94, Mean Corpuscular Hemoglobin 29.4, Mean Corpuscular Hemoglobin Concent 31.3L, Red Cell Distribution Width 16.6H, Platelet Count 368, Mean Platelet Volume 6.0L, Neutrophils (%) (Auto) 83.6H, Lymphocytes (%) (Auto) 7.7L, Monocytes (%) (Auto) 5.9, Eosinophils (%) (Auto) 2.1, Basophils (%) (Auto) 0.8, Hemoglobin A1c 5.8 10/09/16 15:15: Troponin I < 0.30 10/10/16 06:57: White Blood Count 8.9, Red Blood Count 2.73L, Hemoglobin 8.1L, Hematocrit 25.5L , Mean Corpuscular Volume 94, Mean Corpuscular Hemoglobin 29.6, Mean Corpuscular Hemoglobin Concent 31.6L, Red Cell Distribution Width 16.2H, Platelet Count 386, Mean Platelet Volume 5.6L, Neutrophils (%) (Auto) 70.7, Lymphocytes (%) (Auto) 15.7L, Monocytes (%) (Auto) 11.5H, Eosinophils (%) (Auto ) 1.0, Basophils (%) (Auto) 1.0, Sodium Level 144, Potassium Level 3.1L, Chloride Level 95L, Carbon Dioxide Level 31H, Anion Gap 18H, Blood Urea Nitrogen 27H, Creatinine 4.2H, Estimat Glomerular Filtration Rate 14.4, Glucose Level 103#, Uric Acid 7.0, Calcium Level 8.5L, Phosphorus Level 5.2H, Magnesium Level 2.3, Total Bilirubin 0.3, Gamma Glutamyl Transpeptidase 42H, Aspartate Amino Transf (AST/SGOT) 17, Alanine Aminotransferase (ALT/SGPT) 10, Alkaline Phosphatase 133H, C-Reactive Protein, Quantitative 1.3H, Pro-B-Type Natriuretic Peptide 6008H, Total Protein 5.9L, Albumin 3.1L, Globulin 2.8, Albumin/Globulin Ratio 1.1, Triglycerides Level 82, Cholesterol Level 110, LDL Cholesterol 30L, HDL Cholesterol 64H, Cholesterol/HDL Ratio 1.7L, Thyroid Stimulating Hormone ( TSH) 0.177L Height (Feet): 5 Height (Inches): 1.00 Weight (Pounds): 145 General Appearance: lethargic Cardiovascular: normal rate Respiratory/Chest: decreased breath sounds Abdomen: soft Objective other PE not changed FOULADIAN,MICHELLE Oct 10, 2016 10:29
[2016-10-10] MEDS ORDERED: HYDROmorphone 2mg tab ORAL PRN (10:30)
[2016-10-10 11:21] VITALS: BP 186/97
[2016-10-10] MEDS: Aspirin Baby 81mg ORAL SCH (12:02)
--- NOTE | 2016-10-10 15:02 | General Progress Note ---
Assessment/Plan Problem List: (1) Nausea & vomiting ICD Codes: R11.2 - Nausea with vomiting, unspecified SNOMED: 69158716 (2) Chest pain ICD Codes: R07.9 - Chest pain, unspecified SNOMED: 73735455 (3) ESRD on dialysis ICD Codes: N18.6 - End stage renal disease; Z99.2 - Dependence on renal dialysis SNOMED: 343244833 (4) Nephrotic range proteinuria ICD Codes: R80.9 - Proteinuria, unspecified SNOMED: 539068434 (5) Anasarca ICD Codes: R60.1 - Generalized edema SNOMED: 150878462, 384749470 (6) Hypertensive urgency ICD Codes: I16.0 - Hypertensive urgency SNOMED: 008157795 (7) DM (diabetes mellitus) ICD Codes: E11.9 - DM (diabetes mellitus) SNOMED: 38403053 Qualifiers: Qualified Codes: E10.21 - Type 1 diabetes mellitus with diabetic nephropathy Status: stable Assessment/Plan Chest pain appears atypical. Has recent TTE which showed normal EF. Pt has been ruled out for ACS. Does not appear to be DKA Nephrology consulted to resume HD for fluid removal s/p HD on 10/10 w/ 2.5L UF Cont HD per renal Will consult GI given persistent nausea and vomiting despite sugars being more controlled--Dr. Santoyo was informed to see pt Check U/S abd Check TSH, free T4 Nausea control w/ Reglan and Zofran PRN Pain control, bowel regimen, supportive care PPI DVT Prophylaxis: SCD Code Status: Full Hospital Classification Declaration: Based on this initial evaluation, and depending on the patient's clinical course, I anticipate that this patient will require hospitalization for 2-3 days for nausea/vomiting and close respiratory/ hemodynamic monitoring. Disposition: Once the patient is stable to leave the hospital, I anticipate the patient will likely be discharged to the following environment: home with HH I spent 40 minutes on this patient's case, and 22 minutes were dedicated to counseling and/or care coordination. Discussed with patient/family, nursing staff, SW/CM, renal regarding clinical status, treatment course, and disposition planning. Time of note may not reflect time of encounter. Subjective Date patient seen: Oct 10, 2016 Time patient seen: 15:02 ROS Limited/Unobtainable: No Constitutional: Reports: no symptoms HEENT: Reports: no symptoms Cardiovascular: Reports: chest pain Respiratory: Reports: shortness of breath Gastrointestinal/Abdominal: Reports: abdominal pain, nausea, vomiting Genitourinary: Reports: no symptoms Neurologic/Psychiatric: Reports: no symptoms Endocrine: Reports: no symptoms Hematologic/Lymphatic: Reports: no symptoms Allergies: Coded Allergies: PENICILLINS (Verified Allergy, Unknown, 03/13/15) Subjective Pt continues to have nausea and vomiting. Tolerating minimal PO intake Chest pain and SOB improved Has some epigastric discomfort Objective Last 24 Hour Vital Signs Date Time Temp Pulse Resp B/P Pulse Ox O2 Delivery O2 Flow Rate FiO2 10/10/16 14:50 186/97 10/10/16 12:04 93 186/97 10/10/16 12:03 93 186/97 10/10/16 12:00 101 10/10/16 11:21 97.5 93 18 186/97 94 Nasal Cannula 2.0 10/10/16 11:15 Nasal Cannula 2.0 10/10/16 08:14 98.2 86 18 163/85 92 Nasal Cannula 10/10/16 08:10 Nasal Cannula 2.0 10/10/16 08:00 87 10/10/16 06:00 135/89 10/10/16 04:00 99.0 61 20 135/89 94 Room Air 10/10/16 04:00 86 10/10/16 00:00 98.6 84 20 150/78 94 Nasal Cannula 2.0 10/10/16 00:00 83 10/09/16 21:49 153/86 10/09/16 21:48 85 153/86 10/09/16 20:47 91 159/100 10/09/16 20:00 89 10/09/16 20:00 97.9 91 20 159/100 98 Nasal Cannula 2.0 10/09/16 16:00 80 10/09/16 16:00 97.5 81 20 152/81 95 Nasal Cannula 2.0 Intake and Output 10/09/16 10/10/16 19:00 07:00 Intake Total 120 ml Output Total 50 ml 375 ml Balance 70 ml -375 ml Intake Oral 120 ml Output Urine Total 375 ml Emesis 50 ml # Voids 2 Laboratory Tests 10/09/16 15:15: Troponin I < 0.30 10/10/16 06:57: White Blood Count 8.9, Red Blood Count 2.73L, Hemoglobin 8.1L, Hematocrit 25.5L , Mean Corpuscular Volume 94, Mean Corpuscular Hemoglobin 29.6, Mean Corpuscular Hemoglobin Concent 31.6L, Red Cell Distribution Width 16.2H, Platelet Count 386, Mean Platelet Volume 5.6L, Neutrophils (%) (Auto) 70.7, Lymphocytes (%) (Auto) 15.7L, Monocytes (%) (Auto) 11.5H, Eosinophils (%) (Auto ) 1.0, Basophils (%) (Auto) 1.0, Sodium Level 144, Potassium Level 3.1L, Chloride Level 95L, Carbon Dioxide Level 31H, Anion Gap 18H, Blood Urea Nitrogen 27H, Creatinine 4.2H, Estimat Glomerular Filtration Rate 14.4, Glucose Level 103#, Uric Acid 7.0, Calcium Level 8.5L, Phosphorus Level 5.2H, Magnesium Level 2.3, Total Bilirubin 0.3, Gamma Glutamyl Transpeptidase 42H, Aspartate Amino Transf (AST/SGOT) 17, Alanine Aminotransferase (ALT/SGPT) 10, Alkaline Phosphatase 133H, C-Reactive Protein, Quantitative 1.3H, Pro-B-Type Natriuretic Peptide 6008H, Total Protein 5.9L, Albumin 3.1L, Globulin 2.8, Albumin/Globulin Ratio 1.1, Triglycerides Level 82, Cholesterol Level 110, LDL Cholesterol 30L, HDL Cholesterol 64H, Cholesterol/HDL Ratio 1.7L, Thyroid Stimulating Hormone ( TSH) 0.177L Height (Feet): 5 Height (Inches): 1.00 Weight (Pounds): 145 Objective General: alert, cooperative, no distress, appears stated age Head: normocephalic, without obvious abnormality, atraumatic Eyes: conjunctivae/corneas clear. PERRL, EOM's intact Throat: lips, mucosa, and tongue normal. MMM Neck: supple, symmetrical, trachea midline, and no JVD Lungs: clear to auscultation bilaterally Heart: regular rate and rhythm, S1, S2 normal, no murmur, click, rub or gallop Abdomen: soft, non-tender, non-distended, bowel sounds normal; no masses or organomegaly Extremities: extremities normal, atraumatic, no cyanosis, 1-2+ pitting edema BLE Pulses: 2+ and symmetric Skin: skin color, texture, turgor normal; no rashes or lesions Neurologic: grossly normal, no focal deficits Gudelia Rudolph M.D. Oct 10, 2016 15:02
[2016-10-10] MEDS ORDERED: Metoclopramide 10mg/2ml Inj IVP PRN (15:15)
[2016-10-10 16:00] VITALS: BP 148/83
[2016-10-10] MEDS ORDERED: Metoclopramide 10mg/2ml Inj IVP SCH (16:30)
[2016-10-10] MEDS ORDERED: Hydromorphone 0.5mg/0.5ml inj IVPB PRN (18:45)
[2016-10-10] MEDS: Hydromorphone 0.5mg/0.5ml inj IVP PRN ×2 (19:03→23:11)
[2016-10-10 20:00] VITALS: BP 145/85
[2016-10-10] MEDS ORDERED: Epogen (for ESRD on dialysis) SUBQ SCH (21:00)
[2016-10-10] MEDS: Atorvastatin 20mg tab ORAL SCH (21:46)
[2016-10-10] MEDS: Levemir Flexpen SUBQ SCH (21:53)
[2016-10-11 00:30] VITALS: BP 132/75
[2016-10-11] MEDS ORDERED: HydrOXYzine 25mg tab ORAL PRN (01:00)
[2016-10-11 04:25] VITALS: BP 149/89
[2016-10-11] MEDS: cloNIDine 0.2mg Tab ORAL SCH ×3 (06:50→21:30)
[2016-10-11] MEDS: Metoclopramide 10mg/2ml Inj IVP SCH ×3 (06:50→16:44)
[2016-10-11] MEDS: Nateglinide 60mg tab ORAL SCH ×3 (06:50→16:44)
[2016-10-11] MEDS: NovoLOG Insulin Flexpen SUBQ SCH ×4 (06:51→21:33)
[2016-10-11] MEDS: Hydromorphone 0.5mg/0.5ml inj IVP PRN ×4 (06:57→21:35)
[2016-10-11 07:47] LABS: MEAN CORPUSCULAR HEMOGLOBIN 28.9 PG (27.0-31.0); MEAN CORPUSCULAR HGB CONC 30.4 G/DL (32.0-36.0); MEAN CORPUSCULAR VOLUME 95 FL (80-99); MEAN PLATELET VOLUME 5.7 FL (6.5-10.1); PLATELET COUNT 349 K/UL (150-450); RED BLOOD COUNT 2.75 M/UL (4.20-5.40); RED CELL DISTRIBUTION WIDTH 16.3 % (11.6-14.8); WHITE BLOOD COUNT 9.7 K/UL (4.8-10.8)
[2016-10-11 07:48] VITALS: BP 159/106
[2016-10-11 08:04] LABS: HEMOLYSIS 10; IRON 74 ug/dL (37-145); TOTAL IRON BINDING CAPACITY 217 ug/dL (250-400)
[2016-10-11 08:14] LABS: ALANINE AMINOTRANSFERASE 17 U/L (3-33); ALBUMIN/GLOBULIN RATIO 0.9 (1.0-2.7); ANION GAP 14 (5-15); ASPARTATE AMINO TRANSFERASE 38 U/L (5-40); CALCIUM 8.1 mg/dL (8.6-10.2); CARBON DIOXIDE 32 mEQ/L (20-30); CHLORIDE 94 mEQ/L (98-107); CREATININE 3.6 mg/dL (0.5-0.9); GLOMERULAR FILTRATION RATE 17.2 mL/min (>60); PHOSPHORUS 4.3 mg/dL (2.5-4.8); POTASSIUM 3.3 mEQ/L (3.4-4.9); SODIUM 140 mEQ/L (135-145); TOTAL PROTEIN 5.7 g/dL (6.6-8.7)
[2016-10-11 08:33] LABS: FERRITIN > 2000 ng/mL (13-150)
[2016-10-11] MEDS: Aspirin Baby 81mg ORAL SCH (08:47)
--- NOTE | 2016-10-11 09:05 | General Progress Note ---
Assessment/Plan Assessment/Plan Assessment - Transient/resolved abd pain, N/V - ? resolved viral gastroenteritis - Chronic constipation - ESRD - HTN - DM Recommendations - Push PO - Follow symptoms - Bowel regimen - further w/u if symptoms continue Subjective Allergies: Coded Allergies: PENICILLINS (Verified Allergy, Unknown, 03/13/15) Objective Last 24 Hour Vital Signs Date Time Temp Pulse Resp B/P Pulse Ox O2 Delivery O2 Flow Rate FiO2 10/11/16 08:47 80 159/106 10/11/16 08:47 80 159/106 10/11/16 07:48 98.1 80 18 159/106 94 Nasal Cannula 2.0 10/11/16 07:27 98.1 10/11/16 06:50 149/89 10/11/16 04:25 97.9 80 20 149/89 95 Room Air 10/11/16 04:00 80 10/11/16 00:30 97.0 81 20 132/75 96 Nasal Cannula 2.0 10/11/16 00:00 81 10/10/16 21:53 145/85 10/10/16 21:46 85 145/85 10/10/16 20:00 98.0 85 18 145/85 95 Nasal Cannula 2.0 10/10/16 20:00 83 10/10/16 16:00 89 10/10/16 16:00 98.1 88 18 148/83 96 Nasal Cannula 2.0 10/10/16 14:50 186/97 10/10/16 12:04 93 186/97 10/10/16 12:03 93 186/97 10/10/16 12:00 101 10/10/16 11:21 97.5 93 18 186/97 94 Nasal Cannula 2.0 10/10/16 11:15 Nasal Cannula 2.0 Intake and Output 10/10/16 10/11/16 19:00 07:00 Intake Total 350 ml 120 ml Output Total 2760 ml 150 ml Balance -2410 ml -30 ml Intake Oral 350 ml 120 ml Output Urine Total 225 ml 150 ml Hemodialysis UF 2535 ml # Voids 1 Laboratory Tests 10/11/16 06:45: White Blood Count 9.7, Red Blood Count 2.75L, Hemoglobin 7.9L, Hematocrit 26.1L , Mean Corpuscular Volume 95, Mean Corpuscular Hemoglobin 28.9, Mean Corpuscular Hemoglobin Concent 30.4L, Red Cell Distribution Width 16.3H, Platelet Count 349, Mean Platelet Volume 5.7L, Neutrophils (%) (Auto) , Lymphocytes (%) (Auto) , Monocytes (%) (Auto) , Eosinophils (%) (Auto) , Basophils (%) (Auto) , Sodium Level 140, Potassium Level 3.3L, Chloride Level 94L, Carbon Dioxide Level 32H, Anion Gap 14, Blood Urea Nitrogen 22, Creatinine 3.6H, Estimat Glomerular Filtration Rate 17.2, Glucose Level 107H, Calcium Level 8.1L, Phosphorus Level 4.3, Magnesium Level 2.0, Iron Level 74, Total Iron Binding Capacity 217L, Percent Iron Saturation 34, Unsaturated Iron Binding 143, Ferritin > 2000H, Total Bilirubin 0.5, Aspartate Amino Transf (AST/ SGOT) 38, Alanine Aminotransferase (ALT/SGPT) 17, Alkaline Phosphatase 286H, Total Protein 5.7L, Albumin 2.8L, Globulin 2.9, Albumin/Globulin Ratio 0.9L, Free Thyroxine 2.03H Height (Feet): 5 Height (Inches): 1.00 Weight (Pounds): 145 MEL GOODWIN Oct 11, 2016 09:05
[2016-10-11 09:41] LABS: ANISOCYTOSIS 1+; BAND NEUTROPHILS % (MANUAL) 0 % (0-8); BASOPHILS % (MANUAL) 0 % (0-2); EOSINOPHILS % (MANUAL) 1 % (0-3); HYPOCHROMASIA 1+; LYMPHOCYTES % (MANUAL) 21 % (20-45); NEUTROPHILS % (MANUAL) 69 % (45-75); PLATELET ESTIMATE ADEQUATE; PLATELET MORPHOLOGY NORMAL; TOTAL CELLS COUNTED 100
[2016-10-11] MEDS: Sorbitol Solution UD 30ml ORAL SCH (10:33)
[2016-10-11] MEDS: Pantoprazole Inj IVP SCH (10:33)
[2016-10-11 11:28] VITALS: BP 145/86
--- NOTE | 2016-10-11 13:43 | General Progress Note ---
HARESH BETTENCOURT N.PKylee 10/11/16 1343: Assessment/Plan Status: stable Assessment/Plan Assessment/Plan Problem List: (1) Nausea & vomiting ICD Codes: R11.2 - Nausea with vomiting, unspecified Seen by GI; appreciate reccs No Work up further as symptoms appear to be resolving SNOMED: 79028011 (2) Chest pain ICD Codes: R07.9 - Chest pain, unspecified symptoms resolved no chest pain noted ACS ruled out SNOMED: 46212499 (3) ESRD on dialysis ICD Codes: N18.6 - End stage renal disease; Z99.2 - Dependence on renal dialysis SNOMED: 367674611 (4) Nephrotic range proteinuria ICD Codes: R80.9 - Proteinuria, unspecified SNOMED: 584291225 (5) Anasarca ICD Codes: R60.1 - Generalized edema SNOMED: 697942128, 345566000 (6) Hypertensive urgency ICD Codes: I16.0 - Hypertensive urgency resolving SNOMED: 073586236 (7) DM (diabetes mellitus) ICD Codes: E11.9 - DM (diabetes mellitus) SNOMED: 01102748 Qualifiers: Qualified Codes: E10.21 - Type 1 diabetes mellitus with diabetic nephropathy Status: stable Assessment/Plan Chest pain appears atypical. Has recent TTE which showed normal EF. Pt has been ruled out for ACS. Does not appear to be DKA Nephrology consulted to resume HD for fluid removal s/p HD on 10/10 w/ 2.5L UF Cont HD per renal GI was consulted; symptoms have been resolving; deferring further w/u at this time Check U/S abd; unable to do today; likely tomorrow Hypokalemia noted at 3.2- repletion ordered; will recheck Nausea control w/ Reglan and Zofran PRN Pain control, bowel regimen, supportive care PPI DVT Prophylaxis: SCD Code Status: Full Hospital Classification Declaration: Based on this initial evaluation, and depending on the patient's clinical course, I anticipate that this patient will require hospitalization for 2-3 days for nausea/vomiting and close respiratory/ hemodynamic monitoring. Subjective Date patient seen: Oct 11, 2016 Time patient seen: 13:36 Constitutional: Denies: chills, diaphoresis HEENT: Denies: blurred vision, eye pain, tearing Cardiovascular: Denies: chest pain, edema, irregular heart rate Respiratory: Denies: cough, orthopnea, shortness of breath Gastrointestinal/Abdominal: Reports: abdominal pain, constipated, nausea, vomiting, Denies: black stools, blood in stool, tarry stools Genitourinary: Denies: burning, discharge, flank pain, frequency Neurologic/Psychiatric: Denies: depressed, emotional problems, headache Endocrine: Denies: excessive sweating, flushing, intolerance to cold, intolerance to heat Hematologic/Lymphatic: Reports: anemia, Denies: easy bleeding, easy bruising Allergies: Coded Allergies: PENICILLINS (Verified Allergy, Unknown, 03/13/15) Subjective Patient had nausea, vomiting, cramping overnight. GI consulted; pain now resolving, able to tolerate small amount of PO solids at lunch, rice. Objective Last 24 Hour Vital Signs Date Time Temp Pulse Resp B/P Pulse Ox O2 Delivery O2 Flow Rate FiO2 10/11/16 12:02 98.2 10/11/16 11:28 98.2 76 18 145/86 94 Nasal Cannula 2.0 10/11/16 08:47 80 159/106 10/11/16 08:47 80 159/106 10/11/16 07:48 98.1 80 18 159/106 94 Nasal Cannula 2.0 10/11/16 06:50 149/89 10/11/16 04:25 97.9 80 20 149/89 95 Room Air 10/11/16 04:00 80 10/11/16 00:30 97.0 81 20 132/75 96 Nasal Cannula 2.0 10/11/16 00:00 81 10/10/16 21:53 145/85 10/10/16 21:46 85 145/85 10/10/16 20:00 98.0 85 18 145/85 95 Nasal Cannula 2.0 10/10/16 20:00 83 10/10/16 16:00 89 10/10/16 16:00 98.1 88 18 148/83 96 Nasal Cannula 2.0 10/10/16 14:50 186/97 Intake and Output 10/10/16 10/11/16 19:00 07:00 Intake Total 350 ml 120 ml Output Total 2760 ml 150 ml Balance -2410 ml -30 ml Intake Oral 350 ml 120 ml Output Urine Total 225 ml 150 ml Hemodialysis UF 2535 ml # Voids 1 Laboratory Tests 10/11/16 06:45: White Blood Count 9.7, Red Blood Count 2.75L, Hemoglobin 7.9L, Hematocrit 26.1L , Mean Corpuscular Volume 95, Mean Corpuscular Hemoglobin 28.9, Mean Corpuscular Hemoglobin Concent 30.4L, Red Cell Distribution Width 16.3H, Platelet Count 349, Mean Platelet Volume 5.7L, Neutrophils (%) (Auto) , Lymphocytes (%) (Auto) , Monocytes (%) (Auto) , Eosinophils (%) (Auto) , Basophils (%) (Auto) , Differential Total Cells Counted 100, Neutrophils % ( Manual) 69, Lymphocytes % (Manual) 21, Monocytes % (Manual) 9, Eosinophils % ( Manual) 1, Basophils % (Manual) 0, Band Neutrophils 0, Platelet Estimate Adequate, Platelet Morphology Normal, Hypochromasia 1+, Anisocytosis 1+, Sodium Level 140, Potassium Level 3.3L, Chloride Level 94L, Carbon Dioxide Level 32H, Anion Gap 14, Blood Urea Nitrogen 22, Creatinine 3.6H, Estimat Glomerular Filtration Rate 17.2, Glucose Level 107H, Calcium Level 8.1L, Phosphorus Level 4.3, Magnesium Level 2.0, Iron Level 74, Total Iron Binding Capacity 217L, Percent Iron Saturation 34, Unsaturated Iron Binding 143, Ferritin > 2000H, Total Bilirubin 0.5, Aspartate Amino Transf (AST/SGOT) 38, Alanine Aminotransferase (ALT/SGPT) 17, Alkaline Phosphatase 286H, Total Protein 5.7L, Albumin 2.8L, Globulin 2.9, Albumin/Globulin Ratio 0.9L, Free Thyroxine 2.03H Height (Feet): 5 Height (Inches): 1.00 Weight (Pounds): 145 General Appearance: no apparent distress, alert EENT: normal ENT inspection, TMs normal, other Neck: non-tender, normal alignment, supple, other - IV access in place in neck area, no problems noted Cardiovascular: normal peripheral pulses, normal rate, regular rhythm Respiratory/Chest: chest wall non-tender, lungs clear, normal breath sounds, no respiratory distress Abdomen: normal bowel sounds, non tender, soft Genitourinary/Rectal: other - doss in place, clear lars fluid draining Edema: no edema noted Arm (L), no edema noted Arm (R), no edema noted Leg (L), no edema noted Leg (R), no edema noted Pedal (L), no edema noted Pedal (R), no edema noted Generalized Neurologic: alert, oriented x 3, responsive Skin: normal pigmentation Lymphatic: normal anterior cervical (L), normal anterior cervical (R), normal axillary (L), normal axillary (R), normal inguinal (L), normal inguinal (R), normal other, normal posterior cervical (L), normal posterior cervical (R), normal submandibular (L), normal submandibular (R), normal supraclavicular (L), normal supraclavicular (R) Objective Laboratory Tests Test 10/11/16 06:45 White Blood Count 9.7 K/UL (4.8-10.8) Red Blood Count 2.75 M/UL (4.20-5.40) L Hemoglobin 7.9 G/DL (12.0-16.0) L Hematocrit 26.1 % (37.0-47.0) L Mean Corpuscular Volume 95 FL (80-99) Mean Corpuscular Hemoglobin 28.9 PG (27.0-31.0) Mean Corpuscular Hemoglobin Concent 30.4 G/DL (32.0-36.0) L Red Cell Distribution Width 16.3 % (11.6-14.8) H Platelet Count 349 K/UL (150-450) Mean Platelet Volume 5.7 FL (6.5-10.1) L Neutrophils (%) (Auto) % (45.0-75.0) Lymphocytes (%) (Auto) % (20.0-45.0) Monocytes (%) (Auto) % (1.0-10.0) Eosinophils (%) (Auto) % (0.0-3.0) Basophils (%) (Auto) % (0.0-2.0) Differential Total Cells Counted 100 Neutrophils % (Manual) 69 % (45-75) Lymphocytes % (Manual) 21 % (20-45) Monocytes % (Manual) 9 % (1-10) Eosinophils % (Manual) 1 % (0-3) Basophils % (Manual) 0 % (0-2) Band Neutrophils 0 % (0-8) Platelet Estimate Adequate Platelet Morphology Normal Hypochromasia 1+ Anisocytosis 1+ Sodium Level 140 mEQ/L (135-145) Potassium Level 3.3 mEQ/L (3.4-4.9) L Chloride Level 94 mEQ/L (98-107) L Carbon Dioxide Level 32 mEQ/L (20-30) H Anion Gap 14 (5-15) Blood Urea Nitrogen 22 mg/dL (7-23) Creatinine 3.6 mg/dL (0.5-0.9) H Estimat Glomerular Filtration Rate 17.2 mL/min (>60) Glucose Level 107 mg/dL (74-106) H Calcium Level 8.1 mg/dL (8.6-10.2) L Phosphorus Level 4.3 mg/dL (2.5-4.8) Magnesium Level 2.0 mg/dL (1.7-2.5) Iron Level 74 ug/dL (37-145) Total Iron Binding Capacity 217 ug/dL (250-400) L Percent Iron Saturation 34 % (15-50) Unsaturated Iron Binding 143 ug/dL (112-346) Ferritin > 2000 ng/mL (13-150) H Total Bilirubin 0.5 mg/dL (0.0-1.2) Aspartate Amino Transf (AST/SGOT) 38 U/L (5-40) Alanine Aminotransferase (ALT/SGPT) 17 U/L (3-33) Alkaline Phosphatase 286 U/L (35-104) H Total Protein 5.7 g/dL (6.6-8.7) L Albumin 2.8 g/dL (3.5-5.2) L Globulin 2.9 g/dL Albumin/Globulin Ratio 0.9 (1.0-2.7) L Free Thyroxine 2.03 ng/dL (0.86-1.85) H HOWIE HARRIS 10/16/16 1621: Assessment/Plan Assessment/Plan I saw and examined the patient, reviewed the case in detail, reviewed radiology and EKG if applicable, in addition reviewing the laboratory data and microbiology. I agree with the history, physical examination findings, assessment and plan of care as outlined above by the Nurse Practitioner with any additions or modifications noted. Subjective Allergies: Coded Allergies: PENICILLINS (Verified Allergy, Unknown, 03/13/15) HARESH BETTENCOURT [email or web address] Oct 11, 2016 13:43 HOWIE HARRIS Oct 16, 2016 16:21
--- NOTE | 2016-10-11 14:48 | Consultation ---
DATE OF CONSULTATION: 10/11/2016 NOTE: "VERY POOR AUDIO QUALITY" GASTROENTEROLOGY CONSULTATION: CONSULTING PHYSICIAN: Coby Otero M.D. ATTENDING PHYSICIAN: Rell Mi M.D. CHIEF CONCERN: I was asked to see this patient for evaluation of vomiting. HISTORY OF PRESENT ILLNESS: The patient is a pleasant 36-year-old woman with history of end-stage renal disease, on dialysis, who comes in to the hospital with 2-day history of nausea and vomiting, and a few-day history of anorexia. The patient complains of some diffuse abdominal discomfort which occurred at home with reduced oral intake and subsequent nausea and vomiting. She had no diarrhea. She is in the hospital now and her symptoms are dramatically improved. The patient had no further vomiting and the pain is gone. Her bowel movement, she has initially been constipated and she bowel movement. Her last bowel movement was a few days ago. She states she had endoscopy about 5 months ago which did not show anything. She has not had colonoscopy. She denies any hematochezia. PAST MEDICAL HISTORY: History of diabetes mellitus, hypertension, end-stage renal disease, chronic constipation. FAMILY HISTORY: Positive for hypertension. SOCIAL HISTORY: The patient does not smoke or drink alcohol. She lives in [facility]. MEDICATIONS: See chart list for details. REVIEW OF SYSTEMS: Otherwise negative. PHYSICAL EXAMINATION: GENERAL: The patient is a pleasant woman, seen in her room. HEENT: Normocephalic and atraumatic. Sclerae anicteric. Oropharynx clear. NECK: Supple. CHEST: Clear to auscultation. CARDIOVASCULAR: Regular rate. ABDOMEN: Soft with good bowel sounds. There is no tenderness or organomegaly. EXTREMITIES: No edema. LABORATORY DATA: Noted. ASSESSMENT: This patient presented with sort of nausea, vomiting, and abdominal discomfort. All of her gastrointestinal symptoms have essentially resolved and therefore, this can be a bout of viral gastroenteritis, which can be treated conservatively. She does have chronic constipation, but that will have to be treated with long-term laxatives and I will start the patient on appropriate medication at this time and would push oral intake the patient's symptoms are as an inpatient. findings included and she will be on long-term bowel regimen. I will start her on for now. RECOMMENDATIONS: Per above discussion and per orders written in the chart. Thank you for asking me to participate in the care of this patient. Coby Otero M.D. DR: Alonso JOB#: [id number] CC:
--- NOTE | 2016-10-11 15:30 | General Progress Note ---
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 HTN OOC Anemia- HypoAlbuminemia - Nephrotic syndrome s/p DKA Plan: HD 10/10 On PO Reglan s/p transfused previously: 24 h urine CrCl and Protein-CrCl 15 over 6 gram protein EPO BP control 2D echo done previously adjust BP meds Placement issues Subjective ROS Limited/Unobtainable: No Constitutional: Reports: malaise Allergies: Coded Allergies: PENICILLINS (Verified Allergy, Unknown, 03/13/15) Objective Last 24 Hour Vital Signs Date Time Temp Pulse Resp B/P Pulse Ox O2 Delivery O2 Flow Rate FiO2 10/11/16 15:07 145/86 10/11/16 12:02 98.2 10/11/16 12:00 81 10/11/16 11:28 98.2 76 18 145/86 94 Nasal Cannula 2.0 10/11/16 08:47 80 159/106 10/11/16 08:47 80 159/106 10/11/16 08:00 82 10/11/16 07:48 98.1 80 18 159/106 94 Nasal Cannula 2.0 10/11/16 06:50 149/89 10/11/16 04:25 97.9 80 20 149/89 95 Room Air 10/11/16 04:00 80 10/11/16 00:30 97.0 81 20 132/75 96 Nasal Cannula 2.0 10/11/16 00:00 81 10/10/16 21:53 145/85 10/10/16 21:46 85 145/85 10/10/16 20:00 98.0 85 18 145/85 95 Nasal Cannula 2.0 10/10/16 20:00 83 10/10/16 16:00 89 10/10/16 16:00 98.1 88 18 148/83 96 Nasal Cannula 2.0 Intake and Output 10/10/16 10/11/16 19:00 07:00 Intake Total 350 ml 120 ml Output Total 2760 ml 150 ml Balance -2410 ml -30 ml Intake Oral 350 ml 120 ml Output Urine Total 225 ml 150 ml Hemodialysis UF 2535 ml # Voids 1 Laboratory Tests 10/11/16 06:45: White Blood Count 9.7, Red Blood Count 2.75L, Hemoglobin 7.9L, Hematocrit 26.1L , Mean Corpuscular Volume 95, Mean Corpuscular Hemoglobin 28.9, Mean Corpuscular Hemoglobin Concent 30.4L, Red Cell Distribution Width 16.3H, Platelet Count 349, Mean Platelet Volume 5.7L, Neutrophils (%) (Auto) , Lymphocytes (%) (Auto) , Monocytes (%) (Auto) , Eosinophils (%) (Auto) , Basophils (%) (Auto) , Differential Total Cells Counted 100, Neutrophils % ( Manual) 69, Lymphocytes % (Manual) 21, Monocytes % (Manual) 9, Eosinophils % ( Manual) 1, Basophils % (Manual) 0, Band Neutrophils 0, Platelet Estimate Adequate, Platelet Morphology Normal, Hypochromasia 1+, Anisocytosis 1+, Sodium Level 140, Potassium Level 3.3L, Chloride Level 94L, Carbon Dioxide Level 32H, Anion Gap 14, Blood Urea Nitrogen 22, Creatinine 3.6H, Estimat Glomerular Filtration Rate 17.2, Glucose Level 107H, Calcium Level 8.1L, Phosphorus Level 4.3, Magnesium Level 2.0, Iron Level 74, Total Iron Binding Capacity 217L, Percent Iron Saturation 34, Unsaturated Iron Binding 143, Ferritin > 2000H, Total Bilirubin 0.5, Aspartate Amino Transf (AST/SGOT) 38, Alanine Aminotransferase (ALT/SGPT) 17, Alkaline Phosphatase 286H, Total Protein 5.7L, Albumin 2.8L, Globulin 2.9, Albumin/Globulin Ratio 0.9L, Free Thyroxine 2.03H Height (Feet): 5 Height (Inches): 1.00 Weight (Pounds): 145 General Appearance: no apparent distress Objective other PE not changed MICHELLE HOOK Oct 11, 2016 15:30
[2016-10-11 16:00] VITALS: BP 143/80
[2016-10-11] MEDS: guaiFENesin 100mg/5ml Liq ud ORAL PRN (19:50)
[2016-10-11 19:58] VITALS: BP 161/99
[2016-10-11] MEDS: Atorvastatin 20mg tab ORAL SCH (21:00)
[2016-10-11] MEDS: Levemir Flexpen SUBQ SCH (21:32)
[2016-10-11 23:36] LABS: APPEARANCE,URINE CLEAR; KETONES,URINE 1+ (NEGATIVE); LEUKOCYTE ESTERASE ,URINE 1+ (NEGATIVE); NITRITE,URINE NEGATIVE (NEGATIVE); PH,URINE 7 (4.5-8.0); PROTEIN,URINE 4+ (NEGATIVE); UROBILINOGEN,URINE NORMAL MG/DL (0.0-1.0)
[2016-10-12 00:04] LABS: BACTERIA,URINE MODERATE /HPF; COARSE GRANULAR CASTS,URINE 0-2 /LPF; FINE GRANULAR CASTS,URINE 0-2 /LPF; RBC,URINE TNTC /HPF (0 - 2); SQUAMOUS EPITHELIAL CELL,UR MODERATE /LPF (NONE/OCC)
[2016-10-12 00:21] VITALS: BP 144/84
[2016-10-12] MEDS: Hydromorphone 0.5mg/0.5ml inj IVP PRN ×4 (03:22→21:32)
[2016-10-12 04:07] VITALS: BP 149/91
[2016-10-12 05:29] LABS: BASOPHILS % (AUTO) 1.2 % (0.0-2.0); EOSINOPHILS % (AUTO) 10.1 % (0.0-3.0); MEAN CORPUSCULAR HEMOGLOBIN 28.8 PG (27.0-31.0); MEAN CORPUSCULAR HGB CONC 31.2 G/DL (32.0-36.0); MEAN CORPUSCULAR VOLUME 92 FL (80-99); MEAN PLATELET VOLUME 5.8 FL (6.5-10.1); MONOCYTES % (AUTO) 12.2 % (1.0-10.0); NEUTROPHILS % (AUTO) 58.6 % (45.0-75.0); PLATELET COUNT 315 K/UL (150-450); RED BLOOD COUNT 2.96 M/UL (4.20-5.40); RED CELL DISTRIBUTION WIDTH 15.7 % (11.6-14.8); WHITE BLOOD COUNT 9.4 K/UL (4.8-10.8)
[2016-10-12 06:01] LABS: CALCIUM 7.5 mg/dL (8.6-10.2); CREATININE 4.2 mg/dL (0.5-0.9); GLOMERULAR FILTRATION RATE 14.4 mL/min (>60); POTASSIUM 3.8 mEQ/L (3.4-4.9)
[2016-10-12] MEDS: Metoclopramide 10mg/2ml Inj IVP SCH ×3 (06:38→16:20)
[2016-10-12] MEDS: NovoLOG Insulin Flexpen SUBQ SCH ×4 (06:38→21:14)
[2016-10-12] MEDS: cloNIDine 0.2mg Tab ORAL SCH ×3 (06:39→21:04)
[2016-10-12] MEDS: Nateglinide 60mg tab ORAL SCH ×3 (06:40→16:21)
[2016-10-12 07:58] VITALS: BP 144/98
--- NOTE | 2016-10-12 08:31 | General Progress Note ---
HARESH BETTENCOURT N.PKylee 10/12/16 0831: Assessment/Plan Assessment/Plan Assessment/Plan Problem List: (1) Nausea & vomiting ICD Codes: R11.2 - Nausea with vomiting, unspecified Seen by GI; appreciate reccs Abd US performed today; pending results No Work up further as symptoms appear to be resolving SNOMED: 26238342 (2) Chest pain ICD Codes: R07.9 - Chest pain, unspecified symptoms resolved no chest pain noted ACS ruled out SNOMED: 67904889 (3) ESRD on dialysis ICD Codes: N18.6 - End stage renal disease; Z99.2 - Dependence on renal dialysis Appreciate Nephrology reccs SNOMED: 534672638 (4) Nephrotic range proteinuria ICD Codes: R80.9 - Proteinuria, unspecified SNOMED: 726902246 (5) Anasarca ICD Codes: R60.1 - Generalized edema SNOMED: 982054461, 117935926 (6) Hypertensive urgency ICD Codes: I16.0 - Hypertensive urgency resolving SNOMED: 067976876 (7) DM (diabetes mellitus) ICD Codes: E11.9 - DM (diabetes mellitus) SNOMED: 53943849 Qualifiers: Qualified Codes: E10.21 - Type 1 diabetes mellitus with diabetic nephropathy Status: stable Assessment/Plan Chest pain appears atypical. Has recent TTE which showed normal EF. Pt has been ruled out for ACS. Does not appear to be DKA Nephrology consulted to resume HD for fluid removal s/p HD on 10/10 w/ 2.5L UF Cont HD per renal GI was consulted; symptoms have been resolving; deferring further w/u at this time Check U/S abd; unable to do today; likely tomorrow Potassium 3.8 today Nausea control w/ Reglan and Zofran PRN Pain control, bowel regimen, supportive care PPI Likely dc tomorrow am if patient stable overnight, PO intake improves, and all specialties agree May downgrade from tele to med-surg today DVT Prophylaxis: SCD Code Status: Full Subjective Date patient seen: Oct 12, 2016 Time patient seen: 08:25 Constitutional: Denies: chills, diaphoresis, fever HEENT: Denies: blurred vision, eye pain, mouth pain, tearing, throat swelling Cardiovascular: Denies: chest pain, edema, irregular heart rate Respiratory: Denies: cough, orthopnea, shortness of breath Gastrointestinal/Abdominal: Reports: abdominal pain, constipated, nausea, poor appetite, Denies: blood in stool, tarry stools Genitourinary: Denies: burning, discharge, frequency Neurologic/Psychiatric: Denies: anxiety, depressed, emotional problems, headache Endocrine: Denies: excessive sweating, flushing Allergies: Coded Allergies: PENICILLINS (Verified Allergy, Unknown, 03/13/15) Subjective Patient states she feels "too weak" to go home today, worried that she feel worse when she goes home. Abd US performed this morning. Objective Last 24 Hour Vital Signs Date Time Temp Pulse Resp B/P Pulse Ox O2 Delivery O2 Flow Rate FiO2 10/12/16 07:58 97.9 76 18 144/98 95 Nasal Cannula 2.0 10/12/16 06:39 149/91 10/12/16 04:07 98.7 78 18 149/91 96 Nasal Cannula 2.0 10/12/16 04:00 72 10/12/16 00:21 98.2 79 19 144/84 95 Nasal Cannula 2.0 10/12/16 00:00 77 10/11/16 21:30 161/99 10/11/16 21:30 79 161/99 10/11/16 20:00 75 10/11/16 19:58 97.3 79 20 161/99 96 Nasal Cannula 2.0 10/11/16 16:00 77 10/11/16 16:00 97.9 77 20 143/80 98 Nasal Cannula 2.0 10/11/16 15:07 145/86 10/11/16 12:02 98.2 10/11/16 12:00 81 10/11/16 11:28 98.2 76 18 145/86 94 Nasal Cannula 2.0 10/11/16 08:47 80 159/106 10/11/16 08:47 80 159/106 Intake and Output 10/11/16 10/12/16 19:00 07:00 Intake Total 470 ml Output Total 100 ml 550 ml Balance 370 ml -550 ml Intake Oral 470 ml Output Urine Total 100 ml 550 ml Laboratory Tests 10/11/16 21:00: Urine Color Yellow, Urine Appearance Clear, Urine pH 7, Urine Specific [place] 1.010, Urine Protein 4+H, Urine Glucose (UA) 3+H, Urine Ketones 1+H, Urine Occult Blood 5+H, Urine Nitrite Negative, Urine Bilirubin Negative, Urine Urobilinogen Normal, Urine Leukocyte Esterase 1+H, Urine RBC TntcH, Urine WBC 10 -15H, Urine Squamous Epithelial Cells ModerateH, Urine Bacteria ModerateH, Urine Fine Granular Casts 0-2H, Urine Coarse Granular Casts 0-2H 10/12/16 04:49: White Blood Count 9.4, Red Blood Count 2.96L, Hemoglobin 8.5L, Hematocrit 27.3L , Mean Corpuscular Volume 92, Mean Corpuscular Hemoglobin 28.8, Mean Corpuscular Hemoglobin Concent 31.2L, Red Cell Distribution Width 15.7H, Platelet Count 315, Mean Platelet Volume 5.8L, Neutrophils (%) (Auto) 58.6, Lymphocytes (%) (Auto) 18.0L, Monocytes (%) (Auto) 12.2H, Eosinophils (%) (Auto ) 10.1H, Basophils (%) (Auto) 1.2, Sodium Level 137, Potassium Level 3.8, Chloride Level 94L, Carbon Dioxide Level 32H, Anion Gap 11, Blood Urea Nitrogen 32H, Creatinine 4.2H, Estimat Glomerular Filtration Rate 14.4, Glucose Level 287 #H, Calcium Level 7.5L Height (Feet): 5 Height (Inches): 1.00 Weight (Pounds): 145 General Appearance: no apparent distress, alert, lethargic EENT: PERRL/EOMI, normal ENT inspection, TMs normal Neck: non-tender, normal alignment, supple Cardiovascular: normal peripheral pulses, normal rate, regular rhythm, regularly irregular Respiratory/Chest: chest wall non-tender, lungs clear, normal breath sounds Abdomen: normal bowel sounds, non tender, soft, no organomegaly Edema: no edema noted Arm (L), no edema noted Arm (R), no edema noted Leg (L), no edema noted Leg (R), no edema noted Pedal (L), no edema noted Pedal (R), no edema noted Generalized Lymphatic: normal anterior cervical (L), normal anterior cervical (R), normal axillary (L), normal axillary (R), normal inguinal (L), normal inguinal (R), normal other, normal posterior cervical (L), normal posterior cervical (R), normal submandibular (L), normal submandibular (R), normal supraclavicular (L), normal supraclavicular (R) Objective Laboratory Tests Test 10/11/16 21:00 10/12/16 04:49 Urine Color Yellow Urine Appearance Clear Urine pH 7 (4.5-8.0) Urine Specific [place] 1.010 (1.005-1.035) Urine Protein 4+ (NEGATIVE) H Urine Glucose (UA) 3+ (NEGATIVE) H Urine Ketones 1+ (NEGATIVE) H Urine Occult Blood 5+ (NEGATIVE) H Urine Nitrite Negative (NEGATIVE) Urine Bilirubin Negative (NEGATIVE) Urine Urobilinogen Normal MG/DL (0.0-1.0) Urine Leukocyte Esterase 1+ (NEGATIVE) H Urine RBC Tntc /HPF (0 - 2) H Urine WBC 10-15 /HPF (0 - 2) H Urine Squamous Epithelial Cells Moderate /LPF (NONE/OCC) H Urine Bacteria Moderate /HPF (NONE) H Urine Fine Granular Casts 0-2 /LPF (NONE) H Urine Coarse Granular Casts 0-2 /LPF (NONE) H White Blood Count 9.4 K/UL (4.8-10.8) Red Blood Count 2.96 M/UL (4.20-5.40) L Hemoglobin 8.5 G/DL (12.0-16.0) L Hematocrit 27.3 % (37.0-47.0) L Mean Corpuscular Volume 92 FL (80-99) Mean Corpuscular Hemoglobin 28.8 PG (27.0-31.0) Mean Corpuscular Hemoglobin Concent 31.2 G/DL (32.0-36.0) L Red Cell Distribution Width 15.7 % (11.6-14.8) H Platelet Count 315 K/UL (150-450) Mean Platelet Volume 5.8 FL (6.5-10.1) L Neutrophils (%) (Auto) 58.6 % (45.0-75.0) Lymphocytes (%) (Auto) 18.0 % (20.0-45.0) L Monocytes (%) (Auto) 12.2 % (1.0-10.0) H Eosinophils (%) (Auto) 10.1 % (0.0-3.0) H Basophils (%) (Auto) 1.2 % (0.0-2.0) Sodium Level 137 mEQ/L (135-145) Potassium Level 3.8 mEQ/L (3.4-4.9) Chloride Level 94 mEQ/L (98-107) L Carbon Dioxide Level 32 mEQ/L (20-30) H Anion Gap 11 (5-15) Blood Urea Nitrogen 32 mg/dL (7-23) H Creatinine 4.2 mg/dL (0.5-0.9) H Estimat Glomerular Filtration Rate 14.4 mL/min (>60) Glucose Level 287 mg/dL (74-106) #H Calcium Level 7.5 mg/dL (8.6-10.2) L HOWIE HARRIS 10/16/16 1622: Assessment/Plan Assessment/Plan I saw and examined the patient, reviewed the case in detail, reviewed radiology and EKG if applicable, in addition reviewing the laboratory data and microbiology. I agree with the history, physical examination findings, assessment and plan of care as outlined above by the Nurse Practitioner with any additions or modifications noted. Subjective Allergies: Coded Allergies: PENICILLINS (Verified Allergy, Unknown, 03/13/15) HARESH BETTENCOURT [email or web address] Oct 12, 2016 08:31 HOWIE HARRIS Oct 16, 2016 16:22
[2016-10-12] MEDS: Sorbitol Solution UD 30ml ORAL SCH ×2 (09:00→09:03)
[2016-10-12] MEDS: Aspirin Baby 81mg ORAL SCH (09:02)
[2016-10-12] MEDS: Pantoprazole Inj IVP SCH (09:02)
[2016-10-12] MEDS: guaiFENesin 100mg/5ml Liq ud ORAL PRN (09:03)
--- NOTE | 2016-10-12 11:31 | General Progress Note ---
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 HTN OOC Anemia- HypoAlbuminemia - Nephrotic syndrome s/p DKA Plan: HD 10/12 again On PO Reglan add hydralazine PO s/p transfused previously: 24 h urine CrCl and Protein-CrCl 15 over 6 gram protein EPO BP control 2D echo done previously adjust BP meds Placement issues Subjective ROS Limited/Unobtainable: No Constitutional: Reports: malaise Allergies: Coded Allergies: PENICILLINS (Verified Allergy, Unknown, 03/13/15) Objective Last 24 Hour Vital Signs Date Time Temp Pulse Resp B/P Pulse Ox O2 Delivery O2 Flow Rate FiO2 10/12/16 09:02 76 144/98 10/12/16 09:02 76 144/98 10/12/16 08:00 75 10/12/16 07:58 97.9 76 18 144/98 95 Nasal Cannula 2.0 10/12/16 06:39 149/91 10/12/16 04:07 98.7 78 18 149/91 96 Nasal Cannula 2.0 10/12/16 04:00 72 10/12/16 00:21 98.2 79 19 144/84 95 Nasal Cannula 2.0 10/12/16 00:00 77 10/11/16 21:30 161/99 10/11/16 21:30 79 161/99 10/11/16 20:00 75 10/11/16 19:58 97.3 79 20 161/99 96 Nasal Cannula 2.0 10/11/16 16:00 77 10/11/16 16:00 97.9 77 20 143/80 98 Nasal Cannula 2.0 10/11/16 15:07 145/86 10/11/16 12:02 98.2 10/11/16 12:00 81 Intake and Output 10/11/16 10/12/16 19:00 07:00 Intake Total 470 ml Output Total 100 ml 550 ml Balance 370 ml -550 ml Intake Oral 470 ml Output Urine Total 100 ml 550 ml Laboratory Tests 10/11/16 21:00: Urine Color Yellow, Urine Appearance Clear, Urine pH 7, Urine Specific [place] 1.010, Urine Protein 4+H, Urine Glucose (UA) 3+H, Urine Ketones 1+H, Urine Occult Blood 5+H, Urine Nitrite Negative, Urine Bilirubin Negative, Urine Urobilinogen Normal, Urine Leukocyte Esterase 1+H, Urine RBC TntcH, Urine WBC 10 -15H, Urine Squamous Epithelial Cells ModerateH, Urine Bacteria ModerateH, Urine Fine Granular Casts 0-2H, Urine Coarse Granular Casts 0-2H 10/12/16 04:49: White Blood Count 9.4, Red Blood Count 2.96L, Hemoglobin 8.5L, Hematocrit 27.3L , Mean Corpuscular Volume 92, Mean Corpuscular Hemoglobin 28.8, Mean Corpuscular Hemoglobin Concent 31.2L, Red Cell Distribution Width 15.7H, Platelet Count 315, Mean Platelet Volume 5.8L, Neutrophils (%) (Auto) 58.6, Lymphocytes (%) (Auto) 18.0L, Monocytes (%) (Auto) 12.2H, Eosinophils (%) (Auto ) 10.1H, Basophils (%) (Auto) 1.2, Sodium Level 137, Potassium Level 3.8, Chloride Level 94L, Carbon Dioxide Level 32H, Anion Gap 11, Blood Urea Nitrogen 32H, Creatinine 4.2H, Estimat Glomerular Filtration Rate 14.4, Glucose Level 287 #H, Calcium Level 7.5L Height (Feet): 5 Height (Inches): 1.00 Weight (Pounds): 145 General Appearance: no apparent distress Cardiovascular: normal rate Respiratory/Chest: decreased breath sounds Objective other PE not changed MICHELLE HOOK Oct 12, 2016 11:31
[2016-10-12 11:53] VITALS: BP 164/111
[2016-10-12] MEDS ORDERED: guaiFENesin 100mg/5ml Liq ud ORAL PRN (13:00)
[2016-10-12] MEDS ORDERED: Miralax 17gm pkt ORAL PRN (13:00)
[2016-10-12] MEDS ORDERED: Cyclobenzaprine 10mg Tab ORAL PRN (13:00)
[2016-10-12] MEDS ORDERED: HydrOXYzine 25mg tab ORAL PRN (13:00)
[2016-10-12] MEDS ORDERED: Metoclopramide 10mg/2ml Inj IVP PRN (13:00)
[2016-10-12] MEDS ORDERED: HydrALAZINE 25mg tab ORAL SCH (14:00)
[2016-10-12] MEDS: HydrALAZINE 25mg tab ORAL SCH ×2 (14:08→21:04)
[2016-10-12] MEDS ORDERED: HYDROmorphone 2mg tab ORAL PRN (14:30)
[2016-10-12 16:18] VITALS: BP 165/100
[2016-10-12] MEDS: Metoprolol 25mg tab ORAL PRN (16:20)
[2016-10-12 20:00] VITALS: BP 132/77
[2016-10-12] MEDS ORDERED: Atorvastatin 20mg tab ORAL SCH (21:00)
[2016-10-12] MEDS ORDERED: Levemir Flexpen SUBQ SCH (21:00)
--- NOTE | 2016-10-12 23:42 | General Progress Note ---
Assessment/Plan Assessment/Plan Assessment - Transient/resolved abd pain, N/V - ? resolved viral gastroenteritis - Chronic constipation - ESRD - HTN - DM Recommendations - Push PO - Follow symptoms - Bowel regimen - further w/u if symptoms continue Subjective Allergies: Coded Allergies: PENICILLINS (Verified Allergy, Unknown, 03/13/15) Subjective Feels better no vomiting tolerating PO Objective Last 24 Hour Vital Signs Date Time Temp Pulse Resp B/P Pulse Ox O2 Delivery O2 Flow Rate FiO2 10/12/16 21:04 132/77 10/12/16 21:04 132/77 10/12/16 21:02 74 132/77 10/12/16 20:00 98.1 74 20 132/77 92 Nasal Cannula 2.0 10/12/16 17:05 98.1 10/12/16 16:20 71 165/100 10/12/16 16:18 98.1 71 18 165/100 90 Room Air 10/12/16 14:08 164/111 10/12/16 14:08 164/111 10/12/16 11:53 98.0 75 20 164/111 99 Nasal Cannula 2.0 10/12/16 09:02 76 144/98 10/12/16 09:02 76 144/98 10/12/16 08:00 75 10/12/16 07:58 97.9 76 18 144/98 95 Nasal Cannula 2.0 10/12/16 06:39 149/91 10/12/16 04:07 98.7 78 18 149/91 96 Nasal Cannula 2.0 10/12/16 04:00 72 10/12/16 00:21 98.2 79 19 144/84 95 Nasal Cannula 2.0 10/12/16 00:00 77 Intake and Output 10/11/16 10/12/16 19:00 07:00 Intake Total 470 ml Output Total 100 ml 550 ml Balance 370 ml -550 ml Intake Oral 470 ml Output Urine Total 100 ml 550 ml Laboratory Tests 10/12/16 04:49: White Blood Count 9.4, Red Blood Count 2.96L, Hemoglobin 8.5L, Hematocrit 27.3L , Mean Corpuscular Volume 92, Mean Corpuscular Hemoglobin 28.8, Mean Corpuscular Hemoglobin Concent 31.2L, Red Cell Distribution Width 15.7H, Platelet Count 315, Mean Platelet Volume 5.8L, Neutrophils (%) (Auto) 58.6, Lymphocytes (%) (Auto) 18.0L, Monocytes (%) (Auto) 12.2H, Eosinophils (%) (Auto ) 10.1H, Basophils (%) (Auto) 1.2, Sodium Level 137, Potassium Level 3.8, Chloride Level 94L, Carbon Dioxide Level 32H, Anion Gap 11, Blood Urea Nitrogen 32H, Creatinine 4.2H, Estimat Glomerular Filtration Rate 14.4, Glucose Level 287 #H, Calcium Level 7.5L Height (Feet): 5 Height (Inches): 1.00 Weight (Pounds): 145 Objective WDWN NCAT supple CTA soft ND NT no edema non focal MEL GOODWIN Oct 12, 2016 23:42
[2016-10-13] VITALS (8 sets, daily range): BP systolic 119–174; BP diastolic 72–125
[2016-10-13] MEDS: Metoprolol 25mg tab ORAL PRN (04:48)
[2016-10-13] MEDS: cloNIDine 0.2mg Tab ORAL SCH ×2 (06:00→14:37)
[2016-10-13] MEDS: HydrALAZINE 25mg tab ORAL SCH ×2 (06:00→14:37)
[2016-10-13] MEDS: NovoLOG Insulin Flexpen SUBQ SCH ×3 (06:08→16:36)
[2016-10-13] MEDS: Metoclopramide 10mg/2ml Inj IVP SCH ×3 (07:07→16:28)
[2016-10-13] MEDS: Nateglinide 60mg tab ORAL SCH ×3 (07:08→16:29)
[2016-10-13] MEDS ORDERED: Aspirin Baby 81mg ORAL SCH (09:00)
[2016-10-13] MEDS ORDERED: Sorbitol Solution UD 30ml ORAL SCH (09:00)
--- NOTE | 2016-10-13 09:48 | Nephrology Progress Note ---
Assessment/Plan Problem List: (1) ESRD on dialysis (2) Nephrotic syndrome (3) HTN (hypertension) (4) Anemia (5) DM (diabetes mellitus) Plan Dialyzed today more UF with next HD DC doss cont Epo Discussed with RN Subjective Subjective was dialyzed Objective Objective Last 24 Hour Vital Signs Date Time Temp Pulse Resp B/P Pulse Ox O2 Delivery O2 Flow Rate FiO2 10/13/16 09:09 Nasal Cannula 2.0 10/13/16 09:08 98.4 74 18 169/92 95 Nasal Cannula 2.0 10/13/16 08:51 98.4 99 20 153/125 98 Room Air 10/13/16 08:50 98.4 99 20 153/ 98 Room Air 10/13/16 06:00 146/91 10/13/16 06:00 146/91 10/13/16 05:45 Nasal Cannula 2.0 10/13/16 05:30 97.8 70 18 170/98 Nasal Cannula 2.0 10/13/16 04:48 70 170/98 10/13/16 04:00 97.8 70 19 170/98 92 Nasal Cannula 2.0 10/13/16 00:00 98.2 69 19 147/91 93 Room Air 10/12/16 21:04 132/77 10/12/16 21:04 132/77 10/12/16 21:02 74 132/77 10/12/16 20:00 98.1 74 20 132/77 92 Nasal Cannula 2.0 10/12/16 17:05 98.1 10/12/16 16:20 71 165/100 10/12/16 16:18 98.1 71 18 165/100 90 Room Air 10/12/16 14:08 164/111 10/12/16 14:08 164/111 10/12/16 11:53 98.0 75 20 164/111 99 Nasal Cannula 2.0 Intake and Output 10/12/16 10/13/16 19:00 07:00 Intake Total 500 ml 240 ml Output Total 600 ml 500 ml Balance -100 ml -260 ml Intake Oral 500 ml 240 ml Output Urine Total 600 ml 500 ml # Voids 1 Height (Feet): 5 Height (Inches): 1.00 Weight (Pounds): 145 Cardiovascular: normal rate Respiratory/Chest: lungs clear Extremities: severe edema PONCE WORKMAN Oct 13, 2016 09:48
--- NOTE | 2016-10-13 12:11 | Diagnostic Imaging Report ---
Indications: Abdominal pain Technique: Transabdominal real-time grayscale and duplex Doppler imaging of the upper abdomen and retroperitoneum was performed. Findings: Comparison: 05/24/16. Liver 18.5 cm in length. Normal surface contour, parenchymal echogenicity. No focal lesions. Gallbladder contracted, limiting evaluation. No obvious intraluminal stones or sludge. True wall thickness indeterminate. No adjacent fluid collections. Sonographic Good sign not reported.. Bile ducts normal caliber. Common bile duct 1.3 mm. Pancreas visualized portions unremarkable. Spleen unremarkable. Right kidney demonstrates mildly increased cortical echogenicity, otherwise unremarkable. Left kidney demonstrates mildly increased cortical echogenicity, otherwise unremarkable. Abdominal aorta, intrahepatic portion of inferior vena cava patent, normal caliber. Duplex Doppler imaging demonstrates antegrade flow in splenic, portal, hepatic veins. No ascites. Bilateral pleural effusions. IMPRESSION: Mild hepatomegaly Limited evaluation of gallbladder due to contraction. No obvious acute abnormality or stones. Bilateral renal cortical increased echogenicity compatible with medical renal disease, nonspecific Bilateral pleural effusions, nonspecific. No significant change from previous exam
[2016-10-13] MEDS: Hydromorphone 0.5mg/0.5ml inj IVP PRN (14:33)
[2016-10-13] MEDS ORDERED: HYDRALAZINE HCL25 M1 ORAL (15:08)
[2016-10-13] MEDS ORDERED: CLONIDINE 0.2M0.2 MG ORAL (15:28)
--- NOTE | 2016-10-13 15:35 | Discharge Summary ---
Discharge Summary Hospital Course Date of Admission Oct 08, 2016 at 22:39 Date of Discharge 10/13/16 Admitting Diagnosis chest pain, acute coronary syndrome HPI Ashli Barboza is a 36 year old female who was admitted on Oct 08, 2016 at 22:39 for Chest Pain,Acute Coronary Syndrome Discharge Condition Upon Discharge: stable Discharge Disposition Patient was discharged to Discharge Diagnoses: Gudelia Rudolph M.D. Oct 13, 2016 15:35
--- NOTE | 2016-10-13 17:28 | General Progress Note ---
Assessment/Plan Assessment/Plan Assessment - Transient/resolved abd pain, N/V - ? resolved viral gastroenteritis - Chronic constipation - ESRD - HTN - DM Recommendations - Push PO - Follow symptoms - Bowel regimen - further w/u if symptoms continue Subjective Allergies: Coded Allergies: PENICILLINS (Verified Allergy, Unknown, 03/13/15) Subjective Feels better no vomiting tolerating PO for d/c today Objective Last 24 Hour Vital Signs Date Time Temp Pulse Resp B/P Pulse Ox O2 Delivery O2 Flow Rate FiO2 10/13/16 16:59 98.1 74 20 119/72 98 Room Air 10/13/16 15:03 98.2 10/13/16 14:37 125/73 10/13/16 14:37 125/73 10/13/16 11:56 98.1 83 18 174/93 93 Room Air 10/13/16 11:11 83 175/95 10/13/16 10:58 83 175/95 10/13/16 09:09 Nasal Cannula 2.0 10/13/16 09:08 98.4 74 18 169/92 95 Nasal Cannula 2.0 10/13/16 08:51 98.4 99 20 153/125 98 Room Air 10/13/16 08:50 98.4 99 20 153/ 98 Room Air 10/13/16 06:00 146/91 10/13/16 06:00 146/91 10/13/16 05:45 Nasal Cannula 2.0 10/13/16 05:30 97.8 70 18 170/98 Nasal Cannula 2.0 10/13/16 04:48 70 170/98 10/13/16 04:00 97.8 70 19 170/98 92 Nasal Cannula 2.0 10/13/16 00:00 98.2 69 19 147/91 93 Room Air 10/12/16 21:04 132/77 10/12/16 21:04 132/77 10/12/16 21:02 74 132/77 10/12/16 20:00 98.1 74 20 132/77 92 Nasal Cannula 2.0 Intake and Output 10/12/16 10/13/16 19:00 07:00 Intake Total 500 ml 240 ml Output Total 600 ml 500 ml Balance -100 ml -260 ml Intake Oral 500 ml 240 ml Output Urine Total 600 ml 500 ml # Voids 1 Height (Feet): 5 Height (Inches): 1.00 Weight (Pounds): 145 Objective WDWN NCAT supple CTA soft ND NT no edema non focal MEL GOODWIN Oct 13, 2016 17:28
[2016-10-13] MEDS ORDERED: Epogen (for ESRD on dialysis) SUBQ SCH (21:00)
== END 2016-10-13 19:53 | disposition home health service (06) | DRG 391 ==
LOC: EMR 22:12 → EDBEDREQ 22:31 → 2E 22:39 → EDBEDREQ 10-09 00:38 → 3E 10-12 11:30
PROC: 5A1D60Z (ICD-10-PCS; principal; 2016-10-10)
DX: A08.4 Viral intestinal infection, unspecified (principal); N18.6 End stage renal disease; I12.0 Hypertensive chronic kidney disease with stage 5 chronic kidney disease or end stage renal disease; E11.21 Type 2 diabetes mellitus with diabetic nephropathy; Z99.2 Dependence on renal dialysis; E88.09 Other disorders of plasma-protein metabolism, not elsewhere classified; R07.89 Other chest pain; I16.0 Hypertensive urgency; R10.9 Unspecified abdominal pain; D64.9 Anemia, unspecified; E03.9 Hypothyroidism, unspecified; Z79.4 Long term (current) use of insulin; Z88.0 Allergy status to penicillin; K59.00 Constipation, unspecified; R60.1 Generalized edema
CPT/HCPCS: 36415; 71010; 76700; 80048; 80053; 80061; 81003; 82009; 82010; 82550; 82553; 82728; 82962; 82977; 83036; 83540; 83550; 83735; 83880; 84100; 84439; 84443; 84484; 84550; 85007; 85025; 86140; 87081; 87086; 87181; 93005; J1815; J2405; J2765; J8499; S5561